=== PATIENT | female | born 1960 | race Caucasian/White ===

== ENCOUNTER 2016-08-30 12:40 | Inpatient (IN) | payer OTHER ==
[~2016-08-30] VITALS: Ht 157.5 cm; Wt 70.0 kg
[~2016-08-30 12:40] MED LIST: CLON0.2T5 PO; COLC0.6T6 PO; ETOMIDATE 20 MG INJ ONE; LABE200T25 PO; LEVO500T10 PO; NIFE60TA11 PO; ROCURONIUM 50 MG INJ ONE; SEVE800T7 PO; VALS160T20 PO
[2016-08-30] MEDS ORDERED: PROPOFOL 100 ML IV STA (12:52)
[2016-08-30] MEDS ORDERED: SODIUM CHLORIDE 0.9% 500 ML BAG IV* STA (12:52)
[2016-08-30] MEDS ORDERED: CEFEPIME 2GM/50 ML (PMX) 50 ML IVPB STA (12:52)
[2016-08-30] MEDS ORDERED: VECURONIUM 100 MG in DEXTROSE 5% 100 ML IV ONE (12:52)
[2016-08-30] MEDS ORDERED: SOD CHLORIDE 0.9% 1,000 ML IV STA ×2 (12:52)
[2016-08-30] MEDS ORDERED: VECURONIUM 10 MG VIAL IV ONE (13:00)
[2016-08-30] MEDS ORDERED: VANCOMYCIN 1 GM (PMX) 250 ML IVPB ONE (13:00)
[2016-08-30] MEDS ORDERED: HYDROmorphONE 1 MG/ML SYG IV STA (13:03)
[2016-08-30 13:23] LABS: ALBUMIN 3.5 g/dl (3.3-4.9); INR 1.08; PT RATIO 1.1
[2016-08-30 13:24] LABS: PARTIAL THROMBOPLASTIN TIME 38.2 Sec (25.0-35.0); POTASSIUM 5.8 mmol/L (3.5-5.1)
[2016-08-30 13:25] LABS: BASOPHILS % 0.3 % (0.0-2.0); EOSINOPHILS # 0.1 10^3/ul (0.0-0.5); EOSINOPHILS % 0.4 % (0.0-7.0); HEMATOCRIT 39.2 % (37.0-47.0); HEMOGLOBIN 12.4 g/dl (12.0-16.0); LYMPHOCYTES # 3.9 10^3/ul (0.8-2.9); LYMPHOCYTES % 26.3 % (15.0-51.0); MEAN CORPUSCULAR HEMOGLOBIN 29.6 pg (29.0-33.0); MEAN CORPUSCULAR HGB CONC 31.7 g/dl (32.0-37.0); MEAN CORPUSCULAR VOLUME 93.6 fl (82.0-101.0); MEAN PLATELET VOLUME 7.8 fl (7.4-10.4); MONOCYTE # 0.7 10^3/ul (0.3-0.9); MONOCYTES % 4.5 % (0.0-11.0); NEUTROPHIL # 10.2 10^3/ul (1.6-7.5); NEUTROPHILS % 68.5 % (39.0-77.0); PLATELET COUNT 280 10^3/UL (140-440); RED BLOOD COUNT 4.19 10^6/ul (4.20-5.40); RED CELL DISTRIBUTION WIDTH 17.2 % (11.5-14.5); UNCORRECTED WBC 14.9 10^3/ul (4.8-10.8); WHITE BLOOD COUNT 14.9 10^3/ul (4.8-10.8)
[2016-08-30 13:26] LABS: ALBUMIN/GLOBULIN RATIO 1.02; CREATININE 7.97 mg/dl (0.44-1.00); TOTAL PROTEIN 6.9 g/dl (6.1-8.1)
[2016-08-30 13:27] LABS: CALCIUM 10.9 mg/dl (8.4-10.2); PHOSPHORUS 9.8 mg/dl (2.5-4.9)
[2016-08-30 13:28] LABS: CONDITION 1; LH ANALYZER COMMENTS 1
[2016-08-30] MEDS ORDERED: LABETALOL HCL 20MG INJ IV ONE (13:30)
[2016-08-30 13:38] LABS: TROPONIN-I 0.095 ng/ml (0.00-0.12)
--- NOTE | 2016-08-30 13:52 | RADRPT ---
PROCEDURE: Chest x-ray CLINICAL INDICATION: Shortness of breath TECHNIQUE: Chest single view COMPARISON: 07/30/2016 FINDINGS: There is interval placement of endotracheal tube which terminates 3 cm above the kassi. Nasogastri c tube extends in the stomach. There is right IJ dialysis catheter with tip at the right atrial SVC junction. Stable mild cardiomegaly is identified. There is ongoing moderate to severe CHF. Small bilateral pleural effusions are seen. IMPRESSION: 1. Interval placement of endotracheal tube which terminates 3 cm above the kassi. 2. Nasogastric tube extends in the stomach. 3. Right IJ dialysis catheter remains in place. 4. Cardiomegaly with ongoing moderate to severe CHF and small bilateral pleural effusion RPTAT: HH .Kev Yoo MD, Date Time Electronically viewed and signed by .Kev Yoo MD, on 08/30/2016 13:51 .W/
[2016-08-30] MEDS ORDERED: NIFE90TA11 PO (14:16)
[2016-08-30 14:17] LABS: AADO2 Arterial 513.8 mmHg (7.0-24.0); Arterial Base Excess -2.3 mmol/L (-3.0-3); Arterial COHb 0.5 % (0.0-3.0); Arterial Fraction of Oxyhgb 98.1 % (93.0-99.0); Arterial HCO3 24.1 mmol/L (22.0-26.0); Arterial MetHb 0.1 % (0.0-1.5); Arterial Total Hemglobin 12.7 g/dl (12.0-18.0); MODE VENT - AC
[2016-08-30] MEDS ORDERED: SEVE0.8P PO (14:17)
[2016-08-30] MEDS ORDERED: SPIR50TA PO (14:18)
[2016-08-30] MEDS ORDERED: ALBU18HF INHALATION (14:18)
[2016-08-30] MEDS ORDERED: SODI650T PO (14:18)
[2016-08-30] MEDS ORDERED: NEPH PO (14:19)
[2016-08-30] MEDS ORDERED: FOLI-49 PO (14:19)
[2016-08-30] MEDS ORDERED: niCARdipine-D5W 0.1MG/ML DRIP 200 ML IV STA (15:26)
--- NOTE | 2016-08-30 15:31 | RADRPT ---
PROCEDURE: CT brain without contrast CLINICAL INDICATION: Altered mental status, TECHNIQUE: CT of the brain without contrast performed on a multidetector CT scanner, with multiplan ar reformats. One or more of the following dose reduction techniques were used: Automated exposure control, adjustment in mA and / or kV according to patient size, use of iterative reconstructive luis hnique. CTDIvol = 44 mGy; DLP = 630 mGy-cm. COMPARISON: None available FINDINGS: No acute intracranial hemorrhage is identified. No extra-axial fluid collection is seen. There is no mass effect. No midline shift is identified. Ventricles and sulci are mildly enlarged compatible with generalized volume loss. The density of the brain is unremarkable. Barragan-white differentiation is preserved. Atherosclerotic calcifications of the intracranial internal carotid arteries are noted. Osseous structures are unremarkable. There is partial bilateral ethmoid air cell opacification, and partial bilateral sphenoid sinus opacification with fluid levels. IMPRESSION: 1. No evidence of acute intracranial pathology. 2. Mild generalized volume loss. RPTAT: VV .Carlos Brewer MD, Date Time Electronically viewed and signed by .Carlos Brewer MD, on 08/30/2016 15:31 .O/
[2016-08-30] MEDS ORDERED: LORAZEPAM 2 MG INJ IV PRN (17:30)
[2016-08-30] MEDS: PROPOFOL 100 ML IV SCH (17:30)
[2016-08-30] MEDS ORDERED: VECURONIUM 100 MG in DEXTROSE 5% 100 ML IV SCH (17:30)
[2016-08-30] MEDS ORDERED: VANCOMYCIN IV PER PHARMACY XX SCH (17:30)
[2016-08-30 17:41] LABS: ADD UMIC YES; URINE BILIRUBIN (Dip) NEGATIVE (NEGATIVE); URINE BLOOD (Dip) 2+ (NEGATIVE); URINE COLOR LT. YELLOW (YELLOW); URINE KETONES (Dip) NEGATIVE (NEGATIVE); URINE LEUKOCYTE ESTERASE (Dip) TRACE (NEGATIVE); URINE NITRITE (Dip) NEGATIVE (NEGATIVE); URINE TOTAL PROTEIN (Dip) 4+ (NEGATIVE); URINE UROBILINOGEN (Dip) 0.2 E.U./dL (0.1-1.0)
[2016-08-30] MEDS ORDERED: INSULIN ASPART [NOVOLOG] 3 ML PEN SC SCH (18:00)
[2016-08-30] MEDS: Insulin NOVOLOG SS MILD Algorithm (NPO/TPN/ENTERAL FEEDS) SC SCH (18:00)
--- NOTE | 2016-08-30 18:07 | ERA ---
ER Documentation Chief Complaint Date/Time DATE: 08/30/16 TIME: 17:58 Chief Complaint Cardiac arrest HPI Patient is a 56-year-old female with dialysis who presents in cardiac arrest. Please note the history and physical exam is limited given the patient mental status at this time. The patient was brought in by ambulance. She was a PEA cardiac arrest at her house. She had shortness of breath prior. She was given 3 epinephrine and 1 bicarb and 1 D50 by paramedics. A Ariel tube was placed in the field. I cannot obtain history otherwise. ROS All systems reviewed and are negative except as per history of present illness. Medications Home Meds Reported Medications Folic Acid* (Folic Acid*) 1 Mg Tablet, 1 MG PO DAILY, TAB 08/30/16 Multivit/Ca Carb/B Cmplx/Fa* (Shana-Negar*) 1 Tab Tab, 1 TAB PO DAILY, TAB 08/30/16 Sodium Bicarbonate* (Sodium Bicarbonate*) 650 Mg Tablet, 650 MG PO BID, TAB 08/30/16 Spironolactone* (Aldactone*) 50 Mg Tablet, 50 MG PO DAILY, #30 TAB 08/30/16 Albuterol Sulfate* (Ventolin HFA*) 18 Gm Hfa.aer.ad, 2 PUFF INHALATION Q4H Y for WHEEZING AND SOB, #1 INHALER 08/30/16 Sevelamer Carbonate* (Renvela*) 0.8 Gm Powd.pack, 1.6 GM PO WITH MEALS, PACKET 08/30/16 Nifedipine* (Nifedipine ER*) 90 Mg Tablet.er, 90 MG PO DAILY, TAB 08/30/16 Labetalol Hcl* (Labetalol Hcl*) 200 Mg Tablet, 200 MG PO TID, TAB 07/31/16 Clonidine Hcl* (Clonidine Hcl*) 0.2 Mg Tablet, 0.2 MG PO DAILY for ELEVATED BLOOD PRESSURE, TAB FOR BLOOD PRESSURE >170/90 07/31/16 Discontinued Reported Medications Nifedipine (Nifedical Xl) 60 Mg Tab.er.24, 60 MG PO QHS, TAB 07/31/16 Valsartan* (Diovan*) 160 Mg Tablet, 160 MG PO BID, TAB 07/31/16 Colchicine* (Colcrys*) 0.6 Mg Tablet, 0.6 MG PO BID, TAB 07/31/16 Sevelamer Carbonate* (Renvela*) 800 Mg Tablet, 0.8 GM PO WITH MEALS, TAB 07/31/16 Discontinued Scripts Levofloxacin* (Levofloxacin*) 500 Mg Tablet, 500 MG PO Q48H for 10 Days, TAB Prov:TANIA FLOYD MD 08/01/16 Allergies Allergies: Coded Allergies: No Known Drug Allergies (Verified Allergy, Unknown, 08/30/16) PMhx/Soc Positive for dialysis Medical and Surgical Hx: Unable to obtain Hx Psychiatric Problems: No Hx Miscellaneous Medical Probl: No Hx Alcohol Use: No Hx Substance Use: No Hx Tobacco Use: No Smoking Status: Never smoker FmHx Unable to obtain Physical Exam Vitals Vital Signs Date Time Temp Pulse Resp B/P Pulse Ox O2 Delivery O2 Flow Rate FiO2 08/30/16 17:18 96.0 97 18 217/140 100 Mechanical Ventilator 08/30/16 15:37 113 18 168/155 100 08/30/16 15:10 96.1 76 20 204/130 100 Mechanical Ventilator 08/30/16 14:00 96.1 80 20 191/124 100 Mechanical Ventilator 08/30/16 13:44 84 18 195/119 100 Mechanical Ventilator 08/30/16 13:16 103 20 227/148 100 Mechanical Ventilator 08/30/16 13:00 78 20 100 100 08/30/16 13:00 96.0 115 17 228/158 100 Mechanical Ventilator 08/30/16 12:45 90 20 168/155 100 Mechanical Ventilator Physical Exam Const: Critically ill Head: Atraumatic Eyes: Normal Conjunctiva ENT: Ariel tube in place Neck: Full range of motion..~ No meningismus. Resp: Clear to auscultation bilaterally Cardio: Regular rate and rhythm, no murmurs Abd: Soft, non tender, non distended. Normal bowel sounds Skin: Pale Back: No midline or flank tenderness Ext: No cyanosis, or edema Neur: GCS 1, 1, 1 Result Diagram: 08/30/16 1245 08/30/16 1245 Results 24 hrs Laboratory Tests Test 08/30/16 12:45 08/30/16 12:52 Activated Partial Thromboplast Time 38.2Sec Alanine Aminotransferase (ALT/SGPT) 59IU/L Albumin 3.5g/dl Albumin/Globulin Ratio 1.02 Alkaline Phosphatase 127IU/L Anion Gap 30 Aspartate Amino Transf (AST/SGOT) 72IU/L Basophils # 0.010^3/ul Basophils % 0.3% Blood Morphology Comment Blood Urea Nitrogen 38mg/dl Calcium Level 10.9mg/dl Carbon Dioxide Level 21mmol/L Chloride Level 94mmol/L Creatinine 7.97mg/dl Direct Bilirubin 0.00mg/dl Eosinophils # 0.110^3/ul Eosinophils % 0.4% Globulin 3.40g/dl Glucose Level 269mg/dl Hematocrit 39.2% Hemoglobin 12.4g/dl INR International Normalized Ratio 1.08 Indirect Bilirubin 0.0mg/dl Lactic Acid Level 7.9mmol/L Lymphocytes # 3.910^3/ul Lymphocytes % 26.3% Magnesium Level 2.0mg/dl Mean Corpuscular Hemoglobin 29.6pg Mean Corpuscular Hemoglobin Concent 31.7g/dl Mean Corpuscular Volume 93.6fl Mean Platelet Volume 7.8fl Monocytes # 0.710^3/ul Monocytes % 4.5% Neutrophils # 10.210^3/ul Neutrophils % 68.5% Nucleated Red Blood Cells # 0.010^3/ul Nucleated Red Blood Cells % 0.0/100WBC Phosphorus Level 9.8mg/dl Platelet Count 15920^3/UL Potassium Level 5.8mmol/L Prothrombin Time 14.0Sec Prothrombin Time Ratio 1.1 Red Blood Count 4.1910^6/ul Red Cell Distribution Width 17.2% Sodium Level 139mmol/L Total Bilirubin 0.0mg/dl Total Protein 6.9g/dl Troponin I 0.095ng/ml White Blood Count 14.910^3/ul Arterial Blood HCO3 24.1mmol/L Arterial Blood Base Excess -2.3mmol/L Arterial Blood Oxygen Saturation 98.7mmHG Cristian Test N/A Arterial Blood Gas Puncture Site Right Brachial Arterial Blood Carboxyhemoglobin 0.5% Arterial Blood Date Drawn 08/30/2016 2:05:44 PM Arterial Blood Methemoglobin 0.1% Arterial Blood pCO2 (Temp correct) 48.2mmhg Arterial Blood pH (Temp corrected) 7.317 Arterial Blood pO2 (Temp corrected) 151.0mmHG Blood Gas A-a O2 Differential 513.8mmHg Blood Gas Actual Respiration Rate 20 Blood Gas Low PEEP Setting 5.0cmH2O Blood Gas Modality VENT - AC Blood Gas Notified Time 08/30/2016 2:17:23 PM Blood Gas Notified Whom AT Blood Gas Respiration Rate 20.0 Blood Gas Specimen Source Blood arterial Blood Gas Temperature 37.0C Blood Gas Tidal Volume 450.0mL FiO2 100.0% Oxyhemoglobin Percent 98.1% Total Hemoglobin 12.7g/dl Current Medications Medications (Trade) Dose Ordered Sig/Vanessa Route PRN Reason Start Time Stop Time Status Last Admin Dose Admin Sodium Chloride 500 ml 500 ml ONCE STAT IV* 08/30/16 12:52 08/30/16 12:54 DC Propofol (Diprivan) 100 ml @ 0 mls/hr ONCE STAT IV 08/30/16 12:52 08/30/16 12:54 DC 08/30/16 13:15 Vecuronium [place] 10 mg 10 mg ONCE ONCE IV 08/30/16 13:00 08/30/16 13:01 DC Vecuronium [place] 100 mg/ Dextrose 100 ml @ 0 mls/hr Q0M ONCE IV 08/30/16 12:52 08/30/16 12:54 DC 08/30/16 14:34 Cefepime HCl 50 ml @ 100 mls/hr ONCE STAT IVPB 08/30/16 12:52 08/30/16 13:21 DC 08/30/16 15:07 Vancomycin HCl 250 ml @ 125 mls/hr ONCE ONCE IVPB 08/30/16 13:00 08/30/16 14:59 DC Sodium Chloride 1,000 ml @ 1,000 mls/hr Q1H STAT IV 08/30/16 12:52 08/30/16 13:51 DC 08/30/16 14:25 Sodium Chloride (NS) 1,000 ml @ 1,000 mls/hr Q1H STAT IV 08/30/16 12:52 08/30/16 13:51 DC Hydromorphone HCl (Dilaudid) 1 mg ONCE STAT IV 08/30/16 13:03 08/30/16 13:04 DC 08/30/16 14:00 Labetalol HCl 20 mg 20 mg ONCE ONCE IV 08/30/16 13:30 08/30/16 13:31 DC 08/30/16 13:34 Nicardipine HCl (Cardene Iv) 200 ml @ 50 mls/hr ONCE STAT IV 08/30/16 15:26 1/25/17 19:25 08/30/16 15:32 Albuterol (Proventil 0.5% (Neb)) 2.5 mg Q4H RESP THERAPY NEB 08/30/16 21:00 Ipratropium [place] (Atrovent 0.02% (Neb)) 0.5 mg Q4H RESP THERAPY NEB 08/30/16 21:00 Pantoprazole (Protonix Iv) 40 mg DAILY@06 IV 08/31/16 06:00 Eye Lubricant 1 drop 1 drop TID BOTH EYES 08/30/16 21:00 Nicardipine HCl 200 ml @ 50 mls/hr TITRATE IV 08/30/16 17:30 Propofol (Diprivan) 100 ml @ 2.1 mls/hr Q12H IV 08/30/16 17:30 Lorazepam 1 mg 1 mg Q2H PRN IV SEIZURES 08/30/16 17:30 UNV Vecuronium [place] 100 mg/ Dextrose 100 ml @ 0 mls/hr TITRATE IV 08/30/16 17:30 UNV Cefepime HCl (Maxipime 1gm/50 ml (Pmx)) 50 ml @ 100 mls/hr Q12 IVPB 08/30/16 21:00 UNV Vancomycin HCl (Vanco Iv Per Pharmacy) VANCOMYCIN PER PHARMACY PER PROTOCOL XX 08/30/16 17:30 UNV Insulin Aspart (Novolog Insulin Pen) NOVOLOG *MILD* ALGORITHM Q6H SC 08/30/16 18:00 UNV Miscellaneous Information (* Miscellaneous Pharmacy Order) HYPOGLYCEMIA PROTOCOL w... ONCE ONCE XX 08/30/16 18:00 08/30/16 18:01 UNV Miscellaneous Information (* Miscellaneous Pharmacy Order) Discontinue Glyburide, Glipizide,... ONCE ONCE XX 08/30/16 18:00 08/30/16 18:01 UNV Miscellaneous Information (* Miscellaneous Pharmacy Order) Discontinue all previ... ONCE ONCE XX 08/30/16 18:00 08/30/16 18:01 UNV Procedures/MDM CT head shows no intracranial hemorrhage per radiology. Chest x-ray shows successful intubation per radiology. Endotracheal Intubation by me: Pre assessment performed. Pre-oxygenation performed with 100% oxygen RSI: Performed w/o complication or hypoxic events. Medications as ordered. Blade: MAC 4 Glidescope ET Tube: 7.5 cm Depth: 21 cm at the lip Intubation confirmed by colorimetric CO2, equal breath sounds, quiet over the stomach. Central Line Placement by me: Patient consented, sterilely draped, full prep, gown, glove, mask, time out performed. Anesthesia: 1% lidocaine locally Location: Right femoral Device: Multiple lumen Technique: Seldinger technique. Secured with suture. Results: Venous return from all ports with easy saline flush. No complications. Guide wire retrieved and disposed of. ED Ultrasound: Central line placed by me using concurrent ultrasound guidance. Real-time images unable to be printed as our ultrasound is being fixed and we borrowed the ICU ultrasound. EKG read by me: Rate/Rhythm: Sinus tachycardia rate of 163 Intervals: Normal Impression: Tachycardia without evidence of ischemia Patient is a 56-year-old female who presents in full cardiac arrest. She had a PEA arrest and was short of breath prior. Review of old medical records shows recent admission for pneumonia and sepsis. I spoke with Dr. Acuña who did not feel the patient requires emergent cardiac catheterization at this time and I agree. Therefore the patient was placed on hypothermia protocol to provide protect her brain. The patient was initially given labetalol for hypertension but her blood pressure was persistently over 200 systolic to nicardipine drip was started. Central line was placed for access. I believe the patient has septic shock as well. Admit MDM: Patient's infectious symptoms have not stabilized and the patient is at risk of rapid decompensation. The patient will be admitted for careful hydration, antibiotic therapy, and infectious source control. Severe Sepsis criteria: Infectious source: Pneumonia End organ damage indicated by: Lactate greater than 2 Sepsis Management: Time of recognition of sepsis: 12:45 Within 3 hours of recognition: Blood cultures x 2 before broad-spectrum antibiotics: Yes 30 ml/kg NS bolus Completed Initial lactate 7.9 Repeat lactate pending Time of recognition of septic shock: 12:45 Septic Shock Assessment: Any lactic acid > 4.0 yes Persistent hypotension (SBP < 90 or 40 mmHg drop, MAP < 65) despite 30 mL/kg IV fluid bolus No Volume Re-assessment for Septic Shock (post 30 ml/kg bolus): Temp 96.1, BP 191/124, HR 80, RR 20, Pox 100% on vent Heart Regular rate & rhythm Lungs decreased breath sounds bilaterally Skin Warm & dry Cap Refill Less than 2 seconds Peripheral pulses Radially present Persistent Hypotension Treatment: Comfort care No Central line Not Required Vasopressor started Not required I considered further perfusion assessment with CVP measurement, SCVO2, bedside ultrasound volume assessment, passive leg raise, trial of further fluid bolus. And proceeded with 30 ml/kg fluid bolus of NSS, broad spectrum antibiotics, and admission. Accepting Care Team Current data and ongoing care discussed. Admitting Physician: Dr. Atkins [employer] Consultant(s): None Outstanding Data: Culture results and repeat lactic acid Critical Care: Critical care time 55 minutes excluding all billable procedures Emergent fluid management while maintaining close respiratory support. Provision of immediate and broad-spectrum antibiotic therapy. Simultaneous assessment for possible sources in order to direct targeted therapy. Consideration for invasive and chemical support to prevent cardiopulmonary collapse. Departure Diagnosis: Primary Impression: Hypertensive emergency Additional Impressions: Cardiac arrest Septic shock Condition: Critical SHANNON ALDRIDGE MD Aug 30, 2016 18:06
[2016-08-30 18:10] LABS: POTASSIUM 5.9 mmol/L (3.5-5.1)
[2016-08-30 18:12] LABS: CREATININE 7.78 mg/dl (0.44-1.00)
[2016-08-30 18:13] LABS: CALCIUM 8.6 mg/dl (8.4-10.2); MAGNESIUM 1.8 mg/dl (1.7-2.5); PHOSPHORUS 6.8 mg/dl (2.5-4.9)
[2016-08-30] MEDS ORDERED: GLUCOSE GEL 15 GRAM TUBE PO PRN ×2 (19:00)
[2016-08-30] MEDS ORDERED: GLUCOSE GEL 15 GRAM TUBE BUCCAL PRN (19:00)
[2016-08-30] MEDS ORDERED: DEXTROSE 50% 50 ML SYRINGE IV PRN (19:00)
[2016-08-30] MEDS ORDERED: GLUCAGON 1 MG INJ IM PRN (19:00)
--- NOTE | 2016-08-30 19:26 | HP ---
DATE OF ADMISSION: 08/30/2016 TIME OF EVALUATION: 1700 REASON FOR ADMISSION: Brought in by paramedics secondary to cardiac arrest. CONSULTANTS: 1. Dr. Haroon Cook, Cardiology 2. Dr. Joseluis Oliver, Pulmonary 3. Dr. Dm Foote, Nephrology HISTORY OF PRESENT ILLNESS: This is a 56-year-old female with past medical history of end-stage renal disease on hemodialysis and essential hypertension who was brought to the emergency room by paramedics after she was found to be unresponsive at home. As per the patient's family, the patient was by herself at home. The patient managed to call paramedics before she became unconscious. As per report, the patient was in PEA. With resuscitation, ROSC was achieved , and the patient was intubated in the field and was brought to the emergency room. In the emergency room at [facility], the patient had her endotracheal tube exchanged by the ER physician. The patient was noticed to have uncontrolled blood pressures in the emergency room. She was also noticed to have lactic acidosis with leukocytosis. The patient underwent a brain CT scan that was negative for any acute intracranial pathology. The patient was started on an IV nicardipine drip for blood pressure control. The patient was also started on propofol and vecuronium. The patient was started on hypothermia protocol. A right femoral central line was inserted by the ER physician. As per the ER physician, he spoke to the on-call concession supervisor regarding possibility of taking the patient to lab tester. However, after discussion with the on-call concession supervisor, it was deemed that the patient doesn' t need to be taken to the lab tester based on the patient's presentation. PAST MEDICAL HISTORY: Essential hypertension, end-stage renal disease on hemodialysis. PAST SURGICAL HISTORY: Hysterectomy, Perm-A-Cath placement, . HOME MEDICATIONS: 1. Clonidine 0.2 mg p.o. daily. 2. Labetalol 200 mg p.o. t.i.d. 3. Nifedipine 90 mg p.o. daily. 4. Aldactone 50 mg p.o. daily. 5. Renvela 1.6 grams p.o. with meals. 6. Sodium bicarbonate 650 mg p.o. b.i.d. 7. Folic acid 1 mg p.o. daily. 8. Shana-Negar 1 tablet p.o. daily. ALLERGIES: NO KNOWN DRUG ALLERGIES. SOCIAL HISTORY: The patient lives at home with her . The patient has 1 grown-up daughter. No history of tobacco, alcohol or illicit drug use. REVIEW OF SYSTEMS: Unable to obtain review of systems because of the patient's clinical condition. OBJECTIVE DATA: VITAL SIGNS: Temperature 96.0, pulse rate 97, respiratory rate 18, blood pressure 217/140, oxygen saturation 100% on 100% FIO2 via mechanical ventilator. GENERAL: This is a 56-year-old female patient lying in bed, orally intubated. HEENT: Head normocephalic and atraumatic. Eyes: Anicteric sclerae. Conjunctivae clear. Pupils are pinpoint and nonreactive. ENT: Nasal septum is midline. Oral mucosa dry. The patient has orogastric tube and ET tube in place. NECK: Supple. No JVD noticed. RESPIRATORY: Bilaterally diminished breath sounds. Bilateral coarse rales heard. ET tube to mechanical ventilation. CARDIAC: Regular rate and rhythm. Sinus tachycardia on the monitor. ABDOMEN: Soft, nontender and nondistended. Bowel sounds positive in all 4 quadrants. GENITOURINARY: The patient has a Patel catheter in place. Right groin triple- lumen catheter. EXTREMITIES: No cyanosis, no clubbing. Bilateral lower extremity 1+ pitting edema. Peripheral pulses palpable. NEUROLOGIC: The patient is unresponsive. Pupils are pinpoint and nonreactive. LABORATORY AND DIAGNOSTIC DATA: WBC 14.9, hemoglobin 12.4, hematocrit 39.2, platelet count 280. Sodium 139, potassium 5.8, chloride 94, carbon dioxide 29, anion gap 30, BUN 30, creatinine 7.97, glucose 269, lactic acid 7.9, calcium 10.9, phosphorus 9.8, magnesium 2.0, AST 72, ALT 15, alkaline phosphatase 127. PT 14.0, INR 1.08, PTT 38.2. Blood gas that was done on 100% FIO2 via mechanical ventilator: pH 7.317, pCO2 40.2, pO2 151, bicarbonate 24.1, oxygen saturation 98.7, base excess -2.3. Chest x-ray: Cardiomegaly with ongoing moderate to severe CHF and small bilateral pleural effusions. Brain CT scan: No evidence of acute intracranial pathology. Mild generalized volume loss. IMPRESSION: This is a 56-year-old female patient who was brought into the emergency room status post unwitnessed cardiac arrest at home who will be admitted here for further treatment and evaluation. ASSESSMENT AND PLAN: 1. Status post cardiac arrest. As per report, the patient had pulseless electrical activity on the field. The patient currently has return of spontaneous circulation. The patient will be maintained on hypothermia protocol. Mechanical ventilation will be managed by Pulmonary. Research Analyst will be consulted. A 2D echocardiogram will be obtained. Serial troponins will be obtained. The patient has no evidence of any underlying intracranial bleeding. 2. Hypertensive urgency. The patient was started on nicardipine drip. This will be titrated to keep systolic blood pressure less than 180. Rapid lowering of blood pressure will be avoided. 3. Systemic inflammatory response syndrome with leukocytosis, lactic acidosis and sinus tachycardia. Most probably noninfectious in origin. Nevertheless, the patient was started on empiric antibiotics in the emergency room. This will be continued. Pancultures will be obtained. 4. End-stage renal disease on hemodialysis. The patient has been compliant with her hemodialysis. Her last hemodialysis was on 08/29/2016. Nephrology consult will be obtained. 5. Hyperglycemia. The patient has no known history of diabetes. The patient' s hyperglycemia could be most probably from underlying cardiac arrest and the resultant stress. If the patient's random blood glucose continues to be running high, she will be started on sliding scale insulin. 6. Hyperkalemia. It is unclear whether the patient's hyperkalemia resulted in cardiac arrest. However, the hyperkalemia is not significantly bad enough. Will repeat the potassium levels. If the repeat potassium level stays high, this will be treated. Nephrology will be involved in the patient's case. Plan. The patient will be admitted to inpatient intensive care unit. The patient will remain a FULL CODE as per the family's wishes. The patient will remain n.p.o. She will be started on DVT prophylaxis and gastrointestinal prophylaxis. The rest of the patient's management will be based on the patient's clinical course, the results of diagnostic studies, and inputs from consultants. Based on the patient's clinical presentation, she most probably requires more than 2 midnights' stay for further management and evaluation of her clinical presentation. The patient's prognosis is poor. This was explained to the patient's family who was at bedside. However, the patient's daughter is out of town, and she will be arriving later tonight to see the patient. A addiction social worker consult will be obtained. The case was discussed with Dr. Guzman. Approximately 60 minutes was spent on the history and physical of this patient. CLEM GUZMAN MD, AM/EMMA Conf#: [id number] DID#: [id number]
[2016-08-30] MEDS ORDERED: ASPIRIN 325 MG TAB PO ONE (19:30)
[2016-08-30] MEDS ORDERED: ASPIRIN 300 MG SUPP PR ONE (19:30)
[2016-08-30 19:44] LABS: AADO2 Arterial 577.3 mmHg (7.0-24.0); Allen Test ACCEPTAB; Arterial Base Excess -3.5 mmol/L (-3.0-3); Arterial COHb 0.2 % (0.0-3.0); Arterial Fraction of Oxyhgb 98.3 % (93.0-99.0); Arterial HCO3 21.5 mmol/L (22.0-26.0); Arterial MetHb 0.1 % (0.0-1.5); Arterial Total Hemglobin 12.9 g/dl (12.0-18.0); MODE VENT - AC
[2016-08-30] MEDS: IPRATROPIUM (NEB) 0.5 MG/2.5 ML AMP NEB SCH (21:00)
[2016-08-30] MEDS: ALBUTEROL 0.5% (NEB) 2.5 MG/0.5 ML AMP NEB SCH (21:00)
[2016-08-30] MEDS: ARTIFICIAL TEARS 15 ML OPH BOTH EYES SCH (21:15)
[2016-08-30] MEDS: CEFEPIME 1GM/50 ML (PMX) 50 ML IVPB SCH (21:17)
[2016-08-31] VITALS (54 sets, daily range): BP systolic 114–161; BP diastolic 62–90; PULSE 67–99; RESP 16–22; TEMP 91.4; Ht 157.5 cm; Wt 70.0 kg
[2016-08-31 01:16] LABS: AADO2 Arterial 404.1 mmHg (7.0-24.0); Allen Test ACCEPTAB; Arterial Base Excess -2.7 mmol/L (-3.0-3); Arterial COHb 0.1 % (0.0-3.0); Arterial Fraction of Oxyhgb 99.3 % (93.0-99.0); Arterial HCO3 21.7 mmol/L (22.0-26.0); Arterial MetHb 0.2 % (0.0-1.5); Arterial Total Hemglobin 13.1 g/dl (12.0-18.0); MODE VENT - AC
[2016-08-31] MEDS: IPRATROPIUM (NEB) 0.5 MG/2.5 ML AMP NEB SCH (01:49)
[2016-08-31] MEDS: ALBUTEROL 0.5% (NEB) 2.5 MG/0.5 ML AMP NEB SCH (01:49)
[2016-08-31] MEDS: IPRATROPIUM (HFA) 12.9 GM INHALER INH SCH ×5 (04:53→21:31)
[2016-08-31] MEDS: ALBUTEROL HFA 8 GM INHALER INH SCH ×5 (04:54→21:31)
[2016-08-31] MEDS: PROPOFOL 100 ML IV SCH ×2 (05:30→08:25)
[2016-08-31] MEDS: PANTOPRAZOLE 40 MG INJ IV SCH (05:37)
[2016-08-31] MEDS: Insulin NOVOLOG SS MILD Algorithm (NPO/TPN/ENTERAL FEEDS) SC SCH ×4 (05:44→18:00)
[2016-08-31 06:01] LABS: HEMATOCRIT 39.1 % (37.0-47.0); HEMOGLOBIN 12.7 g/dl (12.0-16.0); LYMPHOCYTES # 0.5 10^3/ul (0.8-2.9); MEAN CORPUSCULAR HEMOGLOBIN 30.2 pg (29.0-33.0); MEAN CORPUSCULAR HGB CONC 32.4 g/dl (32.0-37.0); MEAN CORPUSCULAR VOLUME 93.1 fl (82.0-101.0); MONOCYTE # 0.4 10^3/ul (0.3-0.9); MONOCYTES % 2.1 % (0.0-11.0); NEUTROPHIL # 17.5 10^3/ul (1.6-7.5); NEUTROPHILS % 94.9 % (39.0-77.0); PLATELET COUNT 152 10^3/UL (140-440); UNCORRECTED WBC 18.5 10^3/ul (4.8-10.8); WHITE BLOOD COUNT 18.5 10^3/ul (4.8-10.8)
[2016-08-31 06:09] LABS: CONDITION 1; LH ANALYZER COMMENTS 1
[2016-08-31 06:11] LABS: ALBUMIN 3.4 g/dl (3.3-4.9); POTASSIUM 4.2 mmol/L (3.5-5.1)
[2016-08-31 06:14] LABS: CALCIUM 8.7 mg/dl (8.4-10.2); CREATININE 8.12 mg/dl (0.44-1.00); TOTAL PROTEIN 6.8 g/dl (6.1-8.1)
[2016-08-31 06:41] LABS: MAGNESIUM 1.9 mg/dl (1.7-2.5)
[2016-08-31 06:43] LABS: PHOSPHORUS 3.9 mg/dl (2.5-4.9)
[2016-08-31] MEDS: niCARdipine-D5W 0.1MG/ML DRIP 200 ML IV SCH ×4 (09:07→22:58)
--- NOTE | 2016-08-31 09:39 | CONS ---
Date/Time of Note Date/Time of Note DATE: 08/31/16 TIME: 09:29 Assessment/Plan Assessment/Plan Additional Assessment/Plan Assessment and recommendation NV: Next 1. Patient admitted with cardiac arrest with prolonged CPR lasting 20 minutes likely resulting in some element of anoxic encephalopathy. 2. Chest x-ray revealing reviewed from yesterday showing significant pulmonary edema cardiomegaly endotracheal tube is at an adequate level there is a hemodialysis catheter in the right subclavian vein. Next 3. Hypertension patient was significantly hypertensive on admission however CT imaging of the brain has been unremarkable. Currently on nicardipine drip and on hypothermic protocol patient being paralyzed with vecuronium drip. Next 4. And currently mildly alkalotic ventilator settings will be adjusted. Next 5. Underlying sepsis patient currently on appropriate antibiotic regimen. Next 6. Etiology of cardiac arrest is unclear no evidence of any cardiac arrhythmia or electrolyte abnormalities. Continue current supportive care. She will be taken off paralysis around 5 PM today and will be given a sedation vacation tomorrow morning to assess mental status. For the recovery will entirely depend upon adequate mental status recovery. Patient likely would need to be dialyzed again today. I did have a very detailed discussion the patient's daughter at bedside and answered all her questions. Prognosis very guarded. Consultation Date/Type/Reason Admit Date/Time Aug 30, 2016 at 15:45 Date of Consultation: Aug 31, 2016 Type of Consultation: pulmonary/ critical care. Reason for Consultation Patient admitted with a cardiac arrest with respiratory failure. Hx of Present Illness Patient is a 60-year-old Syriac lady who was brought into the emergency room after the patient called 911 with complaints of shortness of breath by the time the EMS arrived the patient was found unresponsive had pulseless electrical activity along CPR was done lasting approximately 20 minutes with revival of vital signs. She currently is on hypothermic protocol and is sedated paralyzed on mechanical ventilation or intubated. She also was obtained from medical records as well as patient's daughter who is currently present in the room. The patient's daughter the patient was admitted last month with pneumonia and were discharged home however the patient was complaining of mild shortness of breath for the last couple of days prior to the event which occurred yesterday afternoon. Past Medical History Past medical history; 1. History of end-stage renal disease for the last 1 year patient very compliant with hemodialysis on outpatient basis. 2. Remote history of hysterectomy. 3. History of hypertension. 4. History of pneumonia about a month ago. 5. No history of any respiratory failure or cardiac arrest in the past. 6. No history of any seizure disorder. Medications; were reviewed. Next Allergies are none. Social history: no history of any smoking alcohol or drug abuse. Family history; patient with a history of renal disorder in the family. She is she has 1 daughter patient is with her . Occupational history; patient has been a housewife. Next Review of review of systems; currently unable to be obtained. Patient is sedated paralyzed on mechanical ventilation or intubated. Social History Smoking Status: Never smoker Exam/Review of Systems Vital Signs Vitals Vital Signs Date Time Temp Pulse Resp B/P Pulse Ox O2 Delivery O2 Flow Rate FiO2 08/31/16 08:00 88 08/31/16 07:50 20 100 100 08/31/16 07:28 91.4 140/81 Mechanical Ventilator Exam H EENT examination; supple neck, no JVD, or intubated. No neck masses no thyromegaly no lymphadenopathy. Pupils are midsize nonreactive to light. Next Chest examination; diminished but clear breath sounds bilaterally S1-S2 audible no murmurs regular rhythm. Next Abdomen examination; soft, nondistended, no organomegaly. Bowel sounds are very sluggish to absent. Extremity examination; no peripheral edema, pulses 1+ bilaterally. No clubbing. [employer] examination; she currently is sedated and paralyzed. Results Result Diagram: 08/31/16 0530 08/31/16 0532 Results 24 hrs Laboratory Tests Test 08/30/16 12:45 08/30/16 12:52 08/30/16 17:00 08/30/16 17:30 Activated Partial Thromboplast Time 38.2 H Alanine Aminotransferase (ALT/SGPT) 59 Albumin 3.5 Albumin/Globulin Ratio 1.02 Alkaline Phosphatase 127 H Anion Gap 30 H 23 #H Aspartate Amino Transf (AST/SGOT) 72 H Basophils # 0.0 Basophils % 0.3 Blood Morphology Comment Blood Urea Nitrogen 38 H 44 H Calcium Level 10.9 H 8.6 Carbon Dioxide Level 21 23 Chloride Level 94 L 99 Creatinine 7.97 H 7.78 H Direct Bilirubin 0.00 Eosinophils # 0.1 Eosinophils % 0.4 Free Thyroxine 1.01 Globulin 3.40 H Glucose Level 269 H 136 # Hematocrit 39.2 # Hemoglobin 12.4 # Hemoglobin A1c 4.1 INR International Normalized Ratio 1.08 Indirect Bilirubin 0.0 Lactic Acid Level 7.9 *H 2.4 H Lymphocytes # 3.9 H Lymphocytes % 26.3 Magnesium Level 2.0 1.8 Mean Corpuscular Hemoglobin 29.6 Mean Corpuscular Hemoglobin Concent 31.7 L Mean Corpuscular Volume 93.6 Mean Platelet Volume 7.8 Monocytes # 0.7 Monocytes % 4.5 Neutrophils # 10.2 H Neutrophils % 68.5 Nucleated Red Blood Cells # 0.0 Nucleated Red Blood Cells % 0.0 Phosphorus Level 9.8 H 6.8 #H Platelet Count 280 # Potassium Level 5.8 H 5.9 H Prothrombin Time 14.0 Prothrombin Time Ratio 1.1 Red Blood Count 4.19 #L Red Cell Distribution Width 17.2 H Sodium Level 139 139 Thyroid Stimulating Hormone (TSH) 5.150 H Total Bilirubin 0.0 L Total Protein 6.9 Troponin I 0.095 0.642 *H White Blood Count 14.9 #H Arterial Blood HCO3 24.1 Arterial Blood Base Excess -2.3 Arterial Blood Oxygen Saturation 98.7 H Cristian Test N/A Arterial Blood Gas Puncture Site Right Brachial Arterial Blood Carboxyhemoglobin 0.5 Arterial Blood Date Drawn 08/30/2016 2:05:44 PM Arterial Blood Methemoglobin 0.1 Arterial Blood pCO2 (Temp correct) 48.2 H Arterial Blood pH (Temp corrected) 7.317 L Arterial Blood pO2 (Temp corrected) 151.0 H Blood Gas A-a O2 Differential 513.8 H Blood Gas Actual Respiration Rate 20 Blood Gas Low PEEP Setting 5.0 Blood Gas Modality VENT - AC Blood Gas Notified Time 08/30/2016 2:17:23 PM Blood Gas Notified Whom AT Blood Gas Respiration Rate 20.0 Blood Gas Specimen Source Blood arterial Blood Gas Temperature 37.0 Blood Gas Tidal Volume 450.0 FiO2 100.0 Oxyhemoglobin Percent 98.1 Total Hemoglobin 12.7 Urine Bilirubin NEGATIVE Urine Clarity CLEAR Urine Color LT. YELLOW Urine Glucose 0.25% H Urine Hemoglobin 2+ H Urine Ketones NEGATIVE Urine Leukocyte Esterase TRACE H Urine Microscopic RBC 2-5 Urine Microscopic WBC 2-5 Urine Nitrite NEGATIVE Urine Specific [place] 1.010 Urine Total Protein 4+ H Urine Urobilinogen 0.2 E.U./dL Urine pH 8.0 Test 08/30/16 19:19 08/30/16 20:27 08/30/16 23:45 08/31/16 01:06 Arterial Blood HCO3 21.5 L 21.7 L Arterial Blood Base Excess -3.5 L -2.7 Arterial Blood Oxygen Saturation 98.6 H 99.6 H Cristian Test ACCEPTAB ACCEPTAB Arterial Blood Gas Puncture Site Right Radial Right Radial Arterial Blood Carboxyhemoglobin 0.2 0.1 Arterial Blood Date Drawn 08/30/2016 7:38:17 PM 08/31/2016 1:10:34 AM Arterial Blood Methemoglobin 0.1 0.2 Arterial Blood pCO2 (Temp correct) 31.1 L 30.6 L Arterial Blood pH (Temp corrected) 7.435 7.452 H Arterial Blood pO2 (Temp corrected) 115.8 H 287.8 H Blood Gas A-a O2 Differential 577.3 H 404.1 H Blood Gas Actual Respiration Rate 20 20 Blood Gas Inspiratory Pressure 31.0 Blood Gas Low PEEP Setting 5.0 5.0 Blood Gas Modality VENT - AC VENT - AC Blood Gas Notified Time 08/30/2016 7:43:55 PM 08/31/2016 1:16:24 AM Blood Gas Notified Whom BR BR Blood Gas Respiration Rate 20.0 20.0 Blood Gas Specimen Source Blood arterial Blood arterial Blood Gas Temperature 32.1 33.0 Blood Gas Tidal Volume 450.0 450.0 FiO2 100.0 100.0 Oxyhemoglobin Percent 98.3 99.3 H Total Hemoglobin 12.9 13.1 Bedside Glucose 234 H Lactic Acid Level 1.7 Troponin I 0.953 *H Test 08/31/16 05:30 08/31/16 05:32 08/31/16 07:00 Basophils # 0.0 Basophils % 0.0 Blood Morphology Comment Cholesterol Level 141 Cholesterol/HDL Ratio 3.0 Eosinophils # 0.0 Eosinophils % 0.0 HDL Cholesterol 47 Hematocrit 39.1 Hemoglobin 12.7 LDL Cholesterol, Calculated 75 Lactic Acid Level 1.9 Lymphocytes # 0.5 L Lymphocytes % 3.0 L Magnesium Level 1.9 Mean Corpuscular Hemoglobin 30.2 Mean Corpuscular Hemoglobin Concent 32.4 Mean Corpuscular Volume 93.1 Mean Platelet Volume 8.0 Monocytes # 0.4 Monocytes % 2.1 Neutrophils # 17.5 H Neutrophils % 94.9 H Nucleated Red Blood Cells # 0.0 Nucleated Red Blood Cells % 0.0 Phosphorus Level 3.9 # Platelet Count 152 # Red Blood Count 4.20 Red Cell Distribution Width 18.0 H Triglycerides Level 94 Troponin I 0.995 *H White Blood Count 18.5 #H Alanine Aminotransferase (ALT/SGPT) 55 Albumin 3.4 Albumin/Globulin Ratio 1.00 Alkaline Phosphatase 102 Anion Gap 20 H Aspartate Amino Transf (AST/SGOT) 38 Blood Urea Nitrogen 49 H Calcium Level 8.7 Carbon Dioxide Level 21 Chloride Level 103 Creatinine 8.12 H Direct Bilirubin 0.00 Globulin 3.40 H Glucose Level 118 Indirect Bilirubin 0.0 Potassium Level 4.2 Sodium Level 140 Total Bilirubin 0.0 L Total Protein 6.8 Arterial Blood HCO3 23.5 Arterial Blood Base Excess -0.4 Arterial Blood Oxygen Saturation 97.6 Cristian Test ACCEPTAB Arterial Blood Gas Puncture Site Right Radial Arterial Blood Carboxyhemoglobin 0.3 Arterial Blood Date Drawn 08/31/2016 7:22:26 AM Arterial Blood Methemoglobin 0.2 Arterial Blood pCO2 (Temp correct) 34.2 L Arterial Blood pH (Temp corrected) 7.454 H Arterial Blood pO2 (Temp corrected) 100.6 H Blood Gas A-a O2 Differential 145.3 H Blood Gas Modality TRACH COLLAR Blood Gas Notified Time 08/31/2016 7:46:15 AM Blood Gas Notified Whom TM Blood Gas Specimen Source Blood arterial Blood Gas Temperature 37.0 FiO2 40.0 Oxyhemoglobin Percent 97.1 Total Hemoglobin 6.8 L Medications Medications Current Medications Pantoprazole (Protonix Iv) 40 mg DAILY@06 IV Last administered on 08/31/16 05: 37; Admin Dose 40 MG; Start 08/31/16 at 06:00 Eye Lubricant 1 drop 1 drop TID BOTH EYES Last administered on 08/30/16 21:15 ; Admin Dose 1 DROP; Start 08/30/16 at 21:00 Nicardipine HCl 200 ml @ 50 mls/hr TITRATE IV Last administered on 08/31/16 09:07; Admin Dose 50 MLS/HR; Start 08/30/16 at 17:30 Propofol (Diprivan) 100 ml @ 2.1 mls/hr Q12H IV Last administered on 08:25; Admin Dose 1.68 MLS/HR; Start 08/30/16 at 17:30 Lorazepam 1 mg 1 mg Q2H PRN IV SEIZURES; Start 08/30/16 at 17:30 Vecuronium [place] 100 mg/ Dextrose 100 ml @ 0 mls/hr TITRATE IV Last administered on 08/31/16 08:25; Admin Dose 2.1 MLS/HR; Start 08/30/16 at 17:30 Cefepime HCl (Maxipime 1gm/50 ml (Pmx)) 50 ml @ 100 mls/hr Q24H IVPB Last administered on 08/30/16 21:17; Admin Dose 100 MLS/HR; Start 08/30/16 at 21:00 Miscellaneous Information 1 ea NOTE XX ; Start 08/30/16 at 19:00 Glucose (Glutose) 15 gm Q15M PRN PO DECREASED GLUCOSE; Start 08/30/16 at 19:00 Glucose (Glutose) 22.5 gm Q15M PRN PO DECREASED GLUCOSE; Start 08/30/16 at 19: 00 Dextrose (D50w Syringe) 25 ml Q15M PRN IV DECREASED GLUCOSE; Start 08/30/16 at 19:00 Dextrose (D50w Syringe) 50 ml Q15M PRN IV DECREASED GLUCOSE; Start 08/30/16 at 19:00 Glucagon (Glucagen) 1 mg Q15M PRN IM DECREASED GLUCOSE; Start 08/30/16 at 19:00 Glucose (Glutose) 15 gm Q15M PRN BUCCAL DECREASED GLUCOSE; Start 08/30/16 at 19 :00 Insulin Aspart (Novolog Insulin Pen) (Adult SC Insulin - Mild Algorithm)... Q6 SC ; Start 08/30/16 at 18:00 YELENA KEMP Aug 31, 2016 09:39
--- NOTE | 2016-08-31 10:42 | PN ---
DATE: 08/31/2016 SUBJECTIVE DATA: The patient remains on hypothermia protocol. INFUSIONS: 1. Propofol. 2 . Vecuronium. 3. Cardene. OBJECTIVE DATA: VITAL SIGNS: Temperature 91.4, pulse rate 88, respiratory rate 20, blood pressure 140/81, oxygen saturation 100% on 100% FIO2 via mechanical ventilator. GENERAL: This is a 56-year-old female patient lying in bed, orally intubated. HEENT: Head normocephalic and atraumatic. Eyes: Anicteric sclerae. Conjunctivae clear. ENT: Nasal septum is midline. Oral mucosa is dry. The patient has an orogastric tube and ET tube in place. NECK: Supple. No JVD noticed. RESPIRATORY: Bilaterally diminished breath sounds. Bilateral coarse rales heard. ET tube to mechanical ventilator. On AC mode ventilation. CARDIAC: Regular rate and rhythm. Sinus tachycardia on the monitor. ABDOMEN: Soft, nontender and nondistended. Bowel sounds hypoactive. GENITOURINARY: The patient has a Patel catheter in place. Right groin triple lumen catheter. EXTREMITIES: No cyanosis, no clubbing. Bilateral lower extremity 1+ pitting edema. Peripheral pulses are palpable. NEUROLOGIC: The patient is unresponsive. Pupils are pinpoint and nonreactive. LABORATORY AND DIAGNOSTIC DATA: WBC 18.5, hemoglobin 12.7, hematocrit 39.1, platelet count 152. Sodium 140, potassium 4.2, chloride 103, carbon dioxide 21 , anion gap 20, BUN 49, creatinine 8.12, glucose 118, calcium 8.7. Troponin I 0.995. Latest blood gas: pH 7.454, pCO2 34.2, pO2 100.6, bicarbonate 23.5 oxygen saturation 97.6, base excess -0.4. ASSESSMENT AND PLAN: 1. Status post cardiac arrest. The patient currently on hypothermia protocol. Pending 2D echocardiogram. Pending cardiology evaluation. 2. Elevated troponins, most probably secondary to the cardiac arrest. Pending cardiology evaluation. 3. Acute respiratory failure. Hypoxic. Secondary to cardiac arrest. Ventilator management as per pulmonary. Continue inhaled bronchodilators. 4. Hypertensive urgency. The patient on a Cardene drip. Blood pressure well controlled. 5. Systemic inflammatory response syndrome with leukocytosis, lactic acidosis and tachycardia. Lactic acidosis has resolved. The patient on empiric antibiotics for any underlying infectious etiology. Pancultures pending. 6. End-stage renal disease on hemodialysis. Nephrology has been consulted. The patient's electrolyte levels are stable. 7. Hyperkalemia, resolved. 8. Fluid, electrolytes and nutrition. Continue n.p.o. 9. Deep venous thrombosis prophylaxis with bilateral sequential compression devices. 10. Gastrointestinal prophylaxis. Proton pump inhibitors. PLAN: Continue hypothermia protocol. Await cardiology evaluation. Awaiting input from other consultants. Palliative Care has also been consulted because of the patient's poor prognosis. Case discussed with Dr. Holloway. Critical care time: 35 minutes. CLEM HOLLOWAY MD, AM/EMMA Conf#: [id number] DID#: [id number] MTDD
[2016-08-31 11:51] LABS: HEMATOCRIT 38.3 % (37.0-47.0); HEMOGLOBIN 12.4 g/dl (12.0-16.0); MEAN CORPUSCULAR HGB CONC 32.4 g/dl (32.0-37.0); MEAN CORPUSCULAR VOLUME 92.6 fl (82.0-101.0); MEAN PLATELET VOLUME 8.5 fl (7.4-10.4); PLATELET COUNT 162 10^3/UL (140-440); RED BLOOD COUNT 4.13 10^6/ul (4.20-5.40); RED CELL DISTRIBUTION WIDTH 17.7 % (11.5-14.5); UNCORRECTED WBC 16.5 10^3/ul (4.8-10.8); WHITE BLOOD COUNT 16.5 10^3/ul (4.8-10.8)
--- NOTE | 2016-08-31 12:00 | PN ---
DATE: 08/31/2016 NEPHROLOGY FOLLOWUP SUBJECTIVE: The patient remains critically ill, currently on hypothermic protocol in the intensive care unit. The patient remains on nicardipine drip due to hypertensive urgency. There has been no reports of hemoptysis, hematemesis or hematochezia. OBJECTIVE: VITAL SIGNS: Blood pressure 140/81, respirations 20, pulse 92, temperature 91.4. HEENT: Head is normocephalic. Pupils are pinpoint but reactive. NECK: Supple. HEART: Regular rate. LUNGS: Show diminished breath sounds at base. Positive rhonchi and crackles. ABDOMEN: Soft, nontender to palpation. CHEST: Positive Perm-A-Cath. EXTREMITIES: Negative for clubbing, cyanosis. Positive edema. DERMATOLOGIC: No rashes. MUSCULOSKELETAL: No joint effusions. NEUROLOGIC: No change in exam. MEDICATIONS: Reviewed. LABORATORY DATA: Showed sodium 140, potassium 4.2, chloride 103, BUN 49, creatinine 8.12. White co unt 18.5, hemoglobin 12.7, hematocrit 39.1, platelet count 152. ASSESSMENT AND PLAN: 1. End-stage renal disease. The patient is on dialysis Sunday, , Sunday. Access is Per m-A-Cath. Plan for hemodialysis today for 3 hours on a 3 K bath, calcium 2.5. Will ultrafiltrate as tolerated. Anticipate daily dialysis until the patient is euvolemic. 2. Volume overload. The patient has noted pulmonary congestion, lower extremity edema. Plan is fo r dialysis today, ultrafiltration goal 2 to 3 liters. Will continue daily dialysis until euvolemic. 3. Hypertensive urgency in part due to increased intravascular volume. We will continue dialysis a lyle. Continue nicardipine drip. 4. Mineral bone disorder. Monitor calcium and phosphorus levels. No need for phosphate binders. 5. Hyperkalemia, resolved. 6. Cardiac arrest. The patient is currently on hypothermic protocol. Will continue. Follow up wit h cardiology. 7. Elevated troponin, non-ST elevation myocardial infarction, type 1 versus type 2. Will continue to monitor serial troponins. Follow up 2D echo. The patient is currently on hypothermic protocol. Continue current medical management. 8. Ventilatory-dependent respiratory failure. Vent settings have been reviewed. ABG has been revie wed. Continue to monitor. 9. Acute encephalopathy, etiology secondary to cardiac arrest. Will monitor the patient closely on ce the patient initiates rewarming phase of hypothermic protocol. 10. Leukocytosis, sepsis inflammatory response syndrome. The patient is currently on empiric antib iotics, follow up cultures. We will monitor closely. Please note, I spent over 40 minutes of critical care time with this patient, discussed the case wit h hospital staff and the patient's family at bedside. Dictated By: TIP SOLORIO/EMMA Conf#: [id number] DID#: [id number]
[2016-08-31] MEDS: ARTIFICIAL TEARS 15 ML OPH BOTH EYES SCH ×3 (12:03→20:32)
[2016-08-31 12:04] LABS: CONDITION 1; LH ANALYZER COMMENTS 1
--- NOTE | 2016-08-31 12:10 | CONS ---
DATE OF ADMISSION: 08/30/2016 DATE OF CONSULTATION: 08/30/2016 TYPE OF CONSULTATION: Nephrology. REASON FOR CONSULTATION: End-stage renal disease. PHYSICIAN REQUESTING CONSULT: Masoud Madden MD HISTORY OF PRESENT ILLNESS: This is a 56-year-old female with a past medical history of end-stage r enal disease, on dialysis since October of 2015. The patient has dialysis Sunday, , Sunday with an access Perm-A-Cath. Her doctor of audiology is Dr. Brown, at [facility]. The patient was brought to the [facility] on 08/30/2016 after having a cardiac arrest. Histo ry was obtained by speaking to the patient's daughter, who states that the patient had her normal di alysis session on Sunday and Sunday; however, she was complaining of shortness of breath and the patient then subsequently collapsed. The patient's daughter believes that her mother was down for approximately 20 minutes. EMS services were called. EMS services started the patient on CPR. She w as subsequently brought over to [facility]. The patient was given 3 doses of epin ephrine and 1 of bicarb by paramedics. In the emergency room the patient had laboratory data drawn, which showed a white count of 14.9, sodium 139, potassium 5.9, BUN 44, creatinine 7.78. The patien t had a chest x-ray which showed evidence of pulmonary congestion. The patient in the emergency padmini m was placed on hyperthermic protocol, was given aspirin, was given IV labetalol and Dilaudid for hy pertensive urgency and placed on a nicardipine drip. PAST MEDICAL HISTORY: History of end-stage renal disease, anemia, hypertension. PAST SURGICAL HISTORY: Status post Perm-A-Cath placement. ALLERGIES: NO KNOWN DRUG ALLERGIES. FAMILY HISTORY: No family history of kidney disease or heart disease. SOCIAL HISTORY: She does not drink, smoke or do drugs. MEDICATION: The patient's medications have been reviewed. REVIEW OF SYSTEMS: Unable to do adequate review of systems as the patient is obtunded. Pertinent p ositives were obtained by reviewing medical records, speaking to hospital staff, as stated in the HP I. Otherwise negative. PHYSICAL EXAMINATION: VITAL SIGNS: Blood pressure is 170/85, respirations 20, pulse is 82, temperature 98.2. HEENT: Head is normocephalic. NECK: Supple. HEART: Regular rate. CHEST EXAM: Shows a Perm-A-Cath. LUNGS: Showed diminished breath sounds at the base. Positive rhonchi, crackles. ABDOMEN: Soft, nontender to palpation. No rebound or guarding. EXTREMITIES: Negative for clubbing or cyanosis. Positive edema. DERMATOLOGIC: No rashes. MUSCULOSKELETAL: Have no joint effusion. NEUROLOGIC: Limited exam, as the patient is obtunded. LABORATORY DATA: Shows a white count of 14.9, hemoglobin 12.4, hematocrit 39.2, platelet count 280. Sodium 139, potassium 5.9, chloride 99, BUN 44, creatinine 7.78, phosphorus 6.8, troponin 0.62. L actic acid 2.4. IMAGING STUDIES: As stated in the HPI. CT scan of the brain shows no evidence of acute pathology. ASSESSMENT AND PLAN: This is a 56-year-old female who presents with: 1. End-stage renal disease. The patient is on dialysis Sunday, and Sunday. Last hemod ialysis was Sunday. Access is with Perm-A-Cath. Plan is for the patient to be initiated on hemodi alysis once transferred from the to the ICU. The patient is currently hyperkalemic with a po tassium of 5.9. Will anticipate dialysis for 3 hours on a 2K bath, calcium 2.5, will ultrafiltrate as tolerated. 2. Hyperkalemia. Etiology is secondary to end-stage renal disease. Plan for hemodialysis for 2 ho urs on a 2K bath. Agree with giving the patient bicarbonate therapy. Will follow up and repeat a p otassium level and monitor closely. 3. Mixed acid base disorder. The patient has respiratory metabolic acidosis. The patient's ABG sh ows a pH of 7.317, with pCO2 of 48. The patient is status post bicarbonate. Will plan for hemodial ysis on a 30 bicarbonate bath and monitor closely. 4. Hypertensive emergency. Etiology is secondary, in part, due to increased intravascular volume. Plan is for ultrafiltration with dialysis, with a goal 2 to 3 liters of fluid removal. Would other horton continue medical management, continue labetalol, continue nicardipine drip. 5. Status post cardiac arrest. Underlying etiology is unclear, may be secondary to electrolytes an d hyperkalemia, resulting in PEA. Other possibilities include hypoxemia from respiratory failure. The patient is currently on hypothermic protocol. Will continue. 6. Ventilator-dependent respiratory failure. Vent settings have been reviewed. ABG has been revie wed. Continue the current vent settings. 7. Acute encephalopathy. Etiology is secondary to cardiac arrest. The patient is currently on hyp othermic protocol. Continue to monitor. 8. Leukocytosis, systemic inflammatory response syndrome. The patient may have underlying infectio n after cardiac arrest. Currently on empiric antibiotics. Will continue. Follow up cultures. 9. Mineral bone disorder. Will monitor calcium and phosphorus levels. 10. Volume overload. Etiology is secondary to end-stage renal disease. As stated above, the patie nt will receive dialysis daily, with ultrafiltration until the patient is near euvolemic status. Thank you, Dr. Madden, for this interesting consultation. It will be a pleasure to follow the patie nt with you throughout the hospital course. Dictated By: TIP LIZARRAGA DO NR/EMMA Conf#: [id number] DID#: [id number]
[2016-08-31 12:11] LABS: CREATININE 7.92 mg/dl (0.44-1.00)
[2016-08-31 12:11] LABS: Allen Test ACCEPTAB; Arterial Base Excess -3.5 mmol/L (-3.0-3); Arterial COHb 0.3 % (0.0-3.0); Arterial Fraction of Oxyhgb 98.9 % (93.0-99.0); Arterial HCO3 21.6 mmol/L (22.0-26.0); Arterial MetHb 0.1 % (0.0-1.5); Arterial Total Hemglobin 13.5 g/dl (12.0-18.0); MODE VENT - AC
[2016-08-31 12:12] LABS: CALCIUM 8.9 mg/dl (8.4-10.2); MAGNESIUM 1.7 mg/dl (1.7-2.5); PHOSPHORUS 5.4 mg/dl (2.5-4.9)
[2016-08-31 12:22] LABS: CK-MB 4.23 ng/ml (0.0-2.4)
[2016-08-31 12:26] LABS: TROPONIN-I 0.781 ng/ml (0.00-0.12)
[2016-08-31 12:55] LABS: LYMPHOCYTES # 0.5 10^3/ul (0.8-2.9); MONOCYTE # 0.5 10^3/ul (0.3-0.9); NEUTROPHIL # 14.7 10^3/ul (1.6-7.5)
[2016-08-31 13:08] LABS: TROPONIN-I 0.827 ng/ml (0.00-0.12)
--- NOTE | 2016-08-31 13:18 | RADRPT ---
Echocardiogram Report Patient Name: XI FUENTES Gender: Female Date: 1960 Study Date: 31-Aug-2016 Manager Nc: [place] [facility] Location: 104 Ref. Physician: CLEM HUNG Quality: Technically Difficult Study Procedures: Transthoracic echocardiogram with complete 2D, M-Mode, and doppler examination. Indications: Cardiology Evaluation. 2D/M Mode Doppler Measurement Value Normal Ranges Measurement Value Normal Ranges LVIDd 2D 3.4 3.5 - 5.6 cm AV Peak Sal 1.8 m/sec LVIDs 2D 2.3 2.1 - 4.1 cm AV Peak PG 13.0 mmHg FS 2D 31.8 % LVOT Peak Sal 1.0 m/sec LVPWd 2D 1.5 0.6 - 1.1 cm LVOT Peak PG 4.0 mmHg IVSd 2D 1.5 0.6 - 1.1 cm MV E Peak Sal 1.1 m/sec IVS/LVPW 2D 1.0 TR Peak Sal 3.1 m/sec AoR Diam 2D 2.6 2.0 - 3.7 cm TR Peak PG 39.0 mmHg LA/Ao 2D 1 0 - 1 EDV 2D 39.3 cm3 ESV 2D 12.5 cm3 LA Dimen 2D 3.1 2.3 - 4.0 cm Findings Left Ventricle: Normal left ventricular systolic function. Normal left ventricular cavity size. Moderate concentric left ventricular hypertrophy. Ejection fraction is visually estimated at 6065 %. Abnormal Diastolic Function. Right Ventricle: Normal right ventricular size. Normal right ventricular systolic function. Left Atrium: The left atrium is normal in size. Right Atrium: The right atrium is normal in size. Prominent Eustachian valve (normal variant). Mitral Valve: Mild mitral leaflet calcification. Mild mitral annular calcification. Trace mitral regurgitation. Aortic Valve: Aortic cusps appear mildly calcified. Tricuspid Valve: Tricuspid valve not well visualized. Estimated peak PA systolic pressure 42 mmHg. There is mild tricuspid regurgitation. Pericardium: Trivial pericardial effusion. Left pleural effusion seen. Aorta: Normal aortic root. IVC: Inferior vena cava without respiratory collapse, however, patient on ventilator. Conclusions 1.The left ventricle is normal in size and systolic function. 2.Estimated left ventricular ejection fraction of 60-65%. 3.Moderate concentric left ventricular hypertrophy. Electronically Signed By: Haroon Cook 31-Aug-2016 13:18:13 -0800 Patient Name: XI FUENTES Study Date: 31-Aug-[id number]
--- NOTE | 2016-08-31 14:08 | CONS ---
Date/Time of Note Date/Time of Note DATE: 08/31/16 TIME: 13:58 Assessment/Plan Assessment/Plan Chief Complaint/Hosp Course Assessment: Status post cardiac arrest - unclear etiology, initial rhythm reported to be PEA Accelerated hypertension - blood pressures improved Acute on chronic diastolic heart failure NSTEMI - likely type 2 Systemic inflammatory response syndrome Acute respiratory failure - intubated, on mechanical ventilation End-stage renal disease - on hemodialysis Possible anoxic brain injury Recommendations: -echocardiogram showed LVEF 60-65%, moderate LVH -continue nicardipine drip -continue hypothermia protocol -volume management via hemodialysis per nephrology Critical care time: >35 minutes at bedside Problems: Consultation Date/Type/Reason Admit Date/Time Aug 30, 2016 at 15:45 Type of Consultation: Cardiology Reason for Consultation cardiac arrest Referring Provider: CLEM HUNG NP Hx of Present Illness The patient is a 56 year-old female with end-stage renal disease on hemodialysis who presented status post cardiac arrest. The patient was found unresponsive at home. The initial rhythm was reported by paramedics was PEA. The patient was successfully resuscitated and has been admitted to the ICU on mechanical ventilation and on hypothermia protocol. Her blood pressures was up to 228/158, and she has been placed on a nicardipine drip. Unable to obtain, patient intubated and sedated. Past Medical History End-stage renal disease - on hemodialysis Hypertension Past Surgical History Unable to obtain. Per medical records, patient has had and hysterectomy. Family History Significant Family History: other (unable to obtain) Social History Unable to obtain Exam/Review of Systems Vital Signs Vitals Vital Signs Date Time Temp Pulse Resp B/P Pulse Ox O2 Delivery O2 Flow Rate FiO2 08/31/16 12:00 91 08/31/16 11:19 16 100 80 08/31/16 11:00 91.3 130/80 Mechanical Ventilator Exam Constitutional: other (intubated, sedated), No alert, No oriented Psych: other (intubated, sedated), No nl mood/affect Head: atraumatic, normocephalic Eyes: nl conjunctiva, nl lids ENMT: intubated Neck: supple Respiratory: crackles/rales, diminished breath sounds Cardiovascular: regular rate and rhythm Gastrointestinal: non-tender, soft Musculoskeletal: nl extremities to inspection Extremities: No clubbing, No cyanosis, No edema Neurological: No nl mental status, No nl speech Results Result Diagram: 08/31/16 1120 08/31/16 1120 Results 24 hrs Laboratory Tests Test 08/30/16 17:00 08/30/16 17:30 08/30/16 19:19 08/30/16 20:27 Urine Bilirubin NEGATIVE Urine Clarity CLEAR Urine Color LT. YELLOW Urine Glucose 0.25% H Urine Hemoglobin 2+ H Urine Ketones NEGATIVE Urine Leukocyte Esterase TRACE H Urine Microscopic RBC 2-5 Urine Microscopic WBC 2-5 Urine Nitrite NEGATIVE Urine Specific [place] 1.010 Urine Total Protein 4+ H Urine Urobilinogen 0.2 E.U./dL Urine pH 8.0 Anion Gap 23 #H Blood Urea Nitrogen 44 H Calcium Level 8.6 Carbon Dioxide Level 23 Chloride Level 99 Creatinine 7.78 H Glucose Level 136 # Lactic Acid Level 2.4 H Magnesium Level 1.8 Phosphorus Level 6.8 #H Potassium Level 5.9 H Sodium Level 139 Troponin I 0.642 *H Arterial Blood HCO3 21.5 L Arterial Blood Base Excess -3.5 L Arterial Blood Oxygen Saturation 98.6 H Cristian Test ACCEPTAB Arterial Blood Gas Puncture Site Right Radial Arterial Blood Carboxyhemoglobin 0.2 Arterial Blood Date Drawn 08/30/2016 7:38:17 PM Arterial Blood Methemoglobin 0.1 Arterial Blood pCO2 (Temp correct) 31.1 L Arterial Blood pH (Temp corrected) 7.435 Arterial Blood pO2 (Temp corrected) 115.8 H Blood Gas A-a O2 Differential 577.3 H Blood Gas Actual Respiration Rate 20 Blood Gas Inspiratory Pressure 31.0 Blood Gas Low PEEP Setting 5.0 Blood Gas Modality VENT - AC Blood Gas Notified Time 08/30/2016 7:43:55 PM Blood Gas Notified Whom BR Blood Gas Respiration Rate 20.0 Blood Gas Specimen Source Blood arterial Blood Gas Temperature 32.1 Blood Gas Tidal Volume 450.0 FiO2 100.0 Oxyhemoglobin Percent 98.3 Total Hemoglobin 12.9 Bedside Glucose 234 H Test 08/30/16 23:45 08/31/16 01:06 08/31/16 05:30 08/31/16 05:32 Lactic Acid Level 1.7 1.9 Troponin I 0.953 *H 0.995 *H Arterial Blood HCO3 21.7 L Arterial Blood Base Excess -2.7 Arterial Blood Oxygen Saturation 99.6 H Cristian Test ACCEPTAB Arterial Blood Gas Puncture Site Right Radial Arterial Blood Carboxyhemoglobin 0.1 Arterial Blood Date Drawn 08/31/2016 1:10:34 AM Arterial Blood Methemoglobin 0.2 Arterial Blood pCO2 (Temp correct) 30.6 L Arterial Blood pH (Temp corrected) 7.452 H Arterial Blood pO2 (Temp corrected) 287.8 H Blood Gas A-a O2 Differential 404.1 H Blood Gas Actual Respiration Rate 20 Blood Gas Low PEEP Setting 5.0 Blood Gas Modality VENT - AC Blood Gas Notified Time 08/31/2016 1:16:24 AM Blood Gas Notified Whom BR Blood Gas Respiration Rate 20.0 Blood Gas Specimen Source Blood arterial Blood Gas Temperature 33.0 Blood Gas Tidal Volume 450.0 FiO2 100.0 Oxyhemoglobin Percent 99.3 H Total Hemoglobin 13.1 Basophils # 0.0 Basophils % 0.0 Blood Morphology Comment Cholesterol Level 141 Cholesterol/HDL Ratio 3.0 Eosinophils # 0.0 Eosinophils % 0.0 HDL Cholesterol 47 Hematocrit 39.1 Hemoglobin 12.7 LDL Cholesterol, Calculated 75 Lymphocytes # 0.5 L Lymphocytes % 3.0 L Magnesium Level 1.9 Mean Corpuscular Hemoglobin 30.2 Mean Corpuscular Hemoglobin Concent 32.4 Mean Corpuscular Volume 93.1 Mean Platelet Volume 8.0 Monocytes # 0.4 Monocytes % 2.1 Neutrophils # 17.5 H Neutrophils % 94.9 H Nucleated Red Blood Cells # 0.0 Nucleated Red Blood Cells % 0.0 Phosphorus Level 3.9 # Platelet Count 152 # Red Blood Count 4.20 Red Cell Distribution Width 18.0 H Triglycerides Level 94 White Blood Count 18.5 #H Alanine Aminotransferase (ALT/SGPT) 55 Albumin 3.4 Albumin/Globulin Ratio 1.00 Alkaline Phosphatase 102 Anion Gap 20 H Aspartate Amino Transf (AST/SGOT) 38 Blood Urea Nitrogen 49 H Calcium Level 8.7 Carbon Dioxide Level 21 Chloride Level 103 Creatinine 8.12 H Direct Bilirubin 0.00 Globulin 3.40 H Glucose Level 118 Indirect Bilirubin 0.0 Potassium Level 4.2 Sodium Level 140 Total Bilirubin 0.0 L Total Protein 6.8 Test 08/31/16 07:00 08/31/16 11:20 08/31/16 12:00 08/31/16 12:22 Arterial Blood HCO3 Pending 21.6 L Arterial Blood Base Excess Pending -3.5 L Arterial Blood Oxygen Saturation Pending 99.3 H Cristian Test Pending ACCEPTAB Arterial Blood Gas Puncture Site Pending Right Radial Arterial Blood Carboxyhemoglobin Pending 0.3 Arterial Blood Date Drawn Pending 08/31/2016 12:00:04 PM Arterial Blood Methemoglobin Pending 0.1 Arterial Blood pCO2 (Temp correct) Pending 32.6 L Arterial Blood pH (Temp corrected) Pending 7.420 Arterial Blood pO2 (Temp corrected) Pending 187.0 H Blood Gas A-a O2 Differential Pending 357.0 H Blood Gas Modality Pending VENT - AC Blood Gas Notified Time Pending 08/31/2016 12:11:39 PM Blood Gas Notified Whom Pending TM Blood Gas Specimen Source Blood arterial Blood arterial Blood Gas Temperature Pending 32.8 FiO2 Pending 80.0 Oxyhemoglobin Percent Pending 98.9 Total Hemoglobin Pending 13.5 Amylase Level 166 H Anion Gap 21 H Band Neutrophils % 5.0 Basophils # Basophils % Blood Morphology Comment Blood Urea Nitrogen 51 H Calcium Level 8.9 Carbon Dioxide Level 19 L Chloride Level 103 Creatine Kinase 48 Creatine Kinase Index 8.8 Creatinine 7.92 H Creatinine Kinase MB (Mass) 4.23 H Differential Comment MANUAL DIFF Eosinophils # Eosinophils % Glucose Level 106 Hematocrit 38.3 Hemoglobin 12.4 Lipase 160 Lymphocytes # 0.5 L Lymphocytes % 3.0 L Magnesium Level 1.7 Mean Corpuscular Hemoglobin 30.0 Mean Corpuscular Hemoglobin Concent 32.4 Mean Corpuscular Volume 92.6 Mean Platelet Volume 8.5 Monocytes # 0.5 Monocytes % 3.0 Neutrophils # 14.7 H Neutrophils % 89.0 H Nucleated Red Blood Cells # Nucleated Red Blood Cells % Phosphorus Level 5.4 H Platelet Count 162 Potassium Level 5.0 Red Blood Count 4.13 L Red Cell Distribution Width 17.7 H Sodium Level 138 Troponin I 0.827 *H White Blood Count 16.5 H Blood Gas Actual Respiration Rate 16 Blood Gas Low PEEP Setting 5.0 Blood Gas Respiration Rate 16.0 Blood Gas Tidal Volume 450.0 Bedside Glucose 112 Medications Medications Current Medications Pantoprazole (Protonix Iv) 40 mg DAILY@06 IV Last administered on 08/31/16 05: 37; Admin Dose 40 MG; Start 08/31/16 at 06:00 Eye Lubricant 1 drop 1 drop TID BOTH EYES Last administered on 08/31/16 12:03 ; Admin Dose 1 DROP; Start 08/30/16 at 21:00 Nicardipine HCl 200 ml @ 50 mls/hr TITRATE IV Last administered on 08/31/16 13:19; Admin Dose 50 MLS/HR; Start 08/30/16 at 17:30 Propofol (Diprivan) 100 ml @ 2.1 mls/hr Q12H IV Last administered on 08:25; Admin Dose 1.68 MLS/HR; Start 08/30/16 at 17:30 Lorazepam 1 mg 1 mg Q2H PRN IV SEIZURES; Start 08/30/16 at 17:30 Vecuronium [place] 100 mg/ Dextrose 100 ml @ 0 mls/hr TITRATE IV Last administered on 08/31/16 08:25; Admin Dose 2.1 MLS/HR; Start 08/30/16 at 17:30 Cefepime HCl (Maxipime 1gm/50 ml (Pmx)) 50 ml @ 100 mls/hr Q24H IVPB Last administered on 08/30/16 21:17; Admin Dose 100 MLS/HR; Start 08/30/16 at 21:00 Miscellaneous Information 1 ea NOTE XX ; Start 08/30/16 at 19:00 Glucose (Glutose) 15 gm Q15M PRN PO DECREASED GLUCOSE; Start 08/30/16 at 19:00 Glucose (Glutose) 22.5 gm Q15M PRN PO DECREASED GLUCOSE; Start 08/30/16 at 19: 00 Dextrose (D50w Syringe) 25 ml Q15M PRN IV DECREASED GLUCOSE; Start 08/30/16 at 19:00 Dextrose (D50w Syringe) 50 ml Q15M PRN IV DECREASED GLUCOSE; Start 08/30/16 at 19:00 Glucagon (Glucagen) 1 mg Q15M PRN IM DECREASED GLUCOSE; Start 08/30/16 at 19:00 Glucose (Glutose) 15 gm Q15M PRN BUCCAL DECREASED GLUCOSE; Start 08/30/16 at 19 :00 Insulin Aspart (Novolog Insulin Pen) (Adult SC Insulin - Mild Algorithm)... Q6 SC ; Start 08/30/16 at 18:00 Miscellaneous Information (*Rx Drug Level Order Reminder*) 1 ONCE ONCE XX ; Start 09/01/16 at 05:00; Stop 09/01/16 at 05:01 IFEOMA NARVAEZ MD 26, 2017 14:08
[2016-08-31 17:54] LABS: AADO2 Arterial 226.8 mmHg (7.0-24.0); Allen Test ACCEPTAB; Arterial Base Excess -8.8 mmol/L (-3.0-3); Arterial COHb 0.3 % (0.0-3.0); Arterial HCO3 15.4 mmol/L (22.0-26.0); Arterial MetHb 0 % (0.0-1.5); Arterial Total Hemglobin 13.1 g/dl (12.0-18.0); MODE VENT - AC
[2016-08-31 19:10] LABS: HEMATOCRIT 37.7 % (37.0-47.0); HEMOGLOBIN 12.3 g/dl (12.0-16.0); MEAN CORPUSCULAR HEMOGLOBIN 30.2 pg (29.0-33.0); MEAN CORPUSCULAR HGB CONC 32.5 g/dl (32.0-37.0); MEAN PLATELET VOLUME 8.4 fl (7.4-10.4); PLATELET COUNT 173 10^3/UL (140-440); RED BLOOD COUNT 4.05 10^6/ul (4.20-5.40); RED CELL DISTRIBUTION WIDTH 17.7 % (11.5-14.5); UNCORRECTED WBC 17.3 10^3/ul (4.8-10.8); WHITE BLOOD COUNT 17.3 10^3/ul (4.8-10.8)
[2016-08-31 19:13] LABS: CONDITION 1; LH ANALYZER COMMENTS 1
[2016-08-31 19:21] LABS: POTASSIUM 5.3 mmol/L (3.5-5.1)
[2016-08-31 19:23] LABS: CREATININE 8.82 mg/dl (0.44-1.00); PARTIAL THROMBOPLASTIN TIME 35.2 Sec (25.0-35.0)
[2016-08-31 19:24] LABS: MAGNESIUM 1.9 mg/dl (1.7-2.5); PHOSPHORUS 7.3 mg/dl (2.5-4.9)
[2016-08-31 19:41] LABS: TROPONIN-I 0.59 ng/ml (0.00-0.12)
[2016-08-31 19:45] LABS: LYMPHOCYTES # 0.5 10^3/ul (0.8-2.9); NEUTROPHIL # 15.9 10^3/ul (1.6-7.5)
[2016-08-31] MEDS: CEFEPIME 1GM/50 ML (PMX) 50 ML IVPB SCH (20:50)
[2016-08-31] MEDS ORDERED: METOCLOPRAMIDE 10 MG INJ IV ONE (22:30)
[2016-08-31] MEDS ORDERED: LORAZEPAM 2 MG INJ IV ONE (22:30)
[2016-09-01] VITALS (111 sets, daily range): BP systolic 98–194; BP diastolic 63–120; PULSE 76–118; RESP 15–26
[2016-09-01] MEDS: LEVETIRACETAM IV 1,000 MG in DEXTROSE 5% 100 ML IVPB SCH ×2 (00:17→08:47)
[2016-09-01] MEDS: DEXTROSE 50% 50 ML SYRINGE IV PRN ×2 (00:18→05:19)
[2016-09-01 00:23] LABS: AADO2 Arterial 265.9 mmHg (7.0-24.0); Allen Test ACCEPTAB; Arterial Base Excess -4.5 mmol/L (-3.0-3); Arterial COHb 0.4 % (0.0-3.0); Arterial Fraction of Oxyhgb 92.4 % (93.0-99.0); Arterial HCO3 19.6 mmol/L (22.0-26.0); Arterial MetHb 0.1 % (0.0-1.5); Arterial Total Hemglobin 12.9 g/dl (12.0-18.0); MODE VENT - AC
[2016-09-01] MEDS: PROPOFOL 100 ML IV SCH ×5 (00:26→22:34)
[2016-09-01 01:09] LABS: POTASSIUM 4.9 mmol/L (3.5-5.1)
[2016-09-01 01:11] LABS: CREATININE 8.59 mg/dl (0.44-1.00)
[2016-09-01 01:12] LABS: CALCIUM 8.3 mg/dl (8.4-10.2); MAGNESIUM 1.7 mg/dl (1.7-2.5); PARTIAL THROMBOPLASTIN TIME 34.3 Sec (25.0-35.0); PHOSPHORUS 8.1 mg/dl (2.5-4.9)
[2016-09-01 01:14] LABS: HEMATOCRIT 32.1 % (37.0-47.0); HEMOGLOBIN 10.5 g/dl (12.0-16.0); LYMPHOCYTES # 0.6 10^3/ul (0.8-2.9); LYMPHOCYTES % 4.4 % (15.0-51.0); MEAN CORPUSCULAR HEMOGLOBIN 30.1 pg (29.0-33.0); MEAN CORPUSCULAR HGB CONC 32.7 g/dl (32.0-37.0); MEAN CORPUSCULAR VOLUME 92.2 fl (82.0-101.0); MEAN PLATELET VOLUME 8.3 fl (7.4-10.4); MONOCYTE # 0.2 10^3/ul (0.3-0.9); MONOCYTES % 1.4 % (0.0-11.0); NEUTROPHIL # 12.8 10^3/ul (1.6-7.5); NEUTROPHILS % 94.2 % (39.0-77.0); PLATELET COUNT 167 10^3/UL (140-440); RED BLOOD COUNT 3.48 10^6/ul (4.20-5.40); RED CELL DISTRIBUTION WIDTH 17.9 % (11.5-14.5); UNCORRECTED WBC 13.6 10^3/ul (4.8-10.8); WHITE BLOOD COUNT 13.6 10^3/ul (4.8-10.8)
[2016-09-01 01:18] LABS: CONDITION 1; LH ANALYZER COMMENTS 1
[2016-09-01 01:30] LABS: TROPONIN-I 0.457 ng/ml (0.00-0.12)
[2016-09-01] MEDS: IPRATROPIUM (HFA) 12.9 GM INHALER INH SCH ×5 (01:37→21:21)
[2016-09-01] MEDS: ALBUTEROL HFA 8 GM INHALER INH SCH ×5 (01:37→21:21)
[2016-09-01] MEDS: LORAZEPAM 2 MG INJ IV PRN ×4 (04:08→17:58)
[2016-09-01] MEDS: PANTOPRAZOLE 40 MG INJ IV SCH (05:19)
[2016-09-01] MEDS: Insulin NOVOLOG SS MILD Algorithm (NPO/TPN/ENTERAL FEEDS) SC SCH ×4 (05:19→18:00)
[2016-09-01 05:58] LABS: ALBUMIN 2.5 g/dl (3.3-4.9)
[2016-09-01 06:01] LABS: ALBUMIN/GLOBULIN RATIO 0.86; CREATININE 9.16 mg/dl (0.44-1.00); TOTAL PROTEIN 5.4 g/dl (6.1-8.1)
[2016-09-01 06:02] LABS: CALCIUM 8.2 mg/dl (8.4-10.2)
[2016-09-01 07:17] LABS: MAGNESIUM 1.8 mg/dl (1.7-2.5); PHOSPHORUS 8.6 mg/dl (2.5-4.9)
--- NOTE | 2016-09-01 07:43 | CONS ---
Date/Time of Note Date/Time of Note DATE: 09/01/16 TIME: 07:38 Assessment/Plan Assessment/Plan Chief Complaint/Hosp Course Patient is a 60-year-old [place] lady who was brought into the emergency room after the patient called 911 with complaints of shortness of breath by the time the EMS arrived the patient was found unresponsive had pulseless electrical activity along CPR was done lasting approximately 20 minutes with revival of vital signs. She currently is on hypothermic protocol and is sedated paralyzed on mechanical ventilation or intubated. She also was obtained from medical records as well as patient's daughter who is currently present in the room. The patient's daughter the patient was admitted last month with pneumonia and were discharged home however the patient was complaining of mild shortness of breath for the last couple of days prior to the event which occurred yesterday afternoon. Problems: Additional Assessment/Plan Assessment and recommendations; 1. Patient admitted with cardiac arrest with prolonged CPR lasting aggregate of more than 20 minutes. 2. Likely underlying severe anoxic encephalopathy. Patient now exhibiting myoclonic jerking. 3. Hypoxemia. Possibly aspiration pneumonia. 4. History of chronic renal failure on hemodialysis with fluid overload. 5. History of severe hypertension. Continue current ventilator settings and ABG will be drawn shortly once that is done I will reviewed and make further recommendations. While adding Depakote 500 mg every 8 hours for control of myoclonic jerking and continue Keppra at current dosing 1 g every 12 hours. Continue current antibiotics. Because of significant myoclonic jerking patient at this point does not warrant a sedation vacation. Condition is critical .about 35 minutes of critical care time spent evaluated in the patient. Consultation Date/Type/Reason Admit Date/Time Aug 30, 2016 at 15:45 Initial Consult Date 08/31/16 Type of Consultation: Cardiology Referring Provider: CLEM HUNG NP 24 HR Interval Summary Free Text/Dictation Patient condition remains critical. Still requiring full ventilator support as well as continue sedation and not exhibiting myoclonic jerking indicative of underlying severe anoxic encephalopathy. He has been weaned off continuous paralysis with vecuronium drip. Requiring any pressor support. General examination middle aged woman, or intubated, exhibiting myoclonic jerking off and on. Exam/Review of Systems Vital Signs Vitals Vital Signs Date Time Temp Pulse Resp B/P Pulse Ox O2 Delivery O2 Flow Rate FiO2 09/01/16 06:45 97.7 98 24 133/100 100 Mechanical Ventilator 09/01/16 06:20 50 Intake and Output 08/31/16 08/31/16 09/01/16 15:00 23:00 07:00 Intake Total 478.14 ml 421.02 ml 398.0 ml Output Total 8 ml 100 ml 20 ml Balance 470.14 ml 321.02 ml 378.0 ml Exam HEENT examination; supple neck, no JVD, no lymphadenopathy. Or intubated. Pupils are small bilaterally. No thyromegaly. Next Chest examination; diminished but clear breath sounds bilaterally. S1-S2 audible. No murmurs. Regular rate and rhythm. Abdomen examination; soft, nondistended, bowel sounds are sluggish. No organomegaly felt. Extremity examination; no peripheral edema. Pulses 1+ bilaterally. COLL[employer] CREASER examination; patient sedated with occasional myoclonic jerking observed. Results Result Diagram: 09/01/16 0047 09/01/16 0510 Results 24 hrs Laboratory Tests Test 08/31/16 11:20 08/31/16 12:00 08/31/16 12:22 08/31/16 18:00 Amylase Level 166 H Anion Gap 21 H Band Neutrophils % 5.0 Basophils # Basophils % Blood Morphology Comment Blood Urea Nitrogen 51 H Calcium Level 8.9 Carbon Dioxide Level 19 L Chloride Level 103 Creatine Kinase 48 Creatine Kinase Index 8.8 Creatinine 7.92 H Creatinine Kinase MB (Mass) 4.23 H Differential Comment MANUAL DIFF Eosinophils # Eosinophils % Glucose Level 106 Hematocrit 38.3 Hemoglobin 12.4 Lipase 160 Lymphocytes # 0.5 L Lymphocytes % 3.0 L Magnesium Level 1.7 Mean Corpuscular Hemoglobin 30.0 Mean Corpuscular Hemoglobin Concent 32.4 Mean Corpuscular Volume 92.6 Mean Platelet Volume 8.5 Monocytes # 0.5 Monocytes % 3.0 Neutrophils # 14.7 H Neutrophils % 89.0 H Nucleated Red Blood Cells # Nucleated Red Blood Cells % Phosphorus Level 5.4 H Platelet Count 162 Potassium Level 5.0 Red Blood Count 4.13 L Red Cell Distribution Width 17.7 H Sodium Level 138 Troponin I 0.827 *H White Blood Count 16.5 H Arterial Blood HCO3 21.6 L 15.4 L Arterial Blood Base Excess -3.5 L -8.8 L Arterial Blood Oxygen Saturation 99.3 H 98.3 H Cristian Test ACCEPTAB ACCEPTAB Arterial Blood Gas Puncture Site Right Radial Right Radial Arterial Blood Carboxyhemoglobin 0.3 0.3 Arterial Blood Date Drawn 08/31/2016 12:00:04 PM 08/31/2016 5:45:46 PM Arterial Blood Methemoglobin 0.1 0 Arterial Blood pCO2 (Temp correct) 32.6 L 24.0 L Arterial Blood pH (Temp corrected) 7.420 7.406 Arterial Blood pO2 (Temp corrected) 187.0 H 107.4 H Blood Gas A-a O2 Differential 357.0 H 226.8 H Blood Gas Actual Respiration Rate 16 18 Blood Gas Low PEEP Setting 5.0 5.0 Blood Gas Modality VENT - AC VENT - AC Blood Gas Notified Time 08/31/2016 12:11:39 PM 08/31/2016 5:54:44 PM Blood Gas Notified Whom TM UP Blood Gas Respiration Rate 16.0 16.0 Blood Gas Specimen Source Blood arterial Blood arterial Blood Gas Temperature 32.8 33.0 Blood Gas Tidal Volume 450.0 450.0 FiO2 80.0 50.0 Oxyhemoglobin Percent 98.9 98.0 Total Hemoglobin 13.5 13.1 Bedside Glucose 112 Test 08/31/16 18:18 08/31/16 18:25 08/31/16 20:30 09/01/16 00:00 Bedside Glucose 92 107 Activated Partial Thromboplast Time 35.2 H Amylase Level 169 H Anion Gap 22 H Band Neutrophils % 5.0 Basophils # Basophils % Blood Morphology Comment Blood Urea Nitrogen 55 H Calcium Level 9.0 Carbon Dioxide Level 20 L Chloride Level 103 Creatinine 8.82 H Eosinophils # Eosinophils % Fibrinogen 609.0 H Glucose Level 98 Hematocrit 37.7 Hemoglobin 12.3 Lipase 84 Lymphocytes # 0.5 L Lymphocytes % 3.0 L Magnesium Level 1.9 Mean Corpuscular Hemoglobin 30.2 Mean Corpuscular Hemoglobin Concent 32.5 Mean Corpuscular Volume 93.0 Mean Platelet Volume 8.4 Mix PTT Normal Plasma Immediate Monocytes # Monocytes % Neutrophils # 15.9 H Neutrophils % 92.0 H Nucleated Red Blood Cells # Nucleated Red Blood Cells % 0.0 Phosphorus Level 7.3 H Platelet Count 173 Potassium Level 5.3 H Red Blood Count 4.05 L Red Cell Distribution Width 17.7 H Sodium Level 140 Troponin I 0.590 *H White Blood Count 17.3 H Arterial Blood HCO3 19.6 L Arterial Blood Base Excess -4.5 L Arterial Blood Oxygen Saturation 92.9 L Cristian Test ACCEPTAB Arterial Blood Gas Puncture Site Right Radial Arterial Blood Carboxyhemoglobin 0.4 Arterial Blood Date Drawn 09/01/2016 12:15:32 AM Arterial Blood Methemoglobin 0.1 Arterial Blood pCO2 (Temp correct) 30.1 L Arterial Blood pH (Temp corrected) 7.422 Arterial Blood pO2 (Temp corrected) 59.5 L Blood Gas A-a O2 Differential 265.9 H Blood Gas Actual Respiration Rate 21 Blood Gas Low PEEP Setting 5.0 Blood Gas Modality VENT - AC Blood Gas Notified Time 09/01/2016 12:23:32 AM Blood Gas Notified Whom MA Blood Gas Respiration Rate 16.0 Blood Gas Specimen Source Blood arterial Blood Gas Temperature 34.8 Blood Gas Tidal Volume 450.0 FiO2 50.0 Oxyhemoglobin Percent 92.4 L Total Hemoglobin 12.9 Test 09/01/16 00:15 09/01/16 00:38 09/01/16 00:47 09/01/16 01:30 Bedside Glucose 66 L 132 133 Activated Partial Thromboplast Time 34.3 Amylase Level 141 H Anion Gap 20 H Basophils # 0.0 Basophils % 0.0 Blood Morphology Comment Blood Urea Nitrogen 55 H Calcium Level 8.3 L Carbon Dioxide Level 20 L Chloride Level 103 Creatinine 8.59 H Eosinophils # 0.0 Eosinophils % 0.0 Fibrinogen 512.0 #H Glucose Level 162 Hematocrit 32.1 L Hemoglobin 10.5 L Lipase 79 Lymphocytes # 0.6 L Lymphocytes % 4.4 L Magnesium Level 1.7 Mean Corpuscular Hemoglobin 30.1 Mean Corpuscular Hemoglobin Concent 32.7 Mean Corpuscular Volume 92.2 Mean Platelet Volume 8.3 Mix PTT Normal Plasma Immediate Monocytes # 0.2 L Monocytes % 1.4 Neutrophils # 12.8 H Neutrophils % 94.2 H Nucleated Red Blood Cells # 0.0 Nucleated Red Blood Cells % 0.0 Phosphorus Level 8.1 H Platelet Count 167 Potassium Level 4.9 Red Blood Count 3.48 L Red Cell Distribution Width 17.9 H Sodium Level 138 Troponin I 0.457 *H White Blood Count 13.6 #H Test 09/01/16 05:10 09/01/16 05:36 09/01/16 06:04 Activated Partial Thromboplast Time 36.6 H Alanine Aminotransferase (ALT/SGPT) 38 Albumin 2.5 L Albumin/Globulin Ratio 0.86 Alkaline Phosphatase 63 Anion Gap 20 H Aspartate Amino Transf (AST/SGOT) 17 Bedside Glucose 68 L 112 96 Blood Urea Nitrogen 58 H Calcium Level 8.2 L Carbon Dioxide Level 21 Chloride Level 106 Creatinine 9.16 H Direct Bilirubin 0.00 Fibrinogen 478.0 #H Globulin 2.90 Glucose Level 69 #L Indirect Bilirubin 0.0 Lactic Acid Level 1.1 Magnesium Level 1.8 Mix PTT Normal Plasma Immediate Pending Phosphorus Level 8.6 H Potassium Level 5.0 Random Vancomycin Level 15.2 Sodium Level 142 Total Bilirubin 0.0 L Total Protein 5.4 #L Medications Medications Current Medications Pantoprazole (Protonix Iv) 40 mg DAILY@06 IV Last administered on 09/01/16 05: 19; Admin Dose 40 MG; Start 08/31/16 at 06:00 Eye Lubricant 1 drop 1 drop TID BOTH EYES Last administered on 08/31/16 20:32 ; Admin Dose 1 DROP; Start 08/30/16 at 21:00 Nicardipine HCl 200 ml @ 50 mls/hr TITRATE IV Last administered on 08/31/16 22:58; Admin Dose 50 MLS/HR; Start 08/30/16 at 17:30 Propofol 100 ml @ 2.1 mls/hr Q12H IV Last administered on 09/01/16 06:15; Admin Dose 12.6 MLS/HR; Start 08/30/16 at 17:30 Vecuronium [place] 100 mg/ Dextrose 100 ml @ 0 mls/hr TITRATE IV Last administered on 08/31/16 08:25; Admin Dose 2.1 MLS/HR; Start 08/30/16 at 17:30 Cefepime HCl (Maxipime 1gm/50 ml (Pmx)) 50 ml @ 100 mls/hr Q24H IVPB Last administered on 08/31/16 20:50; Admin Dose 100 MLS/HR; Start 08/30/16 at 21:00 Miscellaneous Information 1 ea NOTE XX ; Start 08/30/16 at 19:00 Glucose (Glutose) 15 gm Q15M PRN PO DECREASED GLUCOSE; Start 08/30/16 at 19:00 Glucose (Glutose) 22.5 gm Q15M PRN PO DECREASED GLUCOSE; Start 08/30/16 at 19: 00 Dextrose (D50w Syringe) 25 ml Q15M PRN IV DECREASED GLUCOSE Last administered on 09/01/16 05:19; Admin Dose 25 ML; Start 08/30/16 at 19:00 Dextrose (D50w Syringe) 50 ml Q15M PRN IV DECREASED GLUCOSE; Start 08/30/16 at 19:00 Glucagon (Glucagen) 1 mg Q15M PRN IM DECREASED GLUCOSE; Start 08/30/16 at 19:00 Glucose (Glutose) 15 gm Q15M PRN BUCCAL DECREASED GLUCOSE; Start 08/30/16 at 19 :00 Insulin Aspart (Adult SC Insulin - Mild Algorithm)... Q6 SC ; Start 08/30/16 at 18:00 Levetiracetam/ Dextrose (Keppra Iv/D5W) 110 ml @ 440 mls/hr Q12 IVPB Last administered on 09/01/16 00:17; Admin Dose 440 MLS/HR; Start 08/31/16 at 23:30 Lorazepam (Ativan) 2 mg Q2H PRN IV SEIZURES Last administered on 09/01/16 04: 08; Admin Dose 2 MG; Start 09/01/16 at 02:00 YELENA KEMP Sep 01, 2016 07:43
--- NOTE | 2016-09-01 08:28 | PN ---
DATE: 09/01/2016 SUBJECTIVE: The patient currently is on the rewarming phase of hypothermic protocol. The patient i s showing mild tonic jerks. No overt tonic-clonic seizures. The patient still remains on a nicardi pine drip, on full ventilatory support. No other acute events noted. No hemoptysis, hematemesis or hematochezia. OBJECTIVE: VITAL SIGNS: Blood pressure is 133/100, respirations 24, pulse 98, temperature 97.7. HEENT: Head is normocephalic. NECK: Supple. HEART: Regular rate. LUNGS: Showed diminished breath sounds at the base. ABDOMEN: Soft, nontender to palpation. No rebound or guarding. EXTREMITIES: Negative for clubbing or cyanosis. Positive edema. DERMATOLOGIC: No rashes. MUSCULOSKELETAL: Have no joint effusion. NEUROLOGIC: Neurologically limited exam, as the patient is sedated. Noted myoclonic jerks. MEDICATIONS: Medications have been reviewed. LABORATORY DATA: Shows white count 13.6, hemoglobin 10.5, hematocrit 32.1, platelet count is 167. Sodium 142, potassium 5.0, chloride 106, BUN 58, creatinine 9.16, glucose 69, phosphorus 8.1. ABG s hows a pH of 7.42, a pCO2 of 30. ASSESSMENT AND PLAN: 1. End-stage renal disease. The patient is on dialysis Sunday, and Sunday. Last hemod ialysis was Sunday. Anticipate hemodialysis today after hypothermic protocol. Will dialyze for 3 hours on a 2K bath, calcium 2.5. Will ultrafiltrate as tolerated. Also anticipate daily dialysis fo r solute clearance and volume removal. 2. Hyperkalemia secondary to end-stage renal disease. The patient is currently normokalemic. Will continue dialysis on a low potassium bath. 3. Mixed acid base disorder. The patient has a respiratory acidosis and metabolic acidosis. The [facility] was reviewed. Will continue to monitor. 4. Hypertensive emergency. Etiology is in part due to increased intravascular volume. Anticipate hemodialysis today and will ultrafiltrate 2 to 3 liters. Continue nicardipine drip. 5. Ventilator-dependent respiratory failure. Vent settings have been reviewed. ABG has been revie sun. 6. Volume overload. The patient has noted lower extremity edema and pulmonary edema. Will ultrafi ltrate with hemodialysis, as stated above. 7. Status post cardiac arrest. The patient is currently on the hypothermic protocol. Will monitor. 8. Acute encephalopathy with likely anoxic brain injury secondary to cardiac arrest. Will continue to monitor. 9. Leukocytosis and systemic inflammatory response syndrome. The patient is currently on empiric a ntibiotics. Will follow up blood cultures. 10. Mineral bone disorder. The patient is hypophosphatemic. Plan is for hemodialysis for solute c learance. Will continue to monitor. 11. Non-ST elevation myocardial infarction type 2. Continue medical management. Follow up with ca rdiology. Please note, I spent over 40 minutes of critical care time with this patient, discussed the case wit h the hospital staff and supervisory lifeguard. Dictated By: TIP SOLORIO/EMMA Conf#: [id number] DID#: [id number]
[2016-09-01] MEDS: niCARdipine-D5W 0.1MG/ML DRIP 200 ML IV SCH (08:35)
--- NOTE | 2016-09-01 08:40 | RADRPT ---
PROCEDURE: XR Chest. CLINICAL INDICATION: Respiratory failure TECHNIQUE: Chest AP portable COMPARISON: 08/30/2016 FINDINGS: Right internal jugular tunnel dialysis catheter. Endotracheal tube 4-5 cm above the kassi. Nasoga stric tube in the stomach. The mediastinal structures are unremarkable. There is calcification of the thoracic aorta (consiste nt with atherosclerosis). There is mild cardiomegaly. There is a decrease in the congestive heart failure. There are decreased lung volumes. There is mild bibasilar subsegmental atelectasis. The pleural spaces are unremarkable. The osseous structures are unremarkable. IMPRESSION: Calcification of the thoracic aorta (consistent with atherosclerosis). Mild cardiomegaly Decrease in congestive heart failure (mild pulmonary venous hypertension present) Low lung volumes. Mild bibasilar subsegmental atelectasis RPTAT: HGDB .Aroldo Melara MD, Date Time Electronically viewed and signed by .Aroldo Melara MD, on 09/01/2016 08:40 .B/
--- NOTE | 2016-09-01 08:45 | PN ---
Date/Time of Note Date/Time of Note DATE: 09/01/16 TIME: 08:43 Assessment/Plan VTE Prophylaxis VTE Prophylaxis Intervention: SCD's Lines/Catheters IV C[facility]ter Type [facility] Central Line Central line still needed: Yes Urinary Cath still in place: Yes Reason Cath still needed: terminal illness/intractable pain Assessment/Plan Chief Complaint/Hosp Course 1. Status post cardiac arrest. S/P hypothermia protocol. Will call neurology consult for neurology evaluation. Pending EEG. 2. Seizures. Most probably secondary to anoxic brain injury. The patient was started on anticonvulsants. Will call neurology for evaluation. 3. Elevated troponins, most probably secondary to the cardiac arrest. 2D echo showing preserved LVEF. 4. Acute respiratory failure. Hypoxic. Secondary to cardiac arrest. Ventilator management as per pulmonary. Continue inhaled bronchodilators. 5. Hypertensive urgency. The patient on a Cardene drip. Blood pressure well controlled. 6. Systemic inflammatory response syndrome with leukocytosis, lactic acidosis and tachycardia. Lactic acidosis has resolved. The patient on empiric antibiotics for any underlying infectious etiology. Pancultures negative so far. 7. Mild pulmonary hypertension. 8. End-stage renal disease on hemodialysis. HD as per Nephrology. The patient' s electrolyte levels are stable. 9. Fluid, electrolytes and nutrition. Continue n.p.o. 10. Deep venous thrombosis prophylaxis with bilateral sequential compression devices. 11. Gastrointestinal prophylaxis. Proton pump inhibitors. PLAN: Continue ICU care. Obtain neurology evaluation. Case discussed with Dr. Holloway. Plan of care was explained to the patient's daughter and spouse, who were at the bedside. Critical care time: 35 minutes. Problems: Subjective 24 Hr Interval Summary Free Text/Dictation Patient having seizures. Exam/Review of Systems Vital Signs Vitals Vital Signs Date Time Temp Pulse Resp B/P Pulse Ox O2 Delivery O2 Flow Rate FiO2 09/01/16 06:45 97.7 98 24 133/100 100 Mechanical Ventilator 09/01/16 06:20 50 Intake and Output 08/31/16 08/31/16 09/01/16 15:00 23:00 07:00 Intake Total 478.14 ml 421.02 ml 398.0 ml Output Total 8 ml 100 ml 20 ml Balance 470.14 ml 321.02 ml 378.0 ml Exam GENERAL: This is a 56-year-old female patient lying in bed, orally intubated. HEENT: Head normocephalic and atraumatic. Eyes: Anicteric sclerae. Conjunctivae clear. ENT: Nasal septum is midline. Oral mucosa is dry. The patient has an orogastric tube and ET tube in place. NECK: Supple. No JVD noticed. RESPIRATORY: Bilaterally diminished breath sounds. Bilateral coarse rales heard. ET tube to mechanical ventilator. On AC mode ventilation. CARDIAC: Regular rate and rhythm. Sinus tachycardia on the monitor. ABDOMEN: Soft, nontender and nondistended. Bowel sounds hypoactive. GENITOURINARY: The patient has a Patel catheter in place. Right groin triple lumen catheter. EXTREMITIES: No cyanosis, no clubbing. Bilateral lower extremity 1+ pitting edema. Peripheral pulses are palpable. NEUROLOGIC: The patient is unresponsive. Pupils are pinpoint and nonreactive. Results Result Diagram: 09/01/16 0047 09/01/16 0510 Results 24 hrs Laboratory Tests Test 08/31/16 11:20 08/31/16 12:00 08/31/16 12:22 08/31/16 18:00 Amylase Level 166 H Anion Gap 21 H Band Neutrophils % 5.0 Basophils # Basophils % Blood Morphology Comment Blood Urea Nitrogen 51 H Calcium Level 8.9 Carbon Dioxide Level 19 L Chloride Level 103 Creatine Kinase 48 Creatine Kinase Index 8.8 Creatinine 7.92 H Creatinine Kinase MB (Mass) 4.23 H Differential Comment MANUAL DIFF Eosinophils # Eosinophils % Glucose Level 106 Hematocrit 38.3 Hemoglobin 12.4 Lipase 160 Lymphocytes # 0.5 L Lymphocytes % 3.0 L Magnesium Level 1.7 Mean Corpuscular Hemoglobin 30.0 Mean Corpuscular Hemoglobin Concent 32.4 Mean Corpuscular Volume 92.6 Mean Platelet Volume 8.5 Monocytes # 0.5 Monocytes % 3.0 Neutrophils # 14.7 H Neutrophils % 89.0 H Nucleated Red Blood Cells # Nucleated Red Blood Cells % Phosphorus Level 5.4 H Platelet Count 162 Potassium Level 5.0 Red Blood Count 4.13 L Red Cell Distribution Width 17.7 H Sodium Level 138 Troponin I 0.827 *H White Blood Count 16.5 H Arterial Blood HCO3 21.6 L 15.4 L Arterial Blood Base Excess -3.5 L -8.8 L Arterial Blood Oxygen Saturation 99.3 H 98.3 H Cristian Test ACCEPTAB ACCEPTAB Arterial Blood Gas Puncture Site Right Radial Right Radial Arterial Blood Carboxyhemoglobin 0.3 0.3 Arterial Blood Date Drawn 08/31/2016 12:00:04 PM 08/31/2016 5:45:46 PM Arterial Blood Methemoglobin 0.1 0 Arterial Blood pCO2 (Temp correct) 32.6 L 24.0 L Arterial Blood pH (Temp corrected) 7.420 7.406 Arterial Blood pO2 (Temp corrected) 187.0 H 107.4 H Blood Gas A-a O2 Differential 357.0 H 226.8 H Blood Gas Actual Respiration Rate 16 18 Blood Gas Low PEEP Setting 5.0 5.0 Blood Gas Modality VENT - AC VENT - AC Blood Gas Notified Time 08/31/2016 12:11:39 PM 08/31/2016 5:54:44 PM Blood Gas Notified Whom TM UP Blood Gas Respiration Rate 16.0 16.0 Blood Gas Specimen Source Blood arterial Blood arterial Blood Gas Temperature 32.8 33.0 Blood Gas Tidal Volume 450.0 450.0 FiO2 80.0 50.0 Oxyhemoglobin Percent 98.9 98.0 Total Hemoglobin 13.5 13.1 Bedside Glucose 112 Test 08/31/16 18:18 08/31/16 18:25 08/31/16 20:30 09/01/16 00:00 Bedside Glucose 92 107 Activated Partial Thromboplast Time 35.2 H Amylase Level 169 H Anion Gap 22 H Band Neutrophils % 5.0 Basophils # Basophils % Blood Morphology Comment Blood Urea Nitrogen 55 H Calcium Level 9.0 Carbon Dioxide Level 20 L Chloride Level 103 Creatinine 8.82 H Eosinophils # Eosinophils % Fibrinogen 609.0 H Glucose Level 98 Hematocrit 37.7 Hemoglobin 12.3 Lipase 84 Lymphocytes # 0.5 L Lymphocytes % 3.0 L Magnesium Level 1.9 Mean Corpuscular Hemoglobin 30.2 Mean Corpuscular Hemoglobin Concent 32.5 Mean Corpuscular Volume 93.0 Mean Platelet Volume 8.4 Mix PTT Normal Plasma Immediate Monocytes # Monocytes % Neutrophils # 15.9 H Neutrophils % 92.0 H Nucleated Red Blood Cells # Nucleated Red Blood Cells % 0.0 Phosphorus Level 7.3 H Platelet Count 173 Potassium Level 5.3 H Red Blood Count 4.05 L Red Cell Distribution Width 17.7 H Sodium Level 140 Troponin I 0.590 *H White Blood Count 17.3 H Arterial Blood HCO3 19.6 L Arterial Blood Base Excess -4.5 L Arterial Blood Oxygen Saturation 92.9 L Cristian Test ACCEPTAB Arterial Blood Gas Puncture Site Right Radial Arterial Blood Carboxyhemoglobin 0.4 Arterial Blood Date Drawn 09/01/2016 12:15:32 AM Arterial Blood Methemoglobin 0.1 Arterial Blood pCO2 (Temp correct) 30.1 L Arterial Blood pH (Temp corrected) 7.422 Arterial Blood pO2 (Temp corrected) 59.5 L Blood Gas A-a O2 Differential 265.9 H Blood Gas Actual Respiration Rate 21 Blood Gas Low PEEP Setting 5.0 Blood Gas Modality VENT - AC Blood Gas Notified Time 09/01/2016 12:23:32 AM Blood Gas Notified Whom MA Blood Gas Respiration Rate 16.0 Blood Gas Specimen Source Blood arterial Blood Gas Temperature 34.8 Blood Gas Tidal Volume 450.0 FiO2 50.0 Oxyhemoglobin Percent 92.4 L Total Hemoglobin 12.9 Test 09/01/16 00:15 09/01/16 00:38 09/01/16 00:47 09/01/16 01:30 Bedside Glucose 66 L 132 133 Activated Partial Thromboplast Time 34.3 Amylase Level 141 H Anion Gap 20 H Basophils # 0.0 Basophils % 0.0 Blood Morphology Comment Blood Urea Nitrogen 55 H Calcium Level 8.3 L Carbon Dioxide Level 20 L Chloride Level 103 Creatinine 8.59 H Eosinophils # 0.0 Eosinophils % 0.0 Fibrinogen 512.0 #H Glucose Level 162 Hematocrit 32.1 L Hemoglobin 10.5 L Lipase 79 Lymphocytes # 0.6 L Lymphocytes % 4.4 L Magnesium Level 1.7 Mean Corpuscular Hemoglobin 30.1 Mean Corpuscular Hemoglobin Concent 32.7 Mean Corpuscular Volume 92.2 Mean Platelet Volume 8.3 Mix PTT Normal Plasma Immediate Monocytes # 0.2 L Monocytes % 1.4 Neutrophils # 12.8 H Neutrophils % 94.2 H Nucleated Red Blood Cells # 0.0 Nucleated Red Blood Cells % 0.0 Phosphorus Level 8.1 H Platelet Count 167 Potassium Level 4.9 Red Blood Count 3.48 L Red Cell Distribution Width 17.9 H Sodium Level 138 Troponin I 0.457 *H White Blood Count 13.6 #H Test 09/01/16 05:10 09/01/16 05:36 09/01/16 06:04 Activated Partial Thromboplast Time 36.6 H Alanine Aminotransferase (ALT/SGPT) 38 Albumin 2.5 L Albumin/Globulin Ratio 0.86 Alkaline Phosphatase 63 Anion Gap 20 H Aspartate Amino Transf (AST/SGOT) 17 Bedside Glucose 68 L 112 96 Blood Urea Nitrogen 58 H Calcium Level 8.2 L Carbon Dioxide Level 21 Chloride Level 106 Creatinine 9.16 H Direct Bilirubin 0.00 Fibrinogen 478.0 #H Globulin 2.90 Glucose Level 69 #L Indirect Bilirubin 0.0 Lactic Acid Level 1.1 Magnesium Level 1.8 Mix PTT Normal Plasma Immediate Pending Phosphorus Level 8.6 H Potassium Level 5.0 Random Vancomycin Level 15.2 Sodium Level 142 Total Bilirubin 0.0 L Total Protein 5.4 #L Medications Medications Current Medications Pantoprazole (Protonix Iv) 40 mg DAILY@06 IV Last administered on 09/01/16 05: 19; Admin Dose 40 MG; Start 08/31/16 at 06:00 Eye Lubricant 1 drop 1 drop TID BOTH EYES Last administered on 08/31/16 20:32 ; Admin Dose 1 DROP; Start 08/30/16 at 21:00 Nicardipine HCl 200 ml @ 50 mls/hr TITRATE IV Last administered on 08/31/16 22:58; Admin Dose 50 MLS/HR; Start 08/30/16 at 17:30 Propofol 100 ml @ 2.1 mls/hr Q12H IV Last administered on 09/01/16 06:15; Admin Dose 12.6 MLS/HR; Start 08/30/16 at 17:30 Vecuronium Boykin 100 mg/ Dextrose 100 ml @ 0 mls/hr TITRATE IV Last administered on 08/31/16 08:25; Admin Dose 2.1 MLS/HR; Start 08/30/16 at 17:30 Cefepime HCl (Maxipime 1gm/50 ml (Pmx)) 50 ml @ 100 mls/hr Q24H IVPB Last administered on 08/31/16 20:50; Admin Dose 100 MLS/HR; Start 08/30/16 at 21:00 Miscellaneous Information 1 ea NOTE XX ; Start 08/30/16 at 19:00 Glucose (Glutose) 15 gm Q15M PRN PO DECREASED GLUCOSE; Start 08/30/16 at 19:00 Glucose (Glutose) 22.5 gm Q15M PRN PO DECREASED GLUCOSE; Start 08/30/16 at 19: 00 Dextrose (D50w Syringe) 25 ml Q15M PRN IV DECREASED GLUCOSE Last administered on 09/01/16 05:19; Admin Dose 25 ML; Start 08/30/16 at 19:00 Dextrose (D50w Syringe) 50 ml Q15M PRN IV DECREASED GLUCOSE; Start 08/30/16 at 19:00 Glucagon (Glucagen) 1 mg Q15M PRN IM DECREASED GLUCOSE; Start 08/30/16 at 19:00 Glucose (Glutose) 15 gm Q15M PRN BUCCAL DECREASED GLUCOSE; Start 08/30/16 at 19 :00 Insulin Aspart (Adult SC Insulin - Mild Algorithm)... Q6 SC ; Start 08/30/16 at 18:00 Levetiracetam/ Dextrose (Keppra Iv/D5W) 110 ml @ 440 mls/hr Q12 IVPB Last administered on 09/01/16 00:17; Admin Dose 440 MLS/HR; Start 08/31/16 at 23:30 Lorazepam (Ativan) 2 mg Q2H PRN IV SEIZURES Last administered on 09/01/16 07: 57; Admin Dose 2 MG; Start 09/01/16 at 02:00 Divalproex Sodium (Depakote) 500 mg TID PO ; Start 09/01/16 at 09:00 CLEM HUNG NP Sep 01, 2016 08:45
[2016-09-01] MEDS: DIVALPROEX (EC) 500 MG TAB PO SCH ×3 (08:47→21:27)
[2016-09-01] MEDS: ARTIFICIAL TEARS 15 ML OPH BOTH EYES SCH ×3 (08:47→21:27)
[2016-09-01 08:53] LABS: TROPONIN-I 0.451 ng/ml (0.00-0.12)
[2016-09-01 09:15] LABS: BASOPHILS % 0.1 % (0.0-2.0); HEMATOCRIT 30.5 % (37.0-47.0); HEMOGLOBIN 9.9 g/dl (12.0-16.0); LYMPHOCYTES # 0.8 10^3/ul (0.8-2.9); LYMPHOCYTES % 6.1 % (15.0-51.0); MEAN CORPUSCULAR HEMOGLOBIN 30.2 pg (29.0-33.0); MEAN CORPUSCULAR HGB CONC 32.5 g/dl (32.0-37.0); MEAN CORPUSCULAR VOLUME 93.2 fl (82.0-101.0); MEAN PLATELET VOLUME 8.2 fl (7.4-10.4); MONOCYTE # 0.4 10^3/ul (0.3-0.9); MONOCYTES % 3.2 % (0.0-11.0); NEUTROPHIL # 11.9 10^3/ul (1.6-7.5); NEUTROPHILS % 90.6 % (39.0-77.0); PLATELET COUNT 173 10^3/UL (140-440); RED BLOOD COUNT 3.28 10^6/ul (4.20-5.40); RED CELL DISTRIBUTION WIDTH 18.2 % (11.5-14.5); UNCORRECTED WBC 13.1 10^3/ul (4.8-10.8); WHITE BLOOD COUNT 13.1 10^3/ul (4.8-10.8)
[2016-09-01 09:22] LABS: CONDITION 1; LH ANALYZER COMMENTS 1
[2016-09-01 10:41] LABS: AADO2 Arterial 203.4 mmHg (7.0-24.0); Allen Test ACCEPTAB; Arterial Base Excess -5.4 mmol/L (-3.0-3); Arterial COHb 0.2 % (0.0-3.0); Arterial Fraction of Oxyhgb 97.4 % (93.0-99.0); Arterial HCO3 19.5 mmol/L (22.0-26.0); Arterial MetHb 0.3 % (0.0-1.5); Arterial Total Hemglobin 11.5 g/dl (12.0-18.0); MODE VENT - AC
[2016-09-01] MEDS ORDERED: VANCOMYCIN 750 MG in SOD CHLORIDE 0.9% 150 ML IVPB SCH (13:30)
--- NOTE | 2016-09-01 13:42 | CONS ---
DATE OF ADMISSION: 08/30/2016 DATE OF CONSULTATION: 09/01/2016 PALLIATIVE CARE CONSULTATION HISTORY OF PRESENT ILLNESS: This is a 56-year-old female who was admitted to [facility] post witnessed PEA, brought to the emergency room, spontaneous recirculation was accomplished . The patient was intubated, seen by pulmonary, cardiology, and was put on hypothermia protocol. A t this time of evaluation, the patient was admitted August 30 at 1700, today's date is September 01, 1123 hours. The patient required nicardipine drip, initially admitted, seen by infectious disejaymie mariano. Antibiotics were begun for suspected inflammatory response syndrome. Comorbid problems include d end-stage renal disease on dialysis, fluid, and electrolyte abnormalities. She has been on hypoth ermia protocol and at this time has been discontinued. She has had witnessed seizures, elevated tro ponin levels, remains intubated, with even aggressive intervention. I only met her daughter daughter is at patient's bedside. Apparently there are extended family members, but only a brother and father who are the decision makers. MEDICATIONS: Please refer to reconciliation sheet. ALLERGIES: NO KNOWN DRUG ALLERGIES. MAJOR MEDICAL PROBLEMS IN THE PAST: Extensive. Include a history of end-stage renal disease, on di alysis, hypertension, recent history of admission for pneumonia and congestive heart failure, anemia of chronic disease. SOCIAL HISTORY: The patient lives at home with family. FAMILY HISTORY: Unknown. REVIEW OF SYSTEMS: Cannot be obtained. PHYSICAL EXAMINATION: GENERAL: Shows a well-nourished, well-developed female, intubated, nonresponsive to any verbal or t actile stimulation. VITAL SIGNS: Blood pressure 146/89, pulse of 106, respirations of 25 assisted, pulse oximetry 100% on 40% FIO2 and 5 of PEEP. CHEST: Shows bilateral inspiratory rhonchi on examination. CORONARY: S1, S2, without S3, S4, murmur, gallop, rub. Normal rate, normal rhythm. ABDOMEN: Grossly benign. LABORATORY TESTS: White blood cell count of 13.1, hemoglobin 9.9, hematocrit 30.5, MCV of 173,000. Chemistries: Serum sodium 142, potassium 5.0, chloride 106, bicarbonate 21, BUN of 58, creatinine 9.15. ASSESSMENT AND PLAN: This is a 56-year-old female who sustained a cardiac arrest status post PEA, s tatus post hypothermia protocol, in the intensive care unit at [facility], ranjith crowder. I have spoken to her daughter at the bedside and reenforced the fact that we will be follo wing her neurological condition very closely. The daughter states she has done much research and un derstands the severity of potential anoxic brain injury. I have asked her to set up an appointment with her family, she prefers to wait for another 2 days prior to that. Therefore, family conference of is preliminarily scheduled for 09/04/2016. Dictated By: ORVILLE SEAY MD LP/NTS Conf#: [id number] DID#: [id number]
[2016-09-01 13:43] LABS: PARTIAL THROMBOPLASTIN TIME 36.6 Sec (25.0-35.0)
--- NOTE | 2016-09-01 17:02 | CONS ---
Date/Time of Note Date/Time of Note DATE: 09/01/16 TIME: 16:45 Assessment/Plan Assessment/Plan Chief Complaint/Hosp Course Cardiorespiratory arrest Problems: Additional Assessment/Plan Patient is a 56-year-old female with history of end-stage renal disease on hemodialysis and essential hypertension was found to be unresponsive at home. Paramedics found the patient in PEA and was resuscitated. She was also seen to have uncontrolled blood pressures, lactic acidosis with leukocytosis. CT scan brain was negative for any acute intracranial pathology. She was also treated with hypothermia protocol. EEG showed generalized background slowing with intermittent epileptiform activity. She is quite encephalopathic due to anoxic event. PLAN: 1 Taper away sedation 2 Continue Keppra and increase the dose to 1500 mg IV bid 3 Seizure precaution 4 Discussed with patient's family who are present in the room 5 Prognosis guarded Consultation Date/Type/Reason Admit Date/Time Aug 30, 2016 at 15:45 Date of Consultation: Sep 01, 2016 Reason for Consultation Cardiorespiratory arrest Patient is a 56-year-old female with past medical history of end-stage renal disease on hemodialysis and essential hypertension was found to be unresponsive at home. The patient managed to call paramedics before she became unconscious. As per report, the patient was in PEA. With resuscitation, ROSC was achieved , and the patient was intubated in the field and was brought to the emergency room and was intubated. Her evaluation in ER showed uncontrolled blood pressures , lactic acidosis with leukocytosis. CT scan brain was negative for any acute intracranial pathology. The patient was started on an IV nicardipine drip, propofol and vecuronium. She was also treated with hypothermia protocol. EEG showed generalized background slowing with intermittent epileptiform activity. Respiratory: other (Intubated, ventilated and sedated) Cardiovascular: no complaints Neurologic: seizure Psychological: other (intubated, sedated), No nl mood/affect Past Medical History Medical History: hypertension (Renal failure on HD) Past Surgical History Past Surgical Hx: no surgical history Family History Significant Family History: no pertinent family hx Social History Alcohol Use: none Smoking Status: Unknown if ever smoked Exam/Review of Systems Vital Signs Vitals Vital Signs Date Time Temp Pulse Resp B/P Pulse Ox O2 Delivery O2 Flow Rate FiO2 09/01/16 16:30 101 16 98/71 100 09/01/16 16:15 Mechanical Ventilator 09/01/16 16:00 98.6 09/01/16 08:00 50 Intake and Output 08/31/16 08/31/16 09/01/16 15:00 23:00 07:00 Intake Total 478.14 ml 421.02 ml 398.0 ml Output Total 8 ml 100 ml 20 ml Balance 470.14 ml 321.02 ml 378.0 ml Exam Constitutional: other (Intubated, sedated, ventilated, positive corneal and gag reflexes, limited exam) Gastrointestinal: soft Neurological: other (sedated, intubated, ventilated, positive corneal and gag reflexes, no withdrawl to noxious stimuli) Results Result Diagram: 09/01/16 0510 09/01/16 0510 Results 24 hrs Laboratory Tests Test 08/31/16 18:00 08/31/16 18:18 08/31/16 18:25 08/31/16 20:30 Arterial Blood HCO3 15.4 L Arterial Blood Base Excess -8.8 L Arterial Blood Oxygen Saturation 98.3 H Cristian Test ACCEPTAB Arterial Blood Gas Puncture Site Right Radial Arterial Blood Carboxyhemoglobin 0.3 Arterial Blood Date Drawn 08/31/2016 5:45:46 PM Arterial Blood Methemoglobin 0 Arterial Blood pCO2 (Temp correct) 24.0 L Arterial Blood pH (Temp corrected) 7.406 Arterial Blood pO2 (Temp corrected) 107.4 H Blood Gas A-a O2 Differential 226.8 H Blood Gas Actual Respiration Rate 18 Blood Gas Low PEEP Setting 5.0 Blood Gas Modality VENT - AC Blood Gas Notified Time 08/31/2016 5:54:44 PM Blood Gas Notified Whom UP Blood Gas Respiration Rate 16.0 Blood Gas Specimen Source Blood arterial Blood Gas Temperature 33.0 Blood Gas Tidal Volume 450.0 FiO2 50.0 Oxyhemoglobin Percent 98.0 Total Hemoglobin 13.1 Bedside Glucose 92 107 Activated Partial Thromboplast Time 35.2 H Amylase Level 169 H Anion Gap 22 H Band Neutrophils % 5.0 Basophils # Basophils % Blood Morphology Comment Blood Urea Nitrogen 55 H Calcium Level 9.0 Carbon Dioxide Level 20 L Chloride Level 103 Creatinine 8.82 H Eosinophils # Eosinophils % Fibrinogen 609.0 H Glucose Level 98 Hematocrit 37.7 Hemoglobin 12.3 Lipase 84 Lymphocytes # 0.5 L Lymphocytes % 3.0 L Magnesium Level 1.9 Mean Corpuscular Hemoglobin 30.2 Mean Corpuscular Hemoglobin Concent 32.5 Mean Corpuscular Volume 93.0 Mean Platelet Volume 8.4 Mix PTT Normal Plasma Immediate Monocytes # Monocytes % Neutrophils # 15.9 H Neutrophils % 92.0 H Nucleated Red Blood Cells # Nucleated Red Blood Cells % 0.0 Phosphorus Level 7.3 H Platelet Count 173 Potassium Level 5.3 H Red Blood Count 4.05 L Red Cell Distribution Width 17.7 H Sodium Level 140 Troponin I 0.590 *H White Blood Count 17.3 H Test 09/01/16 00:00 09/01/16 00:15 09/01/16 00:38 09/01/16 00:47 Arterial Blood HCO3 19.6 L Arterial Blood Base Excess -4.5 L Arterial Blood Oxygen Saturation 92.9 L Cristian Test ACCEPTAB Arterial Blood Gas Puncture Site Right Radial Arterial Blood Carboxyhemoglobin 0.4 Arterial Blood Date Drawn 09/01/2016 12:15:32 AM Arterial Blood Methemoglobin 0.1 Arterial Blood pCO2 (Temp correct) 30.1 L Arterial Blood pH (Temp corrected) 7.422 Arterial Blood pO2 (Temp corrected) 59.5 L Blood Gas A-a O2 Differential 265.9 H Blood Gas Actual Respiration Rate 21 Blood Gas Low PEEP Setting 5.0 Blood Gas Modality VENT - AC Blood Gas Notified Time 09/01/2016 12:23:32 AM Blood Gas Notified Whom MA Blood Gas Respiration Rate 16.0 Blood Gas Specimen Source Blood arterial Blood Gas Temperature 34.8 Blood Gas Tidal Volume 450.0 FiO2 50.0 Oxyhemoglobin Percent 92.4 L Total Hemoglobin 12.9 Bedside Glucose 66 L 132 Activated Partial Thromboplast Time 34.3 Amylase Level 141 H Anion Gap 20 H Basophils # 0.0 Basophils % 0.0 Blood Morphology Comment Blood Urea Nitrogen 55 H Calcium Level 8.3 L Carbon Dioxide Level 20 L Chloride Level 103 Creatinine 8.59 H Eosinophils # 0.0 Eosinophils % 0.0 Fibrinogen 512.0 #H Glucose Level 162 Hematocrit 32.1 L Hemoglobin 10.5 L Lipase 79 Lymphocytes # 0.6 L Lymphocytes % 4.4 L Magnesium Level 1.7 Mean Corpuscular Hemoglobin 30.1 Mean Corpuscular Hemoglobin Concent 32.7 Mean Corpuscular Volume 92.2 Mean Platelet Volume 8.3 Mix PTT Normal Plasma Immediate Monocytes # 0.2 L Monocytes % 1.4 Neutrophils # 12.8 H Neutrophils % 94.2 H Nucleated Red Blood Cells # 0.0 Nucleated Red Blood Cells % 0.0 Phosphorus Level 8.1 H Platelet Count 167 Potassium Level 4.9 Red Blood Count 3.48 L Red Cell Distribution Width 17.9 H Sodium Level 138 Troponin I 0.457 *H White Blood Count 13.6 #H Test 09/01/16 01:30 09/01/16 05:10 09/01/16 05:36 09/01/16 06:04 Bedside Glucose 133 68 L 112 96 Activated Partial Thromboplast Time 36.6 H Alanine Aminotransferase (ALT/SGPT) 38 Albumin 2.5 L Albumin/Globulin Ratio 0.86 Alkaline Phosphatase 63 Amylase Level 121 Anion Gap 20 H Aspartate Amino Transf (AST/SGOT) 17 Basophils # 0.0 Basophils % 0.1 Blood Morphology Comment Blood Urea Nitrogen 58 H Calcium Level 8.2 L Carbon Dioxide Level 21 Chloride Level 106 Creatinine 9.16 H Direct Bilirubin 0.00 Eosinophils # 0.0 Eosinophils % 0.0 Fibrinogen 478.0 #H Globulin 2.90 Glucose Level 69 #L Hematocrit 30.5 L Hemoglobin 9.9 L Indirect Bilirubin 0.0 Lactic Acid Level 1.1 Lipase 53 Lymphocytes # 0.8 Lymphocytes % 6.1 L Magnesium Level 1.8 Mean Corpuscular Hemoglobin 30.2 Mean Corpuscular Hemoglobin Concent 32.5 Mean Corpuscular Volume 93.2 Mean Platelet Volume 8.2 Mix PTT Normal Plasma Immediate Monocytes # 0.4 Monocytes % 3.2 Neutrophils # 11.9 H Neutrophils % 90.6 H Nucleated Red Blood Cells # 0.0 Nucleated Red Blood Cells % 0.0 Phosphorus Level 8.6 H Platelet Count 173 Potassium Level 5.0 Random Vancomycin Level 15.2 Red Blood Count 3.28 L Red Cell Distribution Width 18.2 H Sodium Level 142 Total Bilirubin 0.0 L Total Protein 5.4 #L Troponin I 0.451 *H White Blood Count 13.1 H Test 09/01/16 08:00 09/01/16 12:51 Arterial Blood HCO3 19.5 L Arterial Blood Base Excess -5.4 L Arterial Blood Oxygen Saturation 97.9 Cristian Test ACCEPTAB Arterial Blood Gas Puncture Site Right Radial Arterial Blood Carboxyhemoglobin 0.2 Arterial Blood Date Drawn 09/01/2016 8:13:45 AM Arterial Blood Methemoglobin 0.3 Arterial Blood pCO2 (Temp correct) 35.1 Arterial Blood pH (Temp corrected) 7.361 Arterial Blood pO2 (Temp corrected) 114.1 H Blood Gas A-a O2 Differential 203.4 H Blood Gas Actual Respiration Rate 18 Blood Gas Low PEEP Setting 5.0 Blood Gas Modality VENT - AC Blood Gas Notified Time 09/01/2016 8:27:43 AM Blood Gas Notified Whom TM Blood Gas Respiration Rate 16.0 Blood Gas Specimen Source Blood arterial Blood Gas Temperature 36.6 Blood Gas Tidal Volume 450.0 FiO2 50.0 Oxyhemoglobin Percent 97.4 Total Hemoglobin 11.5 L Bedside Glucose 90 Medications Medications Current Medications Pantoprazole (Protonix Iv) 40 mg DAILY@06 IV Last administered on 09/01/16 05: 19; Admin Dose 40 MG; Start 08/31/16 at 06:00 Eye Lubricant 1 drop 1 drop TID BOTH EYES Last administered on 09/01/16 13:44 ; Admin Dose 1 DROP; Start 08/30/16 at 21:00 Nicardipine HCl 200 ml @ 50 mls/hr TITRATE IV Last administered on 09/01/16 08:35; Admin Dose 10 MLS/HR; Start 08/30/16 at 17:30 Propofol 100 ml @ 2.1 mls/hr Q12H IV Last administered on 09/01/16 11:51; Admin Dose 12.6 MLS/HR; Start 08/30/16 at 17:30 Vecuronium [place] 100 mg/ Dextrose 100 ml @ 0 mls/hr TITRATE IV Last administered on 08/31/16 08:25; Admin Dose 2.1 MLS/HR; Start 08/30/16 at 17:30 Cefepime HCl (Maxipime 1gm/50 ml (Pmx)) 50 ml @ 100 mls/hr Q24H IVPB Last administered on 08/31/16 20:50; Admin Dose 100 MLS/HR; Start 08/30/16 at 21:00 Miscellaneous Information 1 ea NOTE XX ; Start 08/30/16 at 19:00 Glucose (Glutose) 15 gm Q15M PRN PO DECREASED GLUCOSE; Start 08/30/16 at 19:00 Glucose (Glutose) 22.5 gm Q15M PRN PO DECREASED GLUCOSE; Start 08/30/16 at 19: 00 Dextrose (D50w Syringe) 25 ml Q15M PRN IV DECREASED GLUCOSE Last administered on 09/01/16 05:19; Admin Dose 25 ML; Start 08/30/16 at 19:00 Dextrose (D50w Syringe) 50 ml Q15M PRN IV DECREASED GLUCOSE; Start 08/30/16 at 19:00 Glucagon (Glucagen) 1 mg Q15M PRN IM DECREASED GLUCOSE; Start 08/30/16 at 19:00 Glucose (Glutose) 15 gm Q15M PRN BUCCAL DECREASED GLUCOSE; Start 08/30/16 at 19 :00 Insulin Aspart (Adult SC Insulin - Mild Algorithm)... Q6 SC ; Start 08/30/16 at 18:00 Levetiracetam/ Dextrose (Keppra Iv/D5W) 110 ml @ 440 mls/hr Q12 IVPB Last administered on 09/01/16 08:47; Admin Dose 440 MLS/HR; Start 08/31/16 at 23:30 Lorazepam (Ativan) 2 mg Q2H PRN IV SEIZURES Last administered on 09/01/16 12: 40; Admin Dose 2 MG; Start 09/01/16 at 02:00 Divalproex Sodium 500 mg 500 mg TID PO Last administered on 09/01/16 13:44; Admin Dose 500 MG; Start 09/01/16 at 09:00 Vancomycin HCl/ Sodium Chloride (Vancocin/NS) 150 ml @ 75 mls/hr ONCE IVPB Last administered on 09/01/16 14:38; Admin Dose 75 MLS/HR; Start 09/01/16 at 13 :30; Stop 09/01/16 at 18:00 ASAF STEPHENS MD Sep 01, 2016 16:55
--- NOTE | 2016-09-01 18:38 | SP ---
DATE OF PROCEDURE: 09/01/2016 TYPE OF REPORT: EEG. HISTORY: This is a 56-year-old woman with history of end-stage renal disease on hemodialysis and hy pertension who was admitted following found down and was noted to have pulseless electrical activity by paramedics. A CT scan of the brain was unremarkable. CURRENT MEDICATIONS: 1. Keppra. 2. Depakote. PROCEDURE: Utilizing a 16-channel EEG machine, cap scalp electrodes were applied in accordance with International 10-20 system. [id number] and [id number] montages were displayed. Electrical i mpedances were measured and reported. DESCRIPTION: During the resting state, posterior dominant rhythm was about 5 to 6 hours were seen b ihemispherically. Intermittent epileptiform activity was noted in bihemispheric distribution. Phot ic stimulation had no response. Hyperventilation was not performed. INTERPRETATION: This is an abnormal EEG because of presence of generalized bihemispheric background slowing with periodic epileptiform activity consistent with severe encephalopathy with seizure acti vity. Please correlate these findings with the patient's clinical picture. Dictated By: ASAF MATUTE/EMMA Conf#: [id number] DID#: [id number]
[2016-09-01] MEDS: CEFEPIME 1GM/50 ML (PMX) 50 ML IVPB SCH (21:26)
[2016-09-01] MEDS: LEVETIRACETAM IV 1,500 MG in DEXTROSE 5% 100 ML IVPB SCH (21:27)
--- NOTE | 2016-09-01 21:29 | CONS ---
Date/Time of Note Date/Time of Note DATE: 09/01/16 TIME: 21:27 Assessment/Plan Assessment/Plan Chief Complaint/Hosp Course Assessment: Status post cardiac arrest - unclear etiology, initial rhythm reported to be PEA , status post hypothermia protocol Accelerated hypertension - on nicardipine drip Acute on chronic diastolic heart failure NSTEMI - likely type 2 Systemic inflammatory response syndrome Acute respiratory failure - intubated, on mechanical ventilation End-stage renal disease - on hemodialysis Possible anoxic brain injury Recommendations: -echocardiogram showed LVEF 60-65%, moderate LVH -continue nicardipine drip -volume management via hemodialysis per nephrology -follow up neurology recommendations Problems: Consultation Date/Type/Reason Admit Date/Time Aug 30, 2016 at 15:45 Initial Consult Date 09/01/16 Type of Consultation: Cardiology 24 HR Interval Summary Free Text/Dictation Remains hypertensive requiring nicardipine drip. Remains intubated on mechanical ventilation. Rewarmed from hypothermia protocol. Detailed Summary Additional Comments Unable to obtain, patient intubated. Exam/Review of Systems Vital Signs Vitals Vital Signs Date Time Temp Pulse Resp B/P Pulse Ox O2 Delivery O2 Flow Rate FiO2 09/01/16 20:00 104 09/01/16 19:32 19 100 40 09/01/16 19:00 173/98 Mechanical Ventilator 09/01/16 16:00 98.6 Intake and Output 08/31/16 08/31/16 09/01/16 15:00 23:00 07:00 Intake Total 478.14 ml 421.02 ml 398.0 ml Output Total 8 ml 100 ml 20 ml Balance 470.14 ml 321.02 ml 378.0 ml Exam Constitutional: other (intubated, sedated), No alert, No oriented Psych: other (intubated, sedated), No nl mood/affect Head: atraumatic, normocephalic Eyes: nl conjunctiva, nl lids ENMT: intubated Neck: supple Respiratory: crackles/rales, diminished breath sounds Cardiovascular: regular rate and rhythm Gastrointestinal: non-tender, soft Musculoskeletal: nl extremities to inspection Extremities: No clubbing, No cyanosis, No edema Neurological: No nl mental status, No nl speech Results Result Diagram: 09/01/16 0510 09/01/16 0510 Results 24 hrs Laboratory Tests Test 09/01/16 00:00 09/01/16 00:15 09/01/16 00:38 09/01/16 00:47 Arterial Blood HCO3 19.6 L Arterial Blood Base Excess -4.5 L Arterial Blood Oxygen Saturation 92.9 L Cristian Test ACCEPTAB Arterial Blood Gas Puncture Site Right Radial Arterial Blood Carboxyhemoglobin 0.4 Arterial Blood Date Drawn 09/01/2016 12:15:32 AM Arterial Blood Methemoglobin 0.1 Arterial Blood pCO2 (Temp correct) 30.1 L Arterial Blood pH (Temp corrected) 7.422 Arterial Blood pO2 (Temp corrected) 59.5 L Blood Gas A-a O2 Differential 265.9 H Blood Gas Actual Respiration Rate 21 Blood Gas Low PEEP Setting 5.0 Blood Gas Modality VENT - AC Blood Gas Notified Time 09/01/2016 12:23:32 AM Blood Gas Notified Whom MA Blood Gas Respiration Rate 16.0 Blood Gas Specimen Source Blood arterial Blood Gas Temperature 34.8 Blood Gas Tidal Volume 450.0 FiO2 50.0 Oxyhemoglobin Percent 92.4 L Total Hemoglobin 12.9 Bedside Glucose 66 L 132 Activated Partial Thromboplast Time 34.3 Amylase Level 141 H Anion Gap 20 H Basophils # 0.0 Basophils % 0.0 Blood Morphology Comment Blood Urea Nitrogen 55 H Calcium Level 8.3 L Carbon Dioxide Level 20 L Chloride Level 103 Creatinine 8.59 H Eosinophils # 0.0 Eosinophils % 0.0 Fibrinogen 512.0 #H Glucose Level 162 Hematocrit 32.1 L Hemoglobin 10.5 L Lipase 79 Lymphocytes # 0.6 L Lymphocytes % 4.4 L Magnesium Level 1.7 Mean Corpuscular Hemoglobin 30.1 Mean Corpuscular Hemoglobin Concent 32.7 Mean Corpuscular Volume 92.2 Mean Platelet Volume 8.3 Mix PTT Normal Plasma Immediate Monocytes # 0.2 L Monocytes % 1.4 Neutrophils # 12.8 H Neutrophils % 94.2 H Nucleated Red Blood Cells # 0.0 Nucleated Red Blood Cells % 0.0 Phosphorus Level 8.1 H Platelet Count 167 Potassium Level 4.9 Red Blood Count 3.48 L Red Cell Distribution Width 17.9 H Sodium Level 138 Troponin I 0.457 *H White Blood Count 13.6 #H Test 09/01/16 01:30 09/01/16 05:10 09/01/16 05:36 09/01/16 06:04 Bedside Glucose 133 68 L 112 96 Activated Partial Thromboplast Time 36.6 H Alanine Aminotransferase (ALT/SGPT) 38 Albumin 2.5 L Albumin/Globulin Ratio 0.86 Alkaline Phosphatase 63 Amylase Level 121 Anion Gap 20 H Aspartate Amino Transf (AST/SGOT) 17 Basophils # 0.0 Basophils % 0.1 Blood Morphology Comment Blood Urea Nitrogen 58 H Calcium Level 8.2 L Carbon Dioxide Level 21 Chloride Level 106 Creatinine 9.16 H Direct Bilirubin 0.00 Eosinophils # 0.0 Eosinophils % 0.0 Fibrinogen 478.0 #H Globulin 2.90 Glucose Level 69 #L Hematocrit 30.5 L Hemoglobin 9.9 L Indirect Bilirubin 0.0 Lactic Acid Level 1.1 Lipase 53 Lymphocytes # 0.8 Lymphocytes % 6.1 L Magnesium Level 1.8 Mean Corpuscular Hemoglobin 30.2 Mean Corpuscular Hemoglobin Concent 32.5 Mean Corpuscular Volume 93.2 Mean Platelet Volume 8.2 Mix PTT Normal Plasma Immediate Monocytes # 0.4 Monocytes % 3.2 Neutrophils # 11.9 H Neutrophils % 90.6 H Nucleated Red Blood Cells # 0.0 Nucleated Red Blood Cells % 0.0 Phosphorus Level 8.6 H Platelet Count 173 Potassium Level 5.0 Random Vancomycin Level 15.2 Red Blood Count 3.28 L Red Cell Distribution Width 18.2 H Sodium Level 142 Total Bilirubin 0.0 L Total Protein 5.4 #L Troponin I 0.451 *H White Blood Count 13.1 H Test 09/01/16 08:00 09/01/16 12:51 09/01/16 18:03 Arterial Blood HCO3 19.5 L Arterial Blood Base Excess -5.4 L Arterial Blood Oxygen Saturation 97.9 Cristian Test ACCEPTAB Arterial Blood Gas Puncture Site Right Radial Arterial Blood Carboxyhemoglobin 0.2 Arterial Blood Date Drawn 09/01/2016 8:13:45 AM Arterial Blood Methemoglobin 0.3 Arterial Blood pCO2 (Temp correct) 35.1 Arterial Blood pH (Temp corrected) 7.361 Arterial Blood pO2 (Temp corrected) 114.1 H Blood Gas A-a O2 Differential 203.4 H Blood Gas Actual Respiration Rate 18 Blood Gas Low PEEP Setting 5.0 Blood Gas Modality VENT - AC Blood Gas Notified Time 09/01/2016 8:27:43 AM Blood Gas Notified Whom TM Blood Gas Respiration Rate 16.0 Blood Gas Specimen Source Blood arterial Blood Gas Temperature 36.6 Blood Gas Tidal Volume 450.0 FiO2 50.0 Oxyhemoglobin Percent 97.4 Total Hemoglobin 11.5 L Bedside Glucose 90 78 Medications Medications Current Medications Pantoprazole (Protonix Iv) 40 mg DAILY@06 IV Last administered on 09/01/16 05: 19; Admin Dose 40 MG; Start 08/31/16 at 06:00 Eye Lubricant 1 drop 1 drop TID BOTH EYES Last administered on 09/01/16 13:44 ; Admin Dose 1 DROP; Start 08/30/16 at 21:00 Propofol 100 ml @ 2.1 mls/hr Q12H IV Last administered on 09/01/16 17:33; Admin Dose 12.6 MLS/HR; Start 08/30/16 at 17:30 Vecuronium [place] 100 mg/ Dextrose 100 ml @ 0 mls/hr TITRATE IV Last administered on 08/31/16 08:25; Admin Dose 2.1 MLS/HR; Start 08/30/16 at 17:30 Cefepime HCl (Maxipime 1gm/50 ml (Pmx)) 50 ml @ 100 mls/hr Q24H IVPB Last administered on 08/31/16 20:50; Admin Dose 100 MLS/HR; Start 08/30/16 at 21:00 Miscellaneous Information 1 ea NOTE XX ; Start 08/30/16 at 19:00 Glucose (Glutose) 15 gm Q15M PRN PO DECREASED GLUCOSE; Start 08/30/16 at 19:00 Glucose (Glutose) 22.5 gm Q15M PRN PO DECREASED GLUCOSE; Start 08/30/16 at 19: 00 Dextrose (D50w Syringe) 25 ml Q15M PRN IV DECREASED GLUCOSE Last administered on 09/01/16 05:19; Admin Dose 25 ML; Start 08/30/16 at 19:00 Dextrose (D50w Syringe) 50 ml Q15M PRN IV DECREASED GLUCOSE; Start 08/30/16 at 19:00 Glucagon (Glucagen) 1 mg Q15M PRN IM DECREASED GLUCOSE; Start 08/30/16 at 19:00 Glucose (Glutose) 15 gm Q15M PRN BUCCAL DECREASED GLUCOSE; Start 08/30/16 at 19 :00 Insulin Aspart (Novolog Insulin Pen) (Adult SC Insulin - Mild Algorithm)... Q6 SC ; Start 08/30/16 at 18:00 Lorazepam (Ativan) 2 mg Q2H PRN IV SEIZURES Last administered on 09/01/16 17: 58; Admin Dose 2 MG; Start 09/01/16 at 02:00 Divalproex Sodium 500 mg 500 mg TID PO Last administered on 09/01/16 13:44; Admin Dose 500 MG; Start 09/01/16 at 09:00 Levetiracetam 1500 mg/Dextrose 115 ml @ 440 mls/hr Q12 IVPB ; Start 09/01/16 at 21:00 Nicardipine HCl/ Dextrose (Cardene Iv/D5W) 250 ml @ 5 mls/hr TITRATE IV Last administered on 09/01/16 19:05; Admin Dose 50 MLS/HR; Start 09/01/16 at 18:00 IFEOMA NARVAEZ MD Sep 01, 2016 21:29
[2016-09-02] VITALS (94 sets, daily range): BP systolic 123–187; BP diastolic 60–102; PULSE 95–115; RESP 15–22
[2016-09-02] MEDS: ALBUTEROL HFA 8 GM INHALER INH SCH ×6 (01:19→21:47)
[2016-09-02] MEDS: IPRATROPIUM (HFA) 12.9 GM INHALER INH SCH ×6 (01:19→21:47)
[2016-09-02] MEDS: PROPOFOL 100 ML IV SCH ×2 (04:10→13:04)
[2016-09-02] MEDS: LORAZEPAM 2 MG INJ IV PRN ×2 (04:20→18:25)
[2016-09-02 05:54] LABS: POTASSIUM 4.3 mmol/L (3.5-5.1)
[2016-09-02 05:56] LABS: BASOPHILS % 0.2 % (0.0-2.0); EOSINOPHILS # 0.1 10^3/ul (0.0-0.5); EOSINOPHILS % 0.6 % (0.0-7.0); HEMATOCRIT 29.5 % (37.0-47.0); HEMOGLOBIN 10.1 g/dl (12.0-16.0); LYMPHOCYTES # 1.7 10^3/ul (0.8-2.9); LYMPHOCYTES % 16.2 % (15.0-51.0); MEAN CORPUSCULAR HEMOGLOBIN 31.3 pg (29.0-33.0); MEAN CORPUSCULAR HGB CONC 34.1 g/dl (32.0-37.0); MEAN CORPUSCULAR VOLUME 91.7 fl (82.0-101.0); MEAN PLATELET VOLUME 8.3 fl (7.4-10.4); MONOCYTE # 0.6 10^3/ul (0.3-0.9); MONOCYTES % 5.6 % (0.0-11.0); NEUTROPHILS % 77.4 % (39.0-77.0); PLATELET COUNT 202 10^3/UL (140-440); RED BLOOD COUNT 3.22 10^6/ul (4.20-5.40); UNCORRECTED WBC 10.3 10^3/ul (4.8-10.8); WHITE BLOOD COUNT 10.3 10^3/ul (4.8-10.8)
[2016-09-02 05:57] LABS: CONDITION 1; CREATININE 6.68 mg/dl (0.44-1.00); LH ANALYZER COMMENTS 1
[2016-09-02 05:58] LABS: CALCIUM 7.5 mg/dl (8.4-10.2); MAGNESIUM 1.7 mg/dl (1.7-2.5)
[2016-09-02] MEDS: Insulin NOVOLOG SS MILD Algorithm (NPO/TPN/ENTERAL FEEDS) SC SCH ×4 (06:00→18:00)
[2016-09-02] MEDS: PANTOPRAZOLE 40 MG INJ IV SCH (06:03)
--- NOTE | 2016-09-02 08:34 | PN ---
Date/Time of Note Date/Time of Note DATE: 09/02/16 TIME: 08:32 Assessment/Plan VTE Prophylaxis VTE Prophylaxis Intervention: SCD's Lines/Catheters IV [facility]atheter Type (from [facility]): Permacath Central line still needed: Yes Urinary Cath still in place: Yes Reason Cath still needed: terminal illness/intractable pain Assessment/Plan Chief Complaint/Hosp Course 1. Status post cardiac arrest. S/P hypothermia protocol. Neurology following. The patient has evidence of anoxic brain injury. 2. Seizures. Most probably secondary to anoxic brain injury. The patient was started on anticonvulsants. Neurology following. 3. Elevated troponins, most probably secondary to the cardiac arrest. 2D echo showing preserved LVEF. 4. Acute respiratory failure. Hypoxic. Secondary to cardiac arrest. Ventilator management as per pulmonary. Continue inhaled bronchodilators. 5. Hypertensive urgency. The patient on a Cardene drip. Blood pressure well controlled. 6. Systemic inflammatory response syndrome with leukocytosis, lactic acidosis and tachycardia. Lactic acidosis has resolved. The patient on empiric antibiotics for any underlying infectious etiology. Pancultures negative so far. 7. Mild pulmonary hypertension. 8. End-stage renal disease on hemodialysis. HD as per Nephrology. The patient' s electrolyte levels are stable. 9. Fluid, electrolytes and nutrition. Continue n.p.o. Will start the patient on tube feedings. 10. Deep venous thrombosis prophylaxis with bilateral sequential compression devices. 11. Gastrointestinal prophylaxis. Proton pump inhibitors. PLAN: Continue ICU care. Await neurologic recovery. Case discussed with Dr. Holloway. Critical care time: 35 minutes. Problems: Subjective 24 Hr Interval Summary Free Text/Dictation Patient remains intubated. Has episodes of seizure activity. Exam/Review of Systems Vital Signs Vitals Vital Signs Date Time Temp Pulse Resp B/P Pulse Ox O2 Delivery O2 Flow Rate FiO2 09/02/16 08:15 97 09/02/16 07:30 16 09/02/16 06:00 161/79 100 Mechanical Ventilator 09/02/16 05:38 40 09/02/16 04:00 98.4 Intake and Output 09/01/16 09/01/16 09/02/16 15:00 23:00 07:00 Intake Total 630 ml 890.8 ml 717.6 ml Output Total 2500 ml 0 ml 0 ml Balance -1870 ml 890.8 ml 717.6 ml Exam GENERAL: This is a 56-year-old female patient lying in bed, orally intubated. HEENT: Head normocephalic and atraumatic. Eyes: Anicteric sclerae. Conjunctivae clear. ENT: Nasal septum is midline. Oral mucosa is dry. The patient has an orogastric tube and ET tube in place. NECK: Supple. No JVD noticed. RESPIRATORY: Bilaterally diminished breath sounds. Bilateral coarse rales heard. ET tube to mechanical ventilator. On AC mode ventilation. CARDIAC: Regular rate and rhythm. Sinus tachycardia on the monitor. ABDOMEN: Soft, nontender and nondistended. Bowel sounds hypoactive. GENITOURINARY: The patient has a Patel catheter in place. Right groin triple lumen catheter. EXTREMITIES: No cyanosis, no clubbing. Bilateral lower extremity 1+ pitting edema. Peripheral pulses are palpable. NEUROLOGIC: The patient is unresponsive. Pupils are equal and reactive. Results Result Diagram: 09/02/16 0400 09/02/16 0400 Results 24 hrs Laboratory Tests Test 09/01/16 12:51 09/01/16 18:03 09/02/16 00:33 09/02/16 04:00 Bedside Glucose 90 78 78 Anion Gap 20 H Basophils # 0.0 Basophils % 0.2 Blood Morphology Comment Blood Urea Nitrogen 34 #H Calcium Level 7.5 L Carbon Dioxide Level 23 Chloride Level 97 Creatinine 6.68 #H Eosinophils # 0.1 Eosinophils % 0.6 Glucose Level 77 Hematocrit 29.5 L Hemoglobin 10.1 L Lymphocytes # 1.7 Lymphocytes % 16.2 Magnesium Level 1.7 Mean Corpuscular Hemoglobin 31.3 Mean Corpuscular Hemoglobin Concent 34.1 Mean Corpuscular Volume 91.7 Mean Platelet Volume 8.3 Monocytes # 0.6 Monocytes % 5.6 Neutrophils # 8.0 H Neutrophils % 77.4 H Nucleated Red Blood Cells # 0.0 Nucleated Red Blood Cells % 0.0 Phosphorus Level 7.0 H Platelet Count 202 Potassium Level 4.3 Red Blood Count 3.22 L Red Cell Distribution Width 18.0 H Sodium Level 136 White Blood Count 10.3 # Test 09/02/16 06:07 Bedside Glucose 93 Medications Medications Current Medications Pantoprazole (Protonix Iv) 40 mg DAILY@06 IV Last administered on 09/02/16t 06: 03; Admin Dose 40 MG; Start 08/31/16 at 06:00 Eye Lubricant 1 drop 1 drop TID BOTH EYES Last administered on 09/01/16 21:27 ; Admin Dose 1 DROP; Start 08/30/16 at 21:00 Propofol 100 ml @ 2.1 mls/hr Q12H IV Last administered on 09/02/16 04:10; Admin Dose 16.8 MLS/HR; Start 08/30/16 at 17:30 Vecuronium [place] 100 mg/ Dextrose 100 ml @ 0 mls/hr TITRATE IV Last administered on 08/31/16 08:25; Admin Dose 2.1 MLS/HR; Start 08/30/16 at 17:30 Cefepime HCl (Maxipime 1gm/50 ml (Pmx)) 50 ml @ 100 mls/hr Q24H IVPB Last administered on 09/01/16 21:26; Admin Dose 100 MLS/HR; Start 08/30/16 at 21:00 Miscellaneous Information 1 ea NOTE XX ; Start 08/30/16 at 19:00 Glucose (Glutose) 15 gm Q15M PRN PO DECREASED GLUCOSE; Start 08/30/16 at 19:00 Glucose (Glutose) 22.5 gm Q15M PRN PO DECREASED GLUCOSE; Start 08/30/16 at 19: 00 Dextrose (D50w Syringe) 25 ml Q15M PRN IV DECREASED GLUCOSE Last administered on 09/01/16 05:19; Admin Dose 25 ML; Start 08/30/16 at 19:00 Dextrose (D50w Syringe) 50 ml Q15M PRN IV DECREASED GLUCOSE; Start 08/30/16 at 19:00 Glucagon (Glucagen) 1 mg Q15M PRN IM DECREASED GLUCOSE; Start 08/30/16 at 19:00 Glucose (Glutose) 15 gm Q15M PRN BUCCAL DECREASED GLUCOSE; Start 08/30/16 at 19 :00 Insulin Aspart (Novolog Insulin Pen) (Adult SC Insulin - Mild Algorithm)... Q6 SC ; Start 08/30/16 at 18:00 Lorazepam (Ativan) 2 mg Q2H PRN IV SEIZURES Last administered on 09/02/16 04: 20; Admin Dose 2 MG; Start 09/01/16 at 02:00 Divalproex Sodium 500 mg 500 mg TID PO Last administered on 1/27/17at 21:27; Admin Dose 500 MG; Start 09/01/16 at 09:00 Levetiracetam 1500 mg/Dextrose 115 ml @ 440 mls/hr Q12 IVPB Last administered on 09/01/16 21:27; Admin Dose 440 MLS/HR; Start 09/01/16 at 21:00 Nicardipine HCl/ Dextrose (Cardene Iv/D5W) 250 ml @ 5 mls/hr TITRATE IV Last administered on 09/02/16 05:38; Admin Dose 75 MLS/HR; Start 09/01/16 at 18:00 CLEM HUNG NP Sep 02, 2016 08:34
[2016-09-02] MEDS: LEVETIRACETAM IV 1,500 MG in DEXTROSE 5% 100 ML IVPB SCH ×2 (08:59→21:38)
[2016-09-02] MEDS: DIVALPROEX (EC) 500 MG TAB PO SCH ×3 (08:59→21:38)
[2016-09-02] MEDS: ARTIFICIAL TEARS 15 ML OPH BOTH EYES SCH ×3 (08:59→21:37)
--- NOTE | 2016-09-02 10:43 | PN ---
DATE: 09/02/2016 SUBJECTIVE: The patient is status post hypothermic protocol yesterday. The patient remains on prop ofol drip. Continues to have episodes of myotonic jerks when coming off propofol. The patient has minimal response. No other acute events noted. No hemoptysis, hematemesis or hematochezia. OBJECTIVE: VITAL SIGNS: Blood pressure is 161/71, respirations 18, pulse 107, temperature 98.4. HEENT: Head is normocephalic. NECK: Supple. HEART: Regular rate. LUNGS: Show diminished breath sounds at bases. ABDOMEN: Soft, nontender to palpation. No rebound or guarding. EXTREMITIES: Negative for clubbing, cyanosis. No edema. DERMATOLOGIC: No rashes. MUSCULOSKELETAL: No joint effusions. NEUROLOGIC: No change in exam. MEDICATIONS: The patient's medications are reviewed. LABORATORY DATA: Shows a sodium 136, potassium 4.3, chloride 97, BUN 34, creatinine 6.68, phosphoru s 7.0, calcium 7.5. White count 10.3, hemoglobin 10.4, hematocrit 29.5, platelet count is 202. IMAGING: Chest x-ray shows decreased congestion. ASSESSMENT AND PLAN: 1. End-stage renal disease. The patient is on dialysis Sunday, and Sunday. Last hemod ialysis was yesterday. Plan again dialysis today for 3 hours, 3 K bath, calcium 2.5. We will ultra filtrate as tolerated. 2. Hyperkalemia secondary to end-stage renal disease, improved. Continue dialysis on a low potassi um bath. 3. Hypertensive urgency. Improving. Patient is currently off nicardipine drip. Continue dialysis with ultrafiltration. 4. Ventilator-dependent respiratory failure. Vent settings were reviewed. ABG is reviewed. Brian nue current settings. 5. Volume overload. We will continue ultrafiltration with dialysis. 6. Status post cardiac arrest. The patient is status post hypothermic protocol. Continue to monit or. 7. Acute encephalopathy with likely anoxic brain injury. The patient has been followed by neurolog y. EEG was performed. We will continue to monitor. 8. Leukocytosis, systemic inflammatory response syndrome. The patient is on empiric antibiotics, c ontinue. Cultures have been reviewed. 9. Mineral bone disorder. The patient is hyperphosphatemic. Continue hemodialysis. We will give phosphate binders if patient starts tube feeding. 10. Non-ST elevation myocardial infarction type 2. Continue current medical management. 11. Anemia of end-stage renal disease. We will continue to monitor hemoglobin and hematocrit level s. We will give Epogen with hemodialysis. Please note I spent over 40 minutes of critical care time with this patient, discussed the case with the hospital staff. Dictated By: TIP SOLORIO/EMMA Conf#: [id number] DID#: [id number]
--- NOTE | 2016-09-02 13:47 | CONS ---
Date/Time of Note Date/Time of Note DATE: 09/02/16 TIME: 13:43 Assessment/Plan Assessment/Plan Chief Complaint/Hosp Course Cardiorespiratory arrest Problems: Additional Assessment/Plan Patient is a 56-year-old female with history of end-stage renal disease on hemodialysis and essential hypertension was found to be unresponsive at home. Paramedics found the patient in PEA and was resuscitated. She was also seen to have uncontrolled blood pressures, lactic acidosis with leukocytosis. CT scan brain was negative for any acute intracranial pathology. She was also treated with hypothermia protocol. EEG showed generalized background slowing with intermittent epileptiform activity. She is quite encephalopathic due to anoxic event. PLAN: 1 Taper away sedation 2 Continue Keppra 1500 mg IV bid 3 Seizure precaution 4 Discussed with patient's daughter who is present in the room 5 Prognosis guarded Consultation Date/Type/Reason Admit Date/Time Aug 30, 2016 at 15:45 Initial Consult Date 09/01/16 Type of Consultation: Cardiology 24 HR Interval Summary Free Text/Dictation Clinically unchanged, still on IV Diprivan drip. Constitutional: other (unchanged) Exam/Review of Systems Vital Signs Vitals Vital Signs Date Time Temp Pulse Resp B/P Pulse Ox O2 Delivery O2 Flow Rate FiO2 09/02/16 12:00 106 09/02/16 10:31 16 09/02/16 06:00 161/79 100 Mechanical Ventilator 09/02/16 05:38 40 09/02/16 04:00 98.4 Intake and Output 09/01/16 09/01/16 09/02/16 15:00 23:00 07:00 Intake Total 630 ml 890.8 ml 717.6 ml Output Total 2500 ml 0 ml 0 ml Balance -1870 ml 890.8 ml 717.6 ml Exam Constitutional: other (intubated, ventilated, sedated) Head: atraumatic, normocephalic Eyes: EOMI, nl conjunctiva, nl lids, nl sclera ENMT: mucosa pink and moist, nl external ears & nose, nl lips & teeth, nl nasal mucosa & septum Neck: non-tender, supple Respiratory: normal air movement Cardiovascular: nl pulses, regular rate and rhythm Gastrointestinal: soft Extremities: normal pulses Neurological: other (intubated, sedated, ventilated, unresponsive, corneals are sluggishly present, gag reflex is present, limited exam) Results Result Diagram: 09/02/16 0400 09/02/16 0400 Results 24 hrs Laboratory Tests Test 09/01/16 18:03 09/02/16 00:33 09/02/16 04:00 09/02/16 06:07 Bedside Glucose 78 78 93 Anion Gap 20 H Basophils # 0.0 Basophils % 0.2 Blood Morphology Comment Blood Urea Nitrogen 34 #H Calcium Level 7.5 L Carbon Dioxide Level 23 Chloride Level 97 Creatinine 6.68 #H Eosinophils # 0.1 Eosinophils % 0.6 Glucose Level 77 Hematocrit 29.5 L Hemoglobin 10.1 L Lymphocytes # 1.7 Lymphocytes % 16.2 Magnesium Level 1.7 Mean Corpuscular Hemoglobin 31.3 Mean Corpuscular Hemoglobin Concent 34.1 Mean Corpuscular Volume 91.7 Mean Platelet Volume 8.3 Monocytes # 0.6 Monocytes % 5.6 Neutrophils # 8.0 H Neutrophils % 77.4 H Nucleated Red Blood Cells # 0.0 Nucleated Red Blood Cells % 0.0 Phosphorus Level 7.0 H Platelet Count 202 Potassium Level 4.3 Red Blood Count 3.22 L Red Cell Distribution Width 18.0 H Sodium Level 136 White Blood Count 10.3 # Test 09/02/16 12:11 Bedside Glucose 95 Medications Medications Current Medications Pantoprazole (Protonix Iv) 40 mg DAILY@06 IV Last administered on 09/02/16 06: 03; Admin Dose 40 MG; Start 08/31/16 at 06:00 Eye Lubricant 1 drop 1 drop TID BOTH EYES Last administered on 09/02/16 12:14 ; Admin Dose 1 DROP; Start 08/30/16 at 21:00 Propofol 100 ml @ 2.1 mls/hr Q12H IV Last administered on 09/02/16 13:04; Admin Dose 16.8 MLS/HR; Start 08/30/16 at 17:30 Vecuronium [place] 100 mg/ Dextrose 100 ml @ 0 mls/hr TITRATE IV Last administered on 08/31/16 08:25; Admin Dose 2.1 MLS/HR; Start 08/30/16 at 17:30 Cefepime HCl (Maxipime 1gm/50 ml (Pmx)) 50 ml @ 100 mls/hr Q24H IVPB Last administered on 09/01/16 21:26; Admin Dose 100 MLS/HR; Start 08/30/16 at 21:00 Miscellaneous Information 1 ea NOTE XX ; Start 08/30/16 at 19:00 Glucose (Glutose) 15 gm Q15M PRN PO DECREASED GLUCOSE; Start 08/30/16 at 19:00 Glucose (Glutose) 22.5 gm Q15M PRN PO DECREASED GLUCOSE; Start 08/30/16 at 19: 00 Dextrose (D50w Syringe) 25 ml Q15M PRN IV DECREASED GLUCOSE Last administered on 09/01/16 05:19; Admin Dose 25 ML; Start 08/30/16 at 19:00 Dextrose (D50w Syringe) 50 ml Q15M PRN IV DECREASED GLUCOSE; Start 08/30/16 at 19:00 Glucagon (Glucagen) 1 mg Q15M PRN IM DECREASED GLUCOSE; Start 08/30/16 at 19:00 Glucose (Glutose) 15 gm Q15M PRN BUCCAL DECREASED GLUCOSE; Start 08/30/16 at 19 :00 Insulin Aspart (Novolog Insulin Pen) (Adult SC Insulin - Mild Algorithm)... Q6 SC ; Start 08/30/16 at 18:00 Lorazepam (Ativan) 2 mg Q2H PRN IV SEIZURES Last administered on 09/02/16 04: 20; Admin Dose 2 MG; Start 09/01/16 at 02:00 Divalproex Sodium 500 mg 500 mg TID PO Last administered on 09/02/16 13:06; Admin Dose 500 MG; Start 09/01/16 at 09:00 Levetiracetam 1500 mg/Dextrose 115 ml @ 440 mls/hr Q12 IVPB Last administered on 09/02/16 08:59; Admin Dose 440 MLS/HR; Start 09/01/16 at 21:00 Nicardipine HCl/ Dextrose (Cardene Iv/D5W) 250 ml @ 5 mls/hr TITRATE IV Last administered on 09/02/16 13:05; Admin Dose 100 MLS/HR; Start 09/01/16 at 18:00 ASAF STEPHENS MD Sep 02, 2016 13:47
--- NOTE | 2016-09-02 15:19 | CONS ---
Date/Time of Note Date/Time of Note DATE: 09/02/16 TIME: 15:14 Consult Date/Type/Reason Admit Date/Time Aug 30, 2016 at 15:45 Initial Consult Date 09/01/16 Type of Consultation: pulm Subjective Remains on propofol. Some seizure activity noted once on sedation vacation. Objective Vital Signs Date Time Temp Pulse Resp B/P Pulse Ox O2 Delivery O2 Flow Rate FiO2 09/02/16 13:10 103 20 100 40 09/02/16 06:00 161/79 Mechanical Ventilator 09/02/16 04:00 98.4 Intake and Output 09/01/16 09/01/16 09/02/16 15:00 23:00 07:00 Intake Total 630 ml 890.8 ml 717.6 ml Output Total 2500 ml 0 ml 0 ml Balance -1870 ml 890.8 ml 717.6 ml HEENT: Neck supple; no JVD; no LAD CVS: RRR, S1 and S2 CHEST: Clear ABD: Soft, NT, + BS EXT: No c/c/e Results/Medications Result Diagram: 09/02/16 0400 09/02/16 0400 Results 24 hrs Laboratory Tests Test 09/01/16 18:03 09/02/16 00:33 09/02/16 04:00 09/02/16 06:07 Bedside Glucose 78 78 93 Anion Gap 20 H Basophils # 0.0 Basophils % 0.2 Blood Morphology Comment Blood Urea Nitrogen 34 #H Calcium Level 7.5 L Carbon Dioxide Level 23 Chloride Level 97 Creatinine 6.68 #H Eosinophils # 0.1 Eosinophils % 0.6 Glucose Level 77 Hematocrit 29.5 L Hemoglobin 10.1 L Lymphocytes # 1.7 Lymphocytes % 16.2 Magnesium Level 1.7 Mean Corpuscular Hemoglobin 31.3 Mean Corpuscular Hemoglobin Concent 34.1 Mean Corpuscular Volume 91.7 Mean Platelet Volume 8.3 Monocytes # 0.6 Monocytes % 5.6 Neutrophils # 8.0 H Neutrophils % 77.4 H Nucleated Red Blood Cells # 0.0 Nucleated Red Blood Cells % 0.0 Phosphorus Level 7.0 H Platelet Count 202 Potassium Level 4.3 Red Blood Count 3.22 L Red Cell Distribution Width 18.0 H Sodium Level 136 White Blood Count 10.3 # Test 09/02/16 12:11 Bedside Glucose 95 Medications Current Medications Pantoprazole (Protonix Iv) 40 mg DAILY@06 IV Last administered on 09/02/16 06: 03; Admin Dose 40 MG; Start 08/31/16 at 06:00 Eye Lubricant 1 drop 1 drop TID BOTH EYES Last administered on 09/02/16 12:14 ; Admin Dose 1 DROP; Start 08/30/16 at 21:00 Propofol 100 ml @ 2.1 mls/hr Q12H IV Last administered on 09/02/16 13:04; Admin Dose 8.4 MLS/HR; Start 08/30/16 at 17:30 Vecuronium [place] 100 mg/ Dextrose 100 ml @ 0 mls/hr TITRATE IV Last administered on 08/31/16 08:25; Admin Dose 2.1 MLS/HR; Start 08/30/16 at 17:30 Cefepime HCl (Maxipime 1gm/50 ml (Pmx)) 50 ml @ 100 mls/hr Q24H IVPB Last administered on 09/01/16 21:26; Admin Dose 100 MLS/HR; Start 08/30/16 at 21:00 Miscellaneous Information 1 ea NOTE XX ; Start 08/30/16 at 19:00 Glucose (Glutose) 15 gm Q15M PRN PO DECREASED GLUCOSE; Start 08/30/16 at 19:00 Glucose (Glutose) 22.5 gm Q15M PRN PO DECREASED GLUCOSE; Start 08/30/16 at 19: 00 Dextrose (D50w Syringe) 25 ml Q15M PRN IV DECREASED GLUCOSE Last administered on 09/01/16 05:19; Admin Dose 25 ML; Start 08/30/16 at 19:00 Dextrose (D50w Syringe) 50 ml Q15M PRN IV DECREASED GLUCOSE; Start 08/30/16 at 19:00 Glucagon (Glucagen) 1 mg Q15M PRN IM DECREASED GLUCOSE; Start 08/30/16 at 19:00 Glucose (Glutose) 15 gm Q15M PRN BUCCAL DECREASED GLUCOSE; Start 08/30/16 at 19 :00 Insulin Aspart (Novolog Insulin Pen) (Adult SC Insulin - Mild Algorithm)... Q6 SC ; Start 08/30/16 at 18:00 Lorazepam (Ativan) 2 mg Q2H PRN IV SEIZURES Last administered on 09/02/16 04: 20; Admin Dose 2 MG; Start 09/01/16 at 02:00 Divalproex Sodium 500 mg 500 mg TID PO Last administered on 09/02/16 13:06; Admin Dose 500 MG; Start 09/01/16 at 09:00 Levetiracetam 1500 mg/Dextrose 115 ml @ 440 mls/hr Q12 IVPB Last administered on 09/02/16 08:59; Admin Dose 440 MLS/HR; Start 09/01/16 at 21:00 Nicardipine HCl/ Dextrose (Cardene Iv/D5W) 250 ml @ 5 mls/hr TITRATE IV Last administered on 09/02/16 13:05; Admin Dose 100 MLS/HR; Start 09/01/16 at 18:00 Assessment/Plan Additional Assessment/Plan IMP: 1. s/p CPA 2. Possible Anoxic Encephalopathy/Seizures ? myoclonic jerks due to anoxia 3. VDRF 4. CKD 5. Lactic Acidosis 6. Anemia 7. HTN RECS: 1. Daily sedation holiday 2. Continue to assess Neuro status 3. Consider increase keppra 2 gm BID 4. HD 5. Am labs 6. Advance ET tube 1 cm 40 min cc time case d/w family ELADIA MATOS MD Sep 02, 2016 15:19
--- NOTE | 2016-09-02 16:05 | CONS ---
Date/Time of Note Date/Time of Note DATE: 09/02/16 TIME: 16:04 Assessment/Plan Assessment/Plan Chief Complaint/Hosp Course Assessment: Status post cardiac arrest - unclear etiology, initial rhythm reported to be PEA , status post hypothermia protocol Accelerated hypertension - on nicardipine drip Acute on chronic diastolic heart failure NSTEMI - likely type 2 Systemic inflammatory response syndrome Acute respiratory failure - intubated, on mechanical ventilation End-stage renal disease - on hemodialysis Possible anoxic brain injury Recommendations: -echocardiogram showed LVEF 60-65%, moderate LVH -continue nicardipine drip -volume management via hemodialysis per nephrology -follow up neurology recommendations Problems: Consultation Date/Type/Reason Admit Date/Time Aug 30, 2016 at 15:45 Initial Consult Date 09/01/16 Type of Consultation: Cardiology 24 HR Interval Summary Free Text/Dictation No significant clinical changes. Detailed Summary Additional Comments Unable to obtain review of systems. Exam/Review of Systems Vital Signs Vitals Vital Signs Date Time Temp Pulse Resp B/P Pulse Ox O2 Delivery O2 Flow Rate FiO2 09/02/16 13:10 103 20 100 40 09/02/16 06:00 161/79 Mechanical Ventilator 09/02/16 04:00 98.4 Intake and Output 09/01/16 09/01/16 09/02/16 15:00 23:00 07:00 Intake Total 630 ml 890.8 ml 717.6 ml Output Total 2500 ml 0 ml 0 ml Balance -1870 ml 890.8 ml 717.6 ml Exam Constitutional: other (intubated, sedated), No alert, No oriented Psych: other (intubated, sedated), No nl mood/affect Head: atraumatic, normocephalic Eyes: nl conjunctiva, nl lids ENMT: intubated Neck: supple Respiratory: crackles/rales, diminished breath sounds Cardiovascular: regular rate and rhythm Gastrointestinal: non-tender, soft Musculoskeletal: nl extremities to inspection Extremities: No clubbing, No cyanosis, No edema Neurological: No nl mental status, No nl speech Results Result Diagram: 09/02/16 0400 09/02/16 0400 Results 24 hrs Laboratory Tests Test 09/01/16 18:03 09/02/16 00:33 09/02/16 04:00 09/02/16 06:07 Bedside Glucose 78 78 93 Anion Gap 20 H Basophils # 0.0 Basophils % 0.2 Blood Morphology Comment Blood Urea Nitrogen 34 #H Calcium Level 7.5 L Carbon Dioxide Level 23 Chloride Level 97 Creatinine 6.68 #H Eosinophils # 0.1 Eosinophils % 0.6 Glucose Level 77 Hematocrit 29.5 L Hemoglobin 10.1 L Lymphocytes # 1.7 Lymphocytes % 16.2 Magnesium Level 1.7 Mean Corpuscular Hemoglobin 31.3 Mean Corpuscular Hemoglobin Concent 34.1 Mean Corpuscular Volume 91.7 Mean Platelet Volume 8.3 Monocytes # 0.6 Monocytes % 5.6 Neutrophils # 8.0 H Neutrophils % 77.4 H Nucleated Red Blood Cells # 0.0 Nucleated Red Blood Cells % 0.0 Phosphorus Level 7.0 H Platelet Count 202 Potassium Level 4.3 Red Blood Count 3.22 L Red Cell Distribution Width 18.0 H Sodium Level 136 White Blood Count 10.3 # Test 09/02/16 12:11 Bedside Glucose 95 Medications Medications Current Medications Pantoprazole (Protonix Iv) 40 mg DAILY@06 IV Last administered on 09/02/16 06: 03; Admin Dose 40 MG; Start 08/31/16 at 06:00 Eye Lubricant 1 drop 1 drop TID BOTH EYES Last administered on 09/02/16 12:14 ; Admin Dose 1 DROP; Start 08/30/16 at 21:00 Propofol 100 ml @ 2.1 mls/hr Q12H IV Last administered on 09/02/16 13:04; Admin Dose 8.4 MLS/HR; Start 08/30/16 at 17:30 Vecuronium [place] 100 mg/ Dextrose 100 ml @ 0 mls/hr TITRATE IV Last administered on 08/31/16 08:25; Admin Dose 2.1 MLS/HR; Start 08/30/16 at 17:30 Cefepime HCl (Maxipime 1gm/50 ml (Pmx)) 50 ml @ 100 mls/hr Q24H IVPB Last administered on 09/01/16 21:26; Admin Dose 100 MLS/HR; Start 08/30/16 at 21:00 Miscellaneous Information 1 ea NOTE XX ; Start 08/30/16 at 19:00 Glucose (Glutose) 15 gm Q15M PRN PO DECREASED GLUCOSE; Start 08/30/16 at 19:00 Glucose (Glutose) 22.5 gm Q15M PRN PO DECREASED GLUCOSE; Start 08/30/16 at 19: 00 Dextrose (D50w Syringe) 25 ml Q15M PRN IV DECREASED GLUCOSE Last administered on 09/01/16 05:19; Admin Dose 25 ML; Start 08/30/16 at 19:00 Dextrose (D50w Syringe) 50 ml Q15M PRN IV DECREASED GLUCOSE; Start 08/30/16 at 19:00 Glucagon (Glucagen) 1 mg Q15M PRN IM DECREASED GLUCOSE; Start 08/30/16 at 19:00 Glucose (Glutose) 15 gm Q15M PRN BUCCAL DECREASED GLUCOSE; Start 08/30/16 at 19 :00 Insulin Aspart (Novolog Insulin Pen) (Adult SC Insulin - Mild Algorithm)... Q6 SC ; Start 08/30/16 at 18:00 Lorazepam (Ativan) 2 mg Q2H PRN IV SEIZURES Last administered on 09/02/16 04: 20; Admin Dose 2 MG; Start 09/01/16 at 02:00 Divalproex Sodium 500 mg 500 mg TID PO Last administered on 09/02/16 13:06; Admin Dose 500 MG; Start 09/01/16 at 09:00 Levetiracetam 1500 mg/Dextrose 115 ml @ 440 mls/hr Q12 IVPB Last administered on 09/02/16 08:59; Admin Dose 440 MLS/HR; Start 09/01/16 at 21:00 Nicardipine HCl/ Dextrose (Cardene Iv/D5W) 250 ml @ 5 mls/hr TITRATE IV Last administered on 09/02/16 15:21; Admin Dose 100 MLS/HR; Start 09/01/16 at 18:00 IFEOMA NARVAEZ MD Sep 02, 2016 16:04
[2016-09-02] MEDS: CEFEPIME 1GM/50 ML (PMX) 50 ML IVPB SCH (21:39)
[2016-09-03] VITALS (106 sets, daily range): BP systolic 125–196; BP diastolic 59–122; PULSE 100–120; RESP 13–28
[2016-09-03] MEDS: IPRATROPIUM (HFA) 12.9 GM INHALER INH SCH ×6 (01:17→21:15)
[2016-09-03] MEDS: ALBUTEROL HFA 8 GM INHALER INH SCH ×6 (01:17→21:15)
[2016-09-03] MEDS: PROPOFOL 100 ML IV SCH ×2 (01:34→10:10)
[2016-09-03 04:42] LABS: ALBUMIN 2.5 g/dl (3.3-4.9); POTASSIUM 4.2 mmol/L (3.5-5.1)
[2016-09-03 04:44] LABS: CREATININE 5.51 mg/dl (0.44-1.00)
[2016-09-03 04:45] LABS: ALBUMIN/GLOBULIN RATIO 0.89; CALCIUM 8.1 mg/dl (8.4-10.2); TOTAL PROTEIN 5.3 g/dl (6.1-8.1)
[2016-09-03 04:46] LABS: BASOPHILS % 0.4 % (0.0-2.0); EOSINOPHILS # 0.1 10^3/ul (0.0-0.5); EOSINOPHILS % 0.5 % (0.0-7.0); HEMATOCRIT 31.3 % (37.0-47.0); HEMOGLOBIN 10.5 g/dl (12.0-16.0); LYMPHOCYTES # 1.3 10^3/ul (0.8-2.9); LYMPHOCYTES % 10.5 % (15.0-51.0); MEAN CORPUSCULAR HEMOGLOBIN 30.7 pg (29.0-33.0); MEAN CORPUSCULAR HGB CONC 33.7 g/dl (32.0-37.0); MEAN PLATELET VOLUME 8.2 fl (7.4-10.4); MONOCYTE # 0.7 10^3/ul (0.3-0.9); MONOCYTES % 5.3 % (0.0-11.0); NEUTROPHIL # 10.2 10^3/ul (1.6-7.5); NEUTROPHILS % 83.3 % (39.0-77.0); PLATELET COUNT 201 10^3/UL (140-440); RED BLOOD COUNT 3.43 10^6/ul (4.20-5.40); RED CELL DISTRIBUTION WIDTH 17.5 % (11.5-14.5); UNCORRECTED WBC 12.2 10^3/ul (4.8-10.8); WHITE BLOOD COUNT 12.2 10^3/ul (4.8-10.8)
[2016-09-03 04:50] LABS: CONDITION 1; LH ANALYZER COMMENTS 1
[2016-09-03] MEDS: PANTOPRAZOLE 40 MG INJ IV SCH (05:06)
[2016-09-03] MEDS: Insulin NOVOLOG SS MILD Algorithm (NPO/TPN/ENTERAL FEEDS) SC SCH ×4 (05:06→18:00)
[2016-09-03 05:18] LABS: AADO2 Arterial 70.6 mmHg (7.0-24.0); Allen Test ACCEPTAB; Arterial Base Excess 0.3 mmol/L (-3.0-3); Arterial COHb 0.3 % (0.0-3.0); Arterial Fraction of Oxyhgb 96.9 % (93.0-99.0); Arterial HCO3 24.6 mmol/L (22.0-26.0); Arterial MetHb 0.1 % (0.0-1.5); MODE VENT - AC
[2016-09-03 05:20] LABS: CREATININE 5.53 mg/dl (0.44-1.00); PHOSPHORUS 7.3 mg/dl (2.5-4.9)
[2016-09-03 05:21] LABS: CALCIUM 8.2 mg/dl (8.4-10.2); MAGNESIUM 1.8 mg/dl (1.7-2.5)
[2016-09-03] MEDS ORDERED: niCARdipine 25 MG in SOD CHLORIDE 0.9% 240 ML IV SCH (08:30)
[2016-09-03] MEDS ORDERED: niCARdipine 25 MG in SOD CHLORIDE 0.9% 250 ML IV SCH (08:30)
[2016-09-03] MEDS: ARTIFICIAL TEARS 15 ML OPH BOTH EYES SCH ×3 (08:38→21:17)
[2016-09-03] MEDS: DIVALPROEX (EC) 500 MG TAB PO SCH ×2 (08:39→12:35)
--- NOTE | 2016-09-03 08:46 | PN ---
Date/Time of Note Date/Time of Note DATE: 09/03/16 TIME: 08:45 Assessment/Plan VTE Prophylaxis VTE Prophylaxis Intervention: SCD's Lines/Catheters IV Catheter Type (from Nrs): [place] Central line still needed: Yes Urinary Cath still in place: Yes (miguel in place, draining clear minimal clear yellow) Reason Cath still needed: terminal illness/intractable pain Assessment/Plan Chief Complaint/Hosp Course 1. Status post cardiac arrest. S/P hypothermia protocol. Neurology following. The patient has evidence of anoxic brain injury. 2. Seizures. Most probably secondary to anoxic brain injury. The patient was started on anticonvulsants. Neurology following. 3. Elevated troponins, most probably secondary to the cardiac arrest. 2D echo showing preserved LVEF. 4. Acute respiratory failure. Hypoxic. Secondary to cardiac arrest. Ventilator management as per pulmonary. Continue inhaled bronchodilators. 5. Hypertensive urgency. The patient on a Cardene drip. Blood pressure well controlled. 6. Systemic inflammatory response syndrome with leukocytosis, lactic acidosis and tachycardia. Lactic acidosis has resolved. The patient on empiric antibiotics for any underlying infectious etiology. Pancultures negative so far. 7. Mild pulmonary hypertension. 8. End-stage renal disease on hemodialysis. HD as per Nephrology. The patient' s electrolyte levels are stable. 9. Fluid, electrolytes and nutrition. Continue n.p.o. Will start the patient on tube feedings. 10. Deep venous thrombosis prophylaxis with bilateral sequential compression devices. 11. Gastrointestinal prophylaxis. Proton pump inhibitors. PLAN: Continue ICU care. Await neurologic recovery. Start prokinetics because of episodes of vomiting. Switch antihypertensives to oral/NG tube if the patient is able to tolerate tube feedings. Discontinue right femoral triple- lumen catheter after obtaining sufficient peripheral IVs. Case discussed with Dr. Holloway. Critical care time: 35 minutes. Problems: Subjective 24 Hr Interval Summary Free Text/Dictation Remains intubated. On propofol gtt. High tube feeding residuals. The patient had vomited yesterday. Exam/Review of Systems Vital Signs Vitals Vital Signs Date Time Temp Pulse Resp B/P Pulse Ox O2 Delivery O2 Flow Rate FiO2 09/03/16 08:00 105 09/03/16 07:15 24 170/74 100 09/03/16 07:00 Mechanical Ventilator 09/03/16 05:33 30 09/03/16 04:00 98.8 Intake and Output 09/02/16 09/02/16 09/03/16 15:00 23:00 07:00 Intake Total 1115 ml 1211.20 ml 873.92 ml Output Total 2500 ml 0 ml 0 ml Balance -1385 ml 1211.20 ml 873.92 ml Exam GENERAL: This is a 56-year-old female patient lying in bed, orally intubated. HEENT: Head normocephalic and atraumatic. Eyes: Anicteric sclerae. Conjunctivae clear. ENT: Nasal septum is midline. Oral mucosa is dry. The patient has an orogastric tube and ET tube in place. NECK: Supple. No JVD noticed. RESPIRATORY: Bilaterally diminished breath sounds. Bilateral coarse rales heard. ET tube to mechanical ventilator. On AC mode ventilation. CARDIAC: Regular rate and rhythm. Sinus tachycardia on the monitor. ABDOMEN: Soft, nontender and nondistended. Bowel sounds hypoactive. GENITOURINARY: The patient has a Miguel catheter in place. Right groin triple lumen catheter. EXTREMITIES: No cyanosis, no clubbing. Bilateral lower extremity 1+ pitting edema. Peripheral pulses are palpable. NEUROLOGIC: The patient is unresponsive. Pupils are equal and reactive. Results Result Diagram: 09/03/16 0400 09/03/16 0400 Results 24 hrs Laboratory Tests Test 09/02/16 12:11 09/02/16 18:04 09/03/16 01:22 09/03/16 04:00 Bedside Glucose 95 96 99 Alanine Aminotransferase (ALT/SGPT) 42 Albumin 2.5 L Albumin/Globulin Ratio 0.89 Alkaline Phosphatase 80 Anion Gap 16 Aspartate Amino Transf (AST/SGOT) 21 Basophils # 0.0 Basophils % 0.4 Blood Morphology Comment Blood Urea Nitrogen 28 H Calcium Level 8.1 L Carbon Dioxide Level 25 Chloride Level 91 L Creatinine 5.51 H Direct Bilirubin 0.00 Eosinophils # 0.1 Eosinophils % 0.5 Globulin 2.80 Glucose Level 81 Hematocrit 31.3 L Hemoglobin 10.5 L Indirect Bilirubin 0.0 Lactic Acid Level 1.1 Lymphocytes # 1.3 Lymphocytes % 10.5 L Magnesium Level 1.8 Mean Corpuscular Hemoglobin 30.7 Mean Corpuscular Hemoglobin Concent 33.7 Mean Corpuscular Volume 91.0 Mean Platelet Volume 8.2 Monocytes # 0.7 Monocytes % 5.3 Neutrophils # 10.2 H Neutrophils % 83.3 H Nucleated Red Blood Cells # 0.0 Nucleated Red Blood Cells % 0.0 Phosphorus Level 7.3 H Platelet Count 201 Potassium Level 4.2 Red Blood Count 3.43 L Red Cell Distribution Width 17.5 H Sodium Level 128 L Total Bilirubin 0.0 L Total Protein 5.3 L White Blood Count 12.2 H Test 09/03/16 04:23 09/03/16 05:00 Bedside Glucose 90 Arterial Blood HCO3 24.6 Arterial Blood Base Excess 0.3 Arterial Blood Oxygen Saturation 97.3 Cristian Test ACCEPTAB Arterial Blood Gas Puncture Site Right Radial Arterial Blood Carboxyhemoglobin 0.3 Arterial Blood Date Drawn 09/03/2016 5:00:23 AM Arterial Blood Methemoglobin 0.1 Arterial Blood pCO2 (Temp correct) 38.3 Arterial Blood pH (Temp corrected) 7.425 Arterial Blood pO2 (Temp corrected) 98.3 Blood Gas A-a O2 Differential 70.6 H Blood Gas Actual Respiration Rate 17 Blood Gas Low PEEP Setting 5.0 Blood Gas Modality VENT - AC Blood Gas Notified Time 09/03/2016 5:18:03 AM Blood Gas Notified Whom UP Blood Gas Respiration Rate 16.0 Blood Gas Specimen Source Blood arterial Blood Gas Temperature 37.0 Blood Gas Tidal Volume 450.0 FiO2 30.0 Oxyhemoglobin Percent 96.9 Total Hemoglobin 11.0 L Medications Medications Current Medications Pantoprazole (Protonix Iv) 40 mg DAILY@06 IV Last administered on 09/03/16 05: 06; Admin Dose 40 MG; Start 08/31/16 at 06:00 Eye Lubricant 1 drop 1 drop TID BOTH EYES Last administered on 09/03/16 08:38 ; Admin Dose 1 DROP; Start 08/30/16 at 21:00 Propofol 100 ml @ 2.1 mls/hr Q12H IV Last administered on 09/03/16 01:34; Admin Dose 9.24 MLS/HR; Start 08/30/16 at 17:30 Vecuronium [place] 100 mg/ Dextrose 100 ml @ 0 mls/hr TITRATE IV Last administered on 08/31/16 08:25; Admin Dose 2.1 MLS/HR; Start 08/30/16 at 17:30 Cefepime HCl (Maxipime 1gm/50 ml (Pmx)) 50 ml @ 100 mls/hr Q24H IVPB Last administered on 09/02/16 21:39; Admin Dose 100 MLS/HR; Start 08/30/16 at 21:00 Miscellaneous Information 1 ea NOTE XX ; Start 08/30/16 at 19:00 Glucose (Glutose) 15 gm Q15M PRN PO DECREASED GLUCOSE; Start 08/30/16 at 19:00 Glucose (Glutose) 22.5 gm Q15M PRN PO DECREASED GLUCOSE; Start 08/30/16 at 19: 00 Dextrose (D50w Syringe) 25 ml Q15M PRN IV DECREASED GLUCOSE Last administered on 09/01/16 05:19; Admin Dose 25 ML; Start 08/30/16 at 19:00 Dextrose (D50w Syringe) 50 ml Q15M PRN IV DECREASED GLUCOSE; Start 08/30/16 at 19:00 Glucagon (Glucagen) 1 mg Q15M PRN IM DECREASED GLUCOSE; Start 08/30/16 at 19:00 Glucose (Glutose) 15 gm Q15M PRN BUCCAL DECREASED GLUCOSE; Start 08/30/16 at 19 :00 Insulin Aspart (Novolog Insulin Pen) (Adult SC Insulin - Mild Algorithm)... Q6 SC ; Start 08/30/16 at 18:00 Lorazepam (Ativan) 2 mg Q2H PRN IV SEIZURES Last administered on 09/02/16 18: 25; Admin Dose 2 MG; Start 09/01/16 at 02:00 Divalproex Sodium 500 mg 500 mg TID PO Last administered on 09/03/16 08:39; Admin Dose 500 MG; Start 09/01/16 at 09:00 Levetiracetam 1500 mg/Sodium Chloride 115 ml @ 440 mls/hr Q12 IVPB ; Start at 09:00 Nicardipine HCl/ Sodium Chloride (Cardene Iv/NS) 250 ml @ 5 mls/hr TITRATE IV ; Start 09/03/16 at 08:30 CLEM HUNG NP Sep 03, 2016 08:46
[2016-09-03] MEDS: LEVETIRACETAM IV 1,500 MG in SOD CHLORIDE 0.9% 100 ML IVPB SCH ×2 (09:42→21:18)
--- NOTE | 2016-09-03 10:24 | RADRPT ---
PROCEDURE: XR Chest. CLINICAL INDICATION: Chest pain TECHNIQUE: AP view of the chest was performed. COMPARISON: 09/01/2016, 08/30/2016, 07/30/16 FINDINGS: Endotracheal tube tip is above the kassi, and nasogastric tube tip is coiled in the stomach. Right central line with the tip in the proximal right atrium. Bibasilar atelectasis, otherwise the lung wen are clear. No pleural effusion or pneumothorax. IMPRESSION: Support tubes and lines remain unchanged. No radiographic evidence for acute cardiopulmonary diseas e. RPTAT: QQ .Arabella Christopher MD, Date Time Electronically viewed and signed by .Arabella Christopher MD, MD on 09/03/2016 10:24 .M/
[2016-09-03] MEDS: METOCLOPRAMIDE 10 MG INJ IV SCH ×2 (11:19→18:22)
--- NOTE | 2016-09-03 11:31 | PN ---
DATE: 09/03/2016 SUBJECTIVE: The patient remains critically ill, currently on nicardipine drip for hypertensive urge ncy. The patient had hemodialysis yesterday with 2 liters removed. The patient is still nonrespons mikael, continues to have myoclonic jerks. No other events noted. OBJECTIVE: VITAL SIGNS: Blood pressure is 170/74, respirations 24, pulse 101, temperature 98.7. HEENT: Head is normocephalic. NECK: Supple. HEART: Regular rate. LUNGS: Show diminished breath sounds at base. ABDOMEN: Soft, nontender to palpation without rebound or guarding. EXTREMITIES: Negative for clubbing, cyanosis. Positive edema. DERMATOLOGIC: No rashes. MUSCULOSKELETAL: No joint effusions. NEUROLOGIC: No change in exam. MEDICATIONS: The patient's medications have been reviewed. LABORATORY DATA: Shows sodium 128, potassium 4.2, chloride 91, BUN 28, creatinine 5.51. White coun t 10.2, hemoglobin 10.5, hematocrit 31.3, platelet count is 201. IMAGING: Chest x-ray was reviewed. ASSESSMENT AND PLAN: 1. End-stage renal disease. The patient's normal schedule is Sunday, , and Sunday. The patient has been receiving daily dialysis for solute clearance and volume removal. She will have d ialysis again today for 3 hours on 3 K bath, calcium 2.5, ultrafiltrate as tolerated. 2. Hyponatremia. Etiology secondary to end-stage renal disease in conjunction with hypotonic fluid s. The patient will be dialyzed on a 140 sodium bath. I would ask pharmacy to convert all piggybac ks to normal saline from D5W. We will continue to monitor. 3. Hypertensive urgency. Etiology in part due to increased intravascular volume. The patient is c urrently on nicardipine drip. We will continue to wean off as possible. Also anticipate dialysis t casimiro for ultrafiltration approximately 2 to 3 liters. 4. Ventilator dependent respiratory failure. Vent settings have been reviewed. ABG has been revie wed. Continue to monitor. 5. Volume overload as stated above. We will ultrafiltrate with dialysis. 6. Status post cardiac arrest. The patient is status post hypothermic protocol. Continue to monit or. 7. Acute encephalopathy with likely anoxic brain injury. The patient is seen by neurology. Follow up recommendations. 8. Leukocytosis. The patient is on empiric antibiotics. We will continue. 9. Mineral bone disorder. The patient is hypophosphatemic. We will continue hemodialysis. 10. Diabetes mellitus type 2. Continue medical management. 11. Anemia of end-stage renal disease. Continue to monitor H and H levels. We will give Epogen as needed. 12. Myoclonic jerks, possible seizures. The patient is on Keppra. We will continue. Please note I spent over 40 minutes of critical care time with this patient. Dictated By: TIP SOLORIO/NTS Conf#: [id number] DID#: [id number]
--- NOTE | 2016-09-03 12:29 | CONS ---
Date/Time of Note Date/Time of Note DATE: 09/03/16 TIME: 12:26 Assessment/Plan Assessment/Plan Chief Complaint/Hosp Course Cardiorespiratory arrest Problems: Additional Assessment/Plan Patient is a 56-year-old female with history of end-stage renal disease on hemodialysis and essential hypertension was found to be unresponsive at home. Paramedics found the patient in PEA and was resuscitated. She was also seen to have uncontrolled blood pressures, lactic acidosis with leukocytosis. CT scan brain was negative for any acute intracranial pathology. She was also treated with hypothermia protocol. EEG showed generalized background slowing with intermittent epileptiform activity. She is quite encephalopathic due to anoxic event. PLAN: 1 Taper away sedation 2 Continue Keppra 1500 mg IV bid 3 Load with 1000 mg Fosphenytoin and continue 100 mg IV q 8 hrs 4 Phenytoin level in AM 5 Seizure precaution 6 Discussed with patient's daughter who is present in the room 7 Prognosis guarded Consultation Date/Type/Reason Admit Date/Time Aug 30, 2016 at 15:45 Initial Consult Date 09/01/16 Type of Consultation: Cardiology Reason for Consultation Cardiorespiratory arrest 24 HR Interval Summary Free Text/Dictation Clinically unchanged. Still having intermittent seizure activity. Exam/Review of Systems Vital Signs Vitals Vital Signs Date Time Temp Pulse Resp B/P Pulse Ox O2 Delivery O2 Flow Rate FiO2 09/03/16 11:10 103 17 100 30 09/03/16 09:45 179/73 Mechanical Ventilator 09/03/16 08:00 98.6 Intake and Output 09/02/16 09/02/16 09/03/16 15:00 23:00 07:00 Intake Total 1115 ml 1211.20 ml 873.92 ml Output Total 2500 ml 0 ml 0 ml Balance -1385 ml 1211.20 ml 873.92 ml Exam Head: normocephalic Neck: supple Respiratory: normal air movement Cardiovascular: nl pulses, regular rate and rhythm Gastrointestinal: soft Neurological: other (Sedaterd on Diprivan, intubated, ventilated, corneal and gag reflexes are present, limited exam) Results Result Diagram: 09/03/16 0400 09/03/16 0400 Results 24 hrs Laboratory Tests Test 09/02/16 18:04 09/03/16 01:22 09/03/16 04:00 09/03/16 04:23 Bedside Glucose 96 99 90 Alanine Aminotransferase (ALT/SGPT) 42 Albumin 2.5 L Albumin/Globulin Ratio 0.89 Alkaline Phosphatase 80 Anion Gap 16 Aspartate Amino Transf (AST/SGOT) 21 Basophils # 0.0 Basophils % 0.4 Blood Morphology Comment Blood Urea Nitrogen 28 H Calcium Level 8.1 L Carbon Dioxide Level 25 Chloride Level 91 L Creatinine 5.51 H Direct Bilirubin 0.00 Eosinophils # 0.1 Eosinophils % 0.5 Globulin 2.80 Glucose Level 81 Hematocrit 31.3 L Hemoglobin 10.5 L Indirect Bilirubin 0.0 Lactic Acid Level 1.1 Lymphocytes # 1.3 Lymphocytes % 10.5 L Magnesium Level 1.8 Mean Corpuscular Hemoglobin 30.7 Mean Corpuscular Hemoglobin Concent 33.7 Mean Corpuscular Volume 91.0 Mean Platelet Volume 8.2 Monocytes # 0.7 Monocytes % 5.3 Neutrophils # 10.2 H Neutrophils % 83.3 H Nucleated Red Blood Cells # 0.0 Nucleated Red Blood Cells % 0.0 Phosphorus Level 7.3 H Platelet Count 201 Potassium Level 4.2 Red Blood Count 3.43 L Red Cell Distribution Width 17.5 H Sodium Level 128 L Total Bilirubin 0.0 L Total Protein 5.3 L White Blood Count 12.2 H Test 09/03/16 05:00 09/03/16 12:06 Arterial Blood HCO3 24.6 Arterial Blood Base Excess 0.3 Arterial Blood Oxygen Saturation 97.3 Cristian Test ACCEPTAB Arterial Blood Gas Puncture Site Right Radial Arterial Blood Carboxyhemoglobin 0.3 Arterial Blood Date Drawn 09/03/2016 5:00:23 AM Arterial Blood Methemoglobin 0.1 Arterial Blood pCO2 (Temp correct) 38.3 Arterial Blood pH (Temp corrected) 7.425 Arterial Blood pO2 (Temp corrected) 98.3 Blood Gas A-a O2 Differential 70.6 H Blood Gas Actual Respiration Rate 17 Blood Gas Low PEEP Setting 5.0 Blood Gas Modality VENT - AC Blood Gas Notified Time 09/03/2016 5:18:03 AM Blood Gas Notified Whom UP Blood Gas Respiration Rate 16.0 Blood Gas Specimen Source Blood arterial Blood Gas Temperature 37.0 Blood Gas Tidal Volume 450.0 FiO2 30.0 Oxyhemoglobin Percent 96.9 Total Hemoglobin 11.0 L Bedside Glucose 92 Medications Medications Current Medications Pantoprazole (Protonix Iv) 40 mg DAILY@06 IV Last administered on 09/03/16t 05: 06; Admin Dose 40 MG; Start 08/31/16 at 06:00 Eye Lubricant 1 drop 1 drop TID BOTH EYES Last administered on 09/03/16 08:38 ; Admin Dose 1 DROP; Start 08/30/16 at 21:00 Propofol 100 ml @ 2.1 mls/hr Q12H IV Last administered on 09/03/16 10:10; Admin Dose 9.24 MLS/HR; Start 08/30/16 at 17:30 Vecuronium [place] 100 mg/ Dextrose 100 ml @ 0 mls/hr TITRATE IV Last administered on 08/31/16 08:25; Admin Dose 2.1 MLS/HR; Start 08/30/16 at 17:30 Cefepime HCl (Maxipime 1gm/50 ml (Pmx)) 50 ml @ 100 mls/hr Q24H IVPB Last administered on 09/02/16 21:39; Admin Dose 100 MLS/HR; Start 08/30/16 at 21:00 Miscellaneous Information 1 ea NOTE XX ; Start 08/30/16 at 19:00 Glucose (Glutose) 15 gm Q15M PRN PO DECREASED GLUCOSE; Start 08/30/16 at 19:00 Glucose (Glutose) 22.5 gm Q15M PRN PO DECREASED GLUCOSE; Start 08/30/16 at 19: 00 Dextrose (D50w Syringe) 25 ml Q15M PRN IV DECREASED GLUCOSE Last administered on 09/01/16 05:19; Admin Dose 25 ML; Start 08/30/16 at 19:00 Dextrose (D50w Syringe) 50 ml Q15M PRN IV DECREASED GLUCOSE; Start 08/30/16 at 19:00 Glucagon (Glucagen) 1 mg Q15M PRN IM DECREASED GLUCOSE; Start 08/30/16 at 19:00 Glucose (Glutose) 15 gm Q15M PRN BUCCAL DECREASED GLUCOSE; Start 08/30/16 at 19 :00 Insulin Aspart (Novolog Insulin Pen) (Adult SC Insulin - Mild Algorithm)... Q6 SC ; Start 08/30/16 at 18:00 Lorazepam (Ativan) 2 mg Q2H PRN IV SEIZURES Last administered on 09/02/16 18: 25; Admin Dose 2 MG; Start 09/01/16 at 02:00 Divalproex Sodium 500 mg 500 mg TID PO Last administered on 09/03/16 08:39; Admin Dose 500 MG; Start 09/01/16 at 09:00 Levetiracetam/ Sodium Chloride (Keppra Iv/NS) 115 ml @ 440 mls/hr Q12 IVPB Last administered on 09/03/16 09:42; Admin Dose 440 MLS/HR; Start 09/03/16 at 09:00 Metoclopramide HCl 5 mg 5 mg Q6 IV Last administered on 09/03/16 11:19; Admin Dose 5 MG; Start 09/03/16 at 12:00 Nicardipine HCl/ Sodium Chloride (Cardene Iv/NS) 500 ml @ 5 mls/hr TITRATE IV ; Start 09/03/16 at 11:30 ASAF STEPHENS MD Sep 03, 2016 12:29
[2016-09-03] MEDS ORDERED: FOSPHENYTOIN (PE) 1,000 MG in SOD CHLORIDE 0.9% 80 ML IVPB ONE (12:30)
--- NOTE | 2016-09-03 15:03 | CONS ---
Date/Time of Note Date/Time of Note DATE: 09/03/16 TIME: 15:00 Consult Date/Type/Reason Admit Date/Time Aug 30, 2016 at 15:45 Initial Consult Date 09/01/16 Type of Consultation: pulm Subjective Undergoing HD. Sedated on propofol gtt. Objective Vital Signs Date Time Temp Pulse Resp B/P Pulse Ox O2 Delivery O2 Flow Rate FiO2 09/03/16 14:55 109 09/03/16 14:00 23 139/63 100 Mechanical Ventilator 09/03/16 12:00 98.8 09/03/16 11:10 30 Intake and Output 09/02/16 09/02/16 09/03/16 15:00 23:00 07:00 Intake Total 1115 ml 1211.20 ml 873.92 ml Output Total 2500 ml 0 ml 0 ml Balance -1385 ml 1211.20 ml 873.92 ml HEENT: Neck supple; no JVD; no LAD CVS: RRR, S1 and S2 CHEST: Clear ABD: Soft, NT, + BS EXT: No c/c/e Results/Medications Result Diagram: 09/03/16 0400 09/03/16 0400 Results 24 hrs Laboratory Tests Test 09/02/16 18:04 09/03/16 01:22 09/03/16 04:00 09/03/16 04:23 Bedside Glucose 96 99 90 Alanine Aminotransferase (ALT/SGPT) 42 Albumin 2.5 L Albumin/Globulin Ratio 0.89 Alkaline Phosphatase 80 Anion Gap 16 Aspartate Amino Transf (AST/SGOT) 21 Basophils # 0.0 Basophils % 0.4 Blood Morphology Comment Blood Urea Nitrogen 28 H Calcium Level 8.1 L Carbon Dioxide Level 25 Chloride Level 91 L Creatinine 5.51 H Direct Bilirubin 0.00 Eosinophils # 0.1 Eosinophils % 0.5 Globulin 2.80 Glucose Level 81 Hematocrit 31.3 L Hemoglobin 10.5 L Indirect Bilirubin 0.0 Lactic Acid Level 1.1 Lymphocytes # 1.3 Lymphocytes % 10.5 L Magnesium Level 1.8 Mean Corpuscular Hemoglobin 30.7 Mean Corpuscular Hemoglobin Concent 33.7 Mean Corpuscular Volume 91.0 Mean Platelet Volume 8.2 Monocytes # 0.7 Monocytes % 5.3 Neutrophils # 10.2 H Neutrophils % 83.3 H Nucleated Red Blood Cells # 0.0 Nucleated Red Blood Cells % 0.0 Phosphorus Level 7.3 H Platelet Count 201 Potassium Level 4.2 Red Blood Count 3.43 L Red Cell Distribution Width 17.5 H Sodium Level 128 L Total Bilirubin 0.0 L Total Protein 5.3 L White Blood Count 12.2 H Test 09/03/16 05:00 09/03/16 12:06 Arterial Blood HCO3 24.6 Arterial Blood Base Excess 0.3 Arterial Blood Oxygen Saturation 97.3 Cristian Test ACCEPTAB Arterial Blood Gas Puncture Site Right Radial Arterial Blood Carboxyhemoglobin 0.3 Arterial Blood Date Drawn 09/03/2016 5:00:23 AM Arterial Blood Methemoglobin 0.1 Arterial Blood pCO2 (Temp correct) 38.3 Arterial Blood pH (Temp corrected) 7.425 Arterial Blood pO2 (Temp corrected) 98.3 Blood Gas A-a O2 Differential 70.6 H Blood Gas Actual Respiration Rate 17 Blood Gas Low PEEP Setting 5.0 Blood Gas Modality VENT - AC Blood Gas Notified Time 09/03/2016 5:18:03 AM Blood Gas Notified Whom UP Blood Gas Respiration Rate 16.0 Blood Gas Specimen Source Blood arterial Blood Gas Temperature 37.0 Blood Gas Tidal Volume 450.0 FiO2 30.0 Oxyhemoglobin Percent 96.9 Total Hemoglobin 11.0 L Bedside Glucose 92 Medications Current Medications Pantoprazole (Protonix Iv) 40 mg DAILY@06 IV Last administered on 09/03/16 05: 06; Admin Dose 40 MG; Start 08/31/16 at 06:00 Eye Lubricant 1 drop 1 drop TID BOTH EYES Last administered on 09/03/16 12:35 ; Admin Dose 1 DROP; Start 08/30/16 at 21:00 Propofol 100 ml @ 2.1 mls/hr Q12H IV Last administered on 09/03/16 10:10; Admin Dose 9.24 MLS/HR; Start 08/30/16 at 17:30 Vecuronium [place] 100 mg/ Dextrose 100 ml @ 0 mls/hr TITRATE IV Last administered on 08/31/16 08:25; Admin Dose 2.1 MLS/HR; Start 08/30/16 at 17:30 Cefepime HCl (Maxipime 1gm/50 ml (Pmx)) 50 ml @ 100 mls/hr Q24H IVPB Last administered on 09/02/16 21:39; Admin Dose 100 MLS/HR; Start 08/30/16 at 21:00 Miscellaneous Information 1 ea NOTE XX ; Start 08/30/16 at 19:00 Glucose (Glutose) 15 gm Q15M PRN PO DECREASED GLUCOSE; Start 08/30/16 at 19:00 Glucose (Glutose) 22.5 gm Q15M PRN PO DECREASED GLUCOSE; Start 08/30/16 at 19: 00 Dextrose (D50w Syringe) 25 ml Q15M PRN IV DECREASED GLUCOSE Last administered on 09/01/16 05:19; Admin Dose 25 ML; Start 08/30/16 at 19:00 Dextrose (D50w Syringe) 50 ml Q15M PRN IV DECREASED GLUCOSE; Start 08/30/16 at 19:00 Glucagon (Glucagen) 1 mg Q15M PRN IM DECREASED GLUCOSE; Start 08/30/16 at 19:00 Glucose (Glutose) 15 gm Q15M PRN BUCCAL DECREASED GLUCOSE; Start 08/30/16 at 19 :00 Insulin Aspart (Novolog Insulin Pen) (Adult SC Insulin - Mild Algorithm)... Q6 SC ; Start 08/30/16 at 18:00 Lorazepam (Ativan) 2 mg Q2H PRN IV SEIZURES Last administered on 09/02/16 18: 25; Admin Dose 2 MG; Start 09/01/16 at 02:00 Divalproex Sodium 500 mg 500 mg TID PO Last administered on 09/03/16 12:35; Admin Dose 500 MG; Start 09/01/16 at 09:00 Levetiracetam/ Sodium Chloride (Keppra Iv/NS) 115 ml @ 440 mls/hr Q12 IVPB Last administered on 09/03/16 09:42; Admin Dose 440 MLS/HR; Start 09/03/16 at 09:00 Metoclopramide HCl 5 mg 5 mg Q6 IV Last administered on 09/03/16 11:19; Admin Dose 5 MG; Start 09/03/16 at 12:00 Nicardipine HCl 50 mg/Sodium Chloride 500 ml @ 5 mls/hr TITRATE IV ; Start 09/03 at 11:30 Fosphenytoin Sodium/Sodium Chloride (Cerebyx/NS) 48 ml @ 100 mls/hr Q8 IVPB ; Start 09/03/16 at 22:00 Assessment/Plan Additional Assessment/Plan IMP: 1. s/p CPA 2. Possible Anoxic Encephalopathy/Seizures ? myoclonic jerks due to anoxia 3. VDRF 4. CKD 5. Lactic Acidosis 6. Anemia 7. HTN RECS: 1. Daily sedation holiday 2. Continue to assess Neuro status 3. Agree with addition of dilantin 4. HD 5. Am labs 6. Advance ET tube 2 cm as it is ~ 6 cm above kassi on CXR today 40 min cc time case d/w family ELADIA MATOS MD Sep 03, 2016 15:02
[2016-09-03] MEDS: niCARdipine 50 MG in SOD CHLORIDE 0.9% 480 ML IV SCH ×2 (17:00→20:33)
--- NOTE | 2016-09-03 17:28 | CONS ---
Date/Time of Note Date/Time of Note DATE: 09/03/16 TIME: 17:27 Assessment/Plan Assessment/Plan Chief Complaint/Hosp Course Assessment: Status post cardiac arrest - unclear etiology, initial rhythm reported to be PEA , status post hypothermia protocol Accelerated hypertension - on nicardipine drip Acute on chronic diastolic heart failure NSTEMI - likely type 2 Systemic inflammatory response syndrome Acute respiratory failure - intubated, on mechanical ventilation End-stage renal disease - on hemodialysis Probable anoxic brain injury Recommendations: -echocardiogram showed LVEF 60-65%, moderate LVH -continue nicardipine drip -volume management via hemodialysis per nephrology -follow up neurology recommendations Problems: Consultation Date/Type/Reason Admit Date/Time Aug 30, 2016 at 15:45 Initial Consult Date 09/01/16 Type of Consultation: Cardiology 24 HR Interval Summary Free Text/Dictation No significant clinical changes. Detailed Summary Additional Comments Unable to obtain review of systems due to patient's mental status. Exam/Review of Systems Vital Signs Vitals Vital Signs Date Time Temp Pulse Resp B/P Pulse Ox O2 Delivery O2 Flow Rate FiO2 09/03/16 16:18 111 23 09/03/16 15:45 154/104 100 09/03/16 15:00 Mechanical Ventilator 09/03/16 12:00 98.8 09/03/16 11:10 30 Intake and Output 09/02/16 09/02/16 09/03/16 15:00 23:00 07:00 Intake Total 1115 ml 1211.20 ml 873.92 ml Output Total 2500 ml 0 ml 0 ml Balance -1385 ml 1211.20 ml 873.92 ml Exam Constitutional: other (intubated, sedated), No alert, No oriented Psych: other (intubated, sedated), No nl mood/affect Head: atraumatic, normocephalic Eyes: nl conjunctiva, nl lids ENMT: intubated Neck: supple Respiratory: crackles/rales, diminished breath sounds Cardiovascular: regular rate and rhythm Gastrointestinal: non-tender, soft Musculoskeletal: nl extremities to inspection Extremities: No clubbing, No cyanosis, No edema Neurological: No nl mental status, No nl speech Results Result Diagram: 09/03/16 0400 09/03/16 0400 Results 24 hrs Laboratory Tests Test 09/02/16 18:04 1/29/17 01:22 09/03/16 04:00 09/03/16 04:23 Bedside Glucose 96 99 90 Alanine Aminotransferase (ALT/SGPT) 42 Albumin 2.5 L Albumin/Globulin Ratio 0.89 Alkaline Phosphatase 80 Anion Gap 16 Aspartate Amino Transf (AST/SGOT) 21 Basophils # 0.0 Basophils % 0.4 Blood Morphology Comment Blood Urea Nitrogen 28 H Calcium Level 8.1 L Carbon Dioxide Level 25 Chloride Level 91 L Creatinine 5.51 H Direct Bilirubin 0.00 Eosinophils # 0.1 Eosinophils % 0.5 Globulin 2.80 Glucose Level 81 Hematocrit 31.3 L Hemoglobin 10.5 L Indirect Bilirubin 0.0 Lactic Acid Level 1.1 Lymphocytes # 1.3 Lymphocytes % 10.5 L Magnesium Level 1.8 Mean Corpuscular Hemoglobin 30.7 Mean Corpuscular Hemoglobin Concent 33.7 Mean Corpuscular Volume 91.0 Mean Platelet Volume 8.2 Monocytes # 0.7 Monocytes % 5.3 Neutrophils # 10.2 H Neutrophils % 83.3 H Nucleated Red Blood Cells # 0.0 Nucleated Red Blood Cells % 0.0 Phosphorus Level 7.3 H Platelet Count 201 Potassium Level 4.2 Red Blood Count 3.43 L Red Cell Distribution Width 17.5 H Sodium Level 128 L Total Bilirubin 0.0 L Total Protein 5.3 L White Blood Count 12.2 H Test 09/03/16 05:00 09/03/16 12:06 Arterial Blood HCO3 24.6 Arterial Blood Base Excess 0.3 Arterial Blood Oxygen Saturation 97.3 Cristian Test ACCEPTAB Arterial Blood Gas Puncture Site Right Radial Arterial Blood Carboxyhemoglobin 0.3 Arterial Blood Date Drawn 09/03/2016 5:00:23 AM Arterial Blood Methemoglobin 0.1 Arterial Blood pCO2 (Temp correct) 38.3 Arterial Blood pH (Temp corrected) 7.425 Arterial Blood pO2 (Temp corrected) 98.3 Blood Gas A-a O2 Differential 70.6 H Blood Gas Actual Respiration Rate 17 Blood Gas Low PEEP Setting 5.0 Blood Gas Modality VENT - AC Blood Gas Notified Time 09/03/2016 5:18:03 AM Blood Gas Notified Whom UP Blood Gas Respiration Rate 16.0 Blood Gas Specimen Source Blood arterial Blood Gas Temperature 37.0 Blood Gas Tidal Volume 450.0 FiO2 30.0 Oxyhemoglobin Percent 96.9 Total Hemoglobin 11.0 L Bedside Glucose 92 Medications Medications Current Medications Pantoprazole (Protonix Iv) 40 mg DAILY@06 IV Last administered on 09/03/16 05: 06; Admin Dose 40 MG; Start 08/31/16 at 06:00 Eye Lubricant 1 drop 1 drop TID BOTH EYES Last administered on 09/03/16 12:35 ; Admin Dose 1 DROP; Start 08/30/16 at 21:00 Propofol 100 ml @ 2.1 mls/hr Q12H IV Last administered on 09/03/16 10:10; Admin Dose 9.24 MLS/HR; Start 08/30/16 at 17:30 Vecuronium [place] 100 mg/ Dextrose 100 ml @ 0 mls/hr TITRATE IV Last administered on 08/31/16 08:25; Admin Dose 2.1 MLS/HR; Start 08/30/16 at 17:30 Cefepime HCl (Maxipime 1gm/50 ml (Pmx)) 50 ml @ 100 mls/hr Q24H IVPB Last administered on 09/02/16 21:39; Admin Dose 100 MLS/HR; Start 08/30/16 at 21:00 Miscellaneous Information 1 ea NOTE XX ; Start 08/30/16 at 19:00 Glucose (Glutose) 15 gm Q15M PRN PO DECREASED GLUCOSE; Start 08/30/16 at 19:00 Glucose (Glutose) 22.5 gm Q15M PRN PO DECREASED GLUCOSE; Start 08/30/16 at 19: 00 Dextrose (D50w Syringe) 25 ml Q15M PRN IV DECREASED GLUCOSE Last administered on 09/01/16 05:19; Admin Dose 25 ML; Start 08/30/16 at 19:00 Dextrose (D50w Syringe) 50 ml Q15M PRN IV DECREASED GLUCOSE; Start 08/30/16 at 19:00 Glucagon (Glucagen) 1 mg Q15M PRN IM DECREASED GLUCOSE; Start 08/30/16 at 19:00 Glucose (Glutose) 15 gm Q15M PRN BUCCAL DECREASED GLUCOSE; Start 08/30/16 at 19 :00 Insulin Aspart (Novolog Insulin Pen) (Adult SC Insulin - Mild Algorithm)... Q6 SC ; Start 08/30/16 at 18:00 Lorazepam (Ativan) 2 mg Q2H PRN IV SEIZURES Last administered on 09/02/16 18: 25; Admin Dose 2 MG; Start 09/01/16 at 02:00 Divalproex Sodium 500 mg 500 mg TID PO Last administered on 09/03/16 12:35; Admin Dose 500 MG; Start 09/01/16 at 09:00 Levetiracetam/ Sodium Chloride (Keppra Iv/NS) 115 ml @ 440 mls/hr Q12 IVPB Last administered on 09/03/16 09:42; Admin Dose 440 MLS/HR; Start 09/03/16 at 09:00 Metoclopramide HCl 5 mg 5 mg Q6 IV Last administered on 09/03/16 11:19; Admin Dose 5 MG; Start 09/03/16 at 12:00 Nicardipine HCl 50 mg/Sodium Chloride 500 ml @ 5 mls/hr TITRATE IV Last administered on 09/03/16 17:00; Admin Dose 150 MLS/HR; Start 09/03/16 at 11:30 Fosphenytoin Sodium/Sodium Chloride (Cerebyx/NS) 48 ml @ 100 mls/hr Q8 IVPB ; Start 09/03/16 at 22:00 Miscellaneous Information (*Rx Drug Level Order Reminder*) RANDOM VANCOMYCIN LEVEL 1... ONCE ONCE XX ; Start 09/04/16 at 05:00; Stop 09/04/16 at 05:01 IFEOMA NARVAEZ MD Sep 03, 2016 17:28
[2016-09-03] MEDS: VALPROIC ACID LIQUID CUP 250 MG/5 ML CUP NGT SCH (21:17)
[2016-09-03] MEDS: CEFEPIME 1GM/50 ML (PMX) 50 ML IVPB SCH (21:18)
[2016-09-03] MEDS: FOSPHENYTOIN IVPB SCH (21:44)
[2016-09-03] MEDS: SOD CHLORIDE 0.9% IVPB SCH (21:44)
[2016-09-04] VITALS (58 sets, daily range): BP systolic 132–170; BP diastolic 65–81; PULSE 99–113; RESP 0–23
[2016-09-04] MEDS: niCARdipine 50 MG in SOD CHLORIDE 0.9% 480 ML IV SCH ×3 (00:05→22:14)
[2016-09-04] MEDS: METOCLOPRAMIDE 10 MG INJ IV SCH ×5 (00:10→23:23)
[2016-09-04] MEDS: ALBUTEROL HFA 8 GM INHALER INH SCH ×6 (01:30→21:25)
[2016-09-04] MEDS: IPRATROPIUM (HFA) 12.9 GM INHALER INH SCH ×6 (01:30→21:25)
[2016-09-04 05:03] LABS: CREATININE 4.97 mg/dl (0.44-1.00)
[2016-09-04 05:04] LABS: CALCIUM 8.3 mg/dl (8.4-10.2); MAGNESIUM 1.9 mg/dl (1.7-2.5); PHOSPHORUS 8.2 mg/dl (2.5-4.9)
[2016-09-04 05:06] LABS: BASOPHILS % 0.3 % (0.0-2.0); EOSINOPHILS % 0.4 % (0.0-7.0); HEMATOCRIT 31.1 % (37.0-47.0); HEMOGLOBIN 10.4 g/dl (12.0-16.0); LYMPHOCYTES # 0.9 10^3/ul (0.8-2.9); LYMPHOCYTES % 7.3 % (15.0-51.0); MEAN CORPUSCULAR HEMOGLOBIN 30.5 pg (29.0-33.0); MEAN CORPUSCULAR HGB CONC 33.5 g/dl (32.0-37.0); MEAN CORPUSCULAR VOLUME 91.1 fl (82.0-101.0); MEAN PLATELET VOLUME 7.6 fl (7.4-10.4); MONOCYTE # 0.9 10^3/ul (0.3-0.9); MONOCYTES % 6.8 % (0.0-11.0); NEUTROPHIL # 10.7 10^3/ul (1.6-7.5); NEUTROPHILS % 85.2 % (39.0-77.0); PLATELET COUNT 231 10^3/UL (140-440); RED BLOOD COUNT 3.42 10^6/ul (4.20-5.40); RED CELL DISTRIBUTION WIDTH 16.9 % (11.5-14.5); UNCORRECTED WBC 12.5 10^3/ul (4.8-10.8); WHITE BLOOD COUNT 12.5 10^3/ul (4.8-10.8)
[2016-09-04] MEDS: PANTOPRAZOLE 40 MG INJ IV SCH (05:31)
[2016-09-04] MEDS: FOSPHENYTOIN IVPB SCH ×3 (05:33→21:52)
[2016-09-04] MEDS: SOD CHLORIDE 0.9% IVPB SCH ×3 (05:33→21:52)
[2016-09-04 05:40] LABS: CONDITION 1; LH ANALYZER COMMENTS 1
[2016-09-04] MEDS: Insulin NOVOLOG SS MILD Algorithm (NPO/TPN/ENTERAL FEEDS) SC SCH ×5 (06:00→23:32)
[2016-09-04 07:27] LABS: AADO2 Arterial 295.7 mmHg (7.0-24.0); Allen Test ACCEPTAB; Arterial COHb 0.3 % (0.0-3.0); Arterial Fraction of Oxyhgb 98.5 % (93.0-99.0); Arterial HCO3 17.6 mmol/L (22.0-26.0); Arterial MetHb 0.4 % (0.0-1.5); MODE VENT-AC
--- NOTE | 2016-09-04 07:34 | CONS ---
Date/Time of Note Date/Time of Note DATE: 09/04/16 TIME: 07:29 Assessment/Plan Assessment/Plan Chief Complaint/Hosp Course Patient is a 60-year-old Telugu lady who was brought into the emergency room after the patient called 911 with complaints of shortness of breath by the time the EMS arrived the patient was found unresponsive had pulseless electrical activity along CPR was done lasting approximately 20 minutes with revival of vital signs. She currently is on hypothermic protocol and is sedated paralyzed on mechanical ventilation or intubated. She also was obtained from medical records as well as patient's daughter who is currently present in the room. The patient's daughter the patient was admitted last month with pneumonia and were discharged home however the patient was complaining of mild shortness of breath for the last couple of days prior to the event which occurred yesterday afternoon. Problems: Additional Assessment/Plan Assessment and recommendation; next 1. Patient admitted with cardiac arrest underwent prolonged CPR resulting in severe anoxic encephalopathy as evidenced by myoclonic jerking patient on high- dose anticonvulsant medications a combination high-dose Keppra, Dilantin and Depakote. 2. End-stage renal disease on hemodialysis. Patient was dialyzed yesterday. Next 3. High diabetes currently well controlled. 4. Hypertension currently on nicardipine drip. 5. Possibly element of aspiration pneumonia as well. Continue current treatment. Continue current ventilator settings. Anticonvulsant treatment. Patient could not handle tube feeding because of high residuals currently on hold. Gnosis remains extremely poor. The patient's daughter will be here shortly I will have a discussion with her regarding regarding further plan of care. Consultation Date/Type/Reason Admit Date/Time Aug 30, 2016 at 15:45 Initial Consult Date 08/31/16 Type of Consultation: Cardiology 24 HR Interval Summary Free Text/Dictation Patient condition still remains very critical. Still requiring full ventilator support. The patient is awake but does not follow any commands exhibiting myoclonic jerking on minimal stimulation. He does have a startle response. Does not follow any commands. She is still remains hemodynamically unstable in terms of severe hypertension requiring nicardipine drip. General examination; middle aged woman, orally intubated awake exhibiting occasional myoclonic jerking. Remains unresponsive. Exam/Review of Systems Vital Signs Vitals Vital Signs Date Time Temp Pulse Resp B/P Pulse Ox O2 Delivery O2 Flow Rate FiO2 09/04/16 06:00 110 17 169/67 100 Mechanical Ventilator 09/04/16 05:10 30 09/04/16 04:00 99.6 Intake and Output 09/03/16 09/03/16 09/04/16 15:00 23:00 07:00 Intake Total 300 ml 1363 ml 1098 ml Output Total 2400 ml Balance 300 ml -1037 ml 1098 ml Exam HEENT examination; supple neck. No JVD. No lymphadenopathy. No thyromegaly, no neck bruits. Pupils are midsize sluggishly reactive to light. Orally intubated. Chest examination; diminished but clear breath sounds bilaterally. S1-S2 audible no murmurs regular rhythm. Abdomen; soft, nondistended. No organomegaly. Bowel sounds audible. Extremity examination; trace edema involving upper extremities. Pulses 1+ bilaterally. Next TEAM ASSEMBLER examination; patient remains unresponsive does have a startle response does not follow any commands. Myoclonic jerking observed on minimal stimulation. Results Result Diagram: 09/04/16 0440 09/04/16 0440 Results 24 hrs Laboratory Tests Test 09/03/16 12:06 09/03/16 18:07 09/04/16 00:20 09/04/16 04:40 Bedside Glucose 92 79 74 Anion Gap 17 H Basophils # 0.0 Basophils % 0.3 Blood Morphology Comment Blood Urea Nitrogen 25 H Calcium Level 8.3 L Carbon Dioxide Level 24 Chloride Level 97 Creatinine 4.97 H Eosinophils # 0.0 Eosinophils % 0.4 Glucose Level 81 Hematocrit 31.1 L Hemoglobin 10.4 L Lymphocytes # 0.9 Lymphocytes % 7.3 L Magnesium Level 1.9 Mean Corpuscular Hemoglobin 30.5 Mean Corpuscular Hemoglobin Concent 33.5 Mean Corpuscular Volume 91.1 Mean Platelet Volume 7.6 Monocytes # 0.9 Monocytes % 6.8 Neutrophils # 10.7 H Neutrophils % 85.2 H Nucleated Red Blood Cells # 0.0 Nucleated Red Blood Cells % 0.0 Phenytoin (Dilantin) Level 13.4 Phosphorus Level 8.2 H Platelet Count 231 Potassium Level 4.0 Random Vancomycin Level 13.1 Red Blood Count 3.42 L Red Cell Distribution Width 16.9 H Sodium Level 134 L White Blood Count 12.5 H Test 09/04/16 06:10 Bedside Glucose 79 Medications Medications Current Medications Pantoprazole (Protonix Iv) 40 mg DAILY@06 IV Last administered on 09/04/16 05: 31; Admin Dose 40 MG; Start 08/31/16 at 06:00 Eye Lubricant 1 drop 1 drop TID BOTH EYES Last administered on 09/03/16 21:17 ; Admin Dose 1 DROP; Start 08/30/16 at 21:00 Propofol 100 ml @ 2.1 mls/hr Q12H IV Last administered on 09/03/16 10:10; Admin Dose 9.24 MLS/HR; Start 08/30/16 at 17:30 Vecuronium [place] 100 mg/ Dextrose 100 ml @ 0 mls/hr TITRATE IV Last administered on 08/31/16 08:25; Admin Dose 2.1 MLS/HR; Start 08/30/16 at 17:30 Cefepime HCl (Maxipime 1gm/50 ml (Pmx)) 50 ml @ 100 mls/hr Q24H IVPB Last administered on 09/03/16 21:18; Admin Dose 100 MLS/HR; Start 08/30/16 at 21:00 Miscellaneous Information 1 ea NOTE XX ; Start 08/30/16 at 19:00 Glucose (Glutose) 15 gm Q15M PRN PO DECREASED GLUCOSE; Start 08/30/16 at 19:00 Glucose (Glutose) 22.5 gm Q15M PRN PO DECREASED GLUCOSE; Start 08/30/16 at 19: 00 Dextrose (D50w Syringe) 25 ml Q15M PRN IV DECREASED GLUCOSE Last administered on 09/01/16 05:19; Admin Dose 25 ML; Start 08/30/16 at 19:00 Dextrose (D50w Syringe) 50 ml Q15M PRN IV DECREASED GLUCOSE; Start 08/30/16 at 19:00 Glucagon (Glucagen) 1 mg Q15M PRN IM DECREASED GLUCOSE; Start 08/30/16 at 19:00 Glucose (Glutose) 15 gm Q15M PRN BUCCAL DECREASED GLUCOSE; Start 08/30/16 at 19 :00 Insulin Aspart (Novolog Insulin Pen) (Adult SC Insulin - Mild Algorithm)... Q6 SC ; Start 08/30/16 at 18:00 Lorazepam 2 mg 2 mg Q2H PRN IV SEIZURES Last administered on 09/02/16 18:25; Admin Dose 2 MG; Start 09/01/16 at 02:00 Levetiracetam/ Sodium Chloride (Keppra Iv/NS) 115 ml @ 440 mls/hr Q12 IVPB Last administered on 09/03/16 21:18; Admin Dose 440 MLS/HR; Start 09/03/16 at 09:00 Metoclopramide HCl 5 mg 5 mg Q6 IV Last administered on 09/04/16 05:31; Admin Dose 5 MG; Start 09/03/16 at 12:00 Nicardipine HCl 50 mg/Sodium Chloride 500 ml @ 5 mls/hr TITRATE IV Last administered on 09/04/16 03:17; Admin Dose 150 MLS/HR; Start 09/03/16 at 11:30 Fosphenytoin Sodium/Sodium Chloride (Cerebyx/NS) 48 ml @ 100 mls/hr Q8 IVPB Last administered on 09/04/16 05:33; Admin Dose 100 MLS/HR; Start 09/03/16 at 22:00 Valproate Sodium (Depakene Liquid Cup) 500 mg TID NGT Last administered on 09/03 21:17; Admin Dose 500 MG; Start 09/03/16 at 21:00 YELENA KEMP Sep 04, 2016 07:33
--- NOTE | 2016-09-04 08:30 | PN ---
DATE: 09/04/2016 SUBJECTIVE: The patient remains critically ill on nicardipine drip. The patient continues to have episodes of myotonic fasciculation and jerks. Patient is still minimally responsive, is not able to follow any commands. Retracts only to painful stimuli. No other events noted. OBJECTIVE: VITAL SIGNS: Blood pressure is 169/67, respirations 16, pulse 110, temperature is 98.6. I's AND O'S: The patient had 2 liters in with 2 liters out. HEENT: Head is normocephalic. NECK: Supple. HEART: Regular rate. LUNGS: Show diminished breath sounds at the base. ABDOMEN: Soft, nontender to palpation without rebound or guarding. EXTREMITIES: Negative for clubbing, cyanosis. Positive edema. DERMATOLOGIC: No rashes. MUSCULOSKELETAL: No joint effusions. NEUROLOGIC: No change in exam. MEDICATIONS: The patient's medications have been reviewed. LABORATORY DATA: Shows sodium 134, potassium 4.0, chloride 97, BUN 25, creatinine 4.97, magnesium 1 .9, phosphorus 8.2, calcium 8.3. IMAGING STUDIES: Chest x-ray shows no acute cardiopulmonary disease. ASSESSMENT AND PLAN: 1. End-stage renal disease. The patient has been receiving daily dialysis for solute clearance and volume removal. We will have dialysis again today for 3 hours, 3 K bath, calcium 2.5 with goal to filtration 2 to 3 liters. 2. Hyponatremia. Etiology secondary to end-stage renal disease in conjunction with hypertonic flui ds. Sodium levels have been improving. The patient will be dialyzed today on a 140 sodium bath. Al l fluids have been changed from D5W to normal saline. 3. Hypertensive urgency. Etiology is due to increased intravascular volume. We will continue ultr afiltration dialysis. Continue nicardipine drip and titrate off as tolerated. 4. Ventilator dependent respiratory failure. Vent settings have been reviewed. ABG has been revie wed. Continue to monitor. 5. Volume overload as stated above. Continue ultrafiltration dialysis. 6. Status post cardiac arrest. The patient is status post hypothermic protocol. 7. Mineral bone disorder. The patient remains markedly hypophosphatemic. Continue hemodialysis fo r solute clearance. 8. Acute encephalopathy with likely anoxic brain injury. The patient has been followed by neurolog y. Continue to monitor. 9. Leukocytosis, likely systemic inflammatory response syndrome. No obvious evidence of infection. Continue empiric antibiotics. 10. Diabetes type 2, continue medical management. 11. Anemia of end-stage renal disease. Continue to monitor H and H levels. Continue Epogen. 12. Myoclonic jerks, possible seizures. The patient is on Keppra. We will continue. Please note, I spent over 40 minutes of critical care time with this patient. Dictated By: TIP LIZARRAGA DO NR/NTS Conf#: [id number] DID#: [id number]
[2016-09-04] MEDS: LEVETIRACETAM IV 1,500 MG in SOD CHLORIDE 0.9% 100 ML IVPB SCH ×2 (08:55→20:21)
[2016-09-04] MEDS: VALPROIC ACID LIQUID CUP 250 MG/5 ML CUP NGT SCH ×3 (08:56→20:20)
[2016-09-04] MEDS: HEPARIN 5,000 UNIT/0.5 ML SYG SC SCH ×2 (08:57→20:28)
[2016-09-04] MEDS: ARTIFICIAL TEARS 15 ML OPH BOTH EYES SCH ×3 (09:00→20:21)
[2016-09-04] MEDS ORDERED: ENOXAPARIN 30 MG/0.3 ML SYG SC SCH (09:00)
--- NOTE | 2016-09-04 09:12 | RADRPT ---
PROCEDURE: XR Chest. CLINICAL INDICATION: Chest pain TECHNIQUE: Single AP portable chest COMPARISON: 09/03/2016 FINDINGS: The cardiomediastinal silhouette is within normal limits. Stable position of the endotracheal tube, the tube, dialysis catheter. .The lungs are clear though pleural effusion or focal consolidation. N o pneumothorax. The osseous structures and soft tissues are unremarkable. IMPRESSION: 1. No evidence for active cardiopulmonary disease. 2. Stable position of support devices. RPTAT:AAJJ Physician Merlyn Date Time Electronically viewed and signed by Physician Merlyn on 09/04/2016 09:11 ALOK/
[2016-09-04] MEDS ORDERED: VANCOMYCIN 750 MG in SOD CHLORIDE 0.9% 150 ML IVPB SCH (11:00)
--- NOTE | 2016-09-04 11:49 | PN ---
Date/Time of Note Date/Time of Note DATE: 09/04/16 TIME: 11:44 Assessment/Plan VTE Prophylaxis VTE Prophylaxis Intervention: SCD's Lines/Catheters IV C[facility]ter Type (from [facility]): Peripheral IV Urinary Cath still in place: No Assessment/Plan Chief Complaint/Hosp Course Assessment and plan 1. Status post cardiac arrest. Patient is status post hypothermia protocol. Neurology following. Of note patient did have abnormal EEG with noted seizure activity and encephalopathy. Likely secondary to anoxic brain injury. Continue to monitor neuro status 2. Seizures lightly secondary to anoxic brain injury. Continue anticonvulsants. Continue with can filling machine operator recommendations 3. Elevated troponin secondary to #1. Of note patient did have preserved LVEF. Continue optimization with cardio vascular medications 4. Respiratory failure. Secondary to #1. Continue with pulmonary hygiene. Assessed for ability for vent liberation. Continue with car rider recommendations 5. Hypertensive urgency. Remains on Cardene drip. Titrate down as tolerated 6. Mild pulmonary hypertension. Continue on O2 supplementation 7. End-stage renal disease. Monitor renal panel. Pneudraulic Systems Mechanic following. Continue on HD DVT prophylaxis: SCDs GERD prophylaxis: PPI Disposition and plan: Assessed for ability for vent liberation. Off sedation right now. We for hopeful improvement of neurologic status. Continue on vent for airway protection. Continue ICU monitoring Discussed plan of care with Dr. Wallace Problems: Subjective 24 Hr Interval Summary Free Text/Dictation Intubated off of sedation. No purposeful response. Does withdraw from noxious stimulus Exam/Review of Systems Vital Signs Vitals Vital Signs Date Time Temp Pulse Resp B/P Pulse Ox O2 Delivery O2 Flow Rate FiO2 09/04/16 09:38 108 18 100 30 09/04/16 09:00 151/74 09/04/16 08:00 99.4 Mechanical Ventilator Intake and Output 09/03/16 09/03/16 09/04/16 15:00 23:00 07:00 Intake Total 300 ml 1363 ml 1098 ml Output Total 2400 ml Balance 300 ml -1037 ml 1098 ml Exam General: Intubated no apparent distress Eyes: [pupils equal round, Anicteric sclera] Neck: Supple nontender, no JVD Cardiac: S1-S2 auscultated, slight murmur auscultated Pulmonary: Intubated. Minimally coarse bilaterally on lung wen GI: [Abdomen soft nontender nondistended, bowel sounds active] Extremities: Edema noted bilateral upper and lower extremities Skin: [Clean dry and intact] Neurologic: Intubated. Withdraws from noxious stimulus. No purposeful response Results Result Diagram: 09/04/16 0440 09/04/16 0440 Results 24 hrs Laboratory Tests Test 09/03/16 12:06 09/03/16 18:07 09/04/16 00:20 09/04/16 04:40 Bedside Glucose 92 79 74 Anion Gap 17 H Basophils # 0.0 Basophils % 0.3 Blood Morphology Comment Blood Urea Nitrogen 25 H Calcium Level 8.3 L Carbon Dioxide Level 24 Chloride Level 97 Creatinine 4.97 H Eosinophils # 0.0 Eosinophils % 0.4 Glucose Level 81 Hematocrit 31.1 L Hemoglobin 10.4 L Lymphocytes # 0.9 Lymphocytes % 7.3 L Magnesium Level 1.9 Mean Corpuscular Hemoglobin 30.5 Mean Corpuscular Hemoglobin Concent 33.5 Mean Corpuscular Volume 91.1 Mean Platelet Volume 7.6 Monocytes # 0.9 Monocytes % 6.8 Neutrophils # 10.7 H Neutrophils % 85.2 H Nucleated Red Blood Cells # 0.0 Nucleated Red Blood Cells % 0.0 Phenytoin (Dilantin) Level 13.4 Phosphorus Level 8.2 H Platelet Count 231 Potassium Level 4.0 Random Vancomycin Level 13.1 Red Blood Count 3.42 L Red Cell Distribution Width 16.9 H Sodium Level 134 L White Blood Count 12.5 H Test 09/04/16 06:10 Bedside Glucose 79 Medications Medications Current Medications Pantoprazole (Protonix Iv) 40 mg DAILY@06 IV Last administered on 09/04/16 05: 31; Admin Dose 40 MG; Start 08/31/16 at 06:00 Eye Lubricant 1 drop 1 drop TID BOTH EYES Last administered on 09/03/16 21:17 ; Admin Dose 1 DROP; Start 08/30/16 at 21:00 Propofol 100 ml @ 2.1 mls/hr Q12H IV Last administered on 09/03/16 10:10; Admin Dose 9.24 MLS/HR; Start 08/30/16 at 17:30 Vecuronium [place] 100 mg/ Dextrose 100 ml @ 0 mls/hr TITRATE IV Last administered on 08/31/16 08:25; Admin Dose 2.1 MLS/HR; Start 08/30/16 at 17:30 Cefepime HCl (Maxipime 1gm/50 ml (Pmx)) 50 ml @ 100 mls/hr Q24H IVPB Last administered on 09/03/16 21:18; Admin Dose 100 MLS/HR; Start 08/30/16 at 21:00 Miscellaneous Information 1 ea NOTE XX ; Start 08/30/16 at 19:00 Glucose (Glutose) 15 gm Q15M PRN PO DECREASED GLUCOSE; Start 08/30/16 at 19:00 Glucose (Glutose) 22.5 gm Q15M PRN PO DECREASED GLUCOSE; Start 08/30/16 at 19: 00 Dextrose (D50w Syringe) 25 ml Q15M PRN IV DECREASED GLUCOSE Last administered on 09/01/16 05:19; Admin Dose 25 ML; Start 08/30/16 at 19:00 Dextrose (D50w Syringe) 50 ml Q15M PRN IV DECREASED GLUCOSE; Start 08/30/16 at 19:00 Glucagon (Glucagen) 1 mg Q15M PRN IM DECREASED GLUCOSE; Start 08/30/16 at 19:00 Glucose (Glutose) 15 gm Q15M PRN BUCCAL DECREASED GLUCOSE; Start 08/30/16 at 19 :00 Insulin Aspart (Novolog Insulin Pen) (Adult SC Insulin - Mild Algorithm)... Q6 SC ; Start 08/30/16 at 18:00 Lorazepam 2 mg 2 mg Q2H PRN IV SEIZURES Last administered on 09/02/16 18:25; Admin Dose 2 MG; Start 09/01/16 at 02:00 Levetiracetam/ Sodium Chloride (Keppra Iv/NS) 115 ml @ 440 mls/hr Q12 IVPB Last administered on 09/04/16 08:55; Admin Dose 440 MLS/HR; Start 09/03/16 at 09:00 Metoclopramide HCl 5 mg 5 mg Q6 IV Last administered on 09/04/16 05:31; Admin Dose 5 MG; Start 09/03/16 at 12:00 Nicardipine HCl 50 mg/Sodium Chloride 500 ml @ 5 mls/hr TITRATE IV Last administered on 09/04/16 03:17; Admin Dose 150 MLS/HR; Start 09/03/16 at 11:30 Fosphenytoin Sodium/Sodium Chloride (Cerebyx/NS) 48 ml @ 100 mls/hr Q8 IVPB Last administered on 09/04/16 05:33; Admin Dose 100 MLS/HR; Start 09/03/16 at 22:00 Valproate Sodium (Depakene Liquid Cup) 500 mg TID NGT Last administered on 09/04 08:56; Admin Dose 500 MG; Start 09/03/16 at 21:00 Heparin Sodium (Porcine) 5000 unit 5,000 unit Q12 SC Last administered on 08:57; Admin Dose 5,000 UNIT; Start 09/04/16 at 09:00 Vancomycin HCl/ Sodium Chloride (Vancocin/NS) 150 ml @ 75 mls/hr Q72H IVPB ; Start 09/04/16 at 11:00 CORAL KAUR Sep 04, 2016 11:49
--- NOTE | 2016-09-04 12:21 | CONS ---
Date/Time of Note Date/Time of Note DATE: 09/04/16 TIME: 12:17 Consult Date/Type/Reason Admit Date/Time Aug 30, 2016 at 15:45 Initial Consult Date 09/01/16 Type of Consultation: Neurology Reason for Consultation anoxic injury cardiac arrest Subjective opens eyes intermittently off sedation no specific gaze preference intermittent LE jerking Objective Vital Signs Date Time Temp Pulse Resp B/P Pulse Ox O2 Delivery O2 Flow Rate FiO2 09/04/16 12:00 109 09/04/16 11:48 17 100 30 09/04/16 09:00 151/74 09/04/16 08:00 99.4 Mechanical Ventilator Intake and Output 09/03/16 09/03/16 09/04/16 15:00 23:00 07:00 Intake Total 300 ml 1363 ml 1098 ml Output Total 2400 ml Balance 300 ml -1037 ml 1098 ml Head: normocephalic Neck: supple Respiratory: normal air movement Cardiovascular: nl pulses, regular rate and rhythm Gastrointestinal: soft Neurological: opens eyes spontaneously no specific gaze preference, gag reflex present not following commands LE jerking Results/Medications Result Diagram: 09/04/16 0440 09/04/16 0440 Results 24 hrs Laboratory Tests Test 09/03/16 18:07 09/04/16 00:20 09/04/16 04:40 09/04/16 06:10 Bedside Glucose 79 74 79 Anion Gap 17 H Basophils # 0.0 Basophils % 0.3 Blood Morphology Comment Blood Urea Nitrogen 25 H Calcium Level 8.3 L Carbon Dioxide Level 24 Chloride Level 97 Creatinine 4.97 H Eosinophils # 0.0 Eosinophils % 0.4 Glucose Level 81 Hematocrit 31.1 L Hemoglobin 10.4 L Lymphocytes # 0.9 Lymphocytes % 7.3 L Magnesium Level 1.9 Mean Corpuscular Hemoglobin 30.5 Mean Corpuscular Hemoglobin Concent 33.5 Mean Corpuscular Volume 91.1 Mean Platelet Volume 7.6 Monocytes # 0.9 Monocytes % 6.8 Neutrophils # 10.7 H Neutrophils % 85.2 H Nucleated Red Blood Cells # 0.0 Nucleated Red Blood Cells % 0.0 Phenytoin (Dilantin) Level 13.4 Phosphorus Level 8.2 H Platelet Count 231 Potassium Level 4.0 Random Vancomycin Level 13.1 Red Blood Count 3.42 L Red Cell Distribution Width 16.9 H Sodium Level 134 L White Blood Count 12.5 H Medications Current Medications Pantoprazole (Protonix Iv) 40 mg DAILY@06 IV Last administered on 09/04/16 05: 31; Admin Dose 40 MG; Start 08/31/16 at 06:00 Eye Lubricant 1 drop 1 drop TID BOTH EYES Last administered on 09/03/16 21:17 ; Admin Dose 1 DROP; Start 08/30/16 at 21:00 Propofol 100 ml @ 2.1 mls/hr Q12H IV Last administered on 09/03/16 10:10; Admin Dose 9.24 MLS/HR; Start 08/30/16 at 17:30 Vecuronium [place] 100 mg/ Dextrose 100 ml @ 0 mls/hr TITRATE IV Last administered on 08/31/16 08:25; Admin Dose 2.1 MLS/HR; Start 08/30/16 at 17:30 Cefepime HCl (Maxipime 1gm/50 ml (Pmx)) 50 ml @ 100 mls/hr Q24H IVPB Last administered on 09/03/16 21:18; Admin Dose 100 MLS/HR; Start 08/30/16 at 21:00 Miscellaneous Information 1 ea NOTE XX ; Start 08/30/16 at 19:00 Glucose (Glutose) 15 gm Q15M PRN PO DECREASED GLUCOSE; Start 08/30/16 at 19:00 Glucose (Glutose) 22.5 gm Q15M PRN PO DECREASED GLUCOSE; Start 08/30/16 at 19: 00 Dextrose (D50w Syringe) 25 ml Q15M PRN IV DECREASED GLUCOSE Last administered on 09/01/16 05:19; Admin Dose 25 ML; Start 08/30/16 at 19:00 Dextrose (D50w Syringe) 50 ml Q15M PRN IV DECREASED GLUCOSE; Start 08/30/16 at 19:00 Glucagon (Glucagen) 1 mg Q15M PRN IM DECREASED GLUCOSE; Start 08/30/16 at 19:00 Glucose (Glutose) 15 gm Q15M PRN BUCCAL DECREASED GLUCOSE; Start 08/30/16 at 19 :00 Insulin Aspart (Novolog Insulin Pen) (Adult SC Insulin - Mild Algorithm)... Q6 SC ; Start 08/30/16 at 18:00 Lorazepam 2 mg 2 mg Q2H PRN IV SEIZURES Last administered on 09/02/16 18:25; Admin Dose 2 MG; Start 09/01/16 at 02:00 Levetiracetam/ Sodium Chloride (Keppra Iv/NS) 115 ml @ 440 mls/hr Q12 IVPB Last administered on 09/04/16 08:55; Admin Dose 440 MLS/HR; Start 09/03/16 at 09:00 Metoclopramide HCl 5 mg 5 mg Q6 IV Last administered on 09/04/16 05:31; Admin Dose 5 MG; Start 09/03/16 at 12:00 Nicardipine HCl/ Sodium Chloride (Cardene Iv/NS) 500 ml @ 5 mls/hr TITRATE IV Last administered on 09/04/16 03:17; Admin Dose 150 MLS/HR; Start 09/03/16 at 11:30 Valproate Sodium (Depakene Liquid Cup) 500 mg TID NGT Last administered on 09/04 08:56; Admin Dose 500 MG; Start 09/03/16 at 21:00 Heparin Sodium (Porcine) 5000 unit 5,000 unit Q12 SC Last administered on 08:57; Admin Dose 5,000 UNIT; Start 09/04/16 at 09:00 Vancomycin HCl/ Sodium Chloride (Vancocin/NS) 150 ml @ 75 mls/hr Q72H IVPB ; Start 09/04/16 at 11:00 Assessment/Plan Chief Complaint/Hosp Course Patient is a 56-year-old female with history of end-stage renal disease on hemodialysis and essential hypertension was found to be unresponsive at home. Paramedics found the patient in PEA and was resuscitated. She was also seen to have uncontrolled blood pressures, lactic acidosis with leukocytosis. CT scan brain was negative for any acute intracranial pathology. She was also treated with hypothermia protocol. EEG showed generalized background slowing with intermittent epileptiform activity. She is quite encephalopathic due to anoxic event. -taper sedation -continue Keppra 1500 mg IV bid, continue Fosphenytoin increase dose to 150 mg q8h recheck levels tomorrow am -seizure precautions -will follow Problems: Additional Assessment/Plan Phenytoin Level: 13.4 - JAZZMINE SUN MD Sep 04, 2016 12:21
[2016-09-04] MEDS: DEXTROSE 50% 50 ML SYRINGE IV PRN (14:38)
[2016-09-04] MEDS: PROPOFOL 100 ML IV SCH (17:30)
[2016-09-04] MEDS: CEFEPIME 1GM/50 ML (PMX) 50 ML IVPB SCH (20:35)
[2016-09-05] VITALS (72 sets, daily range): BP systolic 86–188; BP diastolic 54–95; PULSE 96–117; RESP 0–30
[2016-09-05] MEDS: IPRATROPIUM (HFA) 12.9 GM INHALER INH SCH ×5 (01:30→21:15)
[2016-09-05] MEDS: ALBUTEROL HFA 8 GM INHALER INH SCH ×5 (01:31→21:14)
[2016-09-05] MEDS: niCARdipine 50 MG in SOD CHLORIDE 0.9% 480 ML IV SCH ×4 (02:57→22:16)
[2016-09-05 05:22] LABS: BASOPHILS % 0.2 % (0.0-2.0); EOSINOPHILS # 0.1 10^3/ul (0.0-0.5); EOSINOPHILS % 0.4 % (0.0-7.0); HEMATOCRIT 32.5 % (37.0-47.0); HEMOGLOBIN 10.4 g/dl (12.0-16.0); LYMPHOCYTES # 0.9 10^3/ul (0.8-2.9); LYMPHOCYTES % 6.4 % (15.0-51.0); MEAN CORPUSCULAR HEMOGLOBIN 30.1 pg (29.0-33.0); MEAN CORPUSCULAR HGB CONC 32.1 g/dl (32.0-37.0); MEAN CORPUSCULAR VOLUME 93.8 fl (82.0-101.0); MEAN PLATELET VOLUME 8.2 fl (7.4-10.4); MONOCYTE # 1.1 10^3/ul (0.3-0.9); MONOCYTES % 8.2 % (0.0-11.0); NEUTROPHIL # 11.6 10^3/ul (1.6-7.5); NEUTROPHILS % 84.8 % (39.0-77.0); PLATELET COUNT 242 10^3/UL (140-440); RED BLOOD COUNT 3.46 10^6/ul (4.20-5.40); UNCORRECTED WBC 13.7 10^3/ul (4.8-10.8); WHITE BLOOD COUNT 13.7 10^3/ul (4.8-10.8)
[2016-09-05 05:28] LABS: POTASSIUM 4.2 mmol/L (3.5-5.1)
[2016-09-05] MEDS: PROPOFOL 100 ML IV SCH ×2 (05:30→17:30)
[2016-09-05 05:31] LABS: CALCIUM 8.6 mg/dl (8.4-10.2); CREATININE 6.66 mg/dl (0.44-1.00); PHOSPHORUS 9.5 mg/dl (2.5-4.9)
[2016-09-05 05:32] LABS: MAGNESIUM 2.2 mg/dl (1.7-2.5)
[2016-09-05 05:54] LABS: CONDITION 1; LH ANALYZER COMMENTS 1
[2016-09-05] MEDS: Insulin NOVOLOG SS MILD Algorithm (NPO/TPN/ENTERAL FEEDS) SC SCH ×3 (06:00→17:40)
[2016-09-05] MEDS: METOCLOPRAMIDE 10 MG INJ IV SCH ×3 (06:09→17:29)
[2016-09-05] MEDS: PANTOPRAZOLE 40 MG INJ IV SCH (06:09)
--- NOTE | 2016-09-05 07:55 | CONS ---
Date/Time of Note Date/Time of Note DATE: 09/05/16 TIME: 07:52 Assessment/Plan Assessment/Plan Chief Complaint/Hosp Course Patient is a 60-year-old [place] lady who was brought into the emergency room after the patient called 911 with complaints of shortness of breath by the time the EMS arrived the patient was found unresponsive had pulseless electrical activity along CPR was done lasting approximately 20 minutes with revival of vital signs. She currently is on hypothermic protocol and is sedated paralyzed on mechanical ventilation or intubated. She also was obtained from medical records as well as patient's daughter who is currently present in the room. The patient's daughter the patient was admitted last month with pneumonia and were discharged home however the patient was complaining of mild shortness of breath for the last couple of days prior to the event which occurred yesterday afternoon. Problems: Additional Assessment/Plan Assessment and recommendations; 1. Patient admitted with cardiac arrest underwent prolonged CPR resulting in severe anoxic brain injury. 2. History of renal failure on chronic hemodialysis. 3. History of hypertension. 4. History of diabetes next 5. Chest x-ray was reviewed from yesterday afternoon which is essentially clear. 6. She currently maintained on assist control of 16 tidal volume 450 PEEP of 530% FiO2 and has adequate O2 saturation. 7. Myoclonic jerking currently on combination Keppra Dilantin and Depakote. Continue current supportive care. Prognosis is extremely poor. I did have a detailed discussion the patient's daughter yesterday the family would not likely offer for tracheostomy but they do want to continue current aggressive medical care at least for the next few days. Consultation Date/Type/Reason Admit Date/Time Aug 30, 2016 at 15:45 Initial Consult Date 08/31/16 Type of Consultation: Neurology 24 HR Interval Summary Free Text/Dictation Patient condition remains critical. Still requiring full ventilator support. No gross myoclonic jerking observed. No gross seizure activity noted either. She remains completely unresponsive. General examination middle aged, or intubated, unresponsive. Exam/Review of Systems Vital Signs Vitals Vital Signs Date Time Temp Pulse Resp B/P Pulse Ox O2 Delivery O2 Flow Rate FiO2 09/05/16 06:00 106 18 146/66 100 Mechanical Ventilator 09/05/16 05:15 30 09/05/16 04:00 98.8 Intake and Output 09/04/16 09/04/16 09/05/16 15:00 23:00 07:00 Intake Total 715 ml 685 ml Output Total 75 ml 0 ml 0 ml Balance -75 ml 715 ml 685 ml Exam HEENT examination; supple neck, no JVD. Or intubated. Pupils are small bilaterally. No neck bruits. No thyromegaly. Chest examination; clear to auscultation. S1-S2 audible no murmurs. Abdomen; soft, nondistended, bowel sounds audible. No organomegaly felt. Extremity examination; no peripheral edema. +1+ bilaterally. HOME DEMONSTRATOR examination; patient remains unresponsive. Results Result Diagram: 09/05/16 0400 09/05/16 0400 Results 24 hrs Laboratory Tests Test 09/04/16 13:12 09/04/16 14:34 09/04/16 14:48 09/04/16 17:20 Phenytoin (Dilantin) Level 12.8 Bedside Glucose 65 L 134 87 Test 09/04/16 23:30 09/05/16 04:00 09/05/16 06:09 Bedside Glucose 77 91 Anion Gap 21 H Basophils # 0.0 Basophils % 0.2 Blood Morphology Comment Blood Urea Nitrogen 40 #H Calcium Level 8.6 Carbon Dioxide Level 19 L Chloride Level 103 Creatinine 6.66 H Eosinophils # 0.1 Eosinophils % 0.4 Glucose Level 72 Hematocrit 32.5 L Hemoglobin 10.4 L Lymphocytes # 0.9 Lymphocytes % 6.4 L Magnesium Level 2.2 Mean Corpuscular Hemoglobin 30.1 Mean Corpuscular Hemoglobin Concent 32.1 Mean Corpuscular Volume 93.8 Mean Platelet Volume 8.2 Monocytes # 1.1 H Monocytes % 8.2 Neutrophils # 11.6 H Neutrophils % 84.8 H Nucleated Red Blood Cells # 0.0 Nucleated Red Blood Cells % 0.0 Phenytoin (Dilantin) Level 13.9 Phosphorus Level 9.5 H Platelet Count 242 Potassium Level 4.2 Red Blood Count 3.46 L Red Cell Distribution Width 17.0 H Sodium Level 139 White Blood Count 13.7 H Medications Medications Current Medications Pantoprazole (Protonix Iv) 40 mg DAILY@06 IV Last administered on 09/05/16t 06: 09; Admin Dose 40 MG; Start 08/31/16 at 06:00 Eye Lubricant 1 drop 1 drop TID BOTH EYES Last administered on 09/04/16 20:21 ; Admin Dose 1 DROP; Start 08/30/16 at 21:00 Propofol 100 ml @ 2.1 mls/hr Q12H IV Last administered on 09/03/16 10:10; Admin Dose 9.24 MLS/HR; Start 08/30/16 at 17:30 Vecuronium [place] 100 mg/ Dextrose 100 ml @ 0 mls/hr TITRATE IV Last administered on 08/31/16 08:25; Admin Dose 2.1 MLS/HR; Start 08/30/16 at 17:30 Cefepime HCl (Maxipime 1gm/50 ml (Pmx)) 50 ml @ 100 mls/hr Q24H IVPB Last administered on 09/04/16 20:35; Admin Dose 100 MLS/HR; Start 08/30/16 at 21:00 Miscellaneous Information 1 ea NOTE XX ; Start 08/30/16 at 19:00 Glucose (Glutose) 15 gm Q15M PRN PO DECREASED GLUCOSE; Start 08/30/16 at 19:00 Glucose (Glutose) 22.5 gm Q15M PRN PO DECREASED GLUCOSE; Start 08/30/16 at 19: 00 Dextrose (D50w Syringe) 25 ml Q15M PRN IV DECREASED GLUCOSE Last administered on 09/04/16 14:38; Admin Dose 25 ML; Start 08/30/16 at 19:00 Dextrose (D50w Syringe) 50 ml Q15M PRN IV DECREASED GLUCOSE; Start 08/30/16 at 19:00 Glucagon (Glucagen) 1 mg Q15M PRN IM DECREASED GLUCOSE; Start 08/30/16 at 19:00 Glucose (Glutose) 15 gm Q15M PRN BUCCAL DECREASED GLUCOSE; Start 08/30/16 at 19 :00 Insulin Aspart (Novolog Insulin Pen) (Adult SC Insulin - Mild Algorithm)... Q6 SC ; Start 08/30/16 at 18:00 Lorazepam 2 mg 2 mg Q2H PRN IV SEIZURES Last administered on 09/02/16 18:25; Admin Dose 2 MG; Start 09/01/16 at 02:00 Levetiracetam/ Sodium Chloride (Keppra Iv/NS) 115 ml @ 440 mls/hr Q12 IVPB Last administered on 09/04/16 20:21; Admin Dose 440 MLS/HR; Start 09/03/16 at 09:00 Metoclopramide HCl 5 mg 5 mg Q6 IV Last administered on 09/05/16 06:09; Admin Dose 5 MG; Start 09/03/16 at 12:00 Nicardipine HCl/ Sodium Chloride (Cardene Iv/NS) 500 ml @ 5 mls/hr TITRATE IV Last administered on 09/05/16 02:57; Admin Dose 100 MLS/HR; Start 09/03/16 at 11:30 Valproate Sodium (Depakene Liquid Cup) 500 mg TID NGT Last administered on 09/04 20:20; Admin Dose 500 MG; Start 09/03/16 at 21:00 Heparin Sodium (Porcine) 5000 unit 5,000 unit Q12 SC Last administered on 20:28; Admin Dose 5,000 UNIT; Start 09/04/16 at 09:00 Vancomycin HCl 750 mg/Sodium Chloride 150 ml @ 75 mls/hr Q72H IVPB Last administered on 09/04/16 14:24; Admin Dose 75 MLS/HR; Start 09/04/16 at 11:00 Fosphenytoin Sodium/Sodium Chloride (Cerebyx/NS) 50 ml @ 150 mls/hr TID IVPB Last administered on 09/04/16 21:52; Admin Dose 150 MLS/HR; Start 09/04/16 at 13:00 YELENA KEMP Sep 05, 2016 07:55
[2016-09-05] MEDS: FOSPHENYTOIN IVPB SCH ×3 (08:19→13:00)
[2016-09-05] MEDS: SOD CHLORIDE 0.9% IVPB SCH ×3 (08:19→13:00)
[2016-09-05] MEDS: LEVETIRACETAM IV 1,500 MG in SOD CHLORIDE 0.9% 100 ML IVPB SCH ×2 (08:20→11:30)
[2016-09-05] MEDS: ARTIFICIAL TEARS 15 ML OPH BOTH EYES SCH ×3 (09:00→20:30)
--- NOTE | 2016-09-05 10:33 | PN ---
DATE: SUBJECTIVE: The patient remains critically ill on full ventilatory support. The patient has been r eceiving near daily dialysis for solute clearance. The patient continues to have myoclonic jerks wi thout any significant improvement. No other acute events noted. OBJECTIVE: VITAL SIGNS: Blood pressure 146/68, pulse 109, temperature 98.6, heart rate 72, respirations 18. HEENT: Head is normocephalic. NECK: Supple. HEART: Regular rate. LUNGS: Show diminished breath sounds at base. ABDOMEN: Soft, nontender to palpation. No rebound or guarding. EXTREMITIES: Negative for clubbing, cyanosis, no positive edema. DERMATOLOGIC: No rashes. MUSCULOSKELETAL: No joint effusions. NEUROLOGIC: No change in exam. MEDICATIONS: The patient's medications are reviewed. LABORATORY DATA: Shows sodium 139, potassium 4.2, chloride 103, bicarbonate 19, BUN 40, creatinine 6.6, calcium 9.5. White count 13.7, hemoglobin 10.4, hematocrit 32.5, platelet count is 242. ASSESSMENT AND PLAN: 1. End-stage renal disease. The patient has been receiving near daily dialysis for solute clearanc e and volume removal. The patient is on dialysis today for 3 hours, 3K bath, calcium 2.5. 2. Hyponatremia secondary to end-stage renal disease, improved. Continue to monitor. 3. Hypertensive urgency. The patient is clinically improving. Continue to wean off nicardipine dr ip and continue ultrafiltration with dialysis. 4. Ventilator dependent respiratory failure. Vent settings have been reviewed. ABG has been revie wed. Continue to monitor. 5. Volume overload, clinically improving. Continue ultrafiltration dialysis. 6. Mineral bone disorder. The patient is hyperphosphatemic. Continue hemodialysis clearance. [place] l start the patient on phos binders, Renagel 2.4 grams t.i.d. 7. Acute encephalopathy with anoxic brain injury. Continue to monitor. Follow up with neurology. 10. Leukocytosis, systemic inflammatory response syndrome., improving. 11. Diabetes. Continue Accu-Cheks and insulin sliding scale. 12. Anemia of end-stage renal disease. Monitor hemoglobin and hematocrit levels. Continue Epogen. 13. Status post cardiac arrest, status post hypothermia protocol. 14. Myoclonic jerks, possible seizures. Continue Keppra. Please note, I spent over 40 minutes of critical care time with this patient. Dictated By: TIP SOLORIO/EMMA Conf#: [id number] DID#: [id number]
[2016-09-05] MEDS: VALPROIC ACID LIQUID CUP 250 MG/5 ML CUP NGT SCH ×3 (11:23→20:31)
[2016-09-05] MEDS: HEPARIN 5,000 UNIT/0.5 ML SYG SC SCH ×2 (11:26→20:32)
[2016-09-05] MEDS: SEVELAMER CARBONATE 2.4 GM PKT PO SCH ×2 (12:13→17:29)
[2016-09-05] MEDS: EPOETIN 10000 UNITS/1 ML INJ (ESRD) SC SCH (12:25)
--- NOTE | 2016-09-05 13:02 | CONS ---
Date/Time of Note Date/Time of Note DATE: 09/05/16 TIME: 12:58 Consult Date/Type/Reason Admit Date/Time Aug 30, 2016 at 15:45 Initial Consult Date 09/01/16 Type of Consultation: Neurology Reason for Consultation anoxic injury, seizures Subjective opens her eyes spontaneously tracks occasionally to voice not following commands intermittent LE jerking observed off sedation Objective Vital Signs Date Time Temp Pulse Resp B/P Pulse Ox O2 Delivery O2 Flow Rate FiO2 09/05/16 12:00 110 09/05/16 11:00 20 09/05/16 09:00 162/78 100 09/05/16 08:00 99.2 Mechanical Ventilator 09/05/16 05:15 30 Intake and Output 09/04/16 09/04/16 09/05/16 15:00 23:00 07:00 Intake Total 715 ml 705 ml Output Total 75 ml 0 ml 0 ml Balance -75 ml 715 ml 705 ml opening eyes spontaneously tracks voice briefly left gaze with right corrective nystagmus noted on exam gag reflex present no withdrawal in extremities intermittent jerking of LE Results/Medications Result Diagram: 09/05/16 0400 09/05/16 0400 Results 24 hrs Laboratory Tests Test 09/04/16 13:12 09/04/16 14:34 09/04/16 14:48 09/04/16 17:20 Phenytoin (Dilantin) Level 12.8 Bedside Glucose 65 L 134 87 Test 09/04/16 23:30 09/05/16 04:00 09/05/16 06:09 09/05/16 11:31 Bedside Glucose 77 91 84 Anion Gap 21 H Basophils # 0.0 Basophils % 0.2 Blood Morphology Comment Blood Urea Nitrogen 40 #H Calcium Level 8.6 Carbon Dioxide Level 19 L Chloride Level 103 Creatinine 6.66 H Eosinophils # 0.1 Eosinophils % 0.4 Glucose Level 72 Hematocrit 32.5 L Hemoglobin 10.4 L Lymphocytes # 0.9 Lymphocytes % 6.4 L Magnesium Level 2.2 Mean Corpuscular Hemoglobin 30.1 Mean Corpuscular Hemoglobin Concent 32.1 Mean Corpuscular Volume 93.8 Mean Platelet Volume 8.2 Monocytes # 1.1 H Monocytes % 8.2 Neutrophils # 11.6 H Neutrophils % 84.8 H Nucleated Red Blood Cells # 0.0 Nucleated Red Blood Cells % 0.0 Phenytoin (Dilantin) Level 13.9 Phosphorus Level 9.5 H Platelet Count 242 Potassium Level 4.2 Red Blood Count 3.46 L Red Cell Distribution Width 17.0 H Sodium Level 139 White Blood Count 13.7 H Medications Current Medications Pantoprazole (Protonix Iv) 40 mg DAILY@06 IV Last administered on 09/05/16 06: 09; Admin Dose 40 MG; Start 08/31/16 at 06:00 Eye Lubricant 1 drop 1 drop TID BOTH EYES Last administered on 09/04/16 20:21 ; Admin Dose 1 DROP; Start 08/30/16 at 21:00 Propofol 100 ml @ 2.1 mls/hr Q12H IV Last administered on 09/03/16 10:10; Admin Dose 9.24 MLS/HR; Start 08/30/16 at 17:30 Vecuronium [place] 100 mg/ Dextrose 100 ml @ 0 mls/hr TITRATE IV Last administered on 08/31/16 08:25; Admin Dose 2.1 MLS/HR; Start 08/30/16 at 17:30 Cefepime HCl (Maxipime 1gm/50 ml (Pmx)) 50 ml @ 100 mls/hr Q24H IVPB Last administered on 09/04/16 20:35; Admin Dose 100 MLS/HR; Start 08/30/16 at 21:00 Miscellaneous Information 1 ea NOTE XX ; Start 08/30/16 at 19:00 Glucose (Glutose) 15 gm Q15M PRN PO DECREASED GLUCOSE; Start 08/30/16 at 19:00 Glucose (Glutose) 22.5 gm Q15M PRN PO DECREASED GLUCOSE; Start 08/30/16 at 19: 00 Dextrose (D50w Syringe) 25 ml Q15M PRN IV DECREASED GLUCOSE Last administered on 09/04/16 14:38; Admin Dose 25 ML; Start 08/30/16 at 19:00 Dextrose (D50w Syringe) 50 ml Q15M PRN IV DECREASED GLUCOSE; Start 08/30/16 at 19:00 Glucagon (Glucagen) 1 mg Q15M PRN IM DECREASED GLUCOSE; Start 08/30/16 at 19:00 Glucose (Glutose) 15 gm Q15M PRN BUCCAL DECREASED GLUCOSE; Start 08/30/16 at 19 :00 Insulin Aspart (Novolog Insulin Pen) (Adult SC Insulin - Mild Algorithm)... Q6 SC ; Start 08/30/16 at 18:00 Lorazepam 2 mg 2 mg Q2H PRN IV SEIZURES Last administered on 09/02/16 18:25; Admin Dose 2 MG; Start 09/01/16 at 02:00 Levetiracetam/ Sodium Chloride (Keppra Iv/NS) 115 ml @ 440 mls/hr Q12 IVPB Last administered on 09/04/16 20:21; Admin Dose 440 MLS/HR; Start 09/03/16 at 09:00 Metoclopramide HCl 5 mg 5 mg Q6 IV Last administered on 09/05/16 12:15; Admin Dose 5 MG; Start 09/03/16 at 12:00 Nicardipine HCl/ Sodium Chloride (Cardene Iv/NS) 500 ml @ 5 mls/hr TITRATE IV Last administered on 09/05/16 02:57; Admin Dose 100 MLS/HR; Start 09/03/16 at 11:30 Heparin Sodium (Porcine) 5000 unit 5,000 unit Q12 SC Last administered on 11:26; Admin Dose 5,000 UNIT; Start 09/04/16 at 09:00 Vancomycin HCl 750 mg/Sodium Chloride 150 ml @ 75 mls/hr Q72H IVPB Last administered on 09/04/16 14:24; Admin Dose 75 MLS/HR; Start 09/04/16 at 11:00 Fosphenytoin Sodium/Sodium Chloride (Cerebyx/NS) 50 ml @ 150 mls/hr TID IVPB Last administered on 09/04/16 21:52; Admin Dose 150 MLS/HR; Start 09/04/16 at 13:00 Valproate Sodium (Depakene Liquid Cup) 750 mg TID NGT ; Start 09/05/16 at 13:00 ; Status UNV Assessment/Plan Chief Complaint/Hosp Course Patient is a 56-year-old female with history of end-stage renal disease on hemodialysis and essential hypertension was found to be unresponsive at home. Paramedics found the patient in PEA and was resuscitated. She was also seen to have uncontrolled blood pressures, lactic acidosis with leukocytosis. CT scan brain was negative for any acute intracranial pathology. She was also treated with hypothermia protocol. EEG showed generalized background slowing with intermittent epileptiform activity. She is quite encephalopathic due to anoxic event. -taper sedation -continue Keppra 1500 mg IV bid, continue Fosphenytoin increased dose to 200 mg q8h with levels in 13 range increase Depakote to 750 mg q8h -discussed current examination findings with daughter at bedside today, she wishes to wait a few more days and continue to monitor her mother status she feels a significant emotional burden as she is the only family member making decision regarding her mothers care i discussed the option of pursuing an MRI Brain w/o contrast to further evaluate for anoxic injury and she wishes to pursue an MRI to gather more information to help make her decision -will continue to follow Problems: JAZZMINE SUN MD Sep 05, 2016 13:02
--- NOTE | 2016-09-05 13:33 | PN ---
Date/Time of Note Date/Time of Note DATE: 09/05/16 TIME: 13:30 Assessment/Plan VTE Prophylaxis VTE Prophylaxis Intervention: SCD's Lines/Catheters IV Catheter Type (from [facility]): Dialysis Catheter Urinary Cath still in place: No Assessment/Plan Chief Complaint/Hosp Course Assessment and plan 1. Status post cardiac arrest. Patient is status post hypothermia protocol. Neurology following. Of note patient did have abnormal EEG with noted seizure activity and encephalopathy. Likely secondary to anoxic brain injury. Continue to monitor neuro status. Follow-up MRI of the brain 2. Seizures lightly secondary to anoxic brain injury. Continue anticonvulsants. Continue with violin teacher recommendations 3. Elevated troponin secondary to #1. Of note patient did have preserved LVEF. Continue optimization with cardio vascular medications 4. Respiratory failure. Secondary to #1. Continue with pulmonary hygiene. Assessed for ability for vent liberation. Continue with industrial chemist recommendations 5. Hypertensive urgency. Remains on Cardene drip. Titrate down as tolerated 6. Mild pulmonary hypertension. Continue on O2 supplementation 7. End-stage renal disease. Monitor renal panel. Crane Crew Supervisor following. Continue on HD DVT prophylaxis: SCDs GERD prophylaxis: PPI Disposition and plan: Appears more awake at this time and does respond to verbal cues but no purposeful response. Assessed for ability for vent liberation. Follow-up MRI of the brain. Continue ICU monitoring. Palliative care physician to follow Discussed plan of care with Dr. Wallace Critical care time: 30 minutes Problems: Subjective 24 Hr Interval Summary Free Text/Dictation Remains intubated. Off sedation at this time. Family at bedside. Does acknowledge verbal cues Exam/Review of Systems Vital Signs Vitals Vital Signs Date Time Temp Pulse Resp B/P Pulse Ox O2 Delivery O2 Flow Rate FiO2 09/05/16 12:00 110 09/05/16 11:00 20 09/05/16 09:00 162/78 100 09/05/16 08:00 99.2 Mechanical Ventilator 09/05/16 05:15 30 Intake and Output 09/04/16 09/04/16 09/05/16 15:00 23:00 07:00 Intake Total 715 ml 705 ml Output Total 75 ml 0 ml 0 ml Balance -75 ml 715 ml 705 ml Exam General: Intubated no apparent distress Eyes: pupils equal round, Anicteric sclera Neck: Supple nontender, no JVD Cardiac: S1-S2 auscultated, slight murmur auscultated Pulmonary: Intubated. Minimally coarse bilaterally on lung wen GI: Abdomen soft nontender nondistended, bowel sounds active Extremities: Edema noted bilateral upper and lower extremities Skin: Clean dry and intact Neurologic: Intubated. Does respond to verbal cues. No purposeful response Results Result Diagram: 09/05/16 0400 09/05/16 0400 Results 24 hrs Laboratory Tests Test 09/04/16 14:34 09/04/16 14:48 09/04/16 17:20 09/04/16 23:30 Bedside Glucose 65 L 134 87 77 Test 09/05/16 04:00 09/05/16 06:09 09/05/16 11:31 Anion Gap 21 H Basophils # 0.0 Basophils % 0.2 Blood Morphology Comment Blood Urea Nitrogen 40 #H Calcium Level 8.6 Carbon Dioxide Level 19 L Chloride Level 103 Creatinine 6.66 H Eosinophils # 0.1 Eosinophils % 0.4 Glucose Level 72 Hematocrit 32.5 L Hemoglobin 10.4 L Lymphocytes # 0.9 Lymphocytes % 6.4 L Magnesium Level 2.2 Mean Corpuscular Hemoglobin 30.1 Mean Corpuscular Hemoglobin Concent 32.1 Mean Corpuscular Volume 93.8 Mean Platelet Volume 8.2 Monocytes # 1.1 H Monocytes % 8.2 Neutrophils # 11.6 H Neutrophils % 84.8 H Nucleated Red Blood Cells # 0.0 Nucleated Red Blood Cells % 0.0 Phenytoin (Dilantin) Level 13.9 Phosphorus Level 9.5 H Platelet Count 242 Potassium Level 4.2 Red Blood Count 3.46 L Red Cell Distribution Width 17.0 H Sodium Level 139 White Blood Count 13.7 H Bedside Glucose 91 84 Medications Medications Current Medications Pantoprazole (Protonix Iv) 40 mg DAILY@06 IV Last administered on 09/05/16 06: 09; Admin Dose 40 MG; Start 08/31/16 at 06:00 Eye Lubricant 1 drop 1 drop TID BOTH EYES Last administered on 09/04/16 20:21 ; Admin Dose 1 DROP; Start 08/30/16 at 21:00 Propofol 100 ml @ 2.1 mls/hr Q12H IV Last administered on 09/03/16 10:10; Admin Dose 9.24 MLS/HR; Start 08/30/16 at 17:30 Vecuronium [place] 100 mg/ Dextrose 100 ml @ 0 mls/hr TITRATE IV Last administered on 08/31/16 08:25; Admin Dose 2.1 MLS/HR; Start 08/30/16 at 17:30 Cefepime HCl (Maxipime 1gm/50 ml (Pmx)) 50 ml @ 100 mls/hr Q24H IVPB Last administered on 09/04/16 20:35; Admin Dose 100 MLS/HR; Start 08/30/16 at 21:00 Miscellaneous Information 1 ea NOTE XX ; Start 08/30/16 at 19:00 Glucose (Glutose) 15 gm Q15M PRN PO DECREASED GLUCOSE; Start 08/30/16 at 19:00 Glucose (Glutose) 22.5 gm Q15M PRN PO DECREASED GLUCOSE; Start 08/30/16 at 19: 00 Dextrose (D50w Syringe) 25 ml Q15M PRN IV DECREASED GLUCOSE Last administered on 09/04/16 14:38; Admin Dose 25 ML; Start 08/30/16 at 19:00 Dextrose (D50w Syringe) 50 ml Q15M PRN IV DECREASED GLUCOSE; Start 08/30/16 at 19:00 Glucagon (Glucagen) 1 mg Q15M PRN IM DECREASED GLUCOSE; Start 08/30/16 at 19:00 Glucose (Glutose) 15 gm Q15M PRN BUCCAL DECREASED GLUCOSE; Start 08/30/16 at 19 :00 Insulin Aspart (Novolog Insulin Pen) (Adult SC Insulin - Mild Algorithm)... Q6 SC ; Start 08/30/16 at 18:00 Lorazepam 2 mg 2 mg Q2H PRN IV SEIZURES Last administered on 09/02/16 18:25; Admin Dose 2 MG; Start 09/01/16 at 02:00 Levetiracetam/ Sodium Chloride (Keppra Iv/NS) 115 ml @ 440 mls/hr Q12 IVPB Last administered on 09/04/16 20:21; Admin Dose 440 MLS/HR; Start 09/03/16 at 09:00 Metoclopramide HCl 5 mg 5 mg Q6 IV Last administered on 09/05/16 12:15; Admin Dose 5 MG; Start 09/03/16 at 12:00 Nicardipine HCl/ Sodium Chloride (Cardene Iv/NS) 500 ml @ 5 mls/hr TITRATE IV Last administered on 09/05/16 02:57; Admin Dose 100 MLS/HR; Start 09/03/16 at 11:30 Heparin Sodium (Porcine) 5000 unit 5,000 unit Q12 SC Last administered on 11:26; Admin Dose 5,000 UNIT; Start 09/04/16 at 09:00 Vancomycin HCl 750 mg/Sodium Chloride 150 ml @ 75 mls/hr Q72H IVPB Last administered on 09/04/16 14:24; Admin Dose 75 MLS/HR; Start 09/04/16 at 11:00 Fosphenytoin Sodium/Sodium Chloride (Cerebyx/NS) 50 ml @ 150 mls/hr TID IVPB Last administered on 09/04/16 21:52; Admin Dose 150 MLS/HR; Start 09/04/16 at 13:00 Valproate Sodium (Depakene Liquid Cup) 750 mg TID NGT ; Start 09/05/16 at 13:00 CORAL KAUR Sep 05, 2016 13:33
[2016-09-05] MEDS: CEFEPIME 1GM/50 ML (PMX) 50 ML IVPB SCH (20:30)
[2016-09-06] VITALS (100 sets, daily range): BP systolic 127–210; BP diastolic 55–167; PULSE 95–116; RESP 2–30
[2016-09-06] MEDS: METOCLOPRAMIDE 10 MG INJ IV SCH ×5 (00:47→23:35)
[2016-09-06] MEDS: ALBUTEROL HFA 8 GM INHALER INH SCH ×6 (01:25→21:26)
[2016-09-06] MEDS: IPRATROPIUM (HFA) 12.9 GM INHALER INH SCH ×6 (01:25→21:27)
[2016-09-06] MEDS: niCARdipine 50 MG in SOD CHLORIDE 0.9% 480 ML IV SCH ×5 (01:58→22:48)
[2016-09-06] MEDS: PANTOPRAZOLE 40 MG INJ IV SCH (05:23)
[2016-09-06] MEDS: PROPOFOL 100 ML IV SCH ×2 (05:30→17:30)
[2016-09-06] MEDS: Insulin NOVOLOG SS MILD Algorithm (NPO/TPN/ENTERAL FEEDS) SC SCH ×4 (06:00→18:00)
[2016-09-06 06:07] LABS: BASOPHILS % 0.3 % (0.0-2.0); EOSINOPHILS # 0.1 10^3/ul (0.0-0.5); EOSINOPHILS % 0.7 % (0.0-7.0); HEMATOCRIT 30.6 % (37.0-47.0); HEMOGLOBIN 9.9 g/dl (12.0-16.0); LYMPHOCYTES # 0.7 10^3/ul (0.8-2.9); LYMPHOCYTES % 5.6 % (15.0-51.0); MEAN CORPUSCULAR HEMOGLOBIN 30.6 pg (29.0-33.0); MEAN CORPUSCULAR HGB CONC 32.5 g/dl (32.0-37.0); MONOCYTE # 1.2 10^3/ul (0.3-0.9); MONOCYTES % 9.6 % (0.0-11.0); NEUTROPHIL # 10.9 10^3/ul (1.6-7.5); NEUTROPHILS % 83.8 % (39.0-77.0); PLATELET COUNT 241 10^3/UL (140-440); RED BLOOD COUNT 3.25 10^6/ul (4.20-5.40); RED CELL DISTRIBUTION WIDTH 17.4 % (11.5-14.5)
[2016-09-06 06:12] LABS: POTASSIUM 3.4 mmol/L (3.5-5.1)
[2016-09-06 06:15] LABS: CREATININE 5.24 mg/dl (0.44-1.00)
[2016-09-06 06:16] LABS: CALCIUM 8.3 mg/dl (8.4-10.2); MAGNESIUM 2.1 mg/dl (1.7-2.5); PHOSPHORUS 5.7 mg/dl (2.5-4.9)
[2016-09-06 06:22] LABS: CONDITION 1; LH ANALYZER COMMENTS 1
[2016-09-06] MEDS ORDERED: POTASSIUM CHLORIDE 20 MEQ POWDER FOR ORAL SOLN PO ONE (07:30)
[2016-09-06] MEDS: SEVELAMER CARBONATE 2.4 GM PKT PO SCH ×3 (08:25→17:49)
[2016-09-06] MEDS: ARTIFICIAL TEARS 15 ML OPH BOTH EYES SCH ×3 (08:30→20:29)
[2016-09-06] MEDS: FOSPHENYTOIN IVPB SCH ×3 (08:31→21:06)
[2016-09-06] MEDS: SOD CHLORIDE 0.9% IVPB SCH ×3 (08:31→21:06)
[2016-09-06] MEDS: BENAZEPRIL 40 MG TAB GTB SCH (08:31)
[2016-09-06] MEDS: LEVETIRACETAM IV 1,500 MG in SOD CHLORIDE 0.9% 100 ML IVPB SCH ×2 (08:31→20:27)
[2016-09-06] MEDS: VALPROIC ACID LIQUID CUP 250 MG/5 ML CUP NGT SCH ×3 (08:31→20:27)
[2016-09-06] MEDS: HEPARIN 5,000 UNIT/0.5 ML SYG SC SCH ×2 (08:32→20:28)
[2016-09-06] MEDS: AMLODIPINE 10 MG TAB NGT SCH (08:32)
--- NOTE | 2016-09-06 09:33 | RADRPT ---
PROCEDURE: XR Chest. CLINICAL INDICATION: Shortness of breath. TECHNIQUE: Single frontal view. COMPARISON: 09/04/2016. FINDINGS: The endotracheal tube, nasogastric tube, and right internal jugular vein dialysis catheter remain in satisfactory position. There is mild right basilar atelectasis. The lungs are otherwise clear. The heart size is normal. There is no pleural effusion. There is no pneumothorax. IMPRESSION: 1. Mild right basilar atelectasis. 2. No other change from 09/04/2016. RPTAT: QQ .Vj Avelar MD, MD Date Time Electronically viewed and signed by .Vj Avelar MD, MD on 09/06/2016 09:32 .R/
--- NOTE | 2016-09-06 09:35 | CONS ---
Date/Time of Note Date/Time of Note DATE: 09/06/16 TIME: 09:27 Assessment/Plan Assessment/Plan Chief Complaint/Hosp Course Patient is a 60-year-old [place] lady who was brought into the emergency room after the patient called 911 with complaints of shortness of breath by the time the EMS arrived the patient was found unresponsive had pulseless electrical activity along CPR was done lasting approximately 20 minutes with revival of vital signs. She currently is on hypothermic protocol and is sedated paralyzed on mechanical ventilation or intubated. She also was obtained from medical records as well as patient's daughter who is currently present in the room. The patient's daughter the patient was admitted last month with pneumonia and were discharged home however the patient was complaining of mild shortness of breath for the last couple of days prior to the event which occurred yesterday afternoon. Problems: Additional Assessment/Plan Assessment and recommendation; next 1. Patient admitted with cardiac arrest underwent prolonged CPR resulting in severe anoxic encephalopathy. Currently maintained on high-dose Keppra, Dilantin, Depakote, with breakthrough myoclonic jerking. 2. History of diabetes, hypertension, currently stable. 3. History of end-stage renal disease currently on hemodialysis every other day. Next 4. There is some element of aspiration pneumonia. Next The current treatment. Patient is on assist control of 16, tidal volume 450, 30 % FiO2 and PEEP of 5. Maintain current ventilator settings. Patient's family wants to have a family meeting tomorrow around 10:30 AM regarding further plan of care. Patient does have extremely poor spontaneous minute ventilation likely not fair well if extubated. However the prognosis remains dismal. Consultation Date/Type/Reason Admit Date/Time Aug 30, 2016 at 15:45 Initial Consult Date 08/31/16 Type of Consultation: Neurology 24 HR Interval Summary Free Text/Dictation Patient condition remains critical. Still requiring full ventilator support. However is awake but does not follow any commands ,occasional myoclonic jerking is observed. General examination; middle aged woman or intubated awake. Exam/Review of Systems Vital Signs Vitals Vital Signs Date Time Temp Pulse Resp B/P Pulse Ox O2 Delivery O2 Flow Rate FiO2 09/06/16 06:00 100 16 140/67 100 Mechanical Ventilator 09/06/16 05:08 30 09/06/16 04:00 99.7 Intake and Output 09/05/16 09/05/16 09/06/16 15:00 23:00 07:00 Intake Total 1275 ml 1190 ml 1540 ml Output Total 2700 ml Balance -1425 ml 1190 ml 1540 ml Exam HEENT examination; supple neck, or intubated. Pupils are small bilaterally. No neck masses. No thyromegaly. Chest examination; clear to auscultation. S1-S2 audible, no murmurs, regular rate and rhythm. Abdomen examination; soft, nondistended. No organomegaly. Bowel sounds audible. Next Extremity examination; no peripheral edema. Pulses 1+ bilaterally. CUSTOMER SERVICE MANAGER examination; patient is awake, has a startle response. Does not follow any commands. Occasional myoclonic jerking observed. Results Result Diagram: 09/06/1642909/06/16 043 Results 24 hrs Laboratory Tests Test 09/05/16 11:31 09/06/16 00:23 09/06/16 04:30 09/06/16 06:00 Bedside Glucose 84 111 99 Anion Gap 17 H Basophils # 0.0 Basophils % 0.3 Blood Morphology Comment Blood Urea Nitrogen 32 H Calcium Level 8.3 L Carbon Dioxide Level 23 Chloride Level 103 Creatinine 5.24 H Eosinophils # 0.1 Eosinophils % 0.7 Glucose Level 102 Hematocrit 30.6 L Hemoglobin 9.9 L Lymphocytes # 0.7 L Lymphocytes % 5.6 L Magnesium Level 2.1 Mean Corpuscular Hemoglobin 30.6 Mean Corpuscular Hemoglobin Concent 32.5 Mean Corpuscular Volume 94.0 Mean Platelet Volume 8.0 Monocytes # 1.2 H Monocytes % 9.6 Neutrophils # 10.9 H Neutrophils % 83.8 H Nucleated Red Blood Cells # 0.0 Nucleated Red Blood Cells % 0.0 Phosphorus Level 5.7 #H Platelet Count 241 Potassium Level 3.4 L Red Blood Count 3.25 L Red Cell Distribution Width 17.4 H Sodium Level 140 White Blood Count 13.0 H Medications Medications Current Medications Pantoprazole (Protonix Iv) 40 mg DAILY@06 IV Last administered on 09/06/16 05: 23; Admin Dose 40 MG; Start 08/31/16 at 06:00 Eye Lubricant 1 drop 1 drop TID BOTH EYES Last administered on 09/06/16 08:30; Admin Dose 1 DROP; Start 08/30/16 at 21:00 Propofol 100 ml @ 2.1 mls/hr Q12H IV Last administered on 09/03/16 10:10; Admin Dose 9.24 MLS/HR; Start 08/30/16 at 17:30 Vecuronium [place] 100 mg/ Dextrose 100 ml @ 0 mls/hr TITRATE IV Last administered on 08/31/16 08:25; Admin Dose 2.1 MLS/HR; Start 08/30/16 at 17:30 Cefepime HCl (Maxipime 1gm/50 ml (Pmx)) 50 ml @ 100 mls/hr Q24H IVPB Last administered on 09/05/16 20:30; Admin Dose 100 MLS/HR; Start 08/30/16 at 21:00 Miscellaneous Information 1 ea NOTE XX ; Start 08/30/16 at 19:00 Glucose (Glutose) 15 gm Q15M PRN PO DECREASED GLUCOSE; Start 08/30/16 at 19:00 Glucose (Glutose) 22.5 gm Q15M PRN PO DECREASED GLUCOSE; Start 08/30/16 at 19: 00 Dextrose (D50w Syringe) 25 ml Q15M PRN IV DECREASED GLUCOSE Last administered on 09/04/16 14:38; Admin Dose 25 ML; Start 08/30/16 at 19:00 Dextrose (D50w Syringe) 50 ml Q15M PRN IV DECREASED GLUCOSE; Start 08/30/16 at 19:00 Glucagon (Glucagen) 1 mg Q15M PRN IM DECREASED GLUCOSE; Start 08/30/16 at 19:00 Glucose (Glutose) 15 gm Q15M PRN BUCCAL DECREASED GLUCOSE; Start 08/30/16 at 19 :00 Insulin Aspart (Novolog Insulin Pen) (Adult SC Insulin - Mild Algorithm)... Q6 SC ; Start 08/30/16 at 18:00 Lorazepam 2 mg 2 mg Q2H PRN IV SEIZURES Last administered on 09/02/16 18:25; Admin Dose 2 MG; Start 09/01/16 at 02:00 Levetiracetam/ Sodium Chloride (Keppra Iv/NS) 115 ml @ 440 mls/hr Q12 IVPB Last administered on 09/06/16 08:31; Admin Dose 440 MLS/HR; Start 09/03/16 at 09 :00 Metoclopramide HCl 5 mg 5 mg Q6 IV Last administered on 09/06/16 05:23; Admin Dose 5 MG; Start 09/03/16 at 12:00 Nicardipine HCl/ Sodium Chloride (Cardene Iv/NS) 500 ml @ 5 mls/hr TITRATE IV Last administered on 09/06/16 08:25; Admin Dose 150 MLS/HR; Start 09/03/16 at 11 :30 Heparin Sodium (Porcine) 5000 unit 5,000 unit Q12 SC Last administered on 08:32; Admin Dose 5,000 UNIT; Start 09/04/16 at 09:00 Vancomycin HCl 750 mg/Sodium Chloride 150 ml @ 75 mls/hr Q72H IVPB Last administered on 09/04/16 14:24; Admin Dose 75 MLS/HR; Start 09/04/16 at 11:00 Fosphenytoin Sodium/Sodium Chloride (Cerebyx/NS) 50 ml @ 150 mls/hr TID IVPB Last administered on 09/06/16 08:31; Admin Dose 150 MLS/HR; Start 09/04/16 at 13 :00 Valproate Sodium (Depakene Liquid Cup) 750 mg TID NGT Last administered on 08:31; Admin Dose 750 MG; Start 09/05/16 at 13:00 Amlodipine Besylate (Norvasc) 10 mg DAILY NGT Last administered on 09/06/16 08: 32; Admin Dose 10 MG; Start 09/06/16 at 09:00 Benazepril HCl (Lotensin) 40 mg DAILY GTB Last administered on 09/06/16 08:31; Admin Dose 40 MG; Start 09/06/16 at 09:00 YELENA KEMP Sep 06, 2016 09:34
--- NOTE | 2016-09-06 11:08 | RADRPT ---
PROCEDURE: XR Chest. CLINICAL INDICATION: Shortness of breath. TECHNIQUE: Single frontal view. COMPARISON: 09/06/2016. 0625 hours. FINDINGS: The endotracheal tube, nasogastric tube, and right internal jugular vein tunnel dialysis catheter re main in satisfactory position. There is mild right basilar atelectasis. The lungs are otherwise cl ear. The heart size is normal. There is no pleural effusion. There is no pneumothorax. IMPRESSION: 1. No change from the prior study done earlier the same day. RPTAT: QQ .Vj Avelar MD, MD Date Time Electronically viewed and signed by .Vj Avelar MD, MD on 09/06/2016 11:08 .R/
--- NOTE | 2016-09-06 11:18 | PN ---
DATE: 09/06/2016 SUBJECTIVE: The patient remains critical, but stable, no other acute events noted overnight, no hem optysis, hematemesis or hematochezia. The patient had hemodialysis yesterday, tolerated well. OBJECTIVE: VITAL SIGNS: Blood pressure is 146/ , respiration 16, pulse 100, temperature 98.7. HEENT: Head is normocephalic. NECK: Supple. HEART: Regular rate. LUNGS: Show diminished breath sounds at the base. ABDOMEN: Soft, nontender to palpation without rebound or guarding. EXTREMITIES: Negative for clubbing, cyanosis. No edema. DERMATOLOGIC: No rashes. MUSCULOSKELETAL: No joint effusions. NEUROLOGIC: No change in exam. MEDICATIONS: The patient's medications have been reviewed. LABORATORY DATA: Shows sodium 140, potassium 2.4, chloride 103, BUN 32, creatinine 9.24, calcium 8. 3, phosphorus 5.7. White count 13.9, hemoglobin 9.9, hematocrit 30.6, platelet count 241. ASSESSMENT AND PLAN: 1. End-stage renal disease. The patient had hemodialysis yesterday, tolerated well. Plan for dial ysis again tomorrow for 3 hours and 3 K bath, calcium 2.5. 2. Hypertension. The patient remains on nicardipine drip. We will start the patient on oral medic ations Norvasc 10 mg daily, benazepril p.o. 40 mg daily. Continue to wean off nicardipine drip. We will c ontinue ultrafiltration dialysis. 3. Hyponatremia secondary to end-stage renal disease, resolved. 4. Ventilator dependent respiratory failure. Vent settings have been reviewed. ABG has been revie sun. Continue to monitor. 5. Volume overload, clinically improving. Continue ultrafiltration with dialysis. 6. Mineral bone disorder. The patient's phosphorus levels are improving. Continue dialysis. Cont inue phosphate binders. 7. Acute encephalopathy secondary to anoxic brain injury. Continue to monitor. 8. Myoclonic jerks, anoxic seizures. Continue Keppra. 9. Diabetes, continue Accu-Cheks and sliding scale. 10. Anemia of end-stage renal disease. Continue to monitor H and H levels. Continue Epogen. 11. Status post cardiac arrest. 12. Leukocytosis, SIRS. Please note I spent over 40 minutes of critical care time with this patient. Dictated By: TIP LIZARRAGA DO NR/NTS Conf#: [id number] DID#: [id number]
[2016-09-06] MEDS ORDERED: LIDOCAINE 1% (MDV) 20 ML INJ SC ONE (11:30)
--- NOTE | 2016-09-06 12:43 | CONS ---
Date/Time of Note Date/Time of Note DATE: 09/06/16 TIME: 12:41 Consult Date/Type/Reason Admit Date/Time Aug 30, 2016 at 15:45 Initial Consult Date 09/01/16 Type of Consultation: Neurology Reason for Consultation anoxic injury, seizures Subjective opens eyes intermittently not following commands weak corneals and weak gag family requesting MRI to be done to obtain further info. regarding prognosis Objective Vital Signs Date Time Temp Pulse Resp B/P Pulse Ox O2 Delivery O2 Flow Rate FiO2 09/06/16 11:45 104 14 138/64 100 Mechanical Ventilator 09/06/16 08:15 30 09/06/16 04:00 99.7 Intake and Output 09/05/16 09/05/16 09/06/16 15:00 23:00 07:00 Intake Total 1275 ml 1190 ml 1560 ml Output Total 2700 ml 0 ml Balance -1425 ml 1190 ml 1560 ml unable to open her eyes today to voice orthophoric gaze unable to Doll's weak corneals and weak gag reflex present no withdrawal in extremities no LE jerking noted on examination today Results/Medications Result Diagram: 09/06/16 0430 09/06/16 0430 Results 24 hrs Laboratory Tests Test 09/06/16 00:23 09/06/16 04:30 09/06/16 06:00 09/06/16 12:08 Bedside Glucose 111 99 103 Anion Gap 17 H Basophils # 0.0 Basophils % 0.3 Blood Morphology Comment Blood Urea Nitrogen 32 H Calcium Level 8.3 L Carbon Dioxide Level 23 Chloride Level 103 Creatinine 5.24 H Eosinophils # 0.1 Eosinophils % 0.7 Glucose Level 102 Hematocrit 30.6 L Hemoglobin 9.9 L Lymphocytes # 0.7 L Lymphocytes % 5.6 L Magnesium Level 2.1 Mean Corpuscular Hemoglobin 30.6 Mean Corpuscular Hemoglobin Concent 32.5 Mean Corpuscular Volume 94.0 Mean Platelet Volume 8.0 Monocytes # 1.2 H Monocytes % 9.6 Neutrophils # 10.9 H Neutrophils % 83.8 H Nucleated Red Blood Cells # 0.0 Nucleated Red Blood Cells % 0.0 Phosphorus Level 5.7 #H Platelet Count 241 Potassium Level 3.4 L Red Blood Count 3.25 L Red Cell Distribution Width 17.4 H Sodium Level 140 White Blood Count 13.0 H Medications Current Medications Pantoprazole (Protonix Iv) 40 mg DAILY@06 IV Last administered on 09/06/16 05: 23; Admin Dose 40 MG; Start 08/31/16 at 06:00 Eye Lubricant 1 drop 1 drop TID BOTH EYES Last administered on 09/06/16 08:30; Admin Dose 1 DROP; Start 08/30/16 at 21:00 Propofol 100 ml @ 2.1 mls/hr Q12H IV Last administered on 09/03/16 10:10; Admin Dose 9.24 MLS/HR; Start 08/30/16 at 17:30 Vecuronium [place] 100 mg/ Dextrose 100 ml @ 0 mls/hr TITRATE IV Last administered on 08/31/16 08:25; Admin Dose 2.1 MLS/HR; Start 08/30/16 at 17:30 Cefepime HCl (Maxipime 1gm/50 ml (Pmx)) 50 ml @ 100 mls/hr Q24H IVPB Last administered on 09/05/16 20:30; Admin Dose 100 MLS/HR; Start 08/30/16 at 21:00 Miscellaneous Information 1 ea NOTE XX ; Start 08/30/16 at 19:00 Glucose (Glutose) 15 gm Q15M PRN PO DECREASED GLUCOSE; Start 08/30/16 at 19:00 Glucose (Glutose) 22.5 gm Q15M PRN PO DECREASED GLUCOSE; Start 08/30/16 at 19: 00 Dextrose (D50w Syringe) 25 ml Q15M PRN IV DECREASED GLUCOSE Last administered on 09/04/16 14:38; Admin Dose 25 ML; Start 08/30/16 at 19:00 Dextrose (D50w Syringe) 50 ml Q15M PRN IV DECREASED GLUCOSE; Start 08/30/16 at 19:00 Glucagon (Glucagen) 1 mg Q15M PRN IM DECREASED GLUCOSE; Start 08/30/16 at 19:00 Glucose (Glutose) 15 gm Q15M PRN BUCCAL DECREASED GLUCOSE; Start 08/30/16 at 19 :00 Insulin Aspart (Novolog Insulin Pen) (Adult SC Insulin - Mild Algorithm)... Q6 SC ; Start 08/30/16 at 18:00 Lorazepam 2 mg 2 mg Q2H PRN IV SEIZURES Last administered on 09/02/16 18:25; Admin Dose 2 MG; Start 09/01/16 at 02:00 Levetiracetam/ Sodium Chloride (Keppra Iv/NS) 115 ml @ 440 mls/hr Q12 IVPB Last administered on 09/06/16 08:31; Admin Dose 440 MLS/HR; Start 09/03/16 at 09 :00 Metoclopramide HCl 5 mg 5 mg Q6 IV Last administered on 09/06/16 11:28; Admin Dose 5 MG; Start 09/03/16 at 12:00 Nicardipine HCl/ Sodium Chloride (Cardene Iv/NS) 500 ml @ 5 mls/hr TITRATE IV Last administered on 09/06/16 08:25; Admin Dose 150 MLS/HR; Start 09/03/16 at 11 :30 Heparin Sodium (Porcine) 5000 unit 5,000 unit Q12 SC Last administered on 08:32; Admin Dose 5,000 UNIT; Start 09/04/16 at 09:00 Vancomycin HCl 750 mg/Sodium Chloride 150 ml @ 75 mls/hr Q72H IVPB Last administered on 09/04/16 14:24; Admin Dose 75 MLS/HR; Start 09/04/16 at 11:00 Fosphenytoin Sodium/Sodium Chloride (Cerebyx/NS) 50 ml @ 150 mls/hr TID IVPB Last administered on 09/06/16 08:31; Admin Dose 150 MLS/HR; Start 09/04/16 at 13 :00 Valproate Sodium (Depakene Liquid Cup) 750 mg TID NGT Last administered on 08:31; Admin Dose 750 MG; Start 09/05/16 at 13:00 Amlodipine Besylate (Norvasc) 10 mg DAILY NGT Last administered on 09/06/16 08: 32; Admin Dose 10 MG; Start 09/06/16 at 09:00 Benazepril HCl (Lotensin) 40 mg DAILY GTB Last administered on 09/06/16 08:31; Admin Dose 40 MG; Start 09/06/16 at 09:00 Nystatin (Nystatin Powder) 1 applic BID TOP ; Start 09/06/16 at 12:30 Assessment/Plan Chief Complaint/Hosp Course Patient is a 56-year-old female with history of end-stage renal disease on hemodialysis and essential hypertension was found to be unresponsive at home. Paramedics found the patient in PEA and was resuscitated. She was also seen to have uncontrolled blood pressures, lactic acidosis with leukocytosis. CT scan brain was negative for any acute intracranial pathology. She was also treated with hypothermia protocol. EEG showed generalized background slowing with intermittent epileptiform activity. She is quite encephalopathic due to anoxic event. -taper sedation -continue Keppra 1500 mg IV bid, continue Fosphenytoin increased dose to 200 mg q8h with levels in 13 range increased Depakote to 750 mg q8h on 09/05 -MRI Brain w/o contrast to be done today -family requesting meeting to discuss prognosis tomorrow at 10:30 am Problems: JAZZMINE SUN MD Sep 06, 2016 12:43
[2016-09-06] MEDS: NYSTATIN 30 GM POWDER BTL TOP SCH ×2 (12:53→20:29)
--- NOTE | 2016-09-06 14:03 | PN ---
Date/Time of Note Date/Time of Note DATE: 09/06/16 TIME: 14:00 Assessment/Plan VTE Prophylaxis VTE Prophylaxis Intervention: SCD's Lines/Catheters IV [facility]ter Type [facility]from [facility]): Dialysis Catheter Urinary Cath still in place: No Assessment/Plan Chief Complaint/Hosp Course Assessment and plan 1. Status post cardiac arrest. Patient is status post hypothermia protocol. Neurology following. Of note patient did have abnormal EEG with noted seizure activity and encephalopathy. Likely secondary to anoxic brain injury. Continue to monitor neuro status. Follow-up MRI of the brain 2. Seizures lightly secondary to anoxic brain injury. Continue anticonvulsants. Continue with classification clerk recommendations 3. Elevated troponin secondary to #1. Of note patient did have preserved LVEF. Continue optimization with cardio vascular medications 4. Respiratory failure. Secondary to #1. Continue with pulmonary hygiene. Assessed for ability for vent liberation. Continue with swatch checker recommendations 5. Hypertensive urgency. Remains on Cardene drip. Titrate down as tolerated 6. Mild pulmonary hypertension. Continue on O2 supplementation 7. End-stage renal disease. Monitor renal panel. [employer] Stock Clerk following. Continue on HD DVT prophylaxis: SCDs GERD prophylaxis: PPI Disposition and plan: plan for family meeting 09/07/16. Will follow up brain MRI. cont assess for ability for vent liberation Discussed plan of care with Dr. Wallace Critical care time: 30 minutes Problems: Subjective 24 Hr Interval Summary Free Text/Dictation tracks eyes to verbal stimulus. Still unable to follow commands Exam/Review of Systems Vital Signs Vitals Vital Signs Date Time Temp Pulse Resp B/P Pulse Ox O2 Delivery O2 Flow Rate FiO2 09/06/16 13:00 105 18 148/69 100 Mechanical Ventilator 09/06/16 12:00 99.3 09/06/16 08:15 30 Intake and Output 09/05/16 09/05/16 09/06/16 14:59 22:59 06:59 Intake Total 1275 ml 1140 ml 1710 ml Output Total 2700 ml Balance -1425 ml 1140 ml 1710 ml Exam General: Intubated no apparent distress Eyes: pupils equal round, Anicteric sclera Neck: Supple nontender, no JVD Cardiac: S1-S2 auscultated, slight murmur auscultated Pulmonary: Intubated. Minimally coarse bilaterally on lung wen GI: Abdomen soft nontender nondistended, bowel sounds active Extremities: Edema noted bilateral upper and lower extremities Skin: Clean dry and intact Neurologic: Intubated. Does respond to verbal cues. No purposeful response Results Result Diagram: 09/06/16 0430 09/06/16 0430 Results 24 hrs Laboratory Tests Test 09/06/16 00:23 09/06/16 04:30 09/06/16 06:00 09/06/16 12:08 Bedside Glucose 111 99 103 Anion Gap 17 H Basophils # 0.0 Basophils % 0.3 Blood Morphology Comment Blood Urea Nitrogen 32 H Calcium Level 8.3 L Carbon Dioxide Level 23 Chloride Level 103 Creatinine 5.24 H Eosinophils # 0.1 Eosinophils % 0.7 Glucose Level 102 Hematocrit 30.6 L Hemoglobin 9.9 L Lymphocytes # 0.7 L Lymphocytes % 5.6 L Magnesium Level 2.1 Mean Corpuscular Hemoglobin 30.6 Mean Corpuscular Hemoglobin Concent 32.5 Mean Corpuscular Volume 94.0 Mean Platelet Volume 8.0 Monocytes # 1.2 H Monocytes % 9.6 Neutrophils # 10.9 H Neutrophils % 83.8 H Nucleated Red Blood Cells # 0.0 Nucleated Red Blood Cells % 0.0 Phosphorus Level 5.7 #H Platelet Count 241 Potassium Level 3.4 L Red Blood Count 3.25 L Red Cell Distribution Width 17.4 H Sodium Level 140 White Blood Count 13.0 H Medications Medications Current Medications Pantoprazole (Protonix Iv) 40 mg DAILY@06 IV Last administered on 09/06/16 05: 23; Admin Dose 40 MG; Start 08/31/16 at 06:00 Eye Lubricant 1 drop 1 drop TID BOTH EYES Last administered on 09/06/16 12:41; Admin Dose 1 DROP; Start 08/30/16 at 21:00 Propofol 100 ml @ 2.1 mls/hr Q12H IV Last administered on 09/03/16 10:10; Admin Dose 9.24 MLS/HR; Start 08/30/16 at 17:30 Vecuronium [place] 100 mg/ Dextrose 100 ml @ 0 mls/hr TITRATE IV Last administered on 08/31/16 08:25; Admin Dose 2.1 MLS/HR; Start 08/30/16 at 17:30 Cefepime HCl (Maxipime 1gm/50 ml (Pmx)) 50 ml @ 100 mls/hr Q24H IVPB Last administered on 09/05/16 20:30; Admin Dose 100 MLS/HR; Start 08/30/16 at 21:00 Miscellaneous Information 1 ea NOTE XX ; Start 08/30/16 at 19:00 Glucose (Glutose) 15 gm Q15M PRN PO DECREASED GLUCOSE; Start 08/30/16 at 19:00 Glucose (Glutose) 22.5 gm Q15M PRN PO DECREASED GLUCOSE; Start 08/30/16 at 19: 00 Dextrose (D50w Syringe) 25 ml Q15M PRN IV DECREASED GLUCOSE Last administered on 09/04/16 14:38; Admin Dose 25 ML; Start 08/30/16 at 19:00 Dextrose (D50w Syringe) 50 ml Q15M PRN IV DECREASED GLUCOSE; Start 08/30/16 at 19:00 Glucagon (Glucagen) 1 mg Q15M PRN IM DECREASED GLUCOSE; Start 08/30/16 at 19:00 Glucose (Glutose) 15 gm Q15M PRN BUCCAL DECREASED GLUCOSE; Start 08/30/16 at 19 :00 Insulin Aspart (Novolog Insulin Pen) (Adult SC Insulin - Mild Algorithm)... Q6 SC ; Start 08/30/16 at 18:00 Lorazepam 2 mg 2 mg Q2H PRN IV SEIZURES Last administered on 09/02/16 18:25; Admin Dose 2 MG; Start 09/01/16 at 02:00 Levetiracetam/ Sodium Chloride (Keppra Iv/NS) 115 ml @ 440 mls/hr Q12 IVPB Last administered on 09/06/16 08:31; Admin Dose 440 MLS/HR; Start 09/03/16 at 09 :00 Metoclopramide HCl 5 mg 5 mg Q6 IV Last administered on 09/06/16 11:28; Admin Dose 5 MG; Start 09/03/16 at 12:00 Nicardipine HCl/ Sodium Chloride (Cardene Iv/NS) 500 ml @ 5 mls/hr TITRATE IV Last administered on 09/06/16 13:31; Admin Dose 75 MLS/HR; Start 09/03/16 at 11: 30 Heparin Sodium (Porcine) 5000 unit 5,000 unit Q12 SC Last administered on 08:32; Admin Dose 5,000 UNIT; Start 09/04/16 at 09:00 Vancomycin HCl 750 mg/Sodium Chloride 150 ml @ 75 mls/hr Q72H IVPB Last administered on 09/04/16 14:24; Admin Dose 75 MLS/HR; Start 09/04/16 at 11:00 Fosphenytoin Sodium/Sodium Chloride (Cerebyx/NS) 50 ml @ 150 mls/hr TID IVPB Last administered on 09/06/16 12:41; Admin Dose 150 MLS/HR; Start 09/04/16 at 13 :00 Valproate Sodium (Depakene Liquid Cup) 750 mg TID NGT Last administered on 12:41; Admin Dose 750 MG; Start 09/05/16 at 13:00 Amlodipine Besylate (Norvasc) 10 mg DAILY NGT Last administered on 09/06/16 08: 32; Admin Dose 10 MG; Start 09/06/16 at 09:00 Benazepril HCl (Lotensin) 40 mg DAILY GTB Last administered on 09/06/16 08:31; Admin Dose 40 MG; Start 09/06/16 at 09:00 Nystatin (Nystatin Powder) 1 applic BID TOP Last administered on 09/06/16 12:53 ; Admin Dose 1 APPLIC; Start 09/06/16 at 12:30 CORAL KAUR Sep 06, 2016 14:03
--- NOTE | 2016-09-06 14:39 | RADRPT ---
PROCEDURE: XR Chest. CLINICAL INDICATION: Check PICC line position. TECHNIQUE: Single frontal view. COMPARISON: 09/06/2016. 1016 hours. FINDINGS: There is a left arm PICC line with the tip in the mid superior vena cava. The endotracheal tube, na sogastric tube, and right internal jugular vein tunnel dialysis catheter remain in satisfactory posi tion. Mild right basilar atelectasis is unchanged. The lungs are otherwise clear. The heart size is normal. There is no pleural effusion. There is no pneumothorax. IMPRESSION: 1. Satisfactory position of left arm PICC line. 2. No other change from the prior study done earlier the same day. RPTAT: QQ .Vj Avelar MD, MD Date Time Electronically viewed and signed by .Vj Avelar MD, on 09/06/2016 14:38 .R/
--- NOTE | 2016-09-06 14:40 | RADRPT ---
PROCEDURE: Ultrasound guidance for placement of needle in left upper extremity vein. CLINICAL INDICATION: Venous access. TECHNIQUE: Limited sonography of the left upper extremity was performed. Ultrasound images were recorded and s tored in the patient's medical record. COMPARISON: None. FINDINGS: The ultrasound images demonstrate a patent left upper extremity vein. The PICC line was inserted by the PICC line nurse. IMPRESSION: 1. Ultrasound guidance for a needle placement in a left upper extremity vein. 2. The left upper extremity vein is patent. RPTAT: QQ .Vj Avelar MD, MD Date Time Electronically viewed and signed by .Vj Avelar MD, MD on 09/06/2016 14:39 .R/
[2016-09-06] MEDS ORDERED: SOD CHLORIDE 0.9% 100 ML ONE (14:42)
--- NOTE | 2016-09-06 16:01 | CONS ---
Date/Time of Note Date/Time of Note DATE: 09/06/16 TIME: 15:59 Assessment/Plan Assessment/Plan Chief Complaint/Hosp Course Assessment: Status post cardiac arrest - unclear etiology, initial rhythm reported to be PEA , status post hypothermia protocol Accelerated hypertension Acute on chronic diastolic heart failure NSTEMI - likely type 2 Systemic inflammatory response syndrome Acute respiratory failure - intubated, on mechanical ventilation End-stage renal disease - on hemodialysis Anoxic brain injury Recommendations: -echocardiogram showed LVEF 60-65%, moderate LVH -started on amlodipine and benazepril, wean off nicardipine drip -volume management via hemodialysis per nephrology -follow up neurology recommendations Problems: Consultation Date/Type/Reason Admit Date/Time Aug 30, 2016 at 15:45 Initial Consult Date 09/01/16 Type of Consultation: Cardiology 24 HR Interval Summary Free Text/Dictation No significant clinical changes. Detailed Summary Additional Comments Unable to obtain review of systems due to patient's mental status. Exam/Review of Systems Vital Signs Vitals Vital Signs Date Time Temp Pulse Resp B/P Pulse Ox O2 Delivery O2 Flow Rate FiO2 09/06/16 15:00 101 16 145/63 100 Mechanical Ventilator 09/06/16 12:00 99.3 09/06/16 08:15 30 Intake and Output 09/05/16 09/05/16 09/06/16 15:00 23:00 07:00 Intake Total 1275 ml 1190 ml 1570 ml Output Total 2700 ml 0 ml Balance -1425 ml 1190 ml 1570 ml Exam Constitutional: other (intubated, sedated), No alert, No oriented Psych: other (intubated, sedated), No nl mood/affect Head: atraumatic, normocephalic Eyes: nl conjunctiva, nl lids ENMT: intubated Neck: supple Respiratory: crackles/rales, diminished breath sounds Cardiovascular: regular rate and rhythm Gastrointestinal: non-tender, soft Musculoskeletal: nl extremities to inspection Extremities: No clubbing, No cyanosis, No edema Neurological: No nl mental status, No nl speech Results Result Diagram: 09/06/16 0430 09/06/16 0430 Results 24 hrs Laboratory Tests Test 09/06/16 00:23 09/06/16 04:30 09/06/16 06:00 09/06/16 12:08 Bedside Glucose 111 99 103 Anion Gap 17 H Basophils # 0.0 Basophils % 0.3 Blood Morphology Comment Blood Urea Nitrogen 32 H Calcium Level 8.3 L Carbon Dioxide Level 23 Chloride Level 103 Creatinine 5.24 H Eosinophils # 0.1 Eosinophils % 0.7 Glucose Level 102 Hematocrit 30.6 L Hemoglobin 9.9 L Lymphocytes # 0.7 L Lymphocytes % 5.6 L Magnesium Level 2.1 Mean Corpuscular Hemoglobin 30.6 Mean Corpuscular Hemoglobin Concent 32.5 Mean Corpuscular Volume 94.0 Mean Platelet Volume 8.0 Monocytes # 1.2 H Monocytes % 9.6 Neutrophils # 10.9 H Neutrophils % 83.8 H Nucleated Red Blood Cells # 0.0 Nucleated Red Blood Cells % 0.0 Phosphorus Level 5.7 #H Platelet Count 241 Potassium Level 3.4 L Red Blood Count 3.25 L Red Cell Distribution Width 17.4 H Sodium Level 140 White Blood Count 13.0 H Medications Medications Current Medications Pantoprazole (Protonix Iv) 40 mg DAILY@06 IV Last administered on 09/06/16 05: 23; Admin Dose 40 MG; Start 08/31/16 at 06:00 Eye Lubricant 1 drop 1 drop TID BOTH EYES Last administered on 09/06/16 12:41; Admin Dose 1 DROP; Start 08/30/16 at 21:00 Propofol 100 ml @ 2.1 mls/hr Q12H IV Last administered on 09/03/16 10:10; Admin Dose 9.24 MLS/HR; Start 08/30/16 at 17:30 Vecuronium [place] 100 mg/ Dextrose 100 ml @ 0 mls/hr TITRATE IV Last administered on 08/31/16 08:25; Admin Dose 2.1 MLS/HR; Start 08/30/16 at 17:30 Cefepime HCl (Maxipime 1gm/50 ml (Pmx)) 50 ml @ 100 mls/hr Q24H IVPB Last administered on 09/05/16 20:30; Admin Dose 100 MLS/HR; Start 08/30/16 at 21:00 Miscellaneous Information 1 ea NOTE XX ; Start 08/30/16 at 19:00 Glucose (Glutose) 15 gm Q15M PRN PO DECREASED GLUCOSE; Start 08/30/16 at 19:00 Glucose (Glutose) 22.5 gm Q15M PRN PO DECREASED GLUCOSE; Start 08/30/16 at 19: 00 Dextrose (D50w Syringe) 25 ml Q15M PRN IV DECREASED GLUCOSE Last administered on 09/04/16 14:38; Admin Dose 25 ML; Start 08/30/16 at 19:00 Dextrose (D50w Syringe) 50 ml Q15M PRN IV DECREASED GLUCOSE; Start 08/30/16 at 19:00 Glucagon (Glucagen) 1 mg Q15M PRN IM DECREASED GLUCOSE; Start 08/30/16 at 19:00 Glucose (Glutose) 15 gm Q15M PRN BUCCAL DECREASED GLUCOSE; Start 08/30/16 at 19 :00 Insulin Aspart (Novolog Insulin Pen) (Adult SC Insulin - Mild Algorithm)... Q6 SC ; Start 08/30/16 at 18:00 Lorazepam 2 mg 2 mg Q2H PRN IV SEIZURES Last administered on 09/02/16 18:25; Admin Dose 2 MG; Start 09/01/16 at 02:00 Levetiracetam/ Sodium Chloride (Keppra Iv/NS) 115 ml @ 440 mls/hr Q12 IVPB Last administered on 09/06/16 08:31; Admin Dose 440 MLS/HR; Start 09/03/16 at 09 :00 Metoclopramide HCl 5 mg 5 mg Q6 IV Last administered on 09/06/16 11:28; Admin Dose 5 MG; Start 09/03/16 at 12:00 Nicardipine HCl/ Sodium Chloride (Cardene Iv/NS) 500 ml @ 5 mls/hr TITRATE IV Last administered on 09/06/16 13:31; Admin Dose 75 MLS/HR; Start 09/03/16 at 11: 30 Heparin Sodium (Porcine) 5000 unit 5,000 unit Q12 SC Last administered on 08:32; Admin Dose 5,000 UNIT; Start 09/04/16 at 09:00 Vancomycin HCl 750 mg/Sodium Chloride 150 ml @ 75 mls/hr Q72H IVPB Last administered on 09/04/16 14:24; Admin Dose 75 MLS/HR; Start 09/04/16 at 11:00 Fosphenytoin Sodium/Sodium Chloride (Cerebyx/NS) 50 ml @ 150 mls/hr TID IVPB Last administered on 2/1/17at 12:41; Admin Dose 150 MLS/HR; Start 09/04/16 at 13 :00 Valproate Sodium (Depakene Liquid Cup) 750 mg TID NGT Last administered on 12:41; Admin Dose 750 MG; Start 09/05/16 at 13:00 Amlodipine Besylate (Norvasc) 10 mg DAILY NGT Last administered on 09/06/16 08: 32; Admin Dose 10 MG; Start 09/06/16 at 09:00 Benazepril HCl (Lotensin) 40 mg DAILY GTB Last administered on 09/06/16 08:31; Admin Dose 40 MG; Start 09/06/16 at 09:00 Nystatin (Nystatin Powder) 1 applic BID TOP Last administered on 09/06/16 12:53 ; Admin Dose 1 APPLIC; Start 09/06/16 at 12:30 IV Flush (NS 10 ml) 10 ml PRN PRN IV IV PROTOCOL; Start 09/06/16 at 14:30 IFEOMA NARVAEZ MD Sep 06, 2016 16:01
[2016-09-06] MEDS: CEFEPIME 1GM/50 ML (PMX) 50 ML IVPB SCH (20:27)
[2016-09-07] VITALS (93 sets, daily range): BP systolic 115–191; BP diastolic 62–116; PULSE 87–112; RESP 0–26
[2016-09-07] MEDS: IPRATROPIUM (HFA) 12.9 GM INHALER INH SCH ×6 (01:40→21:31)
[2016-09-07] MEDS: ALBUTEROL HFA 8 GM INHALER INH SCH ×6 (01:40→21:30)
[2016-09-07] MEDS: LORAZEPAM 2 MG INJ IV PRN ×2 (03:02→16:02)
[2016-09-07] MEDS: niCARdipine 50 MG in SOD CHLORIDE 0.9% 480 ML IV SCH ×3 (05:21→19:30)
[2016-09-07] MEDS: METOCLOPRAMIDE 10 MG INJ IV SCH ×4 (05:23→23:57)
[2016-09-07] MEDS: PANTOPRAZOLE 40 MG INJ IV SCH (05:24)
[2016-09-07] MEDS: PROPOFOL 100 ML IV SCH ×2 (05:30→17:30)
[2016-09-07] MEDS: Insulin NOVOLOG SS MILD Algorithm (NPO/TPN/ENTERAL FEEDS) SC SCH ×5 (06:00→23:51)
[2016-09-07 06:28] LABS: POTASSIUM 3.6 mmol/L (3.5-5.1)
[2016-09-07 06:30] LABS: CREATININE 6.42 mg/dl (0.44-1.00)
[2016-09-07 06:31] LABS: CALCIUM 8.2 mg/dl (8.4-10.2)
--- NOTE | 2016-09-07 08:10 | RADRPT ---
PROCEDURE: XR Chest. CLINICAL INDICATION: Pneumonia TECHNIQUE: A single AP view of the chest was obtained. COMPARISON: Chest x-ray dated 09/06/2016 FINDINGS: The endotracheal tube tip is approximately 3.2 cm above the kassi. The tip of the enteric tube ex tends below the left diaphragm. There is a left upper extremity PICC line with tip near the cavoatri al junction. There is a right chest Perma-Cath with tip in the upper right atrium. Lung volumes are low with compressive changes, vascular crowding and basilar atelectasis. No focal a irspace opacity, pleural effusion or pneumothorax is seen. The cardiomediastinal silhouette is with in normal limits for size. The osseous structures are unremarkable. IMPRESSION: 1. Low lung volumes with compressive changes. No significant interval change. 2. Tubes and lines, as described above. RPTAT: HH .Jeannie Jones MD, MD Date Time Electronically viewed and signed by .Jeannie Jones MD, on 09/07/2016 08:10 .G/
[2016-09-07] MEDS: NYSTATIN 30 GM POWDER BTL TOP SCH ×2 (08:17→21:11)
[2016-09-07] MEDS: SEVELAMER CARBONATE 2.4 GM PKT PO SCH ×3 (08:17→17:50)
[2016-09-07] MEDS: ARTIFICIAL TEARS 15 ML OPH BOTH EYES SCH ×3 (08:17→21:11)
[2016-09-07] MEDS: BENAZEPRIL 40 MG TAB GTB SCH (08:18)
[2016-09-07] MEDS: LEVETIRACETAM IV 1,500 MG in SOD CHLORIDE 0.9% 100 ML IVPB SCH (08:19)
[2016-09-07] MEDS: SOD CHLORIDE 0.9% IVPB SCH ×2 (08:19→12:02)
[2016-09-07] MEDS: FOSPHENYTOIN IVPB SCH ×2 (08:19→12:02)
[2016-09-07] MEDS: VALPROIC ACID LIQUID CUP 250 MG/5 ML CUP NGT SCH ×3 (08:20→21:07)
[2016-09-07] MEDS: AMLODIPINE 10 MG TAB NGT SCH (08:20)
[2016-09-07] MEDS: HEPARIN 5,000 UNIT/0.5 ML SYG SC SCH ×2 (08:23→21:08)
--- NOTE | 2016-09-07 08:28 | PN ---
DATE: 09/07/2016 SUBJECTIVE: The patient remains critically ill, on a nicardipine drip. The patient is noted to hav e less myotonic jerks. No other changes noted. The patient remains on full ventilatory support, re michael obtunded. OBJECTIVE: VITAL SIGNS: Blood pressure 157/71, respirations 16, pulse 101, temperature 98.6. I's AND O'S: The patient had 3 L in, zero output. HEENT: Head is normocephalic. NECK: Supple. HEART: Regular rate. LUNGS: Showed diminished breath sounds at the base. ABDOMEN: Soft, nontender to palpation. No rebound or guarding. EXTREMITIES: Negative for clubbing or cyanosis. Positive edema. DERMATOLOGIC: No rashes. MUSCULOSKELETAL: Have no joint effusion. NEUROLOGIC: No change in exam. MEDICATIONS: The patient's medications have been reviewed. LABORATORY DATA: Shows sodium 142, potassium 3.6, chloride 107, BUN 44, creatinine 6.42, calcium 8. 2. IMAGING: Chest x-ray shows right basilar atelectasis. No other change noted. ASSESSMENT AND PLAN: 1. End-stage renal disease. The patient will plan for dialysis today for 3 hours on a 3K bath. Wi ll ultrafiltrate approximately 2 to 3 liters. Anticipate dialysis tomorrow as well for volume remov al and solute clearance. 2. Hypertensive urgency. Etiology is multifactorial, in part due to increased intravascular volume . Will anticipate daily dialysis for ultrafiltration, which will help improve his blood pressure, e nabling to be weaned off nicardipine drip. Will continue medical management with Norvasc and benaze pril. Will add Coreg 12.5 mg b.i.d. and monitor closely. 3. Hyponatremia. Resolved. 4. Ventilatory-dependent respiratory failure. Vent settings have been reviewed. ABG has been revi ewed. Continue to monitor. 5. Volume overload secondary to end-stage renal disease. Continue ultrafiltration dialysis. 6. Mineral bone disorder. Continue to monitor calcium and phosphorus levels. Continue phosphate b inders. 7. Anoxic brain injury secondary to code arrest. Continue to monitor. Follow up with neurology. 8. Myoclonic jerks and seizures. Continue Keppra. 9. Diabetes. Continue Accu-Cheks and insulin sliding scale. 10. Anemia of end-stage renal disease. Continue to monitor H and H levels. Continue Epogen. 11. Status post cardiac arrest. 12. Leukocytosis, systemic inflammatory response syndrome. Dictated By: TIP SOLORIO/EMMA Conf#: [id number] DID#: [id number]
--- NOTE | 2016-09-07 08:58 | RADRPT ---
PROCEDURE: MR Brain without contrast. CLINICAL INDICATION: Altered mental status. Evaluate for ischemia. Status post cardiac arrest. TECHNIQUE: An MRI of the brain was performed on a high-resolution MR scanner utilizing the followi ng sequences: Sagittal and axial T1 weighted, axial T2 weighted, axial FLAIR, coronal GRE, and axial diffusion weighted with ADC mapping. Images were reviewed high-resolution PACS workstation. No con trast was administered. COMPARISON: CT head 08/30/2016 FINDINGS: There is significant motion artifacts on DWI images. There is symmetric abnormal T2 hyperintensity involving bilateral putamina and the caudate nuclei. There is no evidence of intracranial hemorrhage , mass effect, or midline shift. No extra-axial fluid collections are seen. The signal intensity is normal the brainstem and cerebellum. No hypointense signal abnormalities are seen on the GRE images to suggest the presence of blood degradation products. Normal flow voids are visible in the proxima l intracranial arteries and dural sinuses, indicating patency. Near complete opacification of the s phenoid sinuses with layering fluid is noted. IMPRESSION: The study is limited due to motion artifacts. 1. Symmetric abnormal signal involving bilateral putamina and caudate nuclei suggesting hypoxic isc hemic injury. The evaluation of the cerebral cortex is very limited due to motion artifacts. 2. No significant cerebral edema. 3. No intracranial hemorrhage, mass effect or midline shift. RPTAT: HHO .Arely Lara MD, Date Time Electronically viewed and signed by .Arely Lara MD, MD on 09/07/2016 08:57 .O/
--- NOTE | 2016-09-07 10:12 | CONS ---
Date/Time of Note Date/Time of Note DATE: 09/07/16 TIME: 10:07 Assessment/Plan Assessment/Plan Chief Complaint/Hosp Course Patient is a 60-year-old Ethiop[place] lady who was brought into the emergency room after the patient called 911 with complaints of shortness of breath by the time the EMS arrived the patient was found unresponsive had pulseless electrical activity along CPR was done lasting approximately 20 minutes with revival of vital signs. She currently is on hypothermic protocol and is sedated paralyzed on mechanical ventilation or intubated. She also was obtained from medical records as well as patient's daughter who is currently present in the room. The patient's daughter the patient was admitted last month with pneumonia and were discharged home however the patient was complaining of mild shortness of breath for the last couple of days prior to the event which occurred yesterday afternoon. Problems: Additional Assessment/Plan Assessment and recommendations; 1. Patient admitted with cardiac arrest after undergoing prolonged CPR resulting in severe anoxic enthesopathy. 2. Myoclonic jerking, currently well controlled on antiseizure medications. 3. End-stage renal disease on hemodialysis. 4. Mild generalized edema, patient to undergo hemodialysis again today. 5. Currently there is no evidence of any infective process. 6. History of hypertension. Patient's blood pressure currently well controlled. Next Continue current treatment. Patient is on AC of 16, tidal volume 450, PEEP of 5 , 30% FiO2. Patient was briefly assessed at bedside on CPAP mode currently has extremely poor minute ventilation. However on the assist-control mode the patient is triggering the ventilator. Next I did have very detailed discussion the patient's family at bedside and answered all their questions. Prognosis appears extremely poor, the family is going to have a family conference soon and will decide about further care. About 35 minutes of critical care time was spent evaluating the patient. Consultation Date/Type/Reason Admit Date/Time Aug 30, 2016 at 15:45 Initial Consult Date 08/31/16 Type of Consultation: Cardiology 24 HR Interval Summary Free Text/Dictation Patient condition remains critical. Still on mechanical ventilation or intubated. No gross myoclonic jerking observed nor any seizure activity. Patient has remained hemodynamically stable. General examination; middle aged woman, orally intubated, unresponsive. Currently in no distress. Exam/Review of Systems Vital Signs Vitals Vital Signs Date Time Temp Pulse Resp B/P Pulse Ox O2 Delivery O2 Flow Rate FiO2 09/07/16 09:45 93 17 131/74 100 Mechanical Ventilator 09/07/16 08:00 99.2 09/07/16 05:20 30 Intake and Output 09/06/16 09/06/16 09/07/16 15:00 23:00 07:00 Intake Total 1305 ml 1055 ml 800 ml Output Total 0 ml 0 ml 0 ml Balance 1305 ml 1055 ml 800 ml Exam HEENT examination; supple neck, no JVD. Pupils are midsize nonreactive to light. Orally intubated. No thyromegaly. No lymphadenopathy. Chest examination; diminished but clear breath sounds. S1-S2 audible no murmurs regular rhythm. Abdomen examination; soft, nondistended, no organomegaly, bowel sounds audible. Extremity examination; trace generalized anasarca. Pulses 1+ bilaterally. HTML DEVELOPER examination; patient remains completely unresponsive. Results Result Diagram: 09/06/16 0430 09/07/16 0440 Results 24 hrs Laboratory Tests Test 09/06/16 12:08 09/06/16 18:02 09/07/16 00:19 09/07/16 04:40 Bedside Glucose 103 93 105 Anion Gap 17 H Blood Urea Nitrogen 44 #H Calcium Level 8.2 L Carbon Dioxide Level 22 Chloride Level 107 Creatinine 6.42 H Glucose Level 91 Potassium Level 3.6 Sodium Level 142 Test 09/07/16 06:17 Bedside Glucose 73 Medications Medications Current Medications Pantoprazole (Protonix Iv) 40 mg DAILY@06 IV Last administered on 09/07/16 05: 24; Admin Dose 40 MG; Start 08/31/16 at 06:00 Eye Lubricant 1 drop 1 drop TID BOTH EYES Last administered on 09/07/16 08:17; Admin Dose 1 DROP; Start 08/30/16 at 21:00 Propofol 100 ml @ 2.1 mls/hr Q12H IV Last administered on 09/03/16 10:10; Admin Dose 9.24 MLS/HR; Start 08/30/16 at 17:30 Vecuronium [place] 100 mg/ Dextrose 100 ml @ 0 mls/hr TITRATE IV Last administered on 08/31/16 08:25; Admin Dose 2.1 MLS/HR; Start 08/30/16 at 17:30 Cefepime HCl (Maxipime 1gm/50 ml (Pmx)) 50 ml @ 100 mls/hr Q24H IVPB Last administered on 09/06/16 20:27; Admin Dose 100 MLS/HR; Start 08/30/16 at 21:00 Miscellaneous Information 1 ea NOTE XX ; Start 08/30/16 at 19:00 Glucose (Glutose) 15 gm Q15M PRN PO DECREASED GLUCOSE; Start 08/30/16 at 19:00 Glucose (Glutose) 22.5 gm Q15M PRN PO DECREASED GLUCOSE; Start 08/30/16 at 19: 00 Dextrose (D50w Syringe) 25 ml Q15M PRN IV DECREASED GLUCOSE Last administered on 09/04/16 14:38; Admin Dose 25 ML; Start 08/30/16 at 19:00 Dextrose (D50w Syringe) 50 ml Q15M PRN IV DECREASED GLUCOSE; Start 08/30/16 at 19:00 Glucagon (Glucagen) 1 mg Q15M PRN IM DECREASED GLUCOSE; Start 08/30/16 at 19:00 Glucose (Glutose) 15 gm Q15M PRN BUCCAL DECREASED GLUCOSE; Start 08/30/16 at 19 :00 Insulin Aspart (Novolog Insulin Pen) (Adult SC Insulin - Mild Algorithm)... Q6 SC ; Start 08/30/16 at 18:00 Lorazepam 2 mg 2 mg Q2H PRN IV SEIZURES Last administered on 09/07/16 03:02; Admin Dose 2 MG; Start 09/01/16 at 02:00 Levetiracetam/ Sodium Chloride (Keppra Iv/NS) 115 ml @ 440 mls/hr Q12 IVPB Last administered on 09/07/16 08:19; Admin Dose 440 MLS/HR; Start 09/03/16 at 09 :00 Metoclopramide HCl 5 mg 5 mg Q6 IV Last administered on 09/07/16 05:23; Admin Dose 5 MG; Start 09/03/16 at 12:00 Nicardipine HCl/ Sodium Chloride (Cardene Iv/NS) 500 ml @ 5 mls/hr TITRATE IV Last administered on 09/07/16 09:11; Admin Dose 75 MLS/HR; Start 09/03/16 at 11: 30 Heparin Sodium (Porcine) 5000 unit 5,000 unit Q12 SC Last administered on 08:23; Admin Dose 5,000 UNIT; Start 09/04/16 at 09:00 Vancomycin HCl 750 mg/Sodium Chloride 150 ml @ 75 mls/hr Q72H IVPB Last administered on 09/04/16 14:24; Admin Dose 75 MLS/HR; Start 09/04/16 at 11:00 Fosphenytoin Sodium/Sodium Chloride (Cerebyx/NS) 50 ml @ 150 mls/hr TID IVPB Last administered on 09/07/16 08:19; Admin Dose 150 MLS/HR; Start 09/04/16 at 13 :00 Valproate Sodium (Depakene Liquid Cup) 750 mg TID NGT Last administered on 08:20; Admin Dose 750 MG; Start 09/05/16 at 13:00 Amlodipine Besylate (Norvasc) 10 mg DAILY NGT Last administered on 09/07/16 08: 20; Admin Dose 10 MG; Start 09/06/16 at 09:00 Benazepril HCl (Lotensin) 40 mg DAILY GTB Last administered on 09/07/16 08:18; Admin Dose 40 MG; Start 09/06/16 at 09:00 Nystatin (Nystatin Powder) 1 applic BID TOP Last administered on 09/07/16 08:17 ; Admin Dose 1 APPLIC; Start 09/06/16 at 12:30 IV Flush (NS 10 ml) 10 ml PRN PRN IV IV PROTOCOL; Start 09/06/16 at 14:30 Carvedilol (Coreg) 12.5 mg BID NGT Last administered on 09/07/16 08:19; Admin Dose 12.5 MG; Start 09/07/16 at 09:00 YELENA KEMP Sep 07, 2016 10:12
[2016-09-07] MEDS: FOSPHENYTOIN (PE) 200 MG in SOD CHLORIDE 0.9% 50 ML IVPB SCH ×2 (13:51→21:07)
--- NOTE | 2016-09-07 15:12 | PN ---
Date/Time of Note Date/Time of Note DATE: 09/07/16 TIME: 15:08 Assessment/Plan VTE Prophylaxis VTE Prophylaxis Intervention: SCD's Lines/Catheters IV Catheter Type (from Nrs): PICC Line Central line still needed: Yes Urinary Cath still in place: No Assessment/Plan Chief Complaint/Hosp Course Assessment and plan 1. Status post cardiac arrest. Patient is status post hypothermia protocol. Neurology following. Of note patient did have abnormal EEG with noted seizure activity and encephalopathy. Likely secondary to anoxic brain injury. Continue to monitor neuro status. Brain MRI did have evidence suggesting hypoxic ischemic injury 2. Seizures lightly secondary to anoxic brain injury. Continue anticonvulsants. Continue with bill distributor recommendations 3. Elevated troponin secondary to #1. Of note patient did have preserved LVEF. Continue optimization with cardio vascular medications 4. Respiratory failure. Secondary to #1. Continue with pulmonary hygiene. Assessed for ability for vent liberation. Continue with shank faker recommendations 5. Hypertensive urgency. Remains on Cardene drip. Titrate down as tolerated 6. Mild pulmonary hypertension. Continue on O2 supplementation 7. End-stage renal disease. Monitor renal panel. Plant Operations Engineer following. Continue on HD DVT prophylaxis: SCDs GERD prophylaxis: PPI Disposition and plan: Family meeting conducted. Await family decision for possible peg/trach placement vs. comfort measures. Will follow up. Cont icu monitoring Discussed plan of care with Dr. Wallace Critical care time: 30 minutes Problems: Subjective 24 Hr Interval Summary Free Text/Dictation remains intubated . off sedation Exam/Review of Systems Vital Signs Vitals Vital Signs Date Time Temp Pulse Resp B/P Pulse Ox O2 Delivery O2 Flow Rate FiO2 09/07/16 12:00 88 09/07/16 11:15 16 133/74 100 Mechanical Ventilator 09/07/16 08:00 99.2 09/07/16 08:00 30 Intake and Output 09/06/16 09/06/16 09/07/16 14:59 22:59 06:59 Intake Total 1230 ml 1030 ml 900 ml Output Total 0 ml 0 ml 0 ml Balance 1230 ml 1030 ml 900 ml Exam General: Intubated no apparent distress Eyes: pupils equal round, Anicteric sclera Neck: Supple nontender, no JVD Cardiac: S1-S2 auscultated, slight murmur auscultated Pulmonary: Intubated. Minimally coarse bilaterally on lung wen GI: Abdomen soft nontender nondistended, bowel sounds active Extremities: Edema noted bilateral upper and lower extremities Skin: Clean dry and intact Neurologic: Intubated. Does respond to verbal cues. No purposeful response Results Result Diagram: 09/06/16 0430 09/07/16 0440 Results 24 hrs Laboratory Tests Test 09/06/16 18:02 09/07/16 00:19 09/07/16 04:40 09/07/16 06:17 Bedside Glucose 93 105 73 Anion Gap 17 H Blood Urea Nitrogen 44 #H Calcium Level 8.2 L Carbon Dioxide Level 22 Chloride Level 107 Creatinine 6.42 H Glucose Level 91 Potassium Level 3.6 Sodium Level 142 Test 09/07/16 12:10 Bedside Glucose 81 Medications Medications Current Medications Pantoprazole (Protonix Iv) 40 mg DAILY@06 IV Last administered on 09/07/16 05: 24; Admin Dose 40 MG; Start 08/31/16 at 06:00 Eye Lubricant 1 drop 1 drop TID BOTH EYES Last administered on 09/07/16 12:04; Admin Dose 1 DROP; Start 08/30/16 at 21:00 Propofol 100 ml @ 2.1 mls/hr Q12H IV Last administered on 09/03/16 10:10; Admin Dose 9.24 MLS/HR; Start 08/30/16 at 17:30 Vecuronium [place]/Dextrose (Norcuron/D5W) 100 ml @ 0 mls/hr TITRATE IV Last administered on 08/31/16 08:25; Admin Dose 2.1 MLS/HR; Start 08/30/16 at 17:30 Miscellaneous Information 1 ea NOTE XX ; Start 08/30/16 at 19:00 Glucose (Glutose) 15 gm Q15M PRN PO DECREASED GLUCOSE; Start 08/30/16 at 19:00 Glucose (Glutose) 22.5 gm Q15M PRN PO DECREASED GLUCOSE; Start 08/30/16 at 19: 00 Dextrose (D50w Syringe) 25 ml Q15M PRN IV DECREASED GLUCOSE Last administered on 09/04/16 14:38; Admin Dose 25 ML; Start 08/30/16 at 19:00 Dextrose (D50w Syringe) 50 ml Q15M PRN IV DECREASED GLUCOSE; Start 08/30/16 at 19:00 Glucagon (Glucagen) 1 mg Q15M PRN IM DECREASED GLUCOSE; Start 08/30/16 at 19:00 Glucose (Glutose) 15 gm Q15M PRN BUCCAL DECREASED GLUCOSE; Start 08/30/16 at 19 :00 Insulin Aspart (Novolog Insulin Pen) (Adult SC Insulin - Mild Algorithm)... Q6 SC ; Start 08/30/16 at 18:00 Lorazepam (Ativan) 2 mg Q2H PRN IV SEIZURES Last administered on 09/07/16 03:02 ; Admin Dose 2 MG; Start 09/01/16 at 02:00 Metoclopramide HCl 5 mg 5 mg Q6 IV Last administered on 09/07/16 12:02; Admin Dose 5 MG; Start 09/03/16 at 12:00 Nicardipine HCl/ Sodium Chloride (Cardene Iv/NS) 500 ml @ 5 mls/hr TITRATE IV Last administered on 09/07/16 09:11; Admin Dose 75 MLS/HR; Start 09/03/16 at 11: 30 Heparin Sodium (Porcine) (Heparin (5000 Units/0.5 ml)) 5,000 unit Q12 SC Last administered on 09/07/16 08:23; Admin Dose 5,000 UNIT; Start 09/04/16 at 09:00 Valproate Sodium (Depakene Liquid Cup) 750 mg TID NGT Last administered on 12:02; Admin Dose 750 MG; Start 09/05/16 at 13:00 Amlodipine Besylate (Norvasc) 10 mg DAILY NGT Last administered on 09/07/16 08: 20; Admin Dose 10 MG; Start 09/06/16 at 09:00 Benazepril HCl (Lotensin) 40 mg DAILY GTB Last administered on 09/07/16 08:18; Admin Dose 40 MG; Start 09/06/16 at 09:00 Nystatin (Nystatin Powder) 1 applic BID TOP Last administered on 09/07/16 08:17 ; Admin Dose 1 APPLIC; Start 09/06/16 at 12:30 IV Flush (NS 10 ml) 10 ml PRN PRN IV IV PROTOCOL; Start 09/06/16 at 14:30 Carvedilol (Coreg) 12.5 mg BID NGT Last administered on 09/07/16 08:19; Admin Dose 12.5 MG; Start 09/07/16 at 09:00 Levetiracetam 1500 mg 1,500 mg BID PO ; Start 09/07/16 at 21:00 Fosphenytoin Sodium/Sodium Chloride (Cerebyx/NS) 54 ml @ 210.667 mls/hr TID IVPB Last administered on 09/07/16t 13:51; Admin Dose 210.667 MLS/HR; Start 09/07 at 13:00 CORAL KAUR Sep 07, 2016 15:12
--- NOTE | 2016-09-07 16:43 | CONS ---
Date/Time of Note Date/Time of Note DATE: 09/07/16 TIME: 16:30 Consult Date/Type/Reason Admit Date/Time Aug 30, 2016 at 15:45 Initial Consult Date 09/01/16 Type of Consultation: Neurology Reason for Consultation anoxic injury Subjective no improvement in exam she spontaneously opens her eyes not following commands, no purposeful movement no seizures overnight Objective Vital Signs Date Time Temp Pulse Resp B/P Pulse Ox O2 Delivery O2 Flow Rate FiO2 09/07/16 16:15 93 09/07/16 15:15 18 09/07/16 15:00 138/67 100 Mechanical Ventilator 09/07/16 12:00 99.1 09/07/16 11:05 30 Intake and Output 09/06/16 09/06/16 09/07/16 15:00 23:00 07:00 Intake Total 1305 ml 1055 ml 800 ml Output Total 0 ml 0 ml 0 ml Balance 1305 ml 1055 ml 800 ml unable to open her eyes today to voice orthophoric gaze unable to Doll's weak corneals and weak gag reflex present no withdrawal in extremities no LE jerking noted on examination today Results/Medications Result Diagram: 09/06/16 0430 09/07/16 0440 Results 24 hrs Laboratory Tests Test 09/06/16 18:02 09/07/16 00:19 09/07/16 04:40 09/07/16 06:17 Bedside Glucose 93 105 73 Anion Gap 17 H Blood Urea Nitrogen 44 #H Calcium Level 8.2 L Carbon Dioxide Level 22 Chloride Level 107 Creatinine 6.42 H Glucose Level 91 Potassium Level 3.6 Sodium Level 142 Test 09/07/16 12:10 Bedside Glucose 81 Medications Current Medications Pantoprazole (Protonix Iv) 40 mg DAILY@06 IV Last administered on 09/07/16 05: 24; Admin Dose 40 MG; Start 08/31/16 at 06:00 Eye Lubricant 1 drop 1 drop TID BOTH EYES Last administered on 09/07/16 12:04; Admin Dose 1 DROP; Start 08/30/16 at 21:00 Propofol 100 ml @ 2.1 mls/hr Q12H IV Last administered on 09/03/16 10:10; Admin Dose 9.24 MLS/HR; Start 08/30/16 at 17:30 Vecuronium [place]/Dextrose (Norcuron/D5W) 100 ml @ 0 mls/hr TITRATE IV Last administered on 08/31/16 08:25; Admin Dose 2.1 MLS/HR; Start 08/30/16 at 17:30 Miscellaneous Information 1 ea NOTE XX ; Start 08/30/16 at 19:00 Glucose (Glutose) 15 gm Q15M PRN PO DECREASED GLUCOSE; Start 08/30/16 at 19:00 Glucose (Glutose) 22.5 gm Q15M PRN PO DECREASED GLUCOSE; Start 08/30/16 at 19: 00 Dextrose (D50w Syringe) 25 ml Q15M PRN IV DECREASED GLUCOSE Last administered on 09/04/16 14:38; Admin Dose 25 ML; Start 08/30/16 at 19:00 Dextrose (D50w Syringe) 50 ml Q15M PRN IV DECREASED GLUCOSE; Start 08/30/16 at 19:00 Glucagon (Glucagen) 1 mg Q15M PRN IM DECREASED GLUCOSE; Start 08/30/16 at 19:00 Glucose (Glutose) 15 gm Q15M PRN BUCCAL DECREASED GLUCOSE; Start 08/30/16 at 19 :00 Insulin Aspart (Novolog Insulin Pen) (Adult SC Insulin - Mild Algorithm)... Q6 SC ; Start 08/30/16 at 18:00 Lorazepam (Ativan) 2 mg Q2H PRN IV SEIZURES Last administered on 09/07/16 16:02 ; Admin Dose 2 MG; Start 09/01/16 at 02:00 Metoclopramide HCl 5 mg 5 mg Q6 IV Last administered on 09/07/16 12:02; Admin Dose 5 MG; Start 09/03/16 at 12:00 Nicardipine HCl/ Sodium Chloride (Cardene Iv/NS) 500 ml @ 5 mls/hr TITRATE IV Last administered on 09/07/16 09:11; Admin Dose 75 MLS/HR; Start 09/03/16 at 11: 30 Heparin Sodium (Porcine) (Heparin (5000 Units/0.5 ml)) 5,000 unit Q12 SC Last administered on 09/07/16 08:23; Admin Dose 5,000 UNIT; Start 09/04/16 at 09:00 Valproate Sodium (Depakene Liquid Cup) 750 mg TID NGT Last administered on 12:02; Admin Dose 750 MG; Start 09/05/16 at 13:00 Amlodipine Besylate (Norvasc) 10 mg DAILY NGT Last administered on 09/07/16 08: 20; Admin Dose 10 MG; Start 09/06/16 at 09:00 Benazepril HCl (Lotensin) 40 mg DAILY GTB Last administered on 09/07/16 08:18; Admin Dose 40 MG; Start 09/06/16 at 09:00 Nystatin (Nystatin Powder) 1 applic BID TOP Last administered on 09/07/16 08:17 ; Admin Dose 1 APPLIC; Start 09/06/16 at 12:30 IV Flush (NS 10 ml) 10 ml PRN PRN IV IV PROTOCOL; Start 09/06/16 at 14:30 Carvedilol (Coreg) 12.5 mg BID NGT Last administered on 09/07/16 08:19; Admin Dose 12.5 MG; Start 09/07/16 at 09:00 Levetiracetam 1500 mg 1,500 mg BID PO ; Start 09/07/16 at 21:00 Fosphenytoin Sodium/Sodium Chloride (Cerebyx/NS) 54 ml @ 210.667 mls/hr TID IVPB Last administered on 09/07/16 13:51; Admin Dose 210.667 MLS/HR; Start 09/07 at 13:00 Assessment/Plan Chief Complaint/Hosp Course Patient is a 56-year-old female with history of end-stage renal disease on hemodialysis and essential hypertension was found to be unresponsive at home on 08/31. Paramedics found the patient in PEA and was resuscitated. She was also seen to have uncontrolled blood pressures, lactic acidosis with leukocytosis. She was also treated with hypothermia protocol. EEG showed generalized background slowing with intermittent epileptiform activity. Keppra 1500 mg IV BID and Fosphenytoin 200 mg q8h as well as Depakote 750 mg q8h continued MRI Brain w/o contrast shows symmetric abnormal signal involving bilateral putamina and caudate nuclei suggesting hypoxic ischemic injury Met with family at bedside this morning with pulmonary doctor and primary team overall suggested a poor prognosis given her clinical exam and MRI findings- family is still deciding regarding further goals of care and are requesting a repeat EEG for comparison as well as another opinion from a neurologist regarding her prognosis. Repeat EEG has been ordered, will request Dr. Stanley to follow up on patient tomorrow Problems: JAZZMINE SUN MD Sep 07, 2016 16:41
[2016-09-07] MEDS ORDERED: ALTEPLASE (CATHFLO) 2 MG INJ CATHETER ONE (17:30)
[2016-09-07] MEDS: EPOETIN 10000 UNITS/1 ML INJ (ESRD) SC SCH (17:45)
--- NOTE | 2016-09-07 18:50 | SP ---
DATE OF PROCEDURE: HISTORY: This is a 56-year-old woman who was admitted after cardiorespiratory arrest. A previous E EG showed generalized background slowing with intermittent epileptiform activity. This is a repeat EEG. CURRENT MEDICATIONS: 1. Keppra. 2. Fosphenytoin. 3. Depakene. PROCEDURE: Utilizing a 16-channel EEG machine, cap scalp electrodes were applied in accordance with International 10/20 system. [id number] and [id number] montages were displayed. Electrical i mpedances were measured and reported. DESCRIPTION: During the resting state, posterior dominant rhythm of about 6 to 7 Hz were seen bihem ispherically. Photic stimulation had no response. Hyperventilation was not performed. Bilateral c entral temporal sharps were seen at times during the tracing. INTERPRETATION: This is an abnormal EEG because of presence of generalized bihemispheric background slowing with bilateral central temporal sharps which could be epileptogenic. Please correlate thes e findings with the patient's clinical picture. Dictated By: ASAF MATUTE/EMMA Conf#: [id number] DID#: [id number]
[2016-09-07] MEDS ORDERED: LEVETIRACETAM 750 MG TAB PO SCH (21:00)
[2016-09-07] MEDS: LEVETIRACETAM (100 MG/ML) 5ML CUP GTB SCH (21:07)
[2016-09-08] VITALS (95 sets, daily range): BP systolic 118–195; BP diastolic 62–94; PULSE 84–110; RESP 0–24
[2016-09-08] MEDS: niCARdipine 50 MG in SOD CHLORIDE 0.9% 480 ML IV SCH ×2 (00:39→07:31)
[2016-09-08] MEDS: ALBUTEROL HFA 8 GM INHALER INH SCH ×6 (01:55→21:12)
[2016-09-08] MEDS: IPRATROPIUM (HFA) 12.9 GM INHALER INH SCH ×6 (01:55→21:12)
[2016-09-08] MEDS: PROPOFOL 100 ML IV SCH ×2 (04:09→16:17)
[2016-09-08] MEDS: LORAZEPAM 2 MG INJ IV PRN (04:22)
[2016-09-08] MEDS ORDERED: HEPARIN (100 UNITS/ML) 5 ML SYG CATHETER ONE (04:30)
[2016-09-08 04:59] LABS: BASOPHILS % 0.5 % (0.0-2.0); EOSINOPHILS # 0.2 10^3/ul (0.0-0.5); EOSINOPHILS % 1.4 % (0.0-7.0); HEMATOCRIT 31.3 % (37.0-47.0); HEMOGLOBIN 10.1 g/dl (12.0-16.0); LYMPHOCYTES # 1.1 10^3/ul (0.8-2.9); LYMPHOCYTES % 10.8 % (15.0-51.0); MEAN CORPUSCULAR HEMOGLOBIN 30.6 pg (29.0-33.0); MEAN CORPUSCULAR HGB CONC 32.2 g/dl (32.0-37.0); MEAN CORPUSCULAR VOLUME 94.9 fl (82.0-101.0); MEAN PLATELET VOLUME 7.8 fl (7.4-10.4); MONOCYTE # 0.9 10^3/ul (0.3-0.9); MONOCYTES % 8.1 % (0.0-11.0); NEUTROPHIL # 8.4 10^3/ul (1.6-7.5); NEUTROPHILS % 79.2 % (39.0-77.0); PLATELET COUNT 255 10^3/UL (140-440); RED CELL DISTRIBUTION WIDTH 17.4 % (11.5-14.5); UNCORRECTED WBC 10.6 10^3/ul (4.8-10.8); WHITE BLOOD COUNT 10.6 10^3/ul (4.8-10.8)
[2016-09-08] MEDS ORDERED: HEPARIN 1000 UNITS/ML 10 ML INJ CATHETER ONE (05:00)
[2016-09-08 05:12] LABS: CONDITION 1; LH ANALYZER COMMENTS 1
[2016-09-08 05:16] LABS: CREATININE 3.91 mg/dl (0.44-1.00)
[2016-09-08] MEDS: Insulin NOVOLOG SS MILD Algorithm (NPO/TPN/ENTERAL FEEDS) SC SCH ×4 (05:20→23:55)
[2016-09-08 05:29] LABS: POTASSIUM 3.6 mmol/L (3.5-5.1)
[2016-09-08 05:32] LABS: MAGNESIUM 2.1 mg/dl (1.7-2.5); PHOSPHORUS 2.6 mg/dl (2.5-4.9)
[2016-09-08] MEDS: PANTOPRAZOLE 40 MG INJ IV SCH (06:32)
[2016-09-08] MEDS: METOCLOPRAMIDE 10 MG INJ IV SCH ×4 (06:33→23:55)
--- NOTE | 2016-09-08 07:29 | CONS ---
Date/Time of Note Date/Time of Note DATE: 09/08/16 TIME: 07:24 Assessment/Plan Assessment/Plan Chief Complaint/Hosp Course Patient is a 60-year-old [place] lady who was brought into the emergency room after the patient called 911 with complaints of shortness of breath by the time the EMS arrived the patient was found unresponsive had pulseless electrical activity along CPR was done lasting approximately 20 minutes with revival of vital signs. She currently is on hypothermic protocol and is sedated paralyzed on mechanical ventilation or intubated. She also was obtained from medical records as well as patient's daughter who is currently present in the room. The patient's daughter the patient was admitted last month with pneumonia and were discharged home however the patient was complaining of mild shortness of breath for the last couple of days prior to the event which occurred yesterday afternoon. Problems: Additional Assessment/Plan Assessment and recommendations; next 1. Patient admitted with cardiac arrest and underwent prolonged CPR lasting more than 20 minutes. Next 2. End-stage renal disease, on hemodialysis. 3. History of hypertension. 4. Seizures and myoclonic jerking currently well controlled on antiseizure medications. 5. Difficult to rule out some element of aspiration pneumonia. Radiologically resolved. Next Continue current treatment. We did have a very detailed discussion the patient' s family yesterday, it was decided to give patient at least another 72 hours to see if she would turn around. Prognosis remains extremely poor. Consultation Date/Type/Reason Admit Date/Time Aug 30, 2016 at 15:45 Initial Consult Date 08/31/16 Type of Consultation: pulmonary 24 HR Interval Summary Free Text/Dictation Patient's condition remains critical. No interval guide changer the last 24 hours. She is completely unresponsive. No myoclonic jerking or seizure activity noted. General examination; middle aged woman, or intubated, unresponsive. Currently in no distress. Exam/Review of Systems Vital Signs Vitals Vital Signs Date Time Temp Pulse Resp B/P Pulse Ox O2 Delivery O2 Flow Rate FiO2 09/08/16 07:00 97 21 162/78 100 Mechanical Ventilator 09/08/16 05:20 30 09/08/16 04:00 99.5 Intake and Output 09/07/16 09/07/16 09/08/16 15:00 23:00 07:00 Intake Total 999 ml 989 ml 1260 ml Output Total 0 ml 3000 ml 7500 ml Balance 999 ml -2011 ml -6240 ml Exam H EENT examination; supple neck, no JVD. No lymphadenopathy. Orally intubated. Pupils are small bilaterally and nonreactive to light. Chest examination; clear to auscultation. S1-S2 audible, no murmurs, regular rate and rhythm. Abdomen examination; soft, nondistended. No organomegaly. Bowel sounds audible. Next Extremity examination; trace anasarca. Pulses 1+ bilaterally. 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 Ventilator settings are: AC of 16, tidal volume 450, PEEP of 5, 30% FiO2. Results Result Diagram: 09/08/16 0330 09/08/16 0330 Results 24 hrs Laboratory Tests Test 09/07/16 12:10 09/07/16 18:52 09/07/16 23:40 09/08/16 03:30 Bedside Glucose 81 105 117 Anion Gap 14 Basophils # 0.0 Basophils % 0.5 Blood Morphology Comment Blood Urea Nitrogen 26 #H Calcium Level 9.0 Carbon Dioxide Level 27 Chloride Level 103 Creatinine 3.91 #H Eosinophils # 0.2 Eosinophils % 1.4 Glucose Level 127 Hematocrit 31.3 L Hemoglobin 10.1 L Lymphocytes # 1.1 Lymphocytes % 10.8 L Magnesium Level 2.1 Mean Corpuscular Hemoglobin 30.6 Mean Corpuscular Hemoglobin Concent 32.2 Mean Corpuscular Volume 94.9 Mean Platelet Volume 7.8 Monocytes # 0.9 Monocytes % 8.1 Neutrophils # 8.4 H Neutrophils % 79.2 H Nucleated Red Blood Cells # 0.0 Nucleated Red Blood Cells % 0.0 Phosphorus Level 2.6 # Platelet Count 255 Potassium Level 3.6 Red Blood Count 3.30 L Red Cell Distribution Width 17.4 H Sodium Level 140 Valproic Acid (Depakene) Level 45 L White Blood Count 10.6 Test 09/08/16 05:16 Bedside Glucose 122 Medications Medications Current Medications Pantoprazole (Protonix Iv) 40 mg DAILY@06 IV Last administered on 09/08/16 06: 32; Admin Dose 40 MG; Start 08/31/16 at 06:00 Eye Lubricant 1 drop 1 drop TID BOTH EYES Last administered on 09/07/16 21:11; Admin Dose 1 DROP; Start 08/30/16 at 21:00 Propofol 100 ml @ 2.1 mls/hr Q12H IV Last administered on 09/03/16 10:10; Admin Dose 9.24 MLS/HR; Start 08/30/16 at 17:30 Vecuronium [place]/Dextrose (Norcuron/D5W) 100 ml @ 0 mls/hr TITRATE IV Last administered on 08/31/16 08:25; Admin Dose 2.1 MLS/HR; Start 08/30/16 at 17:30 Miscellaneous Information 1 ea NOTE XX ; Start 08/30/16 at 19:00 Glucose (Glutose) 15 gm Q15M PRN PO DECREASED GLUCOSE; Start 08/30/16 at 19:00 Glucose (Glutose) 22.5 gm Q15M PRN PO DECREASED GLUCOSE; Start 08/30/16 at 19: 00 Dextrose (D50w Syringe) 25 ml Q15M PRN IV DECREASED GLUCOSE Last administered on 09/04/16 14:38; Admin Dose 25 ML; Start 08/30/16 at 19:00 Dextrose (D50w Syringe) 50 ml Q15M PRN IV DECREASED GLUCOSE; Start 08/30/16 at 19:00 Glucagon (Glucagen) 1 mg Q15M PRN IM DECREASED GLUCOSE; Start 08/30/16 at 19:00 Glucose (Glutose) 15 gm Q15M PRN BUCCAL DECREASED GLUCOSE; Start 08/30/16 at 19 :00 Insulin Aspart (Novolog Insulin Pen) (Adult SC Insulin - Mild Algorithm)... Q6 SC ; Start 08/30/16 at 18:00 Lorazepam (Ativan) 2 mg Q2H PRN IV SEIZURES Last administered on 09/08/16 04:22 ; Admin Dose 2 MG; Start 09/01/16 at 02:00 Metoclopramide HCl 5 mg 5 mg Q6 IV Last administered on 09/08/16 06:33; Admin Dose 5 MG; Start 09/03/16 at 12:00 Nicardipine HCl/ Sodium Chloride (Cardene Iv/NS) 500 ml @ 70 mls/hr TITRATE IV Last administered on 09/08/16 00:39; Admin Dose 80 MLS/HR; Start 09/03/16 at 11:30 Heparin Sodium (Porcine) (Heparin (5000 Units/0.5 ml)) 5,000 unit Q12 SC Last administered on 09/07/16 21:08; Admin Dose 5,000 UNIT; Start 09/04/16 at 09:00 Valproate Sodium (Depakene Liquid Cup) 750 mg TID NGT Last administered on 21:07; Admin Dose 750 MG; Start 09/05/16 at 13:00 Amlodipine Besylate (Norvasc) 10 mg DAILY NGT Last administered on 09/07/16 08: 20; Admin Dose 10 MG; Start 09/06/16 at 09:00 Benazepril HCl (Lotensin) 40 mg DAILY GTB Last administered on 09/07/16 08:18; Admin Dose 40 MG; Start 09/06/16 at 09:00 Nystatin (Nystatin Powder) 1 applic BID TOP Last administered on 09/07/16 21:11 ; Admin Dose 1 APPLIC; Start 09/06/16 at 12:30 IV Flush (NS 10 ml) 10 ml PRN PRN IV IV PROTOCOL; Start 09/06/16 at 14:30 Carvedilol 12.5 mg 12.5 mg BID NGT Last administered on 09/07/16 21:06; Admin Dose 12.5 MG; Start 09/07/16 at 09:00 Fosphenytoin Sodium/Sodium Chloride (Cerebyx/NS) 54 ml @ 210.667 mls/hr TID IVPB Last administered on 09/07/16 21:07; Admin Dose 210.667 MLS/HR; Start 09/07 at 13:00 Levetiracetam (Keppra Liquid) 1,500 mg BID GTB Last administered on 09/07/16 21 :07; Admin Dose 1,500 MG; Start 09/07/16 at 21:00 YELENA KEMP Sep 08, 2016 07:29
--- NOTE | 2016-09-08 08:28 | PN ---
DATE: 09/08/2016 SUBJECTIVE: The patient had hemodialysis yesterday and this morning, with 3 liters removed, respect ively. The patient remains on a nicardipine drip. No other acute events noted. No hemoptysis, hem atemesis or hematochezia. OBJECTIVE: VITAL SIGNS: Blood pressure is 160/78, respirations 21, pulse 77, temperature 98.6. HEENT: Head is normocephalic. NECK: Supple. HEART: Regular rate. LUNGS: Showed diminished breath sounds at the base. ABDOMEN: Soft, nontender to palpation. No rebound or guarding. EXTREMITIES: Negative for clubbing or cyanosis. Positive edema. DERMATOLOGIC: No rashes. MUSCULOSKELETAL: Have no joint effusion. NEUROLOGIC: No change in exam. MEDICATIONS: The patient's medications have been reviewed. LABORATORY DATA: Shows sodium 140, potassium 3.6, chloride 103, BUN 26, creatinine 3.91. White cou nt 10.6, hemoglobin 10.4, hematocrit 31.3, and platelet count 255. IMAGING: The patient's chest x-ray was reviewed. ASSESSMENT AND PLAN: 1. End-stage renal disease. The patient had hemodialysis yesterday and earlier this morning. Will anticipate dialysis again tomorrow for volume removal. Will continue to monitor. 2. Hypertensive urgency. Etiology is multifactorial, in part due to increased intravascular volume . Will continue dialysis if the patient is euvolemic. Anticipate dialysis tomorrow. Will up-titra te Coreg to 25 b.i.d. Continue Norvasc and Benazepril. Continue to wean off nicardipine drip. 3. Volume overload. Continue ultrafiltration with dialysis. 4. Anemia. Continue to monitor hemoglobin and hematocrit levels. Will continue Epogen. 5. Mineral bone disorder. Will monitor calcium and phosphorus levels. Continue phosphate binders. 6. Ventilatory-dependent respiratory failure. Vent settings have been reviewed. ABG has been revi ewed. Follow up with pulmonary. 7. Anoxic brain injury secondary code arrest. Continue to monitor. Follow up with neurology. 8. Myoclonic jerks/seizures. Continue Keppra. 9. Diabetes. Continue Accu-Cheks and insulin sliding scale. 10. Status post code arrest. 11. Leukocytosis/SIRS. Improving. The patient's antibiotics were discontinued. Dictated By: TIP SOLORIO/EMMA Conf#: [id number] [facility]#: [id number]
[2016-09-08] MEDS: SEVELAMER CARBONATE 2.4 GM PKT PO SCH ×3 (08:30→17:15)
[2016-09-08] MEDS: LEVETIRACETAM (100 MG/ML) 5ML CUP GTB SCH ×2 (08:31→20:38)
[2016-09-08] MEDS: VALPROIC ACID LIQUID CUP 250 MG/5 ML CUP NGT SCH ×3 (08:31→21:21)
[2016-09-08] MEDS: ARTIFICIAL TEARS 15 ML OPH BOTH EYES SCH ×3 (08:32→20:37)
[2016-09-08] MEDS: AMLODIPINE 10 MG TAB NGT SCH (08:34)
[2016-09-08] MEDS: BENAZEPRIL 40 MG TAB GTB SCH (08:35)
[2016-09-08] MEDS: FOSPHENYTOIN (PE) 200 MG in SOD CHLORIDE 0.9% 50 ML IVPB SCH ×3 (08:36→20:39)
[2016-09-08] MEDS: NYSTATIN 30 GM POWDER BTL TOP SCH ×2 (08:36→20:37)
[2016-09-08] MEDS: HEPARIN 5,000 UNIT/0.5 ML SYG SC SCH ×2 (08:41→20:40)
--- NOTE | 2016-09-08 09:27 | RADRPT ---
PROCEDURE: XR Chest. CLINICAL INDICATION: Shortness of breath. TECHNIQUE: Single frontal view. COMPARISON: None. FINDINGS: The endotracheal tube, nasogastric tube, left arm PICC line, and right internal jugular vein tunnel dialysis catheter remain in satisfactory position. There are low lung volumes and mild atelectasis at the lung bases. The lungs are otherwise clear. The heart size is normal. There is no pleural effusion. There is no pneumothorax. IMPRESSION: 1. No change from 09/07/2016. RPTAT: QQ .Vj Avelar MD, MD Date Time Electronically viewed and signed by .Vj Avelar MD, MD on 09/08/2016 09:26 .R/
--- NOTE | 2016-09-08 11:59 | PN ---
Date/Time of Note Date/Time of Note DATE: 09/08/16 TIME: 11:56 Assessment/Plan VTE Prophylaxis VTE Prophylaxis Intervention: SCD's Lines/Catheters IV [facility] Type [facility] PICC Line Central line still needed: Yes Urinary Cath still in place: No Assessment/Plan Chief Complaint/Hosp Course Assessment and plan 1. Status post cardiac arrest. Patient is status post hypothermia protocol. Neurology following. Of note patient did have abnormal EEG with noted seizure activity and encephalopathy. Likely secondary to anoxic brain injury. Continue to monitor neuro status. Brain MRI did have evidence suggesting hypoxic ischemic injury. Plan for follow up EEG 2. Seizures lightly secondary to anoxic brain injury. Continue anticonvulsants. Continue with research and development manager recommendations 3. Elevated troponin secondary to #1. Of note patient did have preserved LVEF. Continue optimization with cardiovascular medications 4. Respiratory failure. Secondary to #1. Continue with pulmonary hygiene. At this time unable to tolerate vent liberation . Continue with lay health advocate recommendations 5. Hypertensive urgency. Remains on Cardene drip. Titrate down as tolerated 6. Mild pulmonary hypertension. Continue on O2 supplementation 7. End-stage renal disease. Monitor renal panel. [place] following. Continue on HD DVT prophylaxis: SCDs GERD prophylaxis: PPI Disposition and plan: Family meeting conducted. Plan for repeat EEG. We'll follow-up with findings. Palliative care physician is following. We'll follow- up with family for goals of care. Possible Repeat family meeting on 09/11/2016 Discussed plan of care with Dr. Wallace Critical care time: 30 minutes Problems: Subjective 24 Hr Interval Summary Free Text/Dictation remains intubated. off sedation. Exam/Review of Systems Vital Signs Vitals Vital Signs Date Time Temp Pulse Resp B/P Pulse Ox O2 Delivery O2 Flow Rate FiO2 09/08/16 11:45 87 16 132/71 100 Mechanical Ventilator 09/08/16 09:20 30 09/08/16 08:00 99.1 Intake and Output 09/07/16 09/07/16 09/08/16 15:00 23:00 07:00 Intake Total 999 ml 989 ml 1260 ml Output Total 0 ml 3000 ml 7500 ml Balance 999 ml -2011 ml -6240 ml Exam General: Intubated no apparent distress Eyes: pupils equal round, Anicteric sclera Neck: Supple nontender, no JVD Cardiac: S1-S2 auscultated, slight murmur auscultated Pulmonary: Intubated. Minimally coarse bilaterally on lung wen GI: Abdomen soft nontender nondistended, bowel sounds active Extremities: Edema noted bilateral upper and lower extremities Skin: Clean dry and intact Neurologic: Intubated. Does respond to verbal cues. No purposeful response Results Result Diagram: 09/08/16 0330 09/08/16 0330 Results 24 hrs Laboratory Tests Test 09/07/16 12:10 09/07/16 18:52 09/07/16 23:40 09/08/16 03:30 Bedside Glucose 81 105 117 Anion Gap 14 Basophils # 0.0 Basophils % 0.5 Blood Morphology Comment Blood Urea Nitrogen 26 #H Calcium Level 9.0 Carbon Dioxide Level 27 Chloride Level 103 Creatinine 3.91 #H Eosinophils # 0.2 Eosinophils % 1.4 Glucose Level 127 Hematocrit 31.3 L Hemoglobin 10.1 L Lymphocytes # 1.1 Lymphocytes % 10.8 L Magnesium Level 2.1 Mean Corpuscular Hemoglobin 30.6 Mean Corpuscular Hemoglobin Concent 32.2 Mean Corpuscular Volume 94.9 Mean Platelet Volume 7.8 Monocytes # 0.9 Monocytes % 8.1 Neutrophils # 8.4 H Neutrophils % 79.2 H Nucleated Red Blood Cells # 0.0 Nucleated Red Blood Cells % 0.0 Phosphorus Level 2.6 # Platelet Count 255 Potassium Level 3.6 Red Blood Count 3.30 L Red Cell Distribution Width 17.4 H Sodium Level 140 Valproic Acid (Depakene) Level 45 L White Blood Count 10.6 Test 09/08/16 05:16 Bedside Glucose 122 Medications Medications Current Medications Pantoprazole (Protonix Iv) 40 mg DAILY@06 IV Last administered on 09/08/16 06: 32; Admin Dose 40 MG; Start 08/31/16 at 06:00 Eye Lubricant 1 drop 1 drop TID BOTH EYES Last administered on 09/08/16 08:32; Admin Dose 1 DROP; Start 08/30/16 at 21:00 Propofol 100 ml @ 2.1 mls/hr Q12H IV Last administered on 09/03/16 10:10; Admin Dose 9.24 MLS/HR; Start 08/30/16 at 17:30 Vecuronium [place]/Dextrose (Norcuron/D5W) 100 ml @ 0 mls/hr TITRATE IV Last administered on 08/31/16 08:25; Admin Dose 2.1 MLS/HR; Start 08/30/16 at 17:30 Miscellaneous Information 1 ea NOTE XX ; Start 08/30/16 at 19:00 Glucose (Glutose) 15 gm Q15M PRN PO DECREASED GLUCOSE; Start 08/30/16 at 19:00 Glucose (Glutose) 22.5 gm Q15M PRN PO DECREASED GLUCOSE; Start 08/30/16 at 19: 00 Dextrose (D50w Syringe) 25 ml Q15M PRN IV DECREASED GLUCOSE Last administered on 09/04/16 14:38; Admin Dose 25 ML; Start 08/30/16 at 19:00 Dextrose (D50w Syringe) 50 ml Q15M PRN IV DECREASED GLUCOSE; Start 08/30/16 at 19:00 Glucagon (Glucagen) 1 mg Q15M PRN IM DECREASED GLUCOSE; Start 08/30/16 at 19:00 Glucose (Glutose) 15 gm Q15M PRN BUCCAL DECREASED GLUCOSE; Start 08/30/16 at 19 :00 Insulin Aspart (Novolog Insulin Pen) (Adult SC Insulin - Mild Algorithm)... Q6 SC ; Start 08/30/16 at 18:00 Lorazepam (Ativan) 2 mg Q2H PRN IV SEIZURES Last administered on 09/08/16 04:22 ; Admin Dose 2 MG; Start 09/01/16 at 02:00 Metoclopramide HCl 5 mg 5 mg Q6 IV Last administered on 09/08/16 06:33; Admin Dose 5 MG; Start 09/03/16 at 12:00 Nicardipine HCl/ Sodium Chloride (Cardene Iv/NS) 500 ml @ 70 mls/hr TITRATE IV Last administered on 09/08/16 07:31; Admin Dose 80 MLS/HR; Start 09/03/16 at 11:30 Heparin Sodium (Porcine) (Heparin (5000 Units/0.5 ml)) 5,000 unit Q12 SC Last administered on 09/08/16 08:41; Admin Dose 5,000 UNIT; Start 09/04/16 at 09:00 Valproate Sodium (Depakene Liquid Cup) 750 mg TID NGT Last administered on 08:31; Admin Dose 750 MG; Start 09/05/16 at 13:00 Amlodipine Besylate (Norvasc) 10 mg DAILY NGT Last administered on 09/08/16 08: 34; Admin Dose 10 MG; Start 09/06/16 at 09:00 Benazepril HCl (Lotensin) 40 mg DAILY GTB Last administered on 09/08/16 08:35; Admin Dose 40 MG; Start 09/06/16 at 09:00 Nystatin (Nystatin Powder) 1 applic BID TOP Last administered on 09/08/16 08:36 ; Admin Dose 1 APPLIC; Start 09/06/16 at 12:30 IV Flush 10 ml 10 ml PRN PRN IV IV PROTOCOL; Start 09/06/16 at 14:30 Fosphenytoin Sodium/Sodium Chloride (Cerebyx/NS) 54 ml @ 210.667 mls/hr TID IVPB Last administered on 09/08/16 08:36; Admin Dose 210.667 MLS/HR; Start 09/07 at 13:00 Levetiracetam (Keppra Liquid) 1,500 mg BID GTB Last administered on 09/08/16 08 :31; Admin Dose 1,500 MG; Start 09/07/16 at 21:00 Carvedilol (Coreg) 25 mg BID NGT Last administered on 09/08/16 08:34; Admin Dose 25 MG; Start 09/08/16 at 09:00 CORAL KAUR Sep 08, 2016 11:59
--- NOTE | 2016-09-08 13:25 | CONS ---
Date/Time of Note Date/Time of Note DATE: 09/08/16 TIME: 13:18 Consult Date/Type/Reason Admit Date/Time Aug 30, 2016 at 15:45 Initial Consult Date 09/01/16 Type of Consultation: neurology Subjective no acute events, no seizures Objective Vital Signs Date Time Temp Pulse Resp B/P Pulse Ox O2 Delivery O2 Flow Rate FiO2 09/08/16 13:00 90 16 128/70 100 Mechanical Ventilator 09/08/16 12:00 99.3 09/08/16 09:20 30 Intake and Output 09/07/16 09/07/16 09/08/16 15:00 23:00 07:00 Intake Total 999 ml 989 ml 1260 ml Output Total 0 ml 3000 ml 7500 ml Balance 999 ml -2011 ml -6240 ml Results/Medications Result Diagram: 09/08/16 0330 09/08/16 0330 Results 24 hrs Laboratory Tests Test 09/07/16 18:52 09/07/16 23:40 09/08/16 03:30 09/08/16 05:16 Bedside Glucose 105 117 122 Anion Gap 14 Basophils # 0.0 Basophils % 0.5 Blood Morphology Comment Blood Urea Nitrogen 26 #H Calcium Level 9.0 Carbon Dioxide Level 27 Chloride Level 103 Creatinine 3.91 #H Eosinophils # 0.2 Eosinophils % 1.4 Glucose Level 127 Hematocrit 31.3 L Hemoglobin 10.1 L Lymphocytes # 1.1 Lymphocytes % 10.8 L Magnesium Level 2.1 Mean Corpuscular Hemoglobin 30.6 Mean Corpuscular Hemoglobin Concent 32.2 Mean Corpuscular Volume 94.9 Mean Platelet Volume 7.8 Monocytes # 0.9 Monocytes % 8.1 Neutrophils # 8.4 H Neutrophils % 79.2 H Nucleated Red Blood Cells # 0.0 Nucleated Red Blood Cells % 0.0 Phosphorus Level 2.6 # Platelet Count 255 Potassium Level 3.6 Red Blood Count 3.30 L Red Cell Distribution Width 17.4 H Sodium Level 140 Valproic Acid (Depakene) Level 45 L White Blood Count 10.6 Medications Current Medications Pantoprazole (Protonix Iv) 40 mg DAILY@06 IV Last administered on 09/08/16 06: 32; Admin Dose 40 MG; Start 08/31/16 at 06:00 Eye Lubricant 1 drop 1 drop TID BOTH EYES Last administered on 09/08/16 08:32; Admin Dose 1 DROP; Start 08/30/16 at 21:00 Propofol 100 ml @ 2.1 mls/hr Q12H IV Last administered on 09/03/16 10:10; Admin Dose 9.24 MLS/HR; Start 08/30/16 at 17:30 Vecuronium [place]/Dextrose (Norcuron/D5W) 100 ml @ 0 mls/hr TITRATE IV Last administered on 08/31/16 08:25; Admin Dose 2.1 MLS/HR; Start 08/30/16 at 17:30 Miscellaneous Information 1 ea NOTE XX ; Start 08/30/16 at 19:00 Glucose (Glutose) 15 gm Q15M PRN PO DECREASED GLUCOSE; Start 08/30/16 at 19:00 Glucose (Glutose) 22.5 gm Q15M PRN PO DECREASED GLUCOSE; Start 08/30/16 at 19: 00 Dextrose (D50w Syringe) 25 ml Q15M PRN IV DECREASED GLUCOSE Last administered on 09/04/16 14:38; Admin Dose 25 ML; Start 08/30/16 at 19:00 Dextrose (D50w Syringe) 50 ml Q15M PRN IV DECREASED GLUCOSE; Start 08/30/16 at 19:00 Glucagon (Glucagen) 1 mg Q15M PRN IM DECREASED GLUCOSE; Start 08/30/16 at 19:00 Glucose (Glutose) 15 gm Q15M PRN BUCCAL DECREASED GLUCOSE; Start 08/30/16 at 19 :00 Insulin Aspart (Novolog Insulin Pen) (Adult SC Insulin - Mild Algorithm)... Q6 SC ; Start 08/30/16 at 18:00 Lorazepam (Ativan) 2 mg Q2H PRN IV SEIZURES Last administered on 09/08/16 04:22 ; Admin Dose 2 MG; Start 09/01/16 at 02:00 Metoclopramide HCl 5 mg 5 mg Q6 IV Last administered on 09/08/16 06:33; Admin Dose 5 MG; Start 09/03/16 at 12:00 Nicardipine HCl/ Sodium Chloride (Cardene Iv/NS) 500 ml @ 70 mls/hr TITRATE IV Last administered on 09/08/16 07:31; Admin Dose 80 MLS/HR; Start 09/03/16 at 11:30 Heparin Sodium (Porcine) (Heparin (5000 Units/0.5 ml)) 5,000 unit Q12 SC Last administered on 09/08/16 08:41; Admin Dose 5,000 UNIT; Start 09/04/16 at 09:00 Valproate Sodium (Depakene Liquid Cup) 750 mg TID NGT Last administered on 08:31; Admin Dose 750 MG; Start 09/05/16 at 13:00 Amlodipine Besylate (Norvasc) 10 mg DAILY NGT Last administered on 09/08/16 08: 34; Admin Dose 10 MG; Start 09/06/16 at 09:00 Benazepril HCl (Lotensin) 40 mg DAILY GTB Last administered on 09/08/16 08:35; Admin Dose 40 MG; Start 09/06/16 at 09:00 Nystatin (Nystatin Powder) 1 applic BID TOP Last administered on 09/08/16 08:36 ; Admin Dose 1 APPLIC; Start 09/06/16 at 12:30 IV Flush 10 ml 10 ml PRN PRN IV IV PROTOCOL; Start 09/06/16 at 14:30 Fosphenytoin Sodium/Sodium Chloride (Cerebyx/NS) 54 ml @ 210.667 mls/hr TID IVPB Last administered on 09/08/16 08:36; Admin Dose 210.667 MLS/HR; Start 09/07 at 13:00 Levetiracetam (Keppra Liquid) 1,500 mg BID GTB Last administered on 09/08/16 08 :31; Admin Dose 1,500 MG; Start 09/07/16 at 21:00 Carvedilol (Coreg) 25 mg BID NGT Last administered on 09/08/16 08:34; Admin Dose 25 MG; Start 09/08/16 at 09:00 Assessment/Plan Chief Complaint/Hosp Course Not sedated, opens eyes to stimulartion, not consistently, looks bilaterally, does not track visually, goes back to sleep, no definite response to visual threat, pupils 3 mm to 2 mm, EOMI, some end gaze horizontal nystagmus noticed, present corneals and gag. No movements in flaccid extremities to pain A/P Anoxic encephalopathy, s/p arrest 10 days ago. S/p seizures, none on current medications. Poor prognosis for functional recovery. Family wants to see pt's condition over the weekend prior to deciding on future care Problems: RONY MILLS MD Sep 08, 2016 13:25
[2016-09-08] MEDS: EPOETIN 10000 UNITS/1 ML INJ (ESRD) SC SCH (18:02)
--- NOTE | 2016-09-08 20:05 | CONS ---
Date/Time of Note Date/Time of Note DATE: 09/08/16 TIME: 20:03 Assessment/Plan Assessment/Plan Chief Complaint/Hosp Course Assessment: Status post cardiac arrest - unclear etiology, initial rhythm reported to be PEA , status post hypothermia protocol Accelerated hypertension Acute on chronic diastolic heart failure NSTEMI - likely type 2 Systemic inflammatory response syndrome Acute respiratory failure - intubated, on mechanical ventilation End-stage renal disease - on hemodialysis Anoxic brain injury Recommendations: -echocardiogram showed LVEF 60-65%, moderate LVH -continue amlodipine, benazepril, carvedilol -wean off nicardipine drip as tolerated -volume management via hemodialysis per nephrology -follow up neurology recommendations Problems: Consultation Date/Type/Reason Admit Date/Time Aug 30, 2016 at 15:45 Initial Consult Date 09/01/16 Type of Consultation: Cardiology 24 HR Interval Summary Free Text/Dictation Opens eyes, but does not track. Detailed Summary Additional Comments Unable to obtain review of systems due to patient's mental status. Exam/Review of Systems Vital Signs Vitals Vital Signs Date Time Temp Pulse Resp B/P Pulse Ox O2 Delivery O2 Flow Rate FiO2 09/08/16 17:53 100 19 162/73 98 Mechanical Ventilator 09/08/16 17:20 30 09/08/16 16:00 99.7 Intake and Output 09/07/16 09/07/16 09/08/16 15:00 23:00 07:00 Intake Total 999 ml 989 ml 1260 ml Output Total 0 ml 3000 ml 7500 ml Balance 999 ml -2011 ml -6240 ml Exam Constitutional: other (intubated), No alert, No oriented Psych: other (intubated), No nl mood/affect Head: atraumatic, normocephalic Eyes: nl conjunctiva, nl lids ENMT: intubated Neck: supple Respiratory: crackles/rales, diminished breath sounds Cardiovascular: regular rate and rhythm Gastrointestinal: non-tender, soft Musculoskeletal: nl extremities to inspection Extremities: No clubbing, No cyanosis, No edema Neurological: No nl mental status, No nl speech Results Result Diagram: 09/08/16 0330 09/08/16 0330 Results 24 hrs Laboratory Tests Test 09/07/16 23:40 09/08/16 03:30 09/08/16 05:16 09/08/16 13:40 Bedside Glucose 117 122 101 Anion Gap 14 Basophils # 0.0 Basophils % 0.5 Blood Morphology Comment Blood Urea Nitrogen 26 #H Calcium Level 9.0 Carbon Dioxide Level 27 Chloride Level 103 Creatinine 3.91 #H Eosinophils # 0.2 Eosinophils % 1.4 Glucose Level 127 Hematocrit 31.3 L Hemoglobin 10.1 L Lymphocytes # 1.1 Lymphocytes % 10.8 L Magnesium Level 2.1 Mean Corpuscular Hemoglobin 30.6 Mean Corpuscular Hemoglobin Concent 32.2 Mean Corpuscular Volume 94.9 Mean Platelet Volume 7.8 Monocytes # 0.9 Monocytes % 8.1 Neutrophils # 8.4 H Neutrophils % 79.2 H Nucleated Red Blood Cells # 0.0 Nucleated Red Blood Cells % 0.0 Phosphorus Level 2.6 # Platelet Count 255 Potassium Level 3.6 Red Blood Count 3.30 L Red Cell Distribution Width 17.4 H Sodium Level 140 Valproic Acid (Depakene) Level 45 L White Blood Count 10.6 Test 09/08/16 17:28 Bedside Glucose 103 Medications Medications Current Medications Pantoprazole (Protonix Iv) 40 mg DAILY@06 IV Last administered on 09/08/16 06: 32; Admin Dose 40 MG; Start 08/31/16 at 06:00 Eye Lubricant 1 drop 1 drop TID BOTH EYES Last administered on 09/08/16 13:26; Admin Dose 1 DROP; Start 08/30/16 at 21:00 Propofol 100 ml @ 2.1 mls/hr Q12H IV Last administered on 09/03/16 10:10; Admin Dose 9.24 MLS/HR; Start 08/30/16 at 17:30 Vecuronium [place]/Dextrose (Norcuron/D5W) 100 ml @ 0 mls/hr TITRATE IV Last administered on 08/31/16 08:25; Admin Dose 2.1 MLS/HR; Start 08/30/16 at 17:30 Miscellaneous Information 1 ea NOTE XX ; Start 08/30/16 at 19:00 Glucose (Glutose) 15 gm Q15M PRN PO DECREASED GLUCOSE; Start 08/30/16 at 19:00 Glucose (Glutose) 22.5 gm Q15M PRN PO DECREASED GLUCOSE; Start 08/30/16 at 19: 00 Dextrose (D50w Syringe) 25 ml Q15M PRN IV DECREASED GLUCOSE Last administered on 09/04/16 14:38; Admin Dose 25 ML; Start 08/30/16 at 19:00 Dextrose (D50w Syringe) 50 ml Q15M PRN IV DECREASED GLUCOSE; Start 08/30/16 at 19:00 Glucagon (Glucagen) 1 mg Q15M PRN IM DECREASED GLUCOSE; Start 08/30/16 at 19:00 Glucose (Glutose) 15 gm Q15M PRN BUCCAL DECREASED GLUCOSE; Start 08/30/16 at 19 :00 Insulin Aspart (Novolog Insulin Pen) (Adult SC Insulin - Mild Algorithm)... Q6 SC ; Start 08/30/16 at 18:00 Lorazepam (Ativan) 2 mg Q2H PRN IV SEIZURES Last administered on 09/08/16 04:22 ; Admin Dose 2 MG; Start 09/01/16 at 02:00 Metoclopramide HCl 5 mg 5 mg Q6 IV Last administered on 09/08/16 17:15; Admin Dose 5 MG; Start 09/03/16 at 12:00 Nicardipine HCl/ Sodium Chloride (Cardene Iv/NS) 500 ml @ 70 mls/hr TITRATE IV Last administered on 09/08/16 07:31; Admin Dose 80 MLS/HR; Start 09/03/16 at 11:30 Heparin Sodium (Porcine) (Heparin (5000 Units/0.5 ml)) 5,000 unit Q12 SC Last administered on 09/08/16 08:41; Admin Dose 5,000 UNIT; Start 09/04/16 at 09:00 Valproate Sodium (Depakene Liquid Cup) 750 mg TID NGT Last administered on 13:25; Admin Dose 750 MG; Start 09/05/16 at 13:00 Amlodipine Besylate (Norvasc) 10 mg DAILY NGT Last administered on 09/08/16 08: 34; Admin Dose 10 MG; Start 09/06/16 at 09:00 Benazepril HCl (Lotensin) 40 mg DAILY GTB Last administered on 09/08/16 08:35; Admin Dose 40 MG; Start 09/06/16 at 09:00 Nystatin (Nystatin Powder) 1 applic BID TOP Last administered on 09/08/16 08:36 ; Admin Dose 1 APPLIC; Start 09/06/16 at 12:30 IV Flush 10 ml 10 ml PRN PRN IV IV PROTOCOL; Start 09/06/16 at 14:30 Fosphenytoin Sodium/Sodium Chloride (Cerebyx/NS) 54 ml @ 210.667 mls/hr TID IVPB Last administered on 09/08/16 13:27; Admin Dose 210.667 MLS/HR; Start 09/07 at 13:00 Levetiracetam (Keppra Liquid) 1,500 mg BID GTB Last administered on 09/08/16 08 :31; Admin Dose 1,500 MG; Start 09/07/16 at 21:00 Carvedilol (Coreg) 25 mg BID NGT Last administered on 09/08/16 08:34; Admin Dose 25 MG; Start 09/08/16 at 09:00 IFEOMA NARVAEZ MD Sep 08, 2016 20:05
[2016-09-09] VITALS (100 sets, daily range): BP systolic 116–204; BP diastolic 65–97; PULSE 86–105; RESP 0–25
[2016-09-09] MEDS: ALBUTEROL HFA 8 GM INHALER INH SCH ×5 (01:27→19:33)
[2016-09-09] MEDS: IPRATROPIUM (HFA) 12.9 GM INHALER INH SCH ×5 (01:27→19:33)
[2016-09-09] MEDS: PANTOPRAZOLE 40 MG INJ IV SCH (05:19)
[2016-09-09] MEDS: METOCLOPRAMIDE 10 MG INJ IV SCH ×3 (05:19→17:33)
[2016-09-09] MEDS: PROPOFOL 100 ML IV SCH ×2 (05:30→17:30)
[2016-09-09] MEDS: Insulin NOVOLOG SS MILD Algorithm (NPO/TPN/ENTERAL FEEDS) SC SCH ×3 (05:38→17:40)
[2016-09-09 06:22] LABS: POTASSIUM 3.6 mmol/L (3.5-5.1)
[2016-09-09 06:25] LABS: CREATININE 4.87 mg/dl (0.44-1.00)
[2016-09-09 06:26] LABS: CALCIUM 8.5 mg/dl (8.4-10.2); MAGNESIUM 2.1 mg/dl (1.7-2.5); PHOSPHORUS 2.7 mg/dl (2.5-4.9)
--- NOTE | 2016-09-09 08:10 | CONS ---
Date/Time of Note Date/Time of Note DATE: 09/09/16 TIME: 08:08 Consult Date/Type/Reason Admit Date/Time Aug 30, 2016 at 15:45 Initial Consult Date 09/01/16 Type of Consultation: Cardiology Subjective On HD. pt. seen and examined in icu. d/w rn at bedside. Objective Vital Signs Date Time Temp Pulse Resp B/P Pulse Ox O2 Delivery O2 Flow Rate FiO2 09/09/16 07:00 102 09/09/16 07:00 17 176/86 99 Mechanical Ventilator 09/09/16 05:38 30 09/09/16 00:00 100.1 Intake and Output 09/08/16 09/08/16 09/09/16 15:00 23:00 07:00 Intake Total 668 ml 389 ml 545 ml Output Total 3200 ml Balance 668 ml 389 ml -2655 ml Constitutional: other (intubated), No alert, No oriented Psych: other (intubated), No nl mood/affect Head: atraumatic, normocephalic Eyes: nl conjunctiva, nl lids ENMT: intubated Neck: supple Respiratory: crackles/rales, diminished breath sounds Cardiovascular: regular rate and rhythm Gastrointestinal: non-tender, soft Musculoskeletal: nl extremities to inspection Extremities: No clubbing, No cyanosis, No edema Neurological: No nl mental status, No nl speech Results/Medications Result Diagram: 09/08/16 0330 09/09/16 0430 Results 24 hrs Laboratory Tests Test 09/08/16 13:40 09/08/16 17:28 09/08/16 23:52 09/09/16 04:30 Bedside Glucose 101 103 122 Anion Gap 15 Blood Urea Nitrogen 36 H Calcium Level 8.5 Carbon Dioxide Level 27 Chloride Level 102 Creatinine 4.87 H Glucose Level 122 Magnesium Level 2.1 Phosphorus Level 2.7 Potassium Level 3.6 Sodium Level 140 Test 09/09/16 05:17 Bedside Glucose 116 Medications Current Medications Pantoprazole (Protonix Iv) 40 mg DAILY@06 IV Last administered on 09/09/16 05: 19; Admin Dose 40 MG; Start 08/31/16 at 06:00 Eye Lubricant 1 drop 1 drop TID BOTH EYES Last administered on 09/08/16 20:37; Admin Dose 1 DROP; Start 08/30/16 at 21:00 Propofol 100 ml @ 2.1 mls/hr Q12H IV Last administered on 09/03/16 10:10; Admin Dose 9.24 MLS/HR; Start 08/30/16 at 17:30 Vecuronium [place]/Dextrose (Norcuron/D5W) 100 ml @ 0 mls/hr TITRATE IV Last administered on 08/31/16 08:25; Admin Dose 2.1 MLS/HR; Start 08/30/16 at 17:30 Miscellaneous Information 1 ea NOTE XX ; Start 08/30/16 at 19:00 Glucose (Glutose) 15 gm Q15M PRN PO DECREASED GLUCOSE; Start 08/30/16 at 19:00 Glucose (Glutose) 22.5 gm Q15M PRN PO DECREASED GLUCOSE; Start 08/30/16 at 19: 00 Dextrose (D50w Syringe) 25 ml Q15M PRN IV DECREASED GLUCOSE Last administered on 09/04/16 14:38; Admin Dose 25 ML; Start 08/30/16 at 19:00 Dextrose (D50w Syringe) 50 ml Q15M PRN IV DECREASED GLUCOSE; Start 08/30/16 at 19:00 Glucagon (Glucagen) 1 mg Q15M PRN IM DECREASED GLUCOSE; Start 08/30/16 at 19:00 Glucose (Glutose) 15 gm Q15M PRN BUCCAL DECREASED GLUCOSE; Start 08/30/16 at 19 :00 Insulin Aspart (Novolog Insulin Pen) (Adult SC Insulin - Mild Algorithm)... Q6 SC ; Start 08/30/16 at 18:00 Lorazepam (Ativan) 2 mg Q2H PRN IV SEIZURES Last administered on 09/08/16 04:22 ; Admin Dose 2 MG; Start 09/01/16 at 02:00 Metoclopramide HCl 5 mg 5 mg Q6 IV Last administered on 09/09/16 05:19; Admin Dose 5 MG; Start 09/03/16 at 12:00 Nicardipine HCl/ Sodium Chloride (Cardene Iv/NS) 500 ml @ 70 mls/hr TITRATE IV Last administered on 09/08/16 07:31; Admin Dose 80 MLS/HR; Start 09/03/16 at 11:30 Heparin Sodium (Porcine) (Heparin (5000 Units/0.5 ml)) 5,000 unit Q12 SC Last administered on 09/08/16 20:40; Admin Dose 5,000 UNIT; Start 09/04/16 at 09:00 Valproate Sodium (Depakene Liquid Cup) 750 mg TID NGT Last administered on 21:21; Admin Dose 750 MG; Start 09/05/16 at 13:00 Amlodipine Besylate (Norvasc) 10 mg DAILY NGT Last administered on 09/08/16 08: 34; Admin Dose 10 MG; Start 09/06/16 at 09:00 Benazepril HCl (Lotensin) 40 mg DAILY GTB Last administered on 09/08/16 08:35; Admin Dose 40 MG; Start 09/06/16 at 09:00 Nystatin (Nystatin Powder) 1 applic BID TOP Last administered on 09/08/16 20:37 ; Admin Dose 1 APPLIC; Start 09/06/16 at 12:30 IV Flush 10 ml 10 ml PRN PRN IV IV PROTOCOL; Start 09/06/16 at 14:30 Fosphenytoin Sodium/Sodium Chloride (Cerebyx/NS) 54 ml @ 210.667 mls/hr TID IVPB Last administered on 09/08/16 20:39; Admin Dose 210.667 MLS/HR; Start 09/07 at 13:00 Levetiracetam (Keppra Liquid) 1,500 mg BID GTB Last administered on 09/08/16 20 :38; Admin Dose 1,500 MG; Start 09/07/16 at 21:00 Carvedilol (Coreg) 25 mg BID NGT Last administered on 09/08/16 20:38; Admin Dose 25 MG; Start 09/08/16 at 09:00 Assessment/Plan Chief Complaint/Hosp Course 1. End-stage renal disease. On dialysis again this am for volume removal. Will continue to monitor. 2. Hypertensive urgency. Etiology is multifactorial, in part due to increased intravascular volume. Will continue dialysis if the patient is euvolemic. Anticipate dialysis tomorrow. Will up-titrate Coreg to 25 b.i.d. Continue Norvasc and Benazepril. Continue to wean off nicardipine drip. 3. Volume overload. Continue ultrafiltration with dialysis. 4. Anemia. Continue to monitor hemoglobin and hematocrit levels. Will continue Epogen. 5. Mineral bone disorder. Will monitor calcium and phosphorus levels. Continue phosphate binders. 6. Ventilatory-dependent respiratory failure. Vent settings have been reviewed. ABG has been reviewed. Follow up with pulmonary. 7. Anoxic brain injury secondary code arrest. Continue to monitor. Follow up with neurology. 8. Myoclonic jerks/seizures. Continue Keppra. 9. Diabetes. Continue Accu-Cheks and insulin sliding scale. 10. Status post code arrest. 11. Leukocytosis/SIRS. Improving. The patient's antibiotics were discontinued. Problems: JESSE DURHAM MD Sep 09, 2016 08:09
[2016-09-09] MEDS: SEVELAMER CARBONATE 2.4 GM PKT PO SCH ×3 (08:17→17:34)
[2016-09-09] MEDS: ARTIFICIAL TEARS 15 ML OPH BOTH EYES SCH ×3 (08:18→20:44)
[2016-09-09] MEDS: LEVETIRACETAM (100 MG/ML) 5ML CUP GTB SCH ×2 (08:18→20:44)
[2016-09-09] MEDS: BENAZEPRIL 40 MG TAB GTB SCH (08:20)
[2016-09-09] MEDS: FOSPHENYTOIN (PE) 200 MG in SOD CHLORIDE 0.9% 50 ML IVPB SCH ×3 (08:21→20:44)
[2016-09-09] MEDS: VALPROIC ACID LIQUID CUP 250 MG/5 ML CUP NGT SCH ×3 (08:22→20:45)
[2016-09-09] MEDS: AMLODIPINE 10 MG TAB NGT SCH (08:22)
[2016-09-09] MEDS: NYSTATIN 30 GM POWDER BTL TOP SCH ×2 (08:23→20:45)
[2016-09-09] MEDS: HEPARIN 5,000 UNIT/0.5 ML SYG SC SCH ×2 (08:24→20:59)
--- NOTE | 2016-09-09 09:19 | RADRPT ---
PROCEDURE: XR Chest. CLINICAL INDICATION: Shortness of breath TECHNIQUE: A single portable view of the chest was obtained. COMPARISON: 09/08/2016 FINDINGS: The endotracheal tube, left PICC line, and right hemodialysis catheter unchanged. The nasogastric t ube tip is not visualized that may be within the mid esophagus. The cardiomediastinal silhouette is within normal limits. The lung volumes are low with bibasilar atelectasis. The lungs and pleural sp aces are clear. The soft tissues and osseous structures are unremarkable. IMPRESSION: 1. Nasogastric tube the tip of which may be in the mid esophagus. Recommend a KUB for confirmation . 2. Low lung volumes with bibasilar compressive atelectasis. RPTAT: HPNM Results were discussed with the patient's nurse Prashanth Fleming at 09/09/2016 9:18:41 AM Physician [place] Date Time Electronically viewed and signed by Judson Capps Physician on 09/09/2016 09:19 /
[2016-09-09 09:58] LABS: RED BLOOD COUNT 3.08 10^6/ul (4.20-5.40); UNCORRECTED WBC 13.4 10^3/ul (4.8-10.8); WHITE BLOOD COUNT 13.4 10^3/ul (4.8-10.8)
[2016-09-09 09:59] LABS: BASOPHIL # 0.1 10^3/ul (0.0-0.1); BASOPHILS % 0.6 % (0.0-2.0); EOSINOPHILS % 1.3 % (0.0-7.0); HEMOGLOBIN 9.3 g/dl (12.0-16.0); LYMPHOCYTES # 1.2 10^3/ul (0.8-2.9); LYMPHOCYTES % 9.2 % (15.0-51.0); MEAN CORPUSCULAR HEMOGLOBIN 30.2 pg (29.0-33.0); MEAN CORPUSCULAR VOLUME 100.6 fl (82.0-101.0); MEAN PLATELET VOLUME 10.6 fl (7.4-10.4); MONOCYTE # 1.2 10^3/ul (0.3-0.9); MONOCYTES % 8.9 % (0.0-11.0); NEUTROPHIL # 9.9 10^3/ul (1.6-7.5); NEUTROPHILS % 73.8 % (39.0-77.0); NUCLEATED RED BLOOD CELLS% 0.2 /100WBC (0.0-0.0); PLATELET COUNT 228 10^3/UL (140-440); RED CELL DISTRIBUTION WIDTH 15.4 % (11.5-14.5)
[2016-09-09] MEDS: niCARdipine 50 MG in SOD CHLORIDE 0.9% 480 ML IV SCH (11:52)
--- NOTE | 2016-09-09 11:53 | CONS ---
Date/Time of Note Date/Time of Note DATE: 09/09/16 TIME: 11:51 Consult Date/Type/Reason Admit Date/Time Aug 30, 2016 at 15:45 Initial Consult Date 09/01/16 Type of Consultation: pulmonary Subjective Patient more alert today according to family and nursing staff Eyes open makes eye contact Moving left arm Remains hemodynamically stable Minimal oral secretions Objective Vital Signs Date Time Temp Pulse Resp B/P Pulse Ox O2 Delivery O2 Flow Rate FiO2 09/09/16 09:00 97 15 136/77 100 Mechanical Ventilator 09/09/16 08:00 30 09/09/16 08:00 98.8 Intake and Output 09/08/16 09/08/16 09/09/16 15:00 23:00 07:00 Intake Total 668 ml 389 ml 545 ml Output Total 3200 ml Balance 668 ml 389 ml -2655 ml PHYSICAL EXAMINATION GENERAL: Well-nourished well-developed young French lady comfortable at rest VITAL SIGNS: see below. HEENT: Pupils equal, round, and reactive to light. CARDIAC: S1, S2, tachycardia. CHEST: Diminished air entry bilaterally. ABDOMEN: Mildly distended. No bowel sounds. EXTREMITIES: No cyanosis, clubbing or edema. NEUROLOGIC: Generalized weakness possible right hemiplegia Results/Medications Result Diagram: 09/09/16 0430 09/09/16 0430 Results 24 hrs Laboratory Tests Test 09/08/16 13:40 09/08/16 17:28 09/08/16 23:52 09/09/16 04:30 Bedside Glucose 101 103 122 Anion Gap 15 Basophils # 0.1 Basophils % 0.6 Blood Urea Nitrogen 36 H Calcium Level 8.5 Carbon Dioxide Level 27 Chloride Level 102 Creatinine 4.87 H Eosinophils # 0.0 Eosinophils % 1.3 Glucose Level 122 Hematocrit 31.0 L Hemoglobin 9.3 L Lymphocytes # 1.2 Lymphocytes % 9.2 L Magnesium Level 2.1 Mean Corpuscular Hemoglobin 30.2 Mean Corpuscular Hemoglobin Concent 30.0 L Mean Corpuscular Volume 100.6 Mean Platelet Volume 10.6 #H Monocytes # 1.2 H Monocytes % 8.9 Neutrophils # 9.9 H Neutrophils % 73.8 Nucleated Red Blood Cells # 0.0 Nucleated Red Blood Cells % 0.2 H Phosphorus Level 2.7 Platelet Count 228 Potassium Level 3.6 Red Blood Count 3.08 L Red Cell Distribution Width 15.4 H Sodium Level 140 White Blood Count 13.4 #H Test 09/09/16 05:17 Bedside Glucose 116 Medications Current Medications Pantoprazole (Protonix Iv) 40 mg DAILY@06 IV Last administered on 09/09/16 05: 19; Admin Dose 40 MG; Start 08/31/16 at 06:00 Eye Lubricant 1 drop 1 drop TID BOTH EYES Last administered on 09/09/16 08:18; Admin Dose 1 DROP; Start 08/30/16 at 21:00 Propofol 100 ml @ 2.1 mls/hr Q12H IV Last administered on 09/03/16 10:10; Admin Dose 9.24 MLS/HR; Start 08/30/16 at 17:30 Vecuronium [place]/Dextrose (Norcuron/D5W) 100 ml @ 0 mls/hr TITRATE IV Last administered on 08/31/16 08:25; Admin Dose 2.1 MLS/HR; Start 08/30/16 at 17:30 Miscellaneous Information 1 ea NOTE XX ; Start 08/30/16 at 19:00 Glucose (Glutose) 15 gm Q15M PRN PO DECREASED GLUCOSE; Start 08/30/16 at 19:00 Glucose (Glutose) 22.5 gm Q15M PRN PO DECREASED GLUCOSE; Start 08/30/16 at 19: 00 Dextrose (D50w Syringe) 25 ml Q15M PRN IV DECREASED GLUCOSE Last administered on 09/04/16 14:38; Admin Dose 25 ML; Start 08/30/16 at 19:00 Dextrose (D50w Syringe) 50 ml Q15M PRN IV DECREASED GLUCOSE; Start 08/30/16 at 19:00 Glucagon (Glucagen) 1 mg Q15M PRN IM DECREASED GLUCOSE; Start 08/30/16 at 19:00 Glucose (Glutose) 15 gm Q15M PRN BUCCAL DECREASED GLUCOSE; Start 08/30/16 at 19 :00 Insulin Aspart (Novolog Insulin Pen) (Adult SC Insulin - Mild Algorithm)... Q6 SC ; Start 08/30/16 at 18:00 Lorazepam (Ativan) 2 mg Q2H PRN IV SEIZURES Last administered on 09/08/16 04:22 ; Admin Dose 2 MG; Start 09/01/16 at 02:00 Metoclopramide HCl 5 mg 5 mg Q6 IV Last administered on 09/09/16 05:19; Admin Dose 5 MG; Start 09/03/16 at 12:00 Nicardipine HCl/ Sodium Chloride (Cardene Iv/NS) 500 ml @ 70 mls/hr TITRATE IV Last administered on 09/08/16 07:31; Admin Dose 80 MLS/HR; Start 09/03/16 at 11:30 Heparin Sodium (Porcine) (Heparin (5000 Units/0.5 ml)) 5,000 unit Q12 SC Last administered on 09/09/16 08:24; Admin Dose 5,000 UNIT; Start 09/04/16 at 09:00 Valproate Sodium (Depakene Liquid Cup) 750 mg TID NGT Last administered on 08:22; Admin Dose 750 MG; Start 09/05/16 at 13:00 Amlodipine Besylate (Norvasc) 10 mg DAILY NGT Last administered on 09/09/16 08: 22; Admin Dose 10 MG; Start 09/06/16 at 09:00 Benazepril HCl (Lotensin) 40 mg DAILY GTB Last administered on 09/09/16 08:20; Admin Dose 40 MG; Start 09/06/16 at 09:00 Nystatin (Nystatin Powder) 1 applic BID TOP Last administered on 09/09/16 08:23 ; Admin Dose 1 APPLIC; Start 09/06/16 at 12:30 IV Flush 10 ml 10 ml PRN PRN IV IV PROTOCOL; Start 09/06/16 at 14:30 Fosphenytoin Sodium/Sodium Chloride (Cerebyx/NS) 54 ml @ 210.667 mls/hr TID IVPB Last administered on 09/09/16 08:21; Admin Dose 210.667 MLS/HR; Start 09/07 at 13:00 Levetiracetam (Keppra Liquid) 1,500 mg BID GTB Last administered on 09/09/16 08 :18; Admin Dose 1,500 MG; Start 09/07/16 at 21:00 Carvedilol (Coreg) 25 mg BID NGT Last administered on 09/09/16 08:21; Admin Dose 25 MG; Start 09/08/16 at 09:00 Assessment/Plan Chief Complaint/Hosp Course Assessment 1. Cardiopulmonary arrest 2. Anoxic encephalopathy appears to be slowly resolving 3. Dysphagia 4. Possible aspiration pneumonia 5. Renal failure Plan 1. Continue mechanical ventilation. I discussed with family at length since patient is clinically improving I will attempt CPAP trial. Patient may require tracheostomy 2. Patient will likely require G-tube if family wish to continue current level of care 3. Continue antibiotics 4. Continue renal recommendations 5. DVT and GI prophylaxis Problems: BHUPENDRA PLASCENCIA MD, [facility] Sep 09, 2016 11:53
--- NOTE | 2016-09-09 13:17 | PN ---
Date/Time of Note Date/Time of Note DATE: 09/09/16 TIME: 13:12 Assessment/Plan VTE Prophylaxis VTE Prophylaxis Intervention: SCD's Lines/Catheters IV Catheter Type (from Nrs): PICC Line Central line still needed: Yes Urinary Cath still in place: No Assessment/Plan Chief Complaint/Hosp Course Assessment and plan 1. Status post cardiac arrest. Patient is status post hypothermia protocol. Neurology following. Of note patient did have abnormal EEG with noted seizure activity and encephalopathy. Likely secondary to anoxic brain injury. Continue to monitor neuro status. Brain MRI did have evidence suggesting hypoxic ischemic injury. Plan for follow up EEG 2. Seizures lightly secondary to anoxic brain injury. Continue anticonvulsants. Continue with blocklayer recommendations 3. Elevated troponin secondary to #1. Of note patient did have preserved LVEF. Continue optimization with cardiovascular medications 4. Respiratory failure. Secondary to #1. Continue with pulmonary hygiene. At this time unable to tolerate vent liberation . Continue with crimper assembler recommendations 5. Hypertensive urgency. Remains on Cardene drip. Titrate down as tolerated 6. Mild pulmonary hypertension. Continue on O2 supplementation 7. End-stage renal disease. Monitor renal panel. People Greeter following. Continue on HD DVT prophylaxis: SCDs GERD prophylaxis: PPI Disposition and plan: Follow up repeat EEG. cont vent liberation trials. cont icu monitoring Discussed plan of care with Dr. Holloway Critical care time: 30 minutes Problems: Subjective 24 Hr Interval Summary Free Text/Dictation intubated, off sedation at this time Exam/Review of Systems Vital Signs Vitals Vital Signs Date Time Temp Pulse Resp B/P Pulse Ox O2 Delivery O2 Flow Rate FiO2 09/09/16 09:00 97 15 136/77 100 Mechanical Ventilator 09/09/16 08:00 30 09/09/16 08:00 98.8 Intake and Output 09/08/16 09/08/16 09/09/16 15:00 23:00 07:00 Intake Total 668 ml 389 ml 545 ml Output Total 3200 ml Balance 668 ml 389 ml -2655 ml Exam General: Intubated no apparent distress Eyes: pupils equal round, Anicteric sclera Neck: Supple nontender, no JVD Cardiac: S1-S2 auscultated, slight murmur auscultated Pulmonary: Intubated. Minimally coarse bilaterally on lung wen GI: Abdomen soft nontender nondistended, bowel sounds active Extremities: Edema noted bilateral upper and lower extremities Skin: Clean dry and intact Neurologic: Intubated. Does respond to verbal cues. No purposeful response Results Result Diagram: 09/09/16 0430 09/09/16 0430 Results 24 hrs Laboratory Tests Test 09/08/16 13:40 09/08/16 17:28 09/08/16 23:52 09/09/16 04:30 Bedside Glucose 101 103 122 Anion Gap 15 Basophils # 0.1 Basophils % 0.6 Blood Urea Nitrogen 36 H Calcium Level 8.5 Carbon Dioxide Level 27 Chloride Level 102 Creatinine 4.87 H Eosinophils # 0.0 Eosinophils % 1.3 Glucose Level 122 Hematocrit 31.0 L Hemoglobin 9.3 L Lymphocytes # 1.2 Lymphocytes % 9.2 L Magnesium Level 2.1 Mean Corpuscular Hemoglobin 30.2 Mean Corpuscular Hemoglobin Concent 30.0 L Mean Corpuscular Volume 100.6 Mean Platelet Volume 10.6 #H Monocytes # 1.2 H Monocytes % 8.9 Neutrophils # 9.9 H Neutrophils % 73.8 Nucleated Red Blood Cells # 0.0 Nucleated Red Blood Cells % 0.2 H Phosphorus Level 2.7 Platelet Count 228 Potassium Level 3.6 Red Blood Count 3.08 L Red Cell Distribution Width 15.4 H Sodium Level 140 White Blood Count 13.4 #H Test 09/09/16 05:17 09/09/16 12:50 Bedside Glucose 116 110 Medications Medications Current Medications Pantoprazole (Protonix Iv) 40 mg DAILY@06 IV Last administered on 09/09/16 05: 19; Admin Dose 40 MG; Start 08/31/16 at 06:00 Eye Lubricant 1 drop 1 drop TID BOTH EYES Last administered on 09/09/16 12:55; Admin Dose 1 DROP; Start 08/30/16 at 21:00 Propofol 100 ml @ 2.1 mls/hr Q12H IV Last administered on 09/03/16 10:10; Admin Dose 9.24 MLS/HR; Start 08/30/16 at 17:30 Vecuronium [place]/Dextrose (Norcuron/D5W) 100 ml @ 0 mls/hr TITRATE IV Last administered on 08/31/16 08:25; Admin Dose 2.1 MLS/HR; Start 08/30/16 at 17:30 Miscellaneous Information 1 ea NOTE XX ; Start 08/30/16 at 19:00 Glucose (Glutose) 15 gm Q15M PRN PO DECREASED GLUCOSE; Start 08/30/16 at 19:00 Glucose (Glutose) 22.5 gm Q15M PRN PO DECREASED GLUCOSE; Start 08/30/16 at 19: 00 Dextrose (D50w Syringe) 25 ml Q15M PRN IV DECREASED GLUCOSE Last administered on 09/04/16 14:38; Admin Dose 25 ML; Start 08/30/16 at 19:00 Dextrose (D50w Syringe) 50 ml Q15M PRN IV DECREASED GLUCOSE; Start 08/30/16 at 19:00 Glucagon (Glucagen) 1 mg Q15M PRN IM DECREASED GLUCOSE; Start 08/30/16 at 19:00 Glucose (Glutose) 15 gm Q15M PRN BUCCAL DECREASED GLUCOSE; Start 08/30/16 at 19 :00 Insulin Aspart (Novolog Insulin Pen) (Adult SC Insulin - Mild Algorithm)... Q6 SC ; Start 08/30/16 at 18:00 Lorazepam (Ativan) 2 mg Q2H PRN IV SEIZURES Last administered on 09/08/16 04:22 ; Admin Dose 2 MG; Start 09/01/16 at 02:00 Metoclopramide HCl 5 mg 5 mg Q6 IV Last administered on 09/09/16 12:55; Admin Dose 5 MG; Start 09/03/16 at 12:00 Nicardipine HCl/ Sodium Chloride (Cardene Iv/NS) 500 ml @ 70 mls/hr TITRATE IV Last administered on 09/09/16 11:52; Admin Dose 30 MLS/HR; Start 09/03/16 at 11:30 Heparin Sodium (Porcine) (Heparin (5000 Units/0.5 ml)) 5,000 unit Q12 SC Last administered on 09/09/16 08:24; Admin Dose 5,000 UNIT; Start 09/04/16 at 09:00 Valproate Sodium (Depakene Liquid Cup) 750 mg TID NGT Last administered on 12:56; Admin Dose 750 MG; Start 09/05/16 at 13:00 Amlodipine Besylate (Norvasc) 10 mg DAILY NGT Last administered on 09/09/16 08: 22; Admin Dose 10 MG; Start 09/06/16 at 09:00 Benazepril HCl (Lotensin) 40 mg DAILY GTB Last administered on 09/09/16 08:20; Admin Dose 40 MG; Start 09/06/16 at 09:00 Nystatin (Nystatin Powder) 1 applic BID TOP Last administered on 09/09/16 08:23 ; Admin Dose 1 APPLIC; Start 09/06/16 at 12:30 IV Flush 10 ml 10 ml PRN PRN IV IV PROTOCOL; Start 09/06/16 at 14:30 Fosphenytoin Sodium/Sodium Chloride (Cerebyx/NS) 54 ml @ 210.667 mls/hr TID IVPB Last administered on 09/09/16 12:56; Admin Dose 210.667 MLS/HR; Start 09/07 at 13:00 Levetiracetam (Keppra Liquid) 1,500 mg BID GTB Last administered on 09/09/16 08 :18; Admin Dose 1,500 MG; Start 09/07/16 at 21:00 Carvedilol (Coreg) 25 mg BID NGT Last administered on 09/09/16 08:21; Admin Dose 25 MG; Start 09/08/16 at 09:00 CORAL KAUR Sep 09, 2016 13:17
[2016-09-09 13:43] LABS: AADO2 Arterial 60.7 mmHg (7.0-24.0); Allen Test ACCEPTAB; Arterial Base Excess 2.1 mmol/L (-3.0-3); Arterial COHb 0.3 % (0.0-3.0); Arterial Fraction of Oxyhgb 97.1 % (93.0-99.0); Arterial HCO3 25.6 mmol/L (22.0-26.0); Arterial MetHb 0.4 % (0.0-1.5); Arterial Total Hemglobin 10.3 g/dl (12.0-18.0); Blood Gas PS 10; MODE VENT - CPAP
--- NOTE | 2016-09-09 15:02 | RADRPT ---
PROCEDURE: XR Abdomen. CLINICAL INDICATION: orogastric tube placement TECHNIQUE: Single AP view of the abdomen is available for review. COMPARISON: None. FINDINGS: Orogastric tube terminates in the antrum of the stomach. The bowel gas pattern is normal. There is no evidence of obstruction. There are no abnormal calcifications overlying the urinary tracts. No free air identified. The osseous structures do not demonstrate acute abnormality. IMPRESSION: 1. Satisfactory position of orogastric tube. 2. No evidence of bowel obstruction, perforation or radiopaque calculi overlying the urinary tracts . RPTAT: II .Ricardo Galan MD, MD Date Time Electronically viewed and signed by .Ricardo Galan MD, on 09/09/2016 15:01 .M/
[2016-09-10] VITALS (73 sets, daily range): BP systolic 124–192; BP diastolic 68–107; PULSE 74–97; RESP 9–25
[2016-09-10] MEDS: METOCLOPRAMIDE 10 MG INJ IV SCH ×5 (00:48→23:52)
[2016-09-10] MEDS: ALBUTEROL HFA 8 GM INHALER INH SCH ×4 (01:07→19:25)
[2016-09-10] MEDS: IPRATROPIUM (HFA) 12.9 GM INHALER INH SCH ×4 (01:08→19:24)
[2016-09-10] MEDS: PROPOFOL 100 ML IV SCH ×2 (05:30→17:30)
[2016-09-10] MEDS: niCARdipine 50 MG in SOD CHLORIDE 0.9% 480 ML IV SCH (05:56)
[2016-09-10] MEDS: Insulin NOVOLOG SS MILD Algorithm (NPO/TPN/ENTERAL FEEDS) SC SCH ×5 (06:00→23:54)
[2016-09-10 06:12] LABS: BASOPHILS % 0.1 % (0.0-2.0); EOSINOPHILS # 0.1 10^3/ul (0.0-0.5); EOSINOPHILS % 0.8 % (0.0-7.0); HEMOGLOBIN 8.8 g/dl (12.0-16.0); LYMPHOCYTES # 1.2 10^3/ul (0.8-2.9); MEAN CORPUSCULAR HEMOGLOBIN 30.8 pg (29.0-33.0); MEAN CORPUSCULAR HGB CONC 32.7 g/dl (32.0-37.0); MEAN CORPUSCULAR VOLUME 94.3 fl (82.0-101.0); MEAN PLATELET VOLUME 7.5 fl (7.4-10.4); MONOCYTE # 1.1 10^3/ul (0.3-0.9); MONOCYTES % 8.2 % (0.0-11.0); NEUTROPHIL # 10.9 10^3/ul (1.6-7.5); NEUTROPHILS % 81.9 % (39.0-77.0); PLATELET COUNT 239 10^3/UL (140-440); RED BLOOD COUNT 2.86 10^6/ul (4.20-5.40); RED CELL DISTRIBUTION WIDTH 16.5 % (11.5-14.5); UNCORRECTED WBC 13.3 10^3/ul (4.8-10.8); WHITE BLOOD COUNT 13.3 10^3/ul (4.8-10.8)
[2016-09-10 06:17] LABS: POTASSIUM 3.3 mmol/L (3.5-5.1)
[2016-09-10 06:19] LABS: CREATININE 4.97 mg/dl (0.44-1.00)
[2016-09-10 06:20] LABS: CALCIUM 8.5 mg/dl (8.4-10.2); PHOSPHORUS 2.3 mg/dl (2.5-4.9)
[2016-09-10] MEDS: PANTOPRAZOLE 40 MG INJ IV SCH (06:20)
[2016-09-10 06:21] LABS: MAGNESIUM 2.3 mg/dl (1.7-2.5)
[2016-09-10 06:31] LABS: CONDITION 1; LH ANALYZER COMMENTS 1
--- NOTE | 2016-09-10 08:06 | RADRPT ---
PROCEDURE: XR Chest. CLINICAL INDICATION: Pneumonia; CHF. TECHNIQUE: Single frontal view of the chest was obtained COMPARISON: Chest x-ray 09/09/2016 08:46 a.m. FINDINGS: The endotracheal tube, NG tube and double bore central venous catheter remain in stable position. T he heart is upper limits of normal for size. The left costophrenic angle is slightly obscured. The re is a suboptimal inspiration with compressive atelectasis and vascular crowding in the hilar areas . No pneumothorax is identified. The bony elements are normal. Monitoring electrodes a direct acr oss the chest. IMPRESSION: 1. Suboptimally between effort with compressive atelectasis and vascular crowding resulting in incr eased density in the lungs. Currently, no evidence of active cardiopulmonary disease. 2. Satisfactory positioning of the NG tube and central venous catheter. RPTAT:AAJJ Physician Elena Date Time Electronically viewed and signed by Physician Elena on 09/10/2016 08:06 NORMA/
[2016-09-10] MEDS: SEVELAMER CARBONATE 2.4 GM PKT PO SCH ×3 (08:25→17:55)
[2016-09-10] MEDS: LEVETIRACETAM (100 MG/ML) 5ML CUP GTB SCH ×2 (08:26→21:01)
[2016-09-10] MEDS: VALPROIC ACID LIQUID CUP 250 MG/5 ML CUP NGT SCH ×3 (08:26→21:01)
[2016-09-10] MEDS: HEPARIN 5,000 UNIT/0.5 ML SYG SC SCH ×2 (08:27→21:11)
[2016-09-10] MEDS: AMLODIPINE 10 MG TAB NGT SCH (08:28)
[2016-09-10] MEDS: BENAZEPRIL 40 MG TAB GTB SCH (08:29)
[2016-09-10] MEDS: NYSTATIN 30 GM POWDER BTL TOP SCH ×2 (08:30→21:06)
[2016-09-10] MEDS: ARTIFICIAL TEARS 15 ML OPH BOTH EYES SCH ×3 (08:31→21:07)
[2016-09-10] MEDS: FOSPHENYTOIN (PE) 200 MG in SOD CHLORIDE 0.9% 50 ML IVPB SCH ×3 (08:39→21:15)
--- NOTE | 2016-09-10 09:42 | CONS ---
Date/Time of Note Date/Time of Note DATE: 09/10/16 TIME: 09:41 Consult Date/Type/Reason Admit Date/Time Aug 30, 2016 at 15:45 Initial Consult Date 09/01/16 Type of Consultation: nephrology Subjective pt. seen and examined s/p HD yesterday Objective Vital Signs Date Time Temp Pulse Resp B/P Pulse Ox O2 Delivery O2 Flow Rate FiO2 09/10/16 08:00 30 09/10/16 07:30 98.6 90 16 185/95 100 Mechanical Ventilator Intake and Output 09/09/16 09/09/16 09/10/16 15:00 23:00 07:00 Intake Total 240 ml 992 ml 275 ml Output Total 0 ml 0 ml Balance 240 ml 992 ml 275 ml Results/Medications Result Diagram: 09/10/16 0500 09/10/16 0500 Results 24 hrs Laboratory Tests Test 09/09/16 12:50 09/09/16 13:35 09/09/16 17:32 09/10/16 00:46 Bedside Glucose 110 111 106 Arterial Blood HCO3 25.6 Arterial Blood Base Excess 2.1 Arterial Blood Oxygen Saturation 97.8 Cristian Test ACCEPTAB Arterial Blood Gas Puncture Site Right Radial Arterial Blood Carboxyhemoglobin 0.3 Arterial Blood Date Drawn 09/09/2016 1:29:53 PM Arterial Blood Methemoglobin 0.4 Arterial Blood pCO2 (Temp correct) 35.8 Arterial Blood pH (Temp corrected) 7.472 H Arterial Blood pO2 (Temp corrected) 111.1 H Blood Gas A-a O2 Differential 60.7 H Blood Gas Actual Respiration Rate 23 Blood Gas Low PEEP Setting 5.0 Blood Gas Modality VENT - CPAP Blood Gas Notified Time 09/09/2016 1:43:17 PM Blood Gas Notified Whom JOHN,SLUDGE CONTROL OPERATOR Blood Gas Pressure Support 10 Blood Gas Specimen Source Blood arterial Blood Gas Temperature 37.0 FiO2 30.0 Oxyhemoglobin Percent 97.1 Total Hemoglobin 10.3 L Test 09/10/16 05:00 09/10/16 06:19 Anion Gap 15 Basophils # 0.0 Basophils % 0.1 Blood Morphology Comment Blood Urea Nitrogen 41 H Calcium Level 8.5 Carbon Dioxide Level 28 Chloride Level 100 Creatinine 4.97 H Eosinophils # 0.1 Eosinophils % 0.8 Glucose Level 85 Hematocrit 27.0 L Hemoglobin 8.8 L Lymphocytes # 1.2 Lymphocytes % 9.0 L Magnesium Level 2.3 Mean Corpuscular Hemoglobin 30.8 Mean Corpuscular Hemoglobin Concent 32.7 Mean Corpuscular Volume 94.3 Mean Platelet Volume 7.5 # Monocytes # 1.1 H Monocytes % 8.2 Neutrophils # 10.9 H Neutrophils % 81.9 H Nucleated Red Blood Cells # 0.0 Nucleated Red Blood Cells % 0.0 Phosphorus Level 2.3 L Platelet Count 239 Potassium Level 3.3 L Red Blood Count 2.86 L Red Cell Distribution Width 16.5 H Sodium Level 140 White Blood Count 13.3 H Bedside Glucose 87 Medications Current Medications Pantoprazole (Protonix Iv) 40 mg DAILY@06 IV Last administered on 09/10/16 06: 20; Admin Dose 40 MG; Start 08/31/16 at 06:00 Eye Lubricant 1 drop 1 drop TID BOTH EYES Last administered on 09/10/16 08:31; Admin Dose 1 DROP; Start 08/30/16 at 21:00 Propofol 100 ml @ 2.1 mls/hr Q12H IV Last administered on 09/03/16 10:10; Admin Dose 9.24 MLS/HR; Start 08/30/16 at 17:30 Vecuronium [place]/Dextrose (Norcuron/D5W) 100 ml @ 0 mls/hr TITRATE IV Last administered on 08/31/16 08:25; Admin Dose 2.1 MLS/HR; Start 08/30/16 at 17:30 Miscellaneous Information 1 ea NOTE XX ; Start 08/30/16 at 19:00 Glucose (Glutose) 15 gm Q15M PRN PO DECREASED GLUCOSE; Start 08/30/16 at 19:00 Glucose (Glutose) 22.5 gm Q15M PRN PO DECREASED GLUCOSE; Start 08/30/16 at 19: 00 Dextrose (D50w Syringe) 25 ml Q15M PRN IV DECREASED GLUCOSE Last administered on 09/04/16 14:38; Admin Dose 25 ML; Start 08/30/16 at 19:00 Dextrose (D50w Syringe) 50 ml Q15M PRN IV DECREASED GLUCOSE; Start 08/30/16 at 19:00 Glucagon (Glucagen) 1 mg Q15M PRN IM DECREASED GLUCOSE; Start 08/30/16 at 19:00 Glucose (Glutose) 15 gm Q15M PRN BUCCAL DECREASED GLUCOSE; Start 08/30/16 at 19 :00 Insulin Aspart (Novolog Insulin Pen) (Adult SC Insulin - Mild Algorithm)... Q6 SC ; Start 08/30/16 at 18:00 Lorazepam (Ativan) 2 mg Q2H PRN IV SEIZURES Last administered on 09/08/16 04:22 ; Admin Dose 2 MG; Start 09/01/16 at 02:00 Metoclopramide HCl 5 mg 5 mg Q6 IV Last administered on 09/10/16 06:20; Admin Dose 5 MG; Start 09/03/16 at 12:00 Nicardipine HCl/ Sodium Chloride (Cardene Iv/NS) 500 ml @ 70 mls/hr TITRATE IV Last administered on 09/10/16 05:56; Admin Dose 30 MLS/HR; Start 09/03/16 at 11:30 Heparin Sodium (Porcine) (Heparin (5000 Units/0.5 ml)) 5,000 unit Q12 SC Last administered on 09/10/16 08:27; Admin Dose 5,000 UNIT; Start 09/04/16 at 09:00 Valproate Sodium (Depakene Liquid Cup) 750 mg TID NGT Last administered on 08:26; Admin Dose 750 MG; Start 09/05/16 at 13:00 Amlodipine Besylate (Norvasc) 10 mg DAILY NGT Last administered on 09/10/16 08: 28; Admin Dose 10 MG; Start 09/06/16 at 09:00 Benazepril HCl (Lotensin) 40 mg DAILY GTB Last administered on 09/10/16 08:29; Admin Dose 40 MG; Start 09/06/16 at 09:00 Nystatin (Nystatin Powder) 1 applic BID TOP Last administered on 09/10/16 08:30 ; Admin Dose 1 APPLIC; Start 09/06/16 at 12:30 IV Flush 10 ml 10 ml PRN PRN IV IV PROTOCOL; Start 09/06/16 at 14:30 Fosphenytoin Sodium/Sodium Chloride (Cerebyx/NS) 54 ml @ 210.667 mls/hr TID IVPB Last administered on 09/10/16 08:39; Admin Dose 210.667 MLS/HR; Start 09/07 at 13:00 Levetiracetam (Keppra Liquid) 1,500 mg BID GTB Last administered on 09/10/16 08 :26; Admin Dose 1,500 MG; Start 09/07/16 at 21:00 Carvedilol (Coreg) 25 mg BID NGT Last administered on 09/10/16 08:29; Admin Dose 25 MG; Start 09/08/16 at 09:00 Assessment/Plan Chief Complaint/Hosp Course 1. End-stage renal disease. Plan next HD tomorrow, continue to monitor volume status and lytes closely. 2. Hypertensive urgency. Etiology is multifactorial, in part due to increased intravascular volume. Will continue dialysis if the patient is euvolemic. Anticipate dialysis tomorrow. Will up-titrate Coreg to 25 b.i.d. Continue Norvasc and Benazepril. Continue to wean off nicardipine drip. 3. Volume overload. Continue ultrafiltration with dialysis. 4. Anemia. Continue to monitor hemoglobin and hematocrit levels. Will continue Epogen. 5. Mineral bone disorder. Will monitor calcium and phosphorus levels. Continue phosphate binders. 6. Ventilatory-dependent respiratory failure. Vent settings have been reviewed. ABG has been reviewed. Follow up with pulmonary. 7. Anoxic brain injury secondary code arrest. Continue to monitor. Follow up with neurology. 8. Myoclonic jerks/seizures. Continue Keppra. 9. Diabetes. Continue Accu-Cheks and insulin sliding scale. 10. Status post code arrest. 11. Leukocytosis/SIRS. Improving. The patient's antibiotics were discontinued. Problems: JESSE DURHAM MD Sep 10, 2016 09:42
[2016-09-10] MEDS ORDERED: POTASSIUM CHLORIDE 50 ML IVPB ONE (10:00)
--- NOTE | 2016-09-10 10:59 | CONS ---
Date/Time of Note Date/Time of Note DATE: 09/10/16 TIME: 10:56 Consult Date/Type/Reason Admit Date/Time Aug 30, 2016 at 15:45 Initial Consult Date 09/01/16 Type of Consultation: nephrology Subjective No acute events, no seizures Objective Vital Signs Date Time Temp Pulse Resp B/P Pulse Ox O2 Delivery O2 Flow Rate FiO2 09/10/16 08:00 86 09/10/16 08:00 30 09/10/16 07:30 98.6 16 185/95 100 Mechanical Ventilator Intake and Output 09/09/16 09/09/16 09/10/16 15:00 23:00 07:00 Intake Total 240 ml 992 ml 275 ml Output Total 0 ml 0 ml Balance 240 ml 992 ml 275 ml Results/Medications Result Diagram: 09/10/16 0500 09/10/16 0500 Results 24 hrs Laboratory Tests Test 09/09/16 12:50 09/09/16 13:35 09/09/16 17:32 09/10/16 00:46 Bedside Glucose 110 111 106 Arterial Blood HCO3 25.6 Arterial Blood Base Excess 2.1 Arterial Blood Oxygen Saturation 97.8 Cristian Test ACCEPTAB Arterial Blood Gas Puncture Site Right Radial Arterial Blood Carboxyhemoglobin 0.3 Arterial Blood Date Drawn 09/09/2016 1:29:53 PM Arterial Blood Methemoglobin 0.4 Arterial Blood pCO2 (Temp correct) 35.8 Arterial Blood pH (Temp corrected) 7.472 H Arterial Blood pO2 (Temp corrected) 111.1 H Blood Gas A-a O2 Differential 60.7 H Blood Gas Actual Respiration Rate 23 Blood Gas Low PEEP Setting 5.0 Blood Gas Modality VENT - CPAP Blood Gas Notified Time 09/09/2016 1:43:17 PM Blood Gas Notified Whom JOHN,[employer] ARCHITECT Blood Gas Pressure Support 10 Blood Gas Specimen Source Blood arterial Blood Gas Temperature 37.0 FiO2 30.0 Oxyhemoglobin Percent 97.1 Total Hemoglobin 10.3 L Test 09/10/16 05:00 09/10/16 06:19 Anion Gap 15 Basophils # 0.0 Basophils % 0.1 Blood Morphology Comment Blood Urea Nitrogen 41 H Calcium Level 8.5 Carbon Dioxide Level 28 Chloride Level 100 Creatinine 4.97 H Eosinophils # 0.1 Eosinophils % 0.8 Glucose Level 85 Hematocrit 27.0 L Hemoglobin 8.8 L Lymphocytes # 1.2 Lymphocytes % 9.0 L Magnesium Level 2.3 Mean Corpuscular Hemoglobin 30.8 Mean Corpuscular Hemoglobin Concent 32.7 Mean Corpuscular Volume 94.3 Mean Platelet Volume 7.5 # Monocytes # 1.1 H Monocytes % 8.2 Neutrophils # 10.9 H Neutrophils % 81.9 H Nucleated Red Blood Cells # 0.0 Nucleated Red Blood Cells % 0.0 Phosphorus Level 2.3 L Platelet Count 239 Potassium Level 3.3 L Red Blood Count 2.86 L Red Cell Distribution Width 16.5 H Sodium Level 140 White Blood Count 13.3 H Bedside Glucose 87 Medications Current Medications Pantoprazole (Protonix Iv) 40 mg DAILY@06 IV Last administered on 09/10/16 06: 20; Admin Dose 40 MG; Start 08/31/16 at 06:00 Eye Lubricant 1 drop 1 drop TID BOTH EYES Last administered on 09/10/16 08:31; Admin Dose 1 DROP; Start 08/30/16 at 21:00 Propofol 100 ml @ 2.1 mls/hr Q12H IV Last administered on 09/03/16 10:10; Admin Dose 9.24 MLS/HR; Start 08/30/16 at 17:30 Vecuronium [place]/Dextrose (Norcuron/D5W) 100 ml @ 0 mls/hr TITRATE IV Last administered on 08/31/16 08:25; Admin Dose 2.1 MLS/HR; Start 08/30/16 at 17:30 Miscellaneous Information 1 ea NOTE XX ; Start 08/30/16 at 19:00 Glucose (Glutose) 15 gm Q15M PRN PO DECREASED GLUCOSE; Start 08/30/16 at 19:00 Glucose (Glutose) 22.5 gm Q15M PRN PO DECREASED GLUCOSE; Start 08/30/16 at 19: 00 Dextrose (D50w Syringe) 25 ml Q15M PRN IV DECREASED GLUCOSE Last administered on 09/04/16 14:38; Admin Dose 25 ML; Start 08/30/16 at 19:00 Dextrose (D50w Syringe) 50 ml Q15M PRN IV DECREASED GLUCOSE; Start 08/30/16 at 19:00 Glucagon (Glucagen) 1 mg Q15M PRN IM DECREASED GLUCOSE; Start 08/30/16 at 19:00 Glucose (Glutose) 15 gm Q15M PRN BUCCAL DECREASED GLUCOSE; Start 08/30/16 at 19 :00 Insulin Aspart (Novolog Insulin Pen) (Adult SC Insulin - Mild Algorithm)... Q6 SC ; Start 08/30/16 at 18:00 Lorazepam (Ativan) 2 mg Q2H PRN IV SEIZURES Last administered on 09/08/16 04:22 ; Admin Dose 2 MG; Start 09/01/16 at 02:00 Metoclopramide HCl 5 mg 5 mg Q6 IV Last administered on 09/10/16 06:20; Admin Dose 5 MG; Start 09/03/16 at 12:00 Nicardipine HCl/ Sodium Chloride (Cardene Iv/NS) 500 ml @ 70 mls/hr TITRATE IV Last administered on 09/10/16 05:56; Admin Dose 30 MLS/HR; Start 09/03/16 at 11:30 Heparin Sodium (Porcine) (Heparin (5000 Units/0.5 ml)) 5,000 unit Q12 SC Last administered on 09/10/16 08:27; Admin Dose 5,000 UNIT; Start 09/04/16 at 09:00 Valproate Sodium (Depakene Liquid Cup) 750 mg TID NGT Last administered on 08:26; Admin Dose 750 MG; Start 09/05/16 at 13:00 Amlodipine Besylate (Norvasc) 10 mg DAILY NGT Last administered on 09/10/16 08: 28; Admin Dose 10 MG; Start 09/06/16 at 09:00 Benazepril HCl (Lotensin) 40 mg DAILY GTB Last administered on 09/10/16 08:29; Admin Dose 40 MG; Start 09/06/16 at 09:00 Nystatin (Nystatin Powder) 1 applic BID TOP Last administered on 09/10/16 08:30 ; Admin Dose 1 APPLIC; Start 09/06/16 at 12:30 IV Flush 10 ml 10 ml PRN PRN IV IV PROTOCOL; Start 09/06/16 at 14:30 Fosphenytoin Sodium/Sodium Chloride (Cerebyx/NS) 54 ml @ 210.667 mls/hr TID IVPB Last administered on 09/10/16 08:39; Admin Dose 210.667 MLS/HR; Start 09/07 at 13:00 Levetiracetam (Keppra Liquid) 1,500 mg BID GTB Last administered on 09/10/16 08 :26; Admin Dose 1,500 MG; Start 09/07/16 at 21:00 Carvedilol 25 mg 25 mg BID NGT Last administered on 09/10/16 08:29; Admin Dose 25 MG; Start 09/08/16 at 09:00 Potassium Chloride (KCl 10 MEQ/50 ML SW) 50 ml @ 50 mls/hr ONCE ONCE IVPB ; Start 09/10/16 at 10:00; Stop 09/10/16 at 10:59 Assessment/Plan Chief Complaint/Hosp Course Not sedated, opens eyes to voice, looks bilaterally to voice, seems to follow simple commands such as "close eyes", blinks to visual threat, pupils 3 mm to 2 mm, EOMI, some end gaze horizontal nystagmus noticed, present corneals and gag. No movements in flaccid UE extremities to pain, trace withdrawal in feet. Per nurse pt moves left arm spontaneously A/P Anoxic encephalopathy, s/p arrest 11 days ago. S/p seizures, none on current medications. Improving neurological status Problems: RONY MILLS MD Sep 10, 2016 10:58
--- NOTE | 2016-09-10 12:43 | CONS ---
Date/Time of Note Date/Time of Note DATE: 09/10/16 TIME: 12:41 Consult Date/Type/Reason Admit Date/Time Aug 30, 2016 at 15:45 Initial Consult Date 09/01/16 Type of Consultation: pulmonary Subjective Should patient remains intubated on mechanical ventilation Opens eyes and attempts to follow commands Remains hemodynamically stable Objective Vital Signs Date Time Temp Pulse Resp B/P Pulse Ox O2 Delivery O2 Flow Rate FiO2 09/10/16 11:00 81 16 141/72 100 Mechanical Ventilator 09/10/16 08:00 30 09/10/16 07:30 98.6 Intake and Output 09/09/16 09/09/16 09/10/16 15:00 23:00 07:00 Intake Total 240 ml 992 ml 300 ml Output Total 0 ml 0 ml Balance 240 ml 992 ml 300 ml PHYSICAL EXAMINATION GENERAL: Well-nourished well-developed young Belgian lady comfortable at rest VITAL SIGNS: see below. HEENT: Pupils equal, round, and reactive to light. CARDIAC: S1, S2, tachycardia. CHEST: Diminished air entry bilaterally. ABDOMEN: Mildly distended. No bowel sounds. EXTREMITIES: No cyanosis, clubbing or edema. NEUROLOGIC: Generalized weakness possible right hemiplegia Results/Medications Result Diagram: 09/10/16 0500 09/10/16 0500 Results 24 hrs Laboratory Tests Test 09/09/16 12:50 09/09/16 13:35 09/09/16 17:32 09/10/16 00:46 Bedside Glucose 110 111 106 Arterial Blood HCO3 25.6 Arterial Blood Base Excess 2.1 Arterial Blood Oxygen Saturation 97.8 Cristian Test ACCEPTAB Arterial Blood Gas Puncture Site Right Radial Arterial Blood Carboxyhemoglobin 0.3 Arterial Blood Date Drawn 09/09/2016 1:29:53 PM Arterial Blood Methemoglobin 0.4 Arterial Blood pCO2 (Temp correct) 35.8 Arterial Blood pH (Temp corrected) 7.472 H Arterial Blood pO2 (Temp corrected) 111.1 H Blood Gas A-a O2 Differential 60.7 H Blood Gas Actual Respiration Rate 23 Blood Gas Low PEEP Setting 5.0 Blood Gas Modality VENT - CPAP Blood Gas Notified Time 09/09/2016 1:43:17 PM Blood Gas Notified Whom JOHNWELT SOLE LAYER Blood Gas Pressure Support 10 Blood Gas Specimen Source Blood arterial Blood Gas Temperature 37.0 FiO2 30.0 Oxyhemoglobin Percent 97.1 Total Hemoglobin 10.3 L Test 09/10/16 05:00 09/10/16 06:19 Anion Gap 15 Basophils # 0.0 Basophils % 0.1 Blood Morphology Comment Blood Urea Nitrogen 41 H Calcium Level 8.5 Carbon Dioxide Level 28 Chloride Level 100 Creatinine 4.97 H Eosinophils # 0.1 Eosinophils % 0.8 Glucose Level 85 Hematocrit 27.0 L Hemoglobin 8.8 L Lymphocytes # 1.2 Lymphocytes % 9.0 L Magnesium Level 2.3 Mean Corpuscular Hemoglobin 30.8 Mean Corpuscular Hemoglobin Concent 32.7 Mean Corpuscular Volume 94.3 Mean Platelet Volume 7.5 # Monocytes # 1.1 H Monocytes % 8.2 Neutrophils # 10.9 H Neutrophils % 81.9 H Nucleated Red Blood Cells # 0.0 Nucleated Red Blood Cells % 0.0 Phosphorus Level 2.3 L Platelet Count 239 Potassium Level 3.3 L Red Blood Count 2.86 L Red Cell Distribution Width 16.5 H Sodium Level 140 White Blood Count 13.3 H Bedside Glucose 87 Medications Current Medications Pantoprazole (Protonix Iv) 40 mg DAILY@06 IV Last administered on 09/10/16 06: 20; Admin Dose 40 MG; Start 08/31/16 at 06:00 Eye Lubricant 1 drop 1 drop TID BOTH EYES Last administered on 09/10/16 12:27; Admin Dose 1 DROP; Start 08/30/16 at 21:00 Propofol 100 ml @ 2.1 mls/hr Q12H IV Last administered on 09/03/16 10:10; Admin Dose 9.24 MLS/HR; Start 08/30/16 at 17:30 Vecuronium [place]/Dextrose (Norcuron/D5W) 100 ml @ 0 mls/hr TITRATE IV Last administered on 08/31/16 08:25; Admin Dose 2.1 MLS/HR; Start 08/30/16 at 17:30 Miscellaneous Information 1 ea NOTE XX ; Start 08/30/16 at 19:00 Glucose (Glutose) 15 gm Q15M PRN PO DECREASED GLUCOSE; Start 08/30/16 at 19:00 Glucose (Glutose) 22.5 gm Q15M PRN PO DECREASED GLUCOSE; Start 08/30/16 at 19: 00 Dextrose (D50w Syringe) 25 ml Q15M PRN IV DECREASED GLUCOSE Last administered on 09/04/16 14:38; Admin Dose 25 ML; Start 08/30/16 at 19:00 Dextrose (D50w Syringe) 50 ml Q15M PRN IV DECREASED GLUCOSE; Start 08/30/16 at 19:00 Glucagon (Glucagen) 1 mg Q15M PRN IM DECREASED GLUCOSE; Start 08/30/16 at 19:00 Glucose (Glutose) 15 gm Q15M PRN BUCCAL DECREASED GLUCOSE; Start 08/30/16 at 19 :00 Insulin Aspart (Novolog Insulin Pen) (Adult SC Insulin - Mild Algorithm)... Q6 SC ; Start 08/30/16 at 18:00 Lorazepam (Ativan) 2 mg Q2H PRN IV SEIZURES Last administered on 09/08/16 04:22 ; Admin Dose 2 MG; Start 09/01/16 at 02:00 Metoclopramide HCl 5 mg 5 mg Q6 IV Last administered on 09/10/16 12:23; Admin Dose 5 MG; Start 09/03/16 at 12:00 Nicardipine HCl/ Sodium Chloride (Cardene Iv/NS) 500 ml @ 70 mls/hr TITRATE IV Last administered on 09/10/16 05:56; Admin Dose 30 MLS/HR; Start 09/03/16 at 11:30 Heparin Sodium (Porcine) (Heparin (5000 Units/0.5 ml)) 5,000 unit Q12 SC Last administered on 09/10/16 08:27; Admin Dose 5,000 UNIT; Start 09/04/16 at 09:00 Valproate Sodium (Depakene Liquid Cup) 750 mg TID NGT Last administered on 12:25; Admin Dose 750 MG; Start 09/05/16 at 13:00 Amlodipine Besylate (Norvasc) 10 mg DAILY NGT Last administered on 09/10/16 08: 28; Admin Dose 10 MG; Start 09/06/16 at 09:00 Benazepril HCl (Lotensin) 40 mg DAILY GTB Last administered on 09/10/16 08:29; Admin Dose 40 MG; Start 09/06/16 at 09:00 Nystatin (Nystatin Powder) 1 applic BID TOP Last administered on 09/10/16 08:30 ; Admin Dose 1 APPLIC; Start 09/06/16 at 12:30 IV Flush 10 ml 10 ml PRN PRN IV IV PROTOCOL; Start 09/06/16 at 14:30 Fosphenytoin Sodium/Sodium Chloride (Cerebyx/NS) 54 ml @ 210.667 mls/hr TID IVPB Last administered on 09/10/16 12:26; Admin Dose 210.667 MLS/HR; Start 09/07 at 13:00 Levetiracetam (Keppra Liquid) 1,500 mg BID GTB Last administered on 09/10/16 08 :26; Admin Dose 1,500 MG; Start 09/07/16 at 21:00 Carvedilol (Coreg) 25 mg BID NGT Last administered on 09/10/16 08:29; Admin Dose 25 MG; Start 09/08/16 at 09:00 Assessment/Plan Chief Complaint/Hosp Course Assessment 1. Cardiopulmonary arrest 2. Anoxic encephalopathy appears to be slowly resolving 3. Dysphagia 4. Possible aspiration pneumonia 5. Renal failure Plan 1. Continue mechanical ventilation.. Patient tolerated CPAP trial yesterday. 2. Patient will likely require G-tube if family wish to continue current level of care 3. Continue antibiotics 4. Continue renal recommendations 5. DVT and GI prophylaxis I recommend G-tube placement Then CPAP trial and extubation if stable Problems: BHUPENDRA PLASCENCIA MD, [facility] Sep 10, 2016 12:43
--- NOTE | 2016-09-10 12:51 | PN ---
Date/Time of Note Date/Time of Note DATE: 09/10/16 TIME: 12:48 Assessment/Plan VTE Prophylaxis VTE Prophylaxis Intervention: heparin Lines/Catheters IV Catheter Type (from Nrs): PICC Line Central line still needed: Yes Urinary Cath still in place: No (on HD via R chest cath) Assessment/Plan Chief Complaint/Hosp Course Assessment and plan 1. Status post cardiac arrest. Patient is status post hypothermia protocol. Neurology following. Of note patient did have abnormal EEG with noted seizure activity and encephalopathy. Likely secondary to anoxic brain injury. Continue to monitor neuro status. Brain MRI did have evidence suggesting hypoxic ischemic injury. 2. Seizures lightly secondary to anoxic brain injury. Continue anticonvulsants. Continue with neurologist recommendations 3. Elevated troponin secondary to #1. Of note patient did have preserved LVEF. Continue optimization with cardiovascular medications 4. Respiratory failure. Secondary to #1. Continue with pulmonary hygiene. At this time unable to tolerate vent liberation . Continue with tree worker recommendations 5. Hypertensive urgency. Remains on Cardene drip. Titrate down as tolerated 6. Mild pulmonary hypertension. Continue on O2 supplementation 7. End-stage renal disease. Monitor renal panel. Mining Engineer following. Continue on HD DVT prophylaxis: SCDs GERD prophylaxis: PPI Disposition and plan: CPAP trial per tree worker. Check AM labs. Assessment ability for vent liberation. Follow-up with consultants recommendations. Family to decide for possible trach/PEG Discussed plan of care with Dr. Holloway Critical care time: 30 minutes Problems: Subjective 24 Hr Interval Summary Free Text/Dictation Appears more alert at this time . Family at bedside Exam/Review of Systems Vital Signs Vitals Vital Signs Date Time Temp Pulse Resp B/P Pulse Ox O2 Delivery O2 Flow Rate FiO2 09/10/16 11:00 81 16 141/72 100 Mechanical Ventilator 09/10/16 08:00 30 09/10/16 07:30 98.6 Intake and Output 09/09/16 09/09/16 09/10/16 15:00 23:00 07:00 Intake Total 240 ml 992 ml 300 ml Output Total 0 ml 0 ml Balance 240 ml 992 ml 300 ml Exam General: Intubated no apparent distress Eyes: pupils equal round, Anicteric sclera Neck: Supple nontender, no JVD Cardiac: S1-S2 auscultated, slight murmur auscultated Pulmonary: Intubated. Minimally coarse bilaterally on lung wen GI: Abdomen soft nontender nondistended, bowel sounds active Extremities: Edema noted bilateral upper and lower extremities Skin: Clean dry and intact Neurologic: Intubated. Does respond to verbal cues. No purposeful response Results Result Diagram: 09/10/16 0500 09/10/16 0500 Results 24 hrs Laboratory Tests Test 09/09/16 12:50 09/09/16 13:35 09/09/16 17:32 09/10/16 00:46 Bedside Glucose 110 111 106 Arterial Blood HCO3 25.6 Arterial Blood Base Excess 2.1 Arterial Blood Oxygen Saturation 97.8 Cristian Test ACCEPTAB Arterial Blood Gas Puncture Site Right Radial Arterial Blood Carboxyhemoglobin 0.3 Arterial Blood Date Drawn 09/09/2016 1:29:53 PM Arterial Blood Methemoglobin 0.4 Arterial Blood pCO2 (Temp correct) 35.8 Arterial Blood pH (Temp corrected) 7.472 H Arterial Blood pO2 (Temp corrected) 111.1 H Blood Gas A-a O2 Differential 60.7 H Blood Gas Actual Respiration Rate 23 Blood Gas Low PEEP Setting 5.0 Blood Gas Modality VENT - CPAP Blood Gas Notified Time 09/09/2016 1:43:17 PM Blood Gas Notified Whom JOHN,WIND TUNNEL TECHNICIAN Blood Gas Pressure Support 10 Blood Gas Specimen Source Blood arterial Blood Gas Temperature 37.0 FiO2 30.0 Oxyhemoglobin Percent 97.1 Total Hemoglobin 10.3 L Test 09/10/16 05:00 09/10/16 06:19 Anion Gap 15 Basophils # 0.0 Basophils % 0.1 Blood Morphology Comment Blood Urea Nitrogen 41 H Calcium Level 8.5 Carbon Dioxide Level 28 Chloride Level 100 Creatinine 4.97 H Eosinophils # 0.1 Eosinophils % 0.8 Glucose Level 85 Hematocrit 27.0 L Hemoglobin 8.8 L Lymphocytes # 1.2 Lymphocytes % 9.0 L Magnesium Level 2.3 Mean Corpuscular Hemoglobin 30.8 Mean Corpuscular Hemoglobin Concent 32.7 Mean Corpuscular Volume 94.3 Mean Platelet Volume 7.5 # Monocytes # 1.1 H Monocytes % 8.2 Neutrophils # 10.9 H Neutrophils % 81.9 H Nucleated Red Blood Cells # 0.0 Nucleated Red Blood Cells % 0.0 Phosphorus Level 2.3 L Platelet Count 239 Potassium Level 3.3 L Red Blood Count 2.86 L Red Cell Distribution Width 16.5 H Sodium Level 140 White Blood Count 13.3 H Bedside Glucose 87 Medications Medications Current Medications Pantoprazole (Protonix Iv) 40 mg DAILY@06 IV Last administered on 09/10/16 06: 20; Admin Dose 40 MG; Start 08/31/16 at 06:00 Eye Lubricant 1 drop 1 drop TID BOTH EYES Last administered on 09/10/16 12:27; Admin Dose 1 DROP; Start 08/30/16 at 21:00 Propofol 100 ml @ 2.1 mls/hr Q12H IV Last administered on 09/03/16 10:10; Admin Dose 9.24 MLS/HR; Start 08/30/16 at 17:30 Vecuronium [place]/Dextrose (Norcuron/D5W) 100 ml @ 0 mls/hr TITRATE IV Last administered on 08/31/16 08:25; Admin Dose 2.1 MLS/HR; Start 08/30/16 at 17:30 Miscellaneous Information 1 ea NOTE XX ; Start 08/30/16 at 19:00 Glucose (Glutose) 15 gm Q15M PRN PO DECREASED GLUCOSE; Start 08/30/16 at 19:00 Glucose (Glutose) 22.5 gm Q15M PRN PO DECREASED GLUCOSE; Start 08/30/16 at 19: 00 Dextrose (D50w Syringe) 25 ml Q15M PRN IV DECREASED GLUCOSE Last administered on 09/04/16 14:38; Admin Dose 25 ML; Start 08/30/16 at 19:00 Dextrose (D50w Syringe) 50 ml Q15M PRN IV DECREASED GLUCOSE; Start 08/30/16 at 19:00 Glucagon (Glucagen) 1 mg Q15M PRN IM DECREASED GLUCOSE; Start 08/30/16 at 19:00 Glucose (Glutose) 15 gm Q15M PRN BUCCAL DECREASED GLUCOSE; Start 08/30/16 at 19 :00 Insulin Aspart (Novolog Insulin Pen) (Adult SC Insulin - Mild Algorithm)... Q6 SC ; Start 08/30/16 at 18:00 Lorazepam (Ativan) 2 mg Q2H PRN IV SEIZURES Last administered on 09/08/16 04:22 ; Admin Dose 2 MG; Start 09/01/16 at 02:00 Metoclopramide HCl 5 mg 5 mg Q6 IV Last administered on 09/10/16 12:23; Admin Dose 5 MG; Start 09/03/16 at 12:00 Nicardipine HCl/ Sodium Chloride (Cardene Iv/NS) 500 ml @ 70 mls/hr TITRATE IV Last administered on 09/10/16 05:56; Admin Dose 30 MLS/HR; Start 09/03/16 at 11:30 Heparin Sodium (Porcine) (Heparin (5000 Units/0.5 ml)) 5,000 unit Q12 SC Last administered on 09/10/16 08:27; Admin Dose 5,000 UNIT; Start 09/04/16 at 09:00 Valproate Sodium (Depakene Liquid Cup) 750 mg TID NGT Last administered on 12:25; Admin Dose 750 MG; Start 09/05/16 at 13:00 Amlodipine Besylate (Norvasc) 10 mg DAILY NGT Last administered on 09/10/16 08: 28; Admin Dose 10 MG; Start 09/06/16 at 09:00 Benazepril HCl (Lotensin) 40 mg DAILY GTB Last administered on 09/10/16 08:29; Admin Dose 40 MG; Start 09/06/16 at 09:00 Nystatin (Nystatin Powder) 1 applic BID TOP Last administered on 09/10/16 08:30 ; Admin Dose 1 APPLIC; Start 09/06/16 at 12:30 IV Flush 10 ml 10 ml PRN PRN IV IV PROTOCOL; Start 09/06/16 at 14:30 Fosphenytoin Sodium/Sodium Chloride (Cerebyx/NS) 54 ml @ 210.667 mls/hr TID IVPB Last administered on 09/10/16 12:26; Admin Dose 210.667 MLS/HR; Start 09/07 at 13:00 Levetiracetam (Keppra Liquid) 1,500 mg BID GTB Last administered on 09/10/16 08 :26; Admin Dose 1,500 MG; Start 09/07/16 at 21:00 Carvedilol (Coreg) 25 mg BID NGT Last administered on 09/10/16 08:29; Admin Dose 25 MG; Start 09/08/16 at 09:00 CORAL KAUR Sep 10, 2016 12:51
--- NOTE | 2016-09-10 16:41 | CONS ---
Date/Time of Note Date/Time of Note DATE: 09/10/16 TIME: 16:38 Assessment/Plan Assessment/Plan Additional Assessment/Plan Dysphagia * OG tube in place * Monitor tube feed every 6 hours, hold for residual greater than 150 mL * Recommend EGD plus PEG placement Status post cardiac arrest. Seizures Respiratory failure * Tracheostomy recommended Hypertensive urgency Mild pulmonary hypertension. Continue on O2 supplementation End-stage renal disease on HD Further recommendations depend on clinical course Patient seen in collaboration with Dr. Larios Consultation Date/Type/Reason Admit Date/Time Aug 30, 2016 at 15:45 Type of Consultation: Gastroenterology Hx of Present Illness 56-year-old female presented to the ED by paramedics after she was found to be unresponsive at home. During hospitalization, pt was intubated and started on hypothermia protocol. Pt noted with abnormal EEG with noted seizure activity and encephalopathy. Likely secondary to anoxic brain injury. Pt is status post cardiac arrest with Brain MRI with evidence suggesting hypoxic ischemic injury. Pt has also been experiencing seizures and has been unable to be weened off respiratiory. Family to decide whether they want tracheostomy and PEG tube placment. Spoke with daughter Breanne at [phone] and explained R/B of procedure and she said she and her family will decide. Pt has PMH of End-stage renal disease on hemodialysis and hypertension. Constitutional: other (unchanged) Respiratory: other (Intubated, ventilated and sedated) Cardiovascular: no complaints Neurologic: seizure Psychological: other (intubated, sedated), No nl mood/affect Past Medical History Medical History: hypertension (Renal failure on HD) Past Surgical History Past Surgical Hx: no surgical history Social History Alcohol Use: none Smoking Status: Unknown if ever smoked Exam/Review of Systems Vital Signs Vitals Vital Signs Date Time Temp Pulse Resp B/P Pulse Ox O2 Delivery O2 Flow Rate FiO2 09/10/16 14:30 74 16 141/92 99 Mechanical Ventilator 09/10/16 12:00 98.1 09/10/16 11:35 30 Intake and Output 09/09/16 09/09/16 09/10/16 15:00 23:00 07:00 Intake Total 240 ml 992 ml 300 ml Output Total 0 ml 0 ml Balance 240 ml 992 ml 300 ml Exam Constitutional: non-verbal Head: atraumatic ENMT: nl external ears & nose, nl lips & teeth, nl nasal mucosa & septum Respiratory: other Cardiovascular: regular rate and rhythm Gastrointestinal: soft Neurological: other (Intubated grossly nonfocal) Results Result Diagram: 09/10/16 0500 09/10/16 0500 Results 24 hrs Laboratory Tests Test 09/09/16 17:32 09/10/16 00:46 09/10/16 05:00 09/10/16 06:19 Bedside Glucose 111 106 87 Anion Gap 15 Basophils # 0.0 Basophils % 0.1 Blood Morphology Comment Blood Urea Nitrogen 41 H Calcium Level 8.5 Carbon Dioxide Level 28 Chloride Level 100 Creatinine 4.97 H Eosinophils # 0.1 Eosinophils % 0.8 Glucose Level 85 Hematocrit 27.0 L Hemoglobin 8.8 L Lymphocytes # 1.2 Lymphocytes % 9.0 L Magnesium Level 2.3 Mean Corpuscular Hemoglobin 30.8 Mean Corpuscular Hemoglobin Concent 32.7 Mean Corpuscular Volume 94.3 Mean Platelet Volume 7.5 # Monocytes # 1.1 H Monocytes % 8.2 Neutrophils # 10.9 H Neutrophils % 81.9 H Nucleated Red Blood Cells # 0.0 Nucleated Red Blood Cells % 0.0 Phosphorus Level 2.3 L Platelet Count 239 Potassium Level 3.3 L Red Blood Count 2.86 L Red Cell Distribution Width 16.5 H Sodium Level 140 White Blood Count 13.3 H Test 09/10/16 12:32 Bedside Glucose 94 Medications Medications Current Medications Pantoprazole (Protonix Iv) 40 mg DAILY@06 IV Last administered on 09/10/16 06: 20; Admin Dose 40 MG; Start 08/31/16 at 06:00 Eye Lubricant 1 drop 1 drop TID BOTH EYES Last administered on 09/10/16 12:27; Admin Dose 1 DROP; Start 08/30/16 at 21:00 Propofol 100 ml @ 2.1 mls/hr Q12H IV Last administered on 09/03/16 10:10; Admin Dose 9.24 MLS/HR; Start 08/30/16 at 17:30 Vecuronium [place]/Dextrose (Norcuron/D5W) 100 ml @ 0 mls/hr TITRATE IV Last administered on 08/31/16 08:25; Admin Dose 2.1 MLS/HR; Start 08/30/16 at 17:30 Miscellaneous Information 1 ea NOTE XX ; Start 08/30/16 at 19:00 Glucose (Glutose) 15 gm Q15M PRN PO DECREASED GLUCOSE; Start 08/30/16 at 19:00 Glucose (Glutose) 22.5 gm Q15M PRN PO DECREASED GLUCOSE; Start 08/30/16 at 19: 00 Dextrose (D50w Syringe) 25 ml Q15M PRN IV DECREASED GLUCOSE Last administered on 09/04/16 14:38; Admin Dose 25 ML; Start 08/30/16 at 19:00 Dextrose (D50w Syringe) 50 ml Q15M PRN IV DECREASED GLUCOSE; Start 08/30/16 at 19:00 Glucagon (Glucagen) 1 mg Q15M PRN IM DECREASED GLUCOSE; Start 08/30/16 at 19:00 Glucose (Glutose) 15 gm Q15M PRN BUCCAL DECREASED GLUCOSE; Start 08/30/16 at 19 :00 Insulin Aspart (Novolog Insulin Pen) (Adult SC Insulin - Mild Algorithm)... Q6 SC ; Start 08/30/16 at 18:00 Lorazepam (Ativan) 2 mg Q2H PRN IV SEIZURES Last administered on 09/08/16 04:22 ; Admin Dose 2 MG; Start 09/01/16 at 02:00 Metoclopramide HCl 5 mg 5 mg Q6 IV Last administered on 09/10/16 12:23; Admin Dose 5 MG; Start 09/03/16 at 12:00 Nicardipine HCl/ Sodium Chloride (Cardene Iv/NS) 500 ml @ 70 mls/hr TITRATE IV Last administered on 09/10/16 05:56; Admin Dose 30 MLS/HR; Start 09/03/16 at 11:30 Heparin Sodium (Porcine) (Heparin (5000 Units/0.5 ml)) 5,000 unit Q12 SC Last administered on 09/10/16 08:27; Admin Dose 5,000 UNIT; Start 09/04/16 at 09:00 Valproate Sodium (Depakene Liquid Cup) 750 mg TID NGT Last administered on 12:25; Admin Dose 750 MG; Start 09/05/16 at 13:00 Amlodipine Besylate (Norvasc) 10 mg DAILY NGT Last administered on 09/10/16 08: 28; Admin Dose 10 MG; Start 09/06/16 at 09:00 Benazepril HCl (Lotensin) 40 mg DAILY GTB Last administered on 09/10/16 08:29; Admin Dose 40 MG; Start 09/06/16 at 09:00 Nystatin (Nystatin Powder) 1 applic BID TOP Last administered on 09/10/16 08:30 ; Admin Dose 1 APPLIC; Start 09/06/16 at 12:30 IV Flush 10 ml 10 ml PRN PRN IV IV PROTOCOL; Start 09/06/16 at 14:30 Fosphenytoin Sodium/Sodium Chloride (Cerebyx/NS) 54 ml @ 210.667 mls/hr TID IVPB Last administered on 09/10/16 12:26; Admin Dose 210.667 MLS/HR; Start 09/07 at 13:00 Levetiracetam (Keppra Liquid) 1,500 mg BID GTB Last administered on 09/10/16 08 :26; Admin Dose 1,500 MG; Start 09/07/16 at 21:00 Carvedilol (Coreg) 25 mg BID NGT Last administered on 09/10/16 08:29; Admin Dose 25 MG; Start 09/08/16 at 09:00 ONELIA OCONNOR Sep 10, 2016 16:41
[2016-09-11] VITALS (98 sets, daily range): BP systolic 110–207; BP diastolic 63–102; PULSE 76–102; RESP 15–28
[2016-09-11] MEDS: ALBUTEROL HFA 8 GM INHALER INH SCH ×4 (01:12→20:05)
[2016-09-11] MEDS: IPRATROPIUM (HFA) 12.9 GM INHALER INH SCH ×4 (01:12→20:05)
[2016-09-11] MEDS: PROPOFOL 100 ML IV SCH ×2 (03:08→17:30)
[2016-09-11] MEDS: niCARdipine 50 MG in SOD CHLORIDE 0.9% 480 ML IV SCH ×3 (05:09→18:07)
[2016-09-11] MEDS: PANTOPRAZOLE 40 MG INJ IV SCH (05:12)
[2016-09-11] MEDS: METOCLOPRAMIDE 10 MG INJ IV SCH ×4 (05:13→23:51)
[2016-09-11] MEDS: Insulin NOVOLOG SS MILD Algorithm (NPO/TPN/ENTERAL FEEDS) SC SCH ×3 (05:20→18:00)
[2016-09-11 05:36] LABS: BASOPHILS % 0.2 % (0.0-2.0); EOSINOPHILS # 0.1 10^3/ul (0.0-0.5); EOSINOPHILS % 0.8 % (0.0-7.0); HEMATOCRIT 30.1 % (37.0-47.0); HEMOGLOBIN 9.6 g/dl (12.0-16.0); LYMPHOCYTES # 1.2 10^3/ul (0.8-2.9); LYMPHOCYTES % 7.4 % (15.0-51.0); MEAN CORPUSCULAR HEMOGLOBIN 30.5 pg (29.0-33.0); MEAN CORPUSCULAR VOLUME 95.2 fl (82.0-101.0); MEAN PLATELET VOLUME 7.6 fl (7.4-10.4); MONOCYTES % 6.1 % (0.0-11.0); NEUTROPHIL # 14.2 10^3/ul (1.6-7.5); NEUTROPHILS % 85.5 % (39.0-77.0); PLATELET COUNT 289 10^3/UL (140-440); RED BLOOD COUNT 3.16 10^6/ul (4.20-5.40); RED CELL DISTRIBUTION WIDTH 16.2 % (11.5-14.5); UNCORRECTED WBC 16.7 10^3/ul (4.8-10.8); WHITE BLOOD COUNT 16.7 10^3/ul (4.8-10.8)
[2016-09-11 05:46] LABS: CONDITION 1; LH ANALYZER COMMENTS 1; POTASSIUM 3.8 mmol/L (3.5-5.1)
[2016-09-11 05:48] LABS: CREATININE 6.06 mg/dl (0.44-1.00)
[2016-09-11 05:49] LABS: CALCIUM 8.8 mg/dl (8.4-10.2); PHOSPHORUS 2.5 mg/dl (2.5-4.9)
[2016-09-11 05:50] LABS: MAGNESIUM 2.5 mg/dl (1.7-2.5)
--- NOTE | 2016-09-11 07:34 | CONS ---
Date/Time of Note Date/Time of Note DATE: 09/11/16 TIME: 07:29 Assessment/Plan Assessment/Plan Chief Complaint/Hosp Course Patient is a 60-year-old Citizen Of [place] lady who was brought into the emergency room after the patient called 911 with complaints of shortness of breath by the time the EMS arrived the patient was found unresponsive had pulseless electrical activity along CPR was done lasting approximately 20 minutes with revival of vital signs. She currently is on hypothermic protocol and is sedated paralyzed on mechanical ventilation or intubated. She also was obtained from medical records as well as patient's daughter who is currently present in the room. The patient's daughter the patient was admitted last month with pneumonia and were discharged home however the patient was complaining of mild shortness of breath for the last couple of days prior to the event which occurred yesterday afternoon. Problems: Additional Assessment/Plan Assessment and recommendations; 1. Patient admitted with cardiac arrest underwent prolonged CPR. Anoxic enthesopathy with significant improvement in mental status. Next 2. Hypoxemia likely some element of pulmonary edema. Next 3. Hypertension. 4. Currently no evidence of any infective process. The current treatment. Patient currently is on assist control of 16, tidal volume 500, 30% FiO2, PEEP of 5. Ventilator settings have been switched to SIMV mode with a rate of 16 pressure support 10, FiO2 increased to 40%. Patient will be dialyzed today. She will need to have feeding tube placed. A dialysis patient would warrant a weaning trial from mechanical ventilation. Consultation Date/Type/Reason Admit Date/Time Aug 30, 2016 at 15:45 Initial Consult Date 08/31/16 Type of Consultation: Gastroenterology 24 HR Interval Summary Free Text/Dictation Patient condition remains critical. However there has been significant improvement in mental status. The patient is awake now, no gross seizure activity noted, no myoclonic jerking. She is able to follow occasional commands like eye closing on command .has significant right-sided weakness, able to move left upper extremity spontaneously. Has remained mildly hypertensive still requiring nicardipine drip. General examination; middle aged woman, or intubated. Awake currently in no distress. Exam/Review of Systems Vital Signs Vitals Vital Signs Date Time Temp Pulse Resp B/P Pulse Ox O2 Delivery O2 Flow Rate FiO2 09/11/16 07:00 101 28 166/80 92 Mechanical Ventilator 09/11/16 05:46 30 09/11/16 04:00 98.5 Intake and Output 09/10/16 09/10/16 09/11/16 15:00 23:00 07:00 Intake Total 838 ml 444 ml 450 ml Output Total 20 ml 0 ml Balance 818 ml 444 ml 450 ml Exam HEENT examination; supple neck, no JVD. No lymphadenopathy. Or intubated. Pupils are small bilaterally and reactive to light. No thyromegaly. No neck bruits. Next Chest examination; or intubated, clear to auscultation bilaterally. S1-S2 audible, no murmurs, regular rhythm. Abdomen examination; soft, no organomegaly. Bowel sounds audible. Next Extremity examination; no peripheral edema. [employer] examination she is awake, follows simple commands like eye closing on command. Able to move left upper extremity. Results Result Diagram: 09/11/16 0510 09/11/16 0510 Results 24 hrs Laboratory Tests Test 09/10/16 12:32 09/10/16 17:57 09/10/16 23:51 09/11/16 05:10 Bedside Glucose 94 84 112 Anion Gap 17 H Basophils # 0.0 Basophils % 0.2 Blood Morphology Comment Blood Urea Nitrogen 57 H Calcium Level 8.8 Carbon Dioxide Level 28 Chloride Level 98 Creatinine 6.06 H Eosinophils # 0.1 Eosinophils % 0.8 Glucose Level 133 # Hematocrit 30.1 L Hemoglobin 9.6 L Lymphocytes # 1.2 Lymphocytes % 7.4 L Magnesium Level 2.5 Mean Corpuscular Hemoglobin 30.5 Mean Corpuscular Hemoglobin Concent 32.0 Mean Corpuscular Volume 95.2 Mean Platelet Volume 7.6 Monocytes # 1.0 H Monocytes % 6.1 Neutrophils # 14.2 H Neutrophils % 85.5 H Nucleated Red Blood Cells # 0.0 Nucleated Red Blood Cells % 0.0 Phosphorus Level 2.5 Platelet Count 289 # Potassium Level 3.8 Red Blood Count 3.16 L Red Cell Distribution Width 16.2 H Sodium Level 139 White Blood Count 16.7 #H Test 09/11/16 05:20 Bedside Glucose 124 Medications Medications Current Medications Pantoprazole (Protonix Iv) 40 mg DAILY@06 IV Last administered on 09/11/16t 05: 12; Admin Dose 40 MG; Start 08/31/16 at 06:00 Eye Lubricant 1 drop 1 drop TID BOTH EYES Last administered on 09/10/16 21:07; Admin Dose 1 DROP; Start 08/30/16 at 21:00 Propofol 100 ml @ 2.1 mls/hr Q12H IV Last administered on 09/03/16 10:10; Admin Dose 9.24 MLS/HR; Start 08/30/16 at 17:30 Vecuronium [place]/Dextrose (Norcuron/D5W) 100 ml @ 0 mls/hr TITRATE IV Last administered on 08/31/16 08:25; Admin Dose 2.1 MLS/HR; Start 08/30/16 at 17:30 Miscellaneous Information 1 ea NOTE XX ; Start 08/30/16 at 19:00 Glucose (Glutose) 15 gm Q15M PRN PO DECREASED GLUCOSE; Start 08/30/16 at 19:00 Glucose (Glutose) 22.5 gm Q15M PRN PO DECREASED GLUCOSE; Start 08/30/16 at 19: 00 Dextrose (D50w Syringe) 25 ml Q15M PRN IV DECREASED GLUCOSE Last administered on 09/04/16 14:38; Admin Dose 25 ML; Start 08/30/16 at 19:00 Dextrose (D50w Syringe) 50 ml Q15M PRN IV DECREASED GLUCOSE; Start 08/30/16 at 19:00 Glucagon (Glucagen) 1 mg Q15M PRN IM DECREASED GLUCOSE; Start 08/30/16 at 19:00 Glucose (Glutose) 15 gm Q15M PRN BUCCAL DECREASED GLUCOSE; Start 08/30/16 at 19 :00 Insulin Aspart (Novolog Insulin Pen) (Adult SC Insulin - Mild Algorithm)... Q6 SC ; Start 08/30/16 at 18:00 Lorazepam (Ativan) 2 mg Q2H PRN IV SEIZURES Last administered on 09/08/16 04:22 ; Admin Dose 2 MG; Start 09/01/16 at 02:00 Metoclopramide HCl 5 mg 5 mg Q6 IV Last administered on 09/11/16 05:13; Admin Dose 5 MG; Start 09/03/16 at 12:00 Nicardipine HCl/ Sodium Chloride (Cardene Iv/NS) 500 ml @ 70 mls/hr TITRATE IV Last administered on 09/11/16 05:09; Admin Dose 50 MLS/HR; Start 09/03/16 at 11:30 Heparin Sodium (Porcine) (Heparin (5000 Units/0.5 ml)) 5,000 unit Q12 SC Last administered on 09/10/16 21:11; Admin Dose 5,000 UNIT; Start 09/04/16 at 09:00 Valproate Sodium (Depakene Liquid Cup) 750 mg TID NGT Last administered on 21:01; Admin Dose 750 MG; Start 09/05/16 at 13:00 Amlodipine Besylate (Norvasc) 10 mg DAILY NGT Last administered on 09/10/16 08: 28; Admin Dose 10 MG; Start 09/06/16 at 09:00 Benazepril HCl (Lotensin) 40 mg DAILY GTB Last administered on 09/10/16 08:29; Admin Dose 40 MG; Start 09/06/16 at 09:00 Nystatin (Nystatin Powder) 1 applic BID TOP Last administered on 09/10/16 21:06 ; Admin Dose 1 APPLIC; Start 09/06/16 at 12:30 IV Flush 10 ml 10 ml PRN PRN IV IV PROTOCOL; Start 09/06/16 at 14:30 Fosphenytoin Sodium/Sodium Chloride (Cerebyx/NS) 54 ml @ 210.667 mls/hr TID IVPB Last administered on 09/10/16 21:15; Admin Dose 210.667 MLS/HR; Start 09/07 at 13:00 Levetiracetam (Keppra Liquid) 1,500 mg BID GTB Last administered on 09/10/16 21 :01; Admin Dose 1,500 MG; Start 09/07/16 at 21:00 Carvedilol (Coreg) 25 mg BID NGT Last administered on 09/10/16 21:03; Admin Dose 25 MG; Start 09/08/16 at 09:00 YELENA KEMP Sep 11, 2016 07:33
[2016-09-11] MEDS: VALPROIC ACID LIQUID CUP 250 MG/5 ML CUP NGT SCH ×3 (08:10→20:56)
[2016-09-11] MEDS: AMLODIPINE 10 MG TAB NGT SCH (08:10)
[2016-09-11] MEDS: LEVETIRACETAM (100 MG/ML) 5ML CUP GTB SCH ×2 (08:11→20:56)
[2016-09-11] MEDS: SEVELAMER CARBONATE 2.4 GM PKT PO SCH ×3 (08:11→17:57)
[2016-09-11] MEDS: BENAZEPRIL 40 MG TAB GTB SCH (08:11)
[2016-09-11] MEDS: NYSTATIN 30 GM POWDER BTL TOP SCH ×2 (08:12→21:05)
[2016-09-11] MEDS: HEPARIN 5,000 UNIT/0.5 ML SYG SC SCH ×2 (08:14→21:00)
[2016-09-11] MEDS: FOSPHENYTOIN (PE) 200 MG in SOD CHLORIDE 0.9% 50 ML IVPB SCH ×3 (08:16→20:55)
--- NOTE | 2016-09-11 08:50 | PN ---
Date/Time of Note Date/Time of Note DATE: 09/11/16 TIME: 08:44 Assessment/Plan VTE Prophylaxis VTE Prophylaxis Intervention: heparin, SCD's Lines/Catheters IV C[facility]ter Type (from [facility]): PICC Line Central line still needed: Yes Urinary Cath still in place: No (on HD via R chest cath) Assessment/Plan Chief Complaint/Hosp Course 1. Status post cardiac arrest. S/P hypothermia protocol. Neurology following. The patient's neurologic status is improving gradually. 2. Seizures. Most probably secondary to anoxic brain injury. The patient was started on anticonvulsants. Neurology following. 3. Elevated troponins, most probably secondary to the cardiac arrest. 2D echo showing preserved LVEF. 4. Acute respiratory failure. Hypoxic. Secondary to cardiac arrest. Ventilator management as per pulmonary. Continue inhaled bronchodilators. 5. Hypertensive urgency. S/P Cardene drip. Blood pressure fairly well controlled. 6. S/P systemic inflammatory response syndrome with leukocytosis, lactic acidosis and tachycardia. Lactic acidosis has resolved. S/P empiric antibiotics for any underlying infectious etiology. Pancultures negative so far. 7. Mild pulmonary hypertension. 8. End-stage renal disease on hemodialysis. HD as per Nephrology. The patient' s electrolyte levels are stable. 9. Fluid, electrolytes and nutrition. Continue n.p.o. Continue tube feedings. Plan for PEG tube. 10. Deep venous thrombosis prophylaxis with bilateral sequential compression devices and SQ heparin. 11. Gastrointestinal prophylaxis. Proton pump inhibitors. PLAN: Continue ICU care. Ventilator weaning as per Pulmonary. Discussed the plan of care with the patient's family. Family wants to proceed with PEG tube insertion. Will call gastroenterology consult for PEG tube insertion. Case discussed with Dr. Ahn Critical care time: 35 minutes. Problems: Subjective 24 Hr Interval Summary Free Text/Dictation Patient awake and alert. Following commands. Exam/Review of Systems Vital Signs Vitals Vital Signs Date Time Temp Pulse Resp B/P Pulse Ox O2 Delivery O2 Flow Rate FiO2 09/11/16 08:00 97 09/11/16 07:48 27 98 40 09/11/16 07:00 166/80 Mechanical Ventilator 09/11/16 04:00 98.5 Intake and Output 09/10/16 09/10/16 09/11/16 14:59 22:59 06:59 Intake Total 833 ml 444 ml 480 ml Output Total 20 ml 0 ml Balance 813 ml 444 ml 480 ml Exam GENERAL: This is a 56-year-old female patient lying in bed, orally intubated. HEENT: Head normocephalic and atraumatic. Eyes: Anicteric sclerae. Conjunctivae clear. ENT: Nasal septum is midline. Oral mucosa is dry. The patient has an orogastric tube and ET tube in place. NECK: Supple. No JVD noticed. RESPIRATORY: Bilaterally diminished breath sounds. Bilateral coarse rales heard. ET tube to mechanical ventilator. On SIMV mode ventilation. CARDIAC: Regular rate and rhythm. Sinus tachycardia on the monitor. ABDOMEN: Soft, nontender and nondistended. Bowel sounds hypoactive. GENITOURINARY: The patient has a Patel catheter in place. EXTREMITIES: No cyanosis, no clubbing. Bilateral lower extremity 1+ pitting edema. Peripheral pulses are palpable.RUE 1+ pitting edema. LUE PICC line. NEUROLOGIC: The patient is awake and alert. Follows commands. Pupils are equal and reactive. Results Result Diagram: 09/11/16 0510 09/11/16 0510 Results 24 hrs Laboratory Tests Test 09/10/16 12:32 09/10/16 17:57 09/10/16 23:51 09/11/16 05:10 Bedside Glucose 94 84 112 Anion Gap 17 H Basophils # 0.0 Basophils % 0.2 Blood Morphology Comment Blood Urea Nitrogen 57 H Calcium Level 8.8 Carbon Dioxide Level 28 Chloride Level 98 Creatinine 6.06 H Eosinophils # 0.1 Eosinophils % 0.8 Glucose Level 133 # Hematocrit 30.1 L Hemoglobin 9.6 L Lymphocytes # 1.2 Lymphocytes % 7.4 L Magnesium Level 2.5 Mean Corpuscular Hemoglobin 30.5 Mean Corpuscular Hemoglobin Concent 32.0 Mean Corpuscular Volume 95.2 Mean Platelet Volume 7.6 Monocytes # 1.0 H Monocytes % 6.1 Neutrophils # 14.2 H Neutrophils % 85.5 H Nucleated Red Blood Cells # 0.0 Nucleated Red Blood Cells % 0.0 Phosphorus Level 2.5 Platelet Count 289 # Potassium Level 3.8 Red Blood Count 3.16 L Red Cell Distribution Width 16.2 H Sodium Level 139 White Blood Count 16.7 #H Test 09/11/16 05:20 Bedside Glucose 124 Medications Medications Current Medications Pantoprazole (Protonix Iv) 40 mg DAILY@06 IV Last administered on 09/11/16 05: 12; Admin Dose 40 MG; Start 08/31/16 at 06:00 Eye Lubricant 1 drop 1 drop TID BOTH EYES Last administered on 09/10/16 21:07; Admin Dose 1 DROP; Start 08/30/16 at 21:00 Propofol 100 ml @ 2.1 mls/hr Q12H IV Last administered on 09/03/16 10:10; Admin Dose 9.24 MLS/HR; Start 08/30/16 at 17:30 Vecuronium [place]/Dextrose (Norcuron/D5W) 100 ml @ 0 mls/hr TITRATE IV Last administered on 08/31/16 08:25; Admin Dose 2.1 MLS/HR; Start 08/30/16 at 17:30 Miscellaneous Information 1 ea NOTE XX ; Start 08/30/16 at 19:00 Glucose (Glutose) 15 gm Q15M PRN PO DECREASED GLUCOSE; Start 08/30/16 at 19:00 Glucose (Glutose) 22.5 gm Q15M PRN PO DECREASED GLUCOSE; Start 08/30/16 at 19: 00 Dextrose (D50w Syringe) 25 ml Q15M PRN IV DECREASED GLUCOSE Last administered on 09/04/16 14:38; Admin Dose 25 ML; Start 08/30/16 at 19:00 Dextrose (D50w Syringe) 50 ml Q15M PRN IV DECREASED GLUCOSE; Start 08/30/16 at 19:00 Glucagon (Glucagen) 1 mg Q15M PRN IM DECREASED GLUCOSE; Start 08/30/16 at 19:00 Glucose (Glutose) 15 gm Q15M PRN BUCCAL DECREASED GLUCOSE; Start 08/30/16 at 19 :00 Insulin Aspart (Novolog Insulin Pen) (Adult SC Insulin - Mild Algorithm)... Q6 SC ; Start 08/30/16 at 18:00 Lorazepam (Ativan) 2 mg Q2H PRN IV SEIZURES Last administered on 09/08/16 04:22 ; Admin Dose 2 MG; Start 09/01/16 at 02:00 Metoclopramide HCl 5 mg 5 mg Q6 IV Last administered on 09/11/16 05:13; Admin Dose 5 MG; Start 09/03/16 at 12:00 Nicardipine HCl/ Sodium Chloride (Cardene Iv/NS) 500 ml @ 70 mls/hr TITRATE IV Last administered on 09/11/16 05:09; Admin Dose 50 MLS/HR; Start 09/03/16 at 11:30 Heparin Sodium (Porcine) (Heparin (5000 Units/0.5 ml)) 5,000 unit Q12 SC Last administered on 09/11/16 08:14; Admin Dose 5,000 UNIT; Start 09/04/16 at 09:00 Valproate Sodium (Depakene Liquid Cup) 750 mg TID NGT Last administered on 08:10; Admin Dose 750 MG; Start 09/05/16 at 13:00 Amlodipine Besylate (Norvasc) 10 mg DAILY NGT Last administered on 09/11/16 08: 10; Admin Dose 10 MG; Start 09/06/16 at 09:00 Benazepril HCl (Lotensin) 40 mg DAILY GTB Last administered on 09/11/16 08:11; Admin Dose 40 MG; Start 09/06/16 at 09:00 Nystatin (Nystatin Powder) 1 applic BID TOP Last administered on 09/11/16 08:12 ; Admin Dose 1 APPLIC; Start 09/06/16 at 12:30 IV Flush 10 ml 10 ml PRN PRN IV IV PROTOCOL; Start 09/06/16 at 14:30 Fosphenytoin Sodium/Sodium Chloride (Cerebyx/NS) 54 ml @ 210.667 mls/hr TID IVPB Last administered on 09/11/16 08:16; Admin Dose 210.667 MLS/HR; Start 09/07 at 13:00 Levetiracetam (Keppra Liquid) 1,500 mg BID GTB Last administered on 09/11/16 08 :11; Admin Dose 1,500 MG; Start 09/07/16 at 21:00 Carvedilol (Coreg) 25 mg BID NGT Last administered on 09/11/16 08:11; Admin Dose 25 MG; Start 09/08/16 at 09:00 Hydralazine HCl (Apresoline) 25 mg TID NGT Last administered on 09/11/16 08:10 ; Admin Dose 25 MG; Start 09/11/16 at 09:00 CLEM HUNG NP Sep 11, 2016 08:50
[2016-09-11] MEDS: ARTIFICIAL TEARS 15 ML OPH BOTH EYES SCH ×3 (09:00→21:05)
--- NOTE | 2016-09-11 09:48 | PN ---
DATE: 09/11/2016 SUBJECTIVE: The patient remains intubated on nicardipine drip. The patient is more alert. No othe r events noted. OBJECTIVE: VITAL SIGNS: Blood pressure 166/80, respiratory rate 28, pulse 101, temperature 98.6. HEENT: Head is normocephalic. NECK: Supple. HEART: Regular rate. LUNGS: Show diminished breath sounds at the base. ABDOMEN: Soft, nontender to palpation. No rebound or guarding. EXTREMITIES: Negative for clubbing, cyanosis. Positive edema. DERMATOLOGIC: No rashes. MUSCULOSKELETAL: No joint effusions. NEUROLOGIC: No change in exam. MEDICATIONS: The patient's medications have been reviewed. LABORATORY DATA: Shows sodium 139, potassium 2.9, chloride 98, BUN 57, creatinine 6.06. White coun t 16.7, hemoglobin 9.6, hematocrit 30.1, platelet count 289. Patient's ABG, chest x-rays have been reviewed. ASSESSMENT AND PLAN: 1. End-stage renal disease. The patient is scheduled for dialysis today for 3 hours, 2K bath, calc ium 2.5 Will ultrafiltrate as tolerated. 2. Hypertensive urgency. Etiology is multifactorial in part due to increased intravascular volume. Will continue ultrafiltration with hemodialysis. Continue current blood pressure regimen. Adjust medications as needed. Will wean off nicardipine drip. 3. Volume overload. Continue ultrafiltration dialysis, as stated above. 4. Anemia. Continue to monitor hemoglobin and hematocrit levels. Continue Epogen. 5. Mineral bone disorder. Continue to monitor calcium and phosphorus levels. Continue phosphate b inders. 6. Ventilator dependent respiratory failure. Vent settings reviewed. ABG is reviewed. Continue f ollow up with pulmonary. 7. Anoxic brain injury secondary to code arrest. Continue to monitor. Follow up with neurology. 8. Myoclonic jerks/seizures. Continue Keppra. 9. Diabetes, continue Accu-Cheks and sliding scale. 10. Leukocytosis, sepsis inflammatory response syndrome. Continue to monitor. The patient's antibi otics were discontinued. 11. Status post code arrest. Dictated By: TIP LIZARRAGA DO NR/NTS Conf#: [id number] DID#: [id number]
[2016-09-11] MEDS: DEXTROSE 50% 50 ML SYRINGE IV PRN (12:33)
--- NOTE | 2016-09-11 15:02 | CONS ---
DATE OF ADMISSION: 08/30/2016 DATE OF CONSULTATION: GASTROENTEROLOGY CONSULTATION REASON FOR CONSULTATION: For a percutaneous endoscopic gastrostomy tube placement. Dear Dr. Genao, Thank you for asking me to see Ms. Herbert in GI consultation. HISTORY OF PRESENT ILLNESS: As you know, the patient is a 56-year-old [place] female who was admit rich to the hospital several days ago with history of shortness of breath, and she became unresponsiv e, and the paramedics were called. She was resuscitated, and she was admitted to the hospital. Abisai arently she sustained a cardiac arrest. She is currently in the intensive care unit. She is known to have chronic kidney failure, on hemodialysis. She has history of hypertension, end- stage renal disease. PAST SURGICAL HISTORY: Includes a PermCath, , and hysterectomy. MEDICATIONS PRIOR TO THE ADMISSION: Include: 1. Clonidine. 2. Labetalol. 3. Nifedipine. 4. Aldactone. 5. Renvela. 6. Folic acid. 7. Shana-Negar. PHYSICAL EXAMINATION: GENERAL: The patient is a 56-year-old [place] female who at this time is intubated. She is unresp onsive. VITAL SIGNS: Blood pressure is 140/70, pulse is 79. CARDIOVASCULAR: Normal heart sounds. RESPIRATORY: Normal breath sounds. ABDOMEN: Showed unremarkable findings. LABORATORY WORKUP: Potassium 3.8, creatinine 6.06. BUN is 57.0. Prothrombin time 14.0. CLINICAL IMPRESSION: The patient presenting with history of status post cardiac arrest. She is int ubated. She is unresponsive. She needs a percutaneous endoscopic gastrostomy tube placement for lo ng-term nutritional support, and will be performed in a day or two. Once again, Dr. Genao, thank you for this consultation. Dictated By: EARNEST BELTRAN/NTS Conf#: [id number] DID#: [id number] CC: ANA M GENAO MD;*EndCC*
--- NOTE | 2016-09-11 15:22 | CONS ---
Date/Time of Note Date/Time of Note DATE: 09/11/16 TIME: 15:15 Assessment/Plan Assessment/Plan Chief Complaint/Hosp Course Status post cardiac arrest - unclear etiology (?hypoxic/respiratory), initial rhythm reported to be PEA, status post hypothermia protocol Accelerated hypertension: now off nicardipine drip Acute on chronic diastolic heart failure: EF preserved. Congested on CXR NSTEMI - likely type 2. Depending on neurologic recovery will consider further management options Acute respiratory failure - intubated, on mechanical ventilation End-stage renal disease - on hemodialysis Anoxic brain injury: appears to be having myoclonic movements and does not have purposeful movements which are concerning for significant injury -amlodipine 10mg -benazpril 40mg -coreg 25mg BID -hydralazine 25mg TID -consider ASA, statin if no contraindication -HD per nephrology -neurology follow up Problems: Consultation Date/Type/Reason Admit Date/Time Aug 30, 2016 at 15:45 Initial Consult Date 09/01/16 Type of Consultation: Cardiology 24 HR Interval Summary Free Text/Dictation Off nicardipine drip this am. On my exam there is no purposeful movement and she has her eyes open but does not respond to her daughter's voice. She also seems to be having myoclonus. Exam/Review of Systems Vital Signs Vitals Vital Signs Date Time Temp Pulse Resp B/P Pulse Ox O2 Delivery O2 Flow Rate FiO2 09/11/16 14:44 79 09/11/16 14:30 16 130/79 99 09/11/16 14:00 Mechanical Ventilator 09/11/16 12:59 30 09/11/16 12:00 98.4 Intake and Output 09/10/16 09/10/16 09/11/16 15:00 23:00 07:00 Intake Total 838 ml 444 ml 500 ml Output Total 20 ml 0 ml Balance 818 ml 444 ml 500 ml Exam Constitutional: No alert Head: atraumatic, normocephalic ENMT: intubated Neck: No jvd (difficult to assess ) Respiratory: diminished breath sounds, No clear to auscultation Cardiovascular: edema (1+), regular rate and rhythm, No systolic murmur Gastrointestinal: non-tender, soft Neurological: other (myoclonic movements), No nl mental status, No nl strength Results Result Diagram: 09/11/16 0510 09/11/1610 Results 24 hrs Laboratory Tests Test 09/10/16 17:57 09/10/16 23:51 09/11/16 05:10 09/11/16 05:20 Bedside Glucose 84 112 124 Anion Gap 17 H Basophils # 0.0 Basophils % 0.2 Blood Morphology Comment Blood Urea Nitrogen 57 H Calcium Level 8.8 Carbon Dioxide Level 28 Chloride Level 98 Creatinine 6.06 H Eosinophils # 0.1 Eosinophils % 0.8 Glucose Level 133 # Hematocrit 30.1 L Hemoglobin 9.6 L Lymphocytes # 1.2 Lymphocytes % 7.4 L Magnesium Level 2.5 Mean Corpuscular Hemoglobin 30.5 Mean Corpuscular Hemoglobin Concent 32.0 Mean Corpuscular Volume 95.2 Mean Platelet Volume 7.6 Monocytes # 1.0 H Monocytes % 6.1 Neutrophils # 14.2 H Neutrophils % 85.5 H Nucleated Red Blood Cells # 0.0 Nucleated Red Blood Cells % 0.0 Phosphorus Level 2.5 Platelet Count 289 # Potassium Level 3.8 Red Blood Count 3.16 L Red Cell Distribution Width 16.2 H Sodium Level 139 White Blood Count 16.7 #H Test 09/11/16 12:30 09/11/16 12:43 Bedside Glucose 64 L 147 Medications Medications Current Medications Pantoprazole (Protonix Iv) 40 mg DAILY@06 IV Last administered on 09/11/16 05: 12; Admin Dose 40 MG; Start 08/31/16 at 06:00 Eye Lubricant 1 drop 1 drop TID BOTH EYES Last administered on 09/11/16 13:00; Admin Dose 1 DROP; Start 08/30/16 at 21:00 Propofol 100 ml @ 2.1 mls/hr Q12H IV Last administered on 09/03/16 10:10; Admin Dose 9.24 MLS/HR; Start 08/30/16 at 17:30 Vecuronium [place]/Dextrose (Norcuron/D5W) 100 ml @ 0 mls/hr TITRATE IV Last administered on 08/31/16 08:25; Admin Dose 2.1 MLS/HR; Start 08/30/16 at 17:30 Miscellaneous Information 1 ea NOTE XX ; Start 08/30/16 at 19:00 Glucose (Glutose) 15 gm Q15M PRN PO DECREASED GLUCOSE; Start 08/30/16 at 19:00 Glucose (Glutose) 22.5 gm Q15M PRN PO DECREASED GLUCOSE; Start 08/30/16 at 19: 00 Dextrose (D50w Syringe) 25 ml Q15M PRN IV DECREASED GLUCOSE Last administered on 09/11/16 12:33; Admin Dose 25 ML; Start 08/30/16 at 19:00 Dextrose (D50w Syringe) 50 ml Q15M PRN IV DECREASED GLUCOSE; Start 08/30/16 at 19:00 Glucagon (Glucagen) 1 mg Q15M PRN IM DECREASED GLUCOSE; Start 08/30/16 at 19:00 Glucose (Glutose) 15 gm Q15M PRN BUCCAL DECREASED GLUCOSE; Start 08/30/16 at 19 :00 Insulin Aspart (Novolog Insulin Pen) (Adult SC Insulin - Mild Algorithm)... Q6 SC ; Start 08/30/16 at 18:00 Lorazepam (Ativan) 2 mg Q2H PRN IV SEIZURES Last administered on 09/08/16 04:22 ; Admin Dose 2 MG; Start 09/01/16 at 02:00 Metoclopramide HCl (Reglan) 5 mg Q6 IV Last administered on 09/11/16 12:22; Admin Dose 5 MG; Start 09/03/16 at 12:00 Heparin Sodium (Porcine) (Heparin (5000 Units/0.5 ml)) 5,000 unit Q12 SC Last administered on 09/11/16 08:14; Admin Dose 5,000 UNIT; Start 09/04/16 at 09:00 Valproate Sodium (Depakene Liquid Cup) 750 mg TID NGT Last administered on 12:24; Admin Dose 750 MG; Start 09/05/16 at 13:00 Amlodipine Besylate (Norvasc) 10 mg DAILY NGT Last administered on 09/11/16 08: 10; Admin Dose 10 MG; Start 09/06/16 at 09:00 Benazepril HCl (Lotensin) 40 mg DAILY GTB Last administered on 09/11/16 08:11; Admin Dose 40 MG; Start 09/06/16 at 09:00 Nystatin (Nystatin Powder) 1 applic BID TOP Last administered on 09/11/16 08:12 ; Admin Dose 1 APPLIC; Start 09/06/16 at 12:30 IV Flush 10 ml 10 ml PRN PRN IV IV PROTOCOL; Start 09/06/16 at 14:30 Fosphenytoin Sodium/Sodium Chloride (Cerebyx/NS) 54 ml @ 210.667 mls/hr TID IVPB Last administered on 09/11/16 12:24; Admin Dose 210.667 MLS/HR; Start 09/07 at 13:00 Levetiracetam (Keppra Liquid) 1,500 mg BID GTB Last administered on 09/11/16 08 :11; Admin Dose 1,500 MG; Start 09/07/16 at 21:00 Carvedilol (Coreg) 25 mg BID NGT Last administered on 09/11/16 08:11; Admin Dose 25 MG; Start 09/08/16 at 09:00 Hydralazine HCl 25 mg 25 mg TID NGT Last administered on 09/11/16 12:24; Admin Dose 25 MG; Start 09/11/16 at 09:00 Nicardipine HCl/ Sodium Chloride (Cardene Iv/NS) 500 ml @ 70 mls/hr TITRATE IV ; Start 09/11/16 at 10:00 KARLEE DAY Sep 11, 2016 15:22
[2016-09-11] MEDS ORDERED: ACETAMINOPHEN 650MG/20.3ML CUP NGT PRN (16:30)
[2016-09-11] MEDS: EPOETIN 10000 UNITS/1 ML INJ (ESRD) SC SCH (18:16)
--- NOTE | 2016-09-11 19:42 | PN ---
Date/Time of Note Date/Time of Note DATE: 09/11/16 TIME: 19:38 Assessment/Plan VTE Prophylaxis VTE Prophylaxis Intervention: SCD's Lines/Catheters [facility] PICC Line Central line still needed: Yes Urinary Cath still in place: No Assessment/Plan Assessment/Plan Assessment * Status post cardiac arrest. * Anoxic encephalopathy * Seizures * Respiratory failure * Tracheostomy recommended * Hypertension * Mild pulmonary hypertension. Continue on O2 supplementation * End-stage renal disease on HD Plan: * EGD plus PEG. Procedure was explained to the patient's daughter in detail including risks, benefits and alternatives. Agreeable to proceed Subjective 24 Hr Interval Summary Free Text/Dictation Course reviewed with nursing staff Daughter present reviewed indications for PEG also risks, benefits and alternatives Undergoing dialysis We will plan EGD back tomorrow Exam/Review of Systems Vital Signs Vitals Vital Signs Date Time Temp Pulse Resp B/P Pulse Ox O2 Delivery O2 Flow Rate FiO2 09/11/16 19:15 89 21 157/84 98 09/11/16 19:00 Mechanical Ventilator 09/11/16 17:18 30 09/11/16 12:00 98.4 Intake and Output 09/10/16 09/10/16 09/11/16 15:00 23:00 07:00 Intake Total 838 ml 444 ml 530 ml Output Total 20 ml 0 ml Balance 818 ml 444 ml 530 ml Exam Constitutional: other (Unresponsive) Head: atraumatic, normocephalic Neck: non-tender, supple Respiratory: clear to auscultation, normal air movement Cardiovascular: nl pulses, regular rate and rhythm Gastrointestinal: nl liver, spleen, non-tender, soft Results Result Diagram: 09/11/16 0510 09/11/16 0510 Results 24 hrs Laboratory Tests Test 09/10/16 23:51 09/11/16 05:10 09/11/16 05:20 09/11/16 12:30 Bedside Glucose 112 124 64 L Anion Gap 17 H Basophils # 0.0 Basophils % 0.2 Blood Morphology Comment Blood Urea Nitrogen 57 H Calcium Level 8.8 Carbon Dioxide Level 28 Chloride Level 98 Creatinine 6.06 H Eosinophils # 0.1 Eosinophils % 0.8 Glucose Level 133 # Hematocrit 30.1 L Hemoglobin 9.6 L Lymphocytes # 1.2 Lymphocytes % 7.4 L Magnesium Level 2.5 Mean Corpuscular Hemoglobin 30.5 Mean Corpuscular Hemoglobin Concent 32.0 Mean Corpuscular Volume 95.2 Mean Platelet Volume 7.6 Monocytes # 1.0 H Monocytes % 6.1 Neutrophils # 14.2 H Neutrophils % 85.5 H Nucleated Red Blood Cells # 0.0 Nucleated Red Blood Cells % 0.0 Phosphorus Level 2.5 Platelet Count 289 # Potassium Level 3.8 Red Blood Count 3.16 L Red Cell Distribution Width 16.2 H Sodium Level 139 White Blood Count 16.7 #H Test 09/11/16 12:43 09/11/16 18:36 Bedside Glucose 147 156 Medications Medications Current Medications Pantoprazole (Protonix Iv) 40 mg DAILY@06 IV Last administered on 09/11/16 05: 12; Admin Dose 40 MG; Start 08/31/16 at 06:00 Eye Lubricant 1 drop 1 drop TID BOTH EYES Last administered on 09/11/16 13:00; Admin Dose 1 DROP; Start 08/30/16 at 21:00 Propofol 100 ml @ 2.1 mls/hr Q12H IV Last administered on 09/03/16 10:10; Admin Dose 9.24 MLS/HR; Start 08/30/16 at 17:30 Vecuronium [place]/Dextrose (Norcuron/D5W) 100 ml @ 0 mls/hr TITRATE IV Last administered on 08/31/16 08:25; Admin Dose 2.1 MLS/HR; Start 08/30/16 at 17:30 Miscellaneous Information 1 ea NOTE XX ; Start 08/30/16 at 19:00 Glucose (Glutose) 15 gm Q15M PRN PO DECREASED GLUCOSE; Start 08/30/16 at 19:00 Glucose (Glutose) 22.5 gm Q15M PRN PO DECREASED GLUCOSE; Start 08/30/16 at 19: 00 Dextrose (D50w Syringe) 25 ml Q15M PRN IV DECREASED GLUCOSE Last administered on 09/11/16 12:33; Admin Dose 25 ML; Start 08/30/16 at 19:00 Dextrose (D50w Syringe) 50 ml Q15M PRN IV DECREASED GLUCOSE; Start 08/30/16 at 19:00 Glucagon (Glucagen) 1 mg Q15M PRN IM DECREASED GLUCOSE; Start 08/30/16 at 19:00 Glucose (Glutose) 15 gm Q15M PRN BUCCAL DECREASED GLUCOSE; Start 08/30/16 at 19 :00 Insulin Aspart (Novolog Insulin Pen) (Adult SC Insulin - Mild Algorithm)... Q6 SC ; Start 08/30/16 at 18:00 Lorazepam (Ativan) 2 mg Q2H PRN IV SEIZURES Last administered on 09/08/16 04:22 ; Admin Dose 2 MG; Start 09/01/16 at 02:00 Metoclopramide HCl (Reglan) 5 mg Q6 IV Last administered on 09/11/16 18:02; Admin Dose 5 MG; Start 09/03/16 at 12:00 Heparin Sodium (Porcine) (Heparin (5000 Units/0.5 ml)) 5,000 unit Q12 SC Last administered on 09/11/16 08:14; Admin Dose 5,000 UNIT; Start 09/04/16 at 09:00 Valproate Sodium (Depakene Liquid Cup) 750 mg TID NGT Last administered on 12:24; Admin Dose 750 MG; Start 09/05/16 at 13:00 Amlodipine Besylate (Norvasc) 10 mg DAILY NGT Last administered on 09/11/16 08: 10; Admin Dose 10 MG; Start 09/06/16 at 09:00 Benazepril HCl (Lotensin) 40 mg DAILY GTB Last administered on 09/11/16 08:11; Admin Dose 40 MG; Start 09/06/16 at 09:00 Nystatin (Nystatin Powder) 1 applic BID TOP Last administered on 09/11/16 08:12 ; Admin Dose 1 APPLIC; Start 09/06/16 at 12:30 IV Flush 10 ml 10 ml PRN PRN IV IV PROTOCOL; Start 09/06/16 at 14:30 Fosphenytoin Sodium/Sodium Chloride (Cerebyx/NS) 54 ml @ 210.667 mls/hr TID IVPB Last administered on 09/11/16 12:24; Admin Dose 210.667 MLS/HR; Start 09/07 at 13:00 Levetiracetam (Keppra Liquid) 1,500 mg BID GTB Last administered on 09/11/16 08 :11; Admin Dose 1,500 MG; Start 09/07/16 at 21:00 Carvedilol (Coreg) 25 mg BID NGT Last administered on 09/11/16 08:11; Admin Dose 25 MG; Start 09/08/16 at 09:00 Hydralazine HCl 25 mg 25 mg TID NGT Last administered on 09/11/16 12:24; Admin Dose 25 MG; Start 09/11/16 at 09:00 Nicardipine HCl/ Sodium Chloride (Cardene Iv/NS) 500 ml @ 70 mls/hr TITRATE IV Last administered on 09/11/16 17:00; Admin Dose 20 MLS/HR; Start 09/11/16 at 10 :00 Acetaminophen (Tylenol Liquid) 650 mg Q6H PRN NGT PAIN AND OR ELEVATED TEMP Last administered on 09/11/16 16:48; Admin Dose 650 MG; Start 09/11/16 at 16:30 TC STEELE MD Sep 11, 2016 19:42
[2016-09-11] MEDS ORDERED: CEFAZOLIN 1 GM/50 ML (PMX) 50 ML IVPB ONE (20:00)
[2016-09-12] VITALS (90 sets, daily range): BP systolic 119–196; BP diastolic 67–107; PULSE 72–93; RESP 15–27
[2016-09-12] MEDS: ALBUTEROL HFA 8 GM INHALER INH SCH ×4 (02:03→19:44)
[2016-09-12] MEDS: IPRATROPIUM (HFA) 12.9 GM INHALER INH SCH ×4 (02:03→19:44)
[2016-09-12] MEDS: PROPOFOL 100 ML IV SCH ×2 (02:25→17:30)
[2016-09-12] MEDS: niCARdipine 50 MG in SOD CHLORIDE 0.9% 480 ML IV SCH (02:25)
[2016-09-12 04:58] LABS: BASOPHILS % 0.1 % (0.0-2.0); CREATININE 6.78 mg/dl (0.44-1.00); EOSINOPHILS # 0.1 10^3/ul (0.0-0.5); EOSINOPHILS % 1.2 % (0.0-7.0); HEMATOCRIT 26.9 % (37.0-47.0); HEMOGLOBIN 8.6 g/dl (12.0-16.0); LYMPHOCYTES % 7.9 % (15.0-51.0); MEAN CORPUSCULAR HEMOGLOBIN 30.5 pg (29.0-33.0); MEAN CORPUSCULAR HGB CONC 32.1 g/dl (32.0-37.0); MEAN CORPUSCULAR VOLUME 94.9 fl (82.0-101.0); MEAN PLATELET VOLUME 7.9 fl (7.4-10.4); MONOCYTES % 8.1 % (0.0-11.0); NEUTROPHIL # 10.2 10^3/ul (1.6-7.5); NEUTROPHILS % 82.7 % (39.0-77.0); PLATELET COUNT 256 10^3/UL (140-440); RED BLOOD COUNT 2.83 10^6/ul (4.20-5.40); UNCORRECTED WBC 12.3 10^3/ul (4.8-10.8); WHITE BLOOD COUNT 12.3 10^3/ul (4.8-10.8)
[2016-09-12 04:59] LABS: CALCIUM 8.6 mg/dl (8.4-10.2)
[2016-09-12] MEDS: PANTOPRAZOLE 40 MG INJ IV SCH (05:01)
[2016-09-12] MEDS: METOCLOPRAMIDE 10 MG INJ IV SCH ×3 (05:01→18:00)
[2016-09-12] MEDS: Insulin NOVOLOG SS MILD Algorithm (NPO/TPN/ENTERAL FEEDS) SC SCH ×4 (05:06→18:00)
[2016-09-12 05:12] LABS: POTASSIUM 4.1 mmol/L (3.5-5.1)
[2016-09-12 05:20] LABS: MAGNESIUM 2.8 mg/dl (1.7-2.5); PHOSPHORUS 2.7 mg/dl (2.5-4.9)
[2016-09-12 05:32] LABS: CONDITION 1; LH ANALYZER COMMENTS 1
--- NOTE | 2016-09-12 07:26 | CONS ---
Date/Time of Note Date/Time of Note DATE: 09/12/16 TIME: 07:22 Assessment/Plan Assessment/Plan Chief Complaint/Hosp Course Patient is a 60-year-old [place] lady who was brought into the emergency room after the patient called 911 with complaints of shortness of breath by the time the EMS arrived the patient was found unresponsive had pulseless electrical activity along CPR was done lasting approximately 20 minutes with revival of vital signs. She currently is on hypothermic protocol and is sedated paralyzed on mechanical ventilation or intubated. She also was obtained from medical records as well as patient's daughter who is currently present in the room. The patient's daughter the patient was admitted last month with pneumonia and were discharged home however the patient was complaining of mild shortness of breath for the last couple of days prior to the event which occurred yesterday afternoon. Problems: Additional Assessment/Plan Current ventilator settings are SIMV of 16, pressure support 10, tidal volume 450, PEEP of 5, 30% FiO2. Assessment and recommendations; 1. Patient admitted with cardiac arrest and exhibited profound anoxic encephalopathy, however there has been marked overall improvement in mental status. 2. End-stage renal disease, on hemodialysis. 3. Severe hypertension. Nicardipine drip resumed. 4. Seizures and myoclonic jerking currently well controlled on antiepileptic regimen. Next Please nicardipine drip. Patient had been switched over to CPAP mode currently has excellent weaning parameters. An ABG will be performed in 30 minutes. If the ABG is adequate, patient would warrant an extubation trial. She likely will need to have a G-tube placement. Continue current medications. Consultation Date/Type/Reason Admit Date/Time Aug 30, 2016 at 15:45 Initial Consult Date 08/31/16 Type of Consultation: Pulmonary/critical care. 24 HR Interval Summary Free Text/Dictation Patient's condition remains critical. However there has been continued improvement in the patient's mental status. Patient today is much more awake and follows simple commands like eye blinking. Patient however has remained hypertensive. Requiring initiation of hydralazine for better blood pressure control. Nicardipine drip was again resumed early this morning. General examination; middle-aged woman, or intubated, awake currently in no distress. Exam/Review of Systems Vital Signs Vitals Vital Signs Date Time Temp Pulse Resp B/P Pulse Ox O2 Delivery O2 Flow Rate FiO2 2/7/17 06:45 91 22 196/102 94 09/12/16 06:02 30 09/12/16 06:00 Mechanical Ventilator 09/12/16 04:00 97.9 Intake and Output 09/11/16 09/11/16 09/12/16 15:00 23:00 07:00 Intake Total 468 ml 944 ml 60 ml Output Total 3000 ml Balance 468 ml -2056 ml 60 ml Exam HEENT examination; supple neck, no JVD. No lymphadenopathy. Pupils are midsize reactive to light. Orally intubated. Next Chest examination; clear to auscultation. S1-S2 audible, no murmurs. Regular rate and rhythm. Abdomen examination; soft, nontender, no organomegaly. Bowel sounds audible. Extremity examination; no peripheral edema. Pulses 2+ bilaterally. CANDY DIPPER HAND examination; patient is awake follows simple commands. Unable to move right side. Results Result Diagram: 09/12/16 0340 09/12/16 0340 Results 24 hrs Laboratory Tests Test 09/11/16 12:30 09/11/16 12:43 09/11/16 18:36 09/11/16 23:50 Bedside Glucose 64 L 147 156 122 Test 09/12/16 03:40 09/12/16 05:00 Anion Gap 19 H Basophils # 0.0 Basophils % 0.1 Blood Morphology Comment Blood Urea Nitrogen 72 H Calcium Level 8.6 Carbon Dioxide Level 24 Chloride Level 101 Creatinine 6.78 H Eosinophils # 0.1 Eosinophils % 1.2 Glucose Level 86 # Hematocrit 26.9 L Hemoglobin 8.6 L Lymphocytes # 1.0 Lymphocytes % 7.9 L Magnesium Level 2.8 H Mean Corpuscular Hemoglobin 30.5 Mean Corpuscular Hemoglobin Concent 32.1 Mean Corpuscular Volume 94.9 Mean Platelet Volume 7.9 Monocytes # 1.0 H Monocytes % 8.1 Neutrophils # 10.2 H Neutrophils % 82.7 H Nucleated Red Blood Cells # 0.0 Nucleated Red Blood Cells % 0.0 Phosphorus Level 2.7 Platelet Count 256 Potassium Level 4.1 Red Blood Count 2.83 L Red Cell Distribution Width 17.0 H Sodium Level 140 White Blood Count 12.3 #H Bedside Glucose 87 Medications Medications Current Medications Pantoprazole (Protonix Iv) 40 mg DAILY@06 IV Last administered on 09/12/16t 05: 01; Admin Dose 40 MG; Start 08/31/16 at 06:00 Eye Lubricant 1 drop 1 drop TID BOTH EYES Last administered on 09/11/16 21:05; Admin Dose 1 DROP; Start 08/30/16 at 21:00 Propofol 100 ml @ 2.1 mls/hr Q12H IV Last administered on 09/03/16 10:10; Admin Dose 9.24 MLS/HR; Start 08/30/16 at 17:30 Vecuronium [place]/Dextrose (Norcuron/D5W) 100 ml @ 0 mls/hr TITRATE IV Last administered on 08/31/16 08:25; Admin Dose 2.1 MLS/HR; Start 08/30/16 at 17:30 Miscellaneous Information 1 ea NOTE XX ; Start 08/30/16 at 19:00 Glucose (Glutose) 15 gm Q15M PRN PO DECREASED GLUCOSE; Start 08/30/16 at 19:00 Glucose (Glutose) 22.5 gm Q15M PRN PO DECREASED GLUCOSE; Start 08/30/16 at 19: 00 Dextrose (D50w Syringe) 25 ml Q15M PRN IV DECREASED GLUCOSE Last administered on 09/11/16 12:33; Admin Dose 25 ML; Start 08/30/16 at 19:00 Dextrose (D50w Syringe) 50 ml Q15M PRN IV DECREASED GLUCOSE; Start 08/30/16 at 19:00 Glucagon (Glucagen) 1 mg Q15M PRN IM DECREASED GLUCOSE; Start 08/30/16 at 19:00 Glucose (Glutose) 15 gm Q15M PRN BUCCAL DECREASED GLUCOSE; Start 08/30/16 at 19 :00 Insulin Aspart (Novolog Insulin Pen) (Adult SC Insulin - Mild Algorithm)... Q6 SC ; Start 08/30/16 at 18:00 Lorazepam (Ativan) 2 mg Q2H PRN IV SEIZURES Last administered on 09/08/16 04:22 ; Admin Dose 2 MG; Start 09/01/16 at 02:00 Metoclopramide HCl (Reglan) 5 mg Q6 IV Last administered on 09/12/16 05:01; Admin Dose 5 MG; Start 09/03/16 at 12:00 Heparin Sodium (Porcine) (Heparin (5000 Units/0.5 ml)) 5,000 unit Q12 SC Last administered on 09/11/16 21:00; Admin Dose 5,000 UNIT; Start 09/04/16 at 09:00 Valproate Sodium (Depakene Liquid Cup) 750 mg TID NGT Last administered on 20:56; Admin Dose 750 MG; Start 09/05/16 at 13:00 Amlodipine Besylate (Norvasc) 10 mg DAILY NGT Last administered on 09/11/16 08: 10; Admin Dose 10 MG; Start 09/06/16 at 09:00 Benazepril HCl (Lotensin) 40 mg DAILY GTB Last administered on 09/11/16 08:11; Admin Dose 40 MG; Start 09/06/16 at 09:00 Nystatin (Nystatin Powder) 1 applic BID TOP Last administered on 09/11/16 21:05 ; Admin Dose 1 APPLIC; Start 09/06/16 at 12:30 IV Flush 10 ml 10 ml PRN PRN IV IV PROTOCOL; Start 09/06/16 at 14:30 Fosphenytoin Sodium/Sodium Chloride (Cerebyx/NS) 54 ml @ 210.667 mls/hr TID IVPB Last administered on 09/11/16 20:55; Admin Dose 210.667 MLS/HR; Start 09/07 at 13:00 Levetiracetam (Keppra Liquid) 1,500 mg BID GTB Last administered on 09/11/16 20 :56; Admin Dose 1,500 MG; Start 09/07/16 at 21:00 Carvedilol (Coreg) 25 mg BID NGT Last administered on 09/11/16 20:57; Admin Dose 25 MG; Start 09/08/16 at 09:00 Hydralazine HCl 25 mg 25 mg TID NGT Last administered on 09/11/16 20:56; Admin Dose 25 MG; Start 09/11/16 at 09:00 Nicardipine HCl/ Sodium Chloride (Cardene Iv/NS) 500 ml @ 70 mls/hr TITRATE IV Last administered on 09/12/16 02:25; Admin Dose 10 MLS/HR; Start 09/11/16 at 10 :00 Acetaminophen (Tylenol Liquid) 650 mg Q6H PRN NGT PAIN AND OR ELEVATED TEMP Last administered on 2/6/17at 16:48; Admin Dose 650 MG; Start 09/11/16 at 16:30 YELENA KEMP Sep 12, 2016 07:26
--- NOTE | 2016-09-12 07:27 | PN ---
Date/Time of Note Date/Time of Note DATE: 09/12/16 TIME: 07:27 Assessment/Plan VTE Prophylaxis VTE Prophylaxis Intervention: heparin Lines/Catheters IV C[facility]ter Type (from [facility] PICC Line Central line still needed: Yes Urinary Cath still in place: No Assessment/Plan Chief Complaint/Hosp Course 1. Status post cardiac arrest. S/P hypothermia protocol. Neurology following. The patient's neurologic status is improving gradually. 2. Seizures. Most probably secondary to anoxic brain injury. The patient was started on anticonvulsants. Neurology following. 3. Elevated troponins, most probably secondary to the cardiac arrest. 2D echo showing preserved LVEF. 4. Acute respiratory failure. Hypoxic. Secondary to cardiac arrest. Ventilator management as per pulmonary. Continue inhaled bronchodilators. 5. Hypertensive urgency. On Cardene drip. Blood pressure fairly well controlled. 6. S/P systemic inflammatory response syndrome with leukocytosis, lactic acidosis and tachycardia. Lactic acidosis has resolved. S/P empiric antibiotics for any underlying infectious etiology. Pancultures negative so far. 7. Mild pulmonary hypertension. 8. End-stage renal disease on hemodialysis. HD as per Nephrology. The patient' s electrolyte levels are stable. 9. Fluid, electrolytes and nutrition. Continue n.p.o. Continue tube feedings. Plan for PEG tube. 10. Deep venous thrombosis prophylaxis with bilateral sequential compression devices and SQ heparin. 11. Gastrointestinal prophylaxis. Proton pump inhibitors. PLAN: Continue ICU care. Ventilator weaning as per Pulmonary. Plan for G-tube placement today. Case discussed with Dr. Ahn Critical care time: 35 minutes. Problems: Subjective 24 Hr Interval Summary Free Text/Dictation On CPAP trial. Exam/Review of Systems Vital Signs Vitals Vital Signs Date Time Temp Pulse Resp B/P Pulse Ox O2 Delivery O2 Flow Rate FiO2 09/12/16 06:45 91 22 196/102 94 09/12/16 06:02 30 09/12/16 06:00 Mechanical Ventilator 09/12/16 04:00 97.9 Intake and Output 09/11/16 09/11/16 09/12/16 15:00 23:00 07:00 Intake Total 468 ml 944 ml 60 ml Output Total 3000 ml Balance 468 ml -2056 ml 60 ml Exam GENERAL: This is a 56-year-old female patient lying in bed, orally intubated. HEENT: Head normocephalic and atraumatic. Eyes: Anicteric sclerae. Conjunctivae clear. ENT: Nasal septum is midline. Oral mucosa is dry. The patient has an orogastric tube and ET tube in place. NECK: Supple. No JVD noticed. RESPIRATORY: Bilaterally diminished breath sounds. Bilateral coarse rales heard. ET tube to mechanical ventilator. On SIMV mode ventilation. CARDIAC: Regular rate and rhythm. Sinus tachycardia on the monitor. ABDOMEN: Soft, nontender and nondistended. Bowel sounds hypoactive. GENITOURINARY: The patient has a Patel catheter in place. EXTREMITIES: No cyanosis, no clubbing. Bilateral lower extremity 1+ pitting edema. Peripheral pulses are palpable.RUE 1+ pitting edema. LUE PICC line. NEUROLOGIC: The patient is awake and alert. Follows commands. Pupils are equal and reactive. Results Result Diagram: 09/12/16 0340 09/12/16 0340 Results 24 hrs Laboratory Tests Test 09/11/16 12:30 09/11/16 12:43 09/11/16 18:36 09/11/16 23:50 Bedside Glucose 64 L 147 156 122 Test 09/12/16 03:40 09/12/16 05:00 Anion Gap 19 H Basophils # 0.0 Basophils % 0.1 Blood Morphology Comment Blood Urea Nitrogen 72 H Calcium Level 8.6 Carbon Dioxide Level 24 Chloride Level 101 Creatinine 6.78 H Eosinophils # 0.1 Eosinophils % 1.2 Glucose Level 86 # Hematocrit 26.9 L Hemoglobin 8.6 L Lymphocytes # 1.0 Lymphocytes % 7.9 L Magnesium Level 2.8 H Mean Corpuscular Hemoglobin 30.5 Mean Corpuscular Hemoglobin Concent 32.1 Mean Corpuscular Volume 94.9 Mean Platelet Volume 7.9 Monocytes # 1.0 H Monocytes % 8.1 Neutrophils # 10.2 H Neutrophils % 82.7 H Nucleated Red Blood Cells # 0.0 Nucleated Red Blood Cells % 0.0 Phosphorus Level 2.7 Platelet Count 256 Potassium Level 4.1 Red Blood Count 2.83 L Red Cell Distribution Width 17.0 H Sodium Level 140 White Blood Count 12.3 #H Bedside Glucose 87 Medications Medications Current Medications Pantoprazole (Protonix Iv) 40 mg DAILY@06 IV Last administered on 09/12/16t 05: 01; Admin Dose 40 MG; Start 08/31/16 at 06:00 Eye Lubricant 1 drop 1 drop TID BOTH EYES Last administered on 09/11/16 21:05; Admin Dose 1 DROP; Start 08/30/16 at 21:00 Propofol 100 ml @ 2.1 mls/hr Q12H IV Last administered on 09/03/16 10:10; Admin Dose 9.24 MLS/HR; Start 08/30/16 at 17:30 Vecuronium [place]/Dextrose (Norcuron/D5W) 100 ml @ 0 mls/hr TITRATE IV Last administered on 08/31/16 08:25; Admin Dose 2.1 MLS/HR; Start 08/30/16 at 17:30 Miscellaneous Information 1 ea NOTE XX ; Start 08/30/16 at 19:00 Glucose (Glutose) 15 gm Q15M PRN PO DECREASED GLUCOSE; Start 08/30/16 at 19:00 Glucose (Glutose) 22.5 gm Q15M PRN PO DECREASED GLUCOSE; Start 08/30/16 at 19: 00 Dextrose (D50w Syringe) 25 ml Q15M PRN IV DECREASED GLUCOSE Last administered on 09/11/16 12:33; Admin Dose 25 ML; Start 08/30/16 at 19:00 Dextrose (D50w Syringe) 50 ml Q15M PRN IV DECREASED GLUCOSE; Start 08/30/16 at 19:00 Glucagon (Glucagen) 1 mg Q15M PRN IM DECREASED GLUCOSE; Start 08/30/16 at 19:00 Glucose (Glutose) 15 gm Q15M PRN BUCCAL DECREASED GLUCOSE; Start 08/30/16 at 19 :00 Insulin Aspart (Novolog Insulin Pen) (Adult SC Insulin - Mild Algorithm)... Q6 SC ; Start 08/30/16 at 18:00 Lorazepam (Ativan) 2 mg Q2H PRN IV SEIZURES Last administered on 09/08/16 04:22 ; Admin Dose 2 MG; Start 09/01/16 at 02:00 Metoclopramide HCl (Reglan) 5 mg Q6 IV Last administered on 09/12/16 05:01; Admin Dose 5 MG; Start 09/03/16 at 12:00 Heparin Sodium (Porcine) (Heparin (5000 Units/0.5 ml)) 5,000 unit Q12 SC Last administered on 09/11/16 21:00; Admin Dose 5,000 UNIT; Start 09/04/16 at 09:00 Valproate Sodium (Depakene Liquid Cup) 750 mg TID NGT Last administered on 20:56; Admin Dose 750 MG; Start 09/05/16 at 13:00 Amlodipine Besylate (Norvasc) 10 mg DAILY NGT Last administered on 09/11/16 08: 10; Admin Dose 10 MG; Start 09/06/16 at 09:00 Benazepril HCl (Lotensin) 40 mg DAILY GTB Last administered on 09/11/16 08:11; Admin Dose 40 MG; Start 09/06/16 at 09:00 Nystatin (Nystatin Powder) 1 applic BID TOP Last administered on 09/11/16 21:05 ; Admin Dose 1 APPLIC; Start 09/06/16 at 12:30 IV Flush 10 ml 10 ml PRN PRN IV IV PROTOCOL; Start 09/06/16 at 14:30 Fosphenytoin Sodium/Sodium Chloride (Cerebyx/NS) 54 ml @ 210.667 mls/hr TID IVPB Last administered on 09/11/16 20:55; Admin Dose 210.667 MLS/HR; Start 09/07 at 13:00 Levetiracetam (Keppra Liquid) 1,500 mg BID GTB Last administered on 09/11/16 20 :56; Admin Dose 1,500 MG; Start 09/07/16 at 21:00 Carvedilol (Coreg) 25 mg BID NGT Last administered on 09/11/16 20:57; Admin Dose 25 MG; Start 09/08/16 at 09:00 Hydralazine HCl 25 mg 25 mg TID NGT Last administered on 09/11/16 20:56; Admin Dose 25 MG; Start 09/11/16 at 09:00 Nicardipine HCl/ Sodium Chloride (Cardene Iv/NS) 500 ml @ 70 mls/hr TITRATE IV Last administered on 09/12/16 02:25; Admin Dose 10 MLS/HR; Start 09/11/16 at 10 :00 Acetaminophen (Tylenol Liquid) 650 mg Q6H PRN NGT PAIN AND OR ELEVATED TEMP Last administered on 09/11/16 16:48; Admin Dose 650 MG; Start 09/11/16 at 16:30 CLEM HUNG NP Sep 12, 2016 07:27
[2016-09-12] MEDS: SEVELAMER CARBONATE 2.4 GM PKT PO SCH ×3 (07:35→17:35)
[2016-09-12 08:24] LABS: AADO2 Arterial 107.3 mmHg (7.0-24.0); Allen Test ACCEPTAB; Arterial Base Excess -1.6 mmol/L (-3.0-3); Arterial COHb 0.5 % (0.0-3.0); Arterial Fraction of Oxyhgb 89.1 % (93.0-99.0); Arterial HCO3 23.1 mmol/L (22.0-26.0); Arterial MetHb 0.3 % (0.0-1.5); Blood Gas PS 10; MODE VENT - CPAP
[2016-09-12] MEDS: BENAZEPRIL 40 MG TAB GTB SCH (08:39)
[2016-09-12] MEDS: LEVETIRACETAM (100 MG/ML) 5ML CUP GTB SCH ×2 (08:39→21:04)
[2016-09-12] MEDS: AMLODIPINE 10 MG TAB NGT SCH (08:40)
[2016-09-12] MEDS: VALPROIC ACID LIQUID CUP 250 MG/5 ML CUP NGT SCH ×3 (08:40→21:04)
[2016-09-12] MEDS: NYSTATIN 30 GM POWDER BTL TOP SCH ×2 (08:41→21:10)
[2016-09-12] MEDS: FOSPHENYTOIN (PE) 200 MG in SOD CHLORIDE 0.9% 50 ML IVPB SCH ×3 (08:41→21:09)
[2016-09-12] MEDS: HEPARIN 5,000 UNIT/0.5 ML SYG SC SCH ×2 (08:45→21:09)
[2016-09-12] MEDS: ARTIFICIAL TEARS 15 ML OPH BOTH EYES SCH ×3 (09:00→21:03)
--- NOTE | 2016-09-12 09:11 | CONS ---
Date/Time of Note Date/Time of Note DATE: 09/12/16 TIME: 09:09 Assessment/Plan Assessment/Plan Chief Complaint/Hosp Course Status post cardiac arrest - unclear etiology (?hypoxic/respiratory), initial rhythm reported to be PEA, status post hypothermia protocol Accelerated hypertension: now off nicardipine drip Acute on chronic diastolic heart failure: EF preserved. Congested on CXR NSTEMI - likely type 2. Depending on neurologic recovery will consider further management options Acute respiratory failure - intubated, on mechanical ventilation End-stage renal disease - on hemodialysis Anoxic brain injury: appears to be having myoclonic movements and does not have purposeful movements which are concerning for significant injury -amlodipine 10mg -benazpril 40mg -coreg 25mg BID -increase to hydralazine 75mg TID -wean nicardipine as tolerated -consider ASA, statin if no contraindication -HD per nephrology -neurology follow up Problems: Consultation Date/Type/Reason Admit Date/Time Aug 30, 2016 at 15:45 Initial Consult Date 09/01/16 Type of Consultation: Cardiology 24 HR Interval Summary Free Text/Dictation This am able to track me across the room. No purposeful movements otherwise Exam/Review of Systems Vital Signs Vitals Vital Signs Date Time Temp Pulse Resp B/P Pulse Ox O2 Delivery O2 Flow Rate FiO2 09/12/16 08:27 87 26 97 30 09/12/16 06:45 196/102 09/12/16 06:00 Mechanical Ventilator 09/12/16 04:00 97.9 Intake and Output 09/11/16 09/11/16 09/12/16 14:59 22:59 06:59 Intake Total 518 ml 924 ml 110 ml Output Total 3000 ml Balance 518 ml -2076 ml 110 ml Results Result Diagram: 09/12/16 0340 09/12/16 0340 Results 24 hrs Laboratory Tests Test 09/11/16 12:30 09/11/16 12:43 09/11/16 18:36 09/11/16 23:50 Bedside Glucose 64 L 147 156 122 Test 09/12/16 03:40 09/12/16 05:00 09/12/16 08:10 Anion Gap 19 H Basophils # 0.0 Basophils % 0.1 Blood Morphology Comment Blood Urea Nitrogen 72 H Calcium Level 8.6 Carbon Dioxide Level 24 Chloride Level 101 Creatinine 6.78 H Eosinophils # 0.1 Eosinophils % 1.2 Glucose Level 86 # Hematocrit 26.9 L Hemoglobin 8.6 L Lymphocytes # 1.0 Lymphocytes % 7.9 L Magnesium Level 2.8 H Mean Corpuscular Hemoglobin 30.5 Mean Corpuscular Hemoglobin Concent 32.1 Mean Corpuscular Volume 94.9 Mean Platelet Volume 7.9 Monocytes # 1.0 H Monocytes % 8.1 Neutrophils # 10.2 H Neutrophils % 82.7 H Nucleated Red Blood Cells # 0.0 Nucleated Red Blood Cells % 0.0 Phosphorus Level 2.7 Platelet Count 256 Potassium Level 4.1 Red Blood Count 2.83 L Red Cell Distribution Width 17.0 H Sodium Level 140 White Blood Count 12.3 #H Bedside Glucose 87 Arterial Blood HCO3 23.1 Arterial Blood Base Excess -1.6 Arterial Blood Oxygen Saturation 89.8 L Cristian Test ACCEPTAB Arterial Blood Gas Puncture Site Right Radial Arterial Blood Carboxyhemoglobin 0.5 Arterial Blood Date Drawn 09/12/2016 8:10:25 AM Arterial Blood Methemoglobin 0.3 Arterial Blood pCO2 (Temp correct) 38.9 Arterial Blood pH (Temp corrected) 7.391 Arterial Blood pO2 (Temp corrected) 60.9 L Blood Gas A-a O2 Differential 107.3 H Blood Gas Actual Respiration Rate 27 Blood Gas Low PEEP Setting 5.0 Blood Gas Modality VENT - CPAP Blood Gas Notified Time 09/12/2016 8:24:05 AM Blood Gas Notified Whom JLD Blood Gas Pressure Support 10 Blood Gas Specimen Source Blood arterial Blood Gas Temperature 37.0 FiO2 30.0 Oxyhemoglobin Percent 89.1 L Total Hemoglobin 11.0 L Medications Medications Current Medications Pantoprazole (Protonix Iv) 40 mg DAILY@06 IV Last administered on 09/12/16 05: 01; Admin Dose 40 MG; Start 08/31/16 at 06:00 Eye Lubricant 1 drop 1 drop TID BOTH EYES Last administered on 09/11/16 21:05; Admin Dose 1 DROP; Start 08/30/16 at 21:00 Propofol 100 ml @ 2.1 mls/hr Q12H IV Last administered on 09/03/16 10:10; Admin Dose 9.24 MLS/HR; Start 08/30/16 at 17:30 Vecuronium [place]/Dextrose (Norcuron/D5W) 100 ml @ 0 mls/hr TITRATE IV Last administered on 08/31/16 08:25; Admin Dose 2.1 MLS/HR; Start 08/30/16 at 17:30 Miscellaneous Information 1 ea NOTE XX ; Start 08/30/16 at 19:00 Glucose (Glutose) 15 gm Q15M PRN PO DECREASED GLUCOSE; Start 08/30/16 at 19:00 Glucose (Glutose) 22.5 gm Q15M PRN PO DECREASED GLUCOSE; Start 08/30/16 at 19: 00 Dextrose (D50w Syringe) 25 ml Q15M PRN IV DECREASED GLUCOSE Last administered on 09/11/16 12:33; Admin Dose 25 ML; Start 08/30/16 at 19:00 Dextrose (D50w Syringe) 50 ml Q15M PRN IV DECREASED GLUCOSE; Start 08/30/16 at 19:00 Glucagon (Glucagen) 1 mg Q15M PRN IM DECREASED GLUCOSE; Start 08/30/16 at 19:00 Glucose (Glutose) 15 gm Q15M PRN BUCCAL DECREASED GLUCOSE; Start 08/30/16 at 19 :00 Insulin Aspart (Novolog Insulin Pen) (Adult SC Insulin - Mild Algorithm)... Q6 SC ; Start 08/30/16 at 18:00 Lorazepam (Ativan) 2 mg Q2H PRN IV SEIZURES Last administered on 09/08/16 04:22 ; Admin Dose 2 MG; Start 09/01/16 at 02:00 Metoclopramide HCl (Reglan) 5 mg Q6 IV Last administered on 09/12/16 05:01; Admin Dose 5 MG; Start 09/03/16 at 12:00 Heparin Sodium (Porcine) (Heparin (5000 Units/0.5 ml)) 5,000 unit Q12 SC Last administered on 09/11/16 21:00; Admin Dose 5,000 UNIT; Start 09/04/16 at 09:00 Valproate Sodium (Depakene Liquid Cup) 750 mg TID NGT Last administered on 08:40; Admin Dose 750 MG; Start 09/05/16 at 13:00 Amlodipine Besylate (Norvasc) 10 mg DAILY NGT Last administered on 09/12/16 08: 40; Admin Dose 10 MG; Start 09/06/16 at 09:00 Benazepril HCl (Lotensin) 40 mg DAILY GTB Last administered on 09/12/16 08:39; Admin Dose 40 MG; Start 09/06/16 at 09:00 Nystatin (Nystatin Powder) 1 applic BID TOP Last administered on 09/12/16 08:41 ; Admin Dose 1 APPLIC; Start 09/06/16 at 12:30 IV Flush 10 ml 10 ml PRN PRN IV IV PROTOCOL; Start 09/06/16 at 14:30 Fosphenytoin Sodium/Sodium Chloride (Cerebyx/NS) 54 ml @ 210.667 mls/hr TID IVPB Last administered on 09/12/16 08:41; Admin Dose 210.667 MLS/HR; Start 09/07 at 13:00 Levetiracetam (Keppra Liquid) 1,500 mg BID GTB Last administered on 09/12/16 08 :39; Admin Dose 1,500 MG; Start 09/07/16 at 21:00 Carvedilol 25 mg 25 mg BID NGT Last administered on 09/12/16 08:40; Admin Dose 25 MG; Start 09/08/16 at 09:00 Nicardipine HCl/ Sodium Chloride (Cardene Iv/NS) 500 ml @ 70 mls/hr TITRATE IV Last administered on 09/12/16 02:25; Admin Dose 10 MLS/HR; Start 09/11/16 at 10 :00 Acetaminophen (Tylenol Liquid) 650 mg Q6H PRN NGT PAIN AND OR ELEVATED TEMP Last administered on 09/11/16 16:48; Admin Dose 650 MG; Start 09/11/16 at 16:30 Hydralazine HCl (Apresoline) 75 mg TID NGT ; Start 09/12/16 at 13:00 KARLEE DAY Sep 12, 2016 09:11
--- NOTE | 2016-09-12 09:36 | PN ---
DATE: 09/12/2016 SUBJECTIVE: The patient had hemodialysis yesterday, ended early due to family request. Had no other acute events noted. No hemoptysis, hematemesis, hematochezia. The patient remains was placed back on nicardipine drip this morning. OBJECTIVE: VITAL SIGNS: Currently blood pressure is 196/102, respirations 22, pulse 91, temperature 98.6. I's and O's: Patient had 1500 in with 2.5 liters out. HEENT: Head is normocephalic. NECK: Supple. HEART: Regular rate. LUNGS: Show diminished breath sounds at the base. ABDOMEN: Soft, nontender to palpation without rebound or guarding. EXTREMITIES: Negative for clubbing, cyanosis. Positive edema. DERMATOLOGIC: No rashes. MUSCULOSKELETAL: No joint effusions. NEUROLOGIC: No change in exam. MEDICATIONS: The patient's medications have been reviewed. LABORATORY DATA: Shows a sodium of 140, potassium 4.1, chloride 101, BUN 72, creatinine 6.78, magne sium 2.8. White count 12.3, hemoglobin 8.6, hematocrit 26.9, platelet count is 256. ASSESSMENT AND PLAN: 1. End-stage renal disease. The patient was dialyzed yesterday for approximately 2 hours. Anticip ate hemodialysis again tomorrow for 3 hours on 3 K bath, calcium 2.5. Will ultrafiltrate as tolerate d. 2. Hypertensive urgency. Etiology is multifactorial in part due to increased intravascular volume. The patient's blood pressures have been improving after adjusting blood pressure medications. [place] l continue ultrafiltration dialysis. Will attempt to wean off nicardipine drip. 3. Volume overload. Continue ultrafiltration with dialysis. 4. Anemia. Continue to monitor hemoglobin levels. Continue Epogen. 5. Mineral bone disorder. Continue to monitor calcium and phosphorus levels. Continue phosphate b inders. 6. Ventilator dependent respiratory failure. Vent settings have been reviewed. ABG has been revie sun. Continue to monitor. Follow up with Pulmonary. 7. Anoxic brain injury secondary to code arrest. Continue to monitor. Follow up with neurology. 8. Myoclonic jerks/seizures. Continue Keppra. 9. Diabetes, continue Accu-Cheks and sliding scale. 10. Leukocytosis, SIRS, continue to monitor. 11. Status post code arrest. Dictated By: TIP SOLORIO/EMMA Conf#: [id number] [facility]#: [id number]
--- NOTE | 2016-09-12 14:11 | PN ---
DATE: PALLIATIVE CARE FOLLOWUP NOTE I had a conversation today with patient's daughter. The patient is improving somewhat. She is sche duled to have a PEG tube placed. We discussed ongoing code status with the patient. The daughter m jyothi it very clear that if her mother decompensates once again that she does not want her to have car diopulmonary resuscitation, but states that if it is something easily reversible, she needs to be re intubated to do so. However, she made it clear once again that if that occurs, she will make a deci nenita to discontinue care and would only want that period of time to essentially say goodbye to her m other if she needs reintubation once again and has another catastrophic event. I have made the appr opriate changes in the chart and conveyed that information to patient's primary care. Dictated By: ORVILLE SEAY MD, LP/EMMA Conf#: [id number] DID#: [id number]
[2016-09-12] MEDS ORDERED: CEFAZOLIN 1 GM/50 ML (PMX) 50 ML IVPB ONE (16:30)
[2016-09-12] MEDS ORDERED: PROPOFOL 40 ML ONE (17:45)
[2016-09-12] MEDS ORDERED: PHENYLephrine (100 MCG/ML) 5ML SYG ONE (17:46)
[2016-09-12] MEDS ORDERED: EPHEDrine SULFATE 50 MG/5 ML SYG ONE (17:46)
--- NOTE | 2016-09-12 22:38 | GILP ---
DATE OF PROCEDURE: 09/12/2016 DATE: 09/12/2016 NAME OF PROCEDURE: Esophagogastroduodenoscopy with percutaneous endoscopic gastrostomy tube placeme nt. SURGEON: Desmond Larios MD. HISTORY AND INDICATIONS: The patient post-cardiac arrest requiring enteral feeding support on venti lator, awaiting tracheostomy. PREMEDICATION: Monitored anesthesia care by anesthesiologist. INSTRUMENT USED: Olympus panendoscope. TECHNIQUE: After informed consent, with the patient and/or family members understanding the procedur e, its indications, potential risks and complications, including but not limited to: allergic reacti on, bleeding, perforation, infection or leakage, and after all pertinent questions were answered to the patient and/or family members satisfaction, the patient and/or family member signed witnessed in formed consent. Following this, premedication was administered slowly IV push, under careful cardiovascular and resp iratory monitoring with pulse oximetry, blood pressure and phototypesetting equipment monitor. Once the sedative effect wa s achieved the patient was place in the supine position, the panendoscope was introduced and advance d under visual guidance. Careful examination of the upper gastrointestinal tract, on insertion as well as withdrawal of the i nstrument disclosed the following findings: ESOPHAGUS: The mucosa of the entire esophagus appears within normal limits. There is no evidence o f esophagitis, varices, neoplasm, or stricture. STOMACH: Upon entrance to the stomach, air was insufflated, the gastric crump distended normally. The mucosa of the fundus, body, and antrum of the stomach was carefully examined both head-on and on retroflexion, and shows no abnormalities. There is no evidence of gastritis, ulcers, or neoplasm. PYLORUS: The pylorus appears patent and within normal limits, with no evidence of gastric outlet ob struction. DUODENUM: The duodenal mucosa was carefully examined in the duodenal bulb as well as the second por tion of the duodenum and appears unremarkable with no evidence of duodenitis, ulcer, or neoplasm. The instrument was then brought back to the stomach and the anterior wall mid-body was identified by transillumination and "finger indentation," this area was then marked in the anterior wall of the a bdomen, it was cleansed with Betadine and infiltrated with Xylocaine 1%. Following this a trocar ne edle was introduced into the gastric lumen under visual control with the endoscope, once in the gwen ana lumen a guide wire was advanced and secured with a polypectomy snare, at this point the endoscop e was withdrawn bringing the guide wire out through the patients mouth. Following this a gastrostom y tube was introduced over the guide wire, with the Sacks-Vinne technique without difficulty, a smal l incision was performed in the skin to allow easy passage of the G-tube, once the position of the g astrostomy tube was confirmed, the external stopper and connectors were installed, and a clean dress ing applied. Gastrostomy tube used Croatian 20 gastrostomy tube. The patient tolerated the procedure well and was transferred out of the endoscopy suite awake, and i n good condition to continue recovery under observation, feedings will started in the next 12-24h an d gastrostomy care will be instituted. IMPRESSION: Uneventful percutaneous endoscopic gastrostomy tube placement with placement of Croatian 20 gastrostomy tube. PLAN: Feedings will be started tomorrow morning. Gastrostomy tube may be used for medications. An abdominal binder will be prescribed. Further recommendation will depend on the patient's clinical course. Dictated By: DESMOND LARIOS MS/EMMA Conf#: [id number] DID#: [id number] CC: ANA M GENAO MD; DESMOND LARIOS;*[facility]*
[2016-09-13] VITALS (92 sets, daily range): BP systolic 91–222; BP diastolic 56–146; PULSE 76–104; RESP 14–38
[2016-09-13] MEDS: IPRATROPIUM (HFA) 12.9 GM INHALER INH SCH ×2 (02:44→08:36)
[2016-09-13] MEDS: ALBUTEROL HFA 8 GM INHALER INH SCH ×2 (02:44→08:36)
[2016-09-13 04:44] LABS: BASOPHILS % 0.1 % (0.0-2.0); EOSINOPHILS # 0.2 10^3/ul (0.0-0.5); EOSINOPHILS % 1.4 % (0.0-7.0); HEMATOCRIT 27.3 % (37.0-47.0); HEMOGLOBIN 8.7 g/dl (12.0-16.0); LYMPHOCYTES # 1.1 10^3/ul (0.8-2.9); MEAN CORPUSCULAR HEMOGLOBIN 30.5 pg (29.0-33.0); MEAN CORPUSCULAR HGB CONC 31.9 g/dl (32.0-37.0); MEAN CORPUSCULAR VOLUME 95.4 fl (82.0-101.0); MEAN PLATELET VOLUME 7.6 fl (7.4-10.4); MONOCYTE # 0.9 10^3/ul (0.3-0.9); MONOCYTES % 7.1 % (0.0-11.0); NEUTROPHILS % 83.4 % (39.0-77.0); PLATELET COUNT 286 10^3/UL (140-440); RED BLOOD COUNT 2.86 10^6/ul (4.20-5.40); UNCORRECTED WBC 13.2 10^3/ul (4.8-10.8); WHITE BLOOD COUNT 13.2 10^3/ul (4.8-10.8)
[2016-09-13 04:58] LABS: CONDITION 1; LH ANALYZER COMMENTS 1
[2016-09-13 05:17] LABS: POTASSIUM 4.1 mmol/L (3.5-5.1)
[2016-09-13 05:19] LABS: PHOSPHORUS 2.8 mg/dl (2.5-4.9)
[2016-09-13 05:20] LABS: CREATININE 7.68 mg/dl (0.44-1.00); MAGNESIUM 2.8 mg/dl (1.7-2.5)
[2016-09-13 05:21] LABS: CALCIUM 8.6 mg/dl (8.4-10.2)
[2016-09-13] MEDS: PROPOFOL 100 ML IV SCH ×2 (05:30→17:30)
[2016-09-13] MEDS: PANTOPRAZOLE 40 MG INJ IV SCH (05:44)
[2016-09-13] MEDS: METOCLOPRAMIDE 10 MG INJ IV SCH ×4 (05:45→18:33)
[2016-09-13] MEDS: Insulin NOVOLOG SS MILD Algorithm (NPO/TPN/ENTERAL FEEDS) SC SCH ×4 (05:54→18:00)
[2016-09-13] MEDS: BENAZEPRIL 40 MG TAB GTB SCH ×3 (07:24→20:19)
[2016-09-13] MEDS: AMLODIPINE 10 MG TAB NGT SCH (07:24)
--- NOTE | 2016-09-13 07:24 | PN ---
Date/Time of Note Date/Time of Note DATE: 09/13/16 TIME: 07:24 Assessment/Plan VTE Prophylaxis VTE Prophylaxis Intervention: heparin Lines/Catheters IV Catheter Type (from [facility]): PICC Line Central line still needed: Yes Urinary Cath still in place: No Assessment/Plan Chief Complaint/Hosp Course 1. Status post cardiac arrest. S/P hypothermia protocol. Neurology following. The patient's neurologic status is improving gradually. 2. Seizures. Most probably secondary to anoxic brain injury. The patient was started on anticonvulsants. Neurology following. 3. Elevated troponins, most probably secondary to the cardiac arrest. 2D echo showing preserved LVEF. 4. Acute respiratory failure. Hypoxic. Secondary to cardiac arrest. Ventilator management as per pulmonary. Continue inhaled bronchodilators. 5. Hypertensive urgency. On Cardene drip. Blood pressure fairly well controlled. 6. S/P systemic inflammatory response syndrome with leukocytosis, lactic acidosis and tachycardia. Lactic acidosis has resolved. S/P empiric antibiotics for any underlying infectious etiology. Pancultures negative so far. 7. Mild pulmonary hypertension. 8. End-stage renal disease on hemodialysis. HD as per Nephrology. The patient' s electrolyte levels are stable. 9. Fluid, electrolytes and nutrition. Continue PEG tube feedings. 10. Deep venous thrombosis prophylaxis with bilateral sequential compression devices and SQ heparin. 11. Gastrointestinal prophylaxis. Proton pump inhibitors. PLAN: Continue ICU care. Ventilator weaning as per Pulmonary. Case discussed with Dr. Ahn Critical care time: 35 minutes. Problems: Subjective 24 Hr Interval Summary Free Text/Dictation The patient getting hemodialysis. Exam/Review of Systems Vital Signs Vitals Vital Signs Date Time Temp Pulse Resp B/P Pulse Ox O2 Delivery O2 Flow Rate FiO2 09/13/16 07:15 103 24 181/99 100 Mechanical Ventilator 09/13/16 04:55 40 09/13/16 04:00 98.6 Intake and Output 09/12/16 09/12/16 09/13/16 15:00 23:00 07:00 Intake Total 254 ml 540 ml Output Total 0 ml 0 ml Balance 254 ml 540 ml Exam GENERAL: This is a 56-year-old female patient lying in bed, orally intubated. HEENT: Head normocephalic and atraumatic. Eyes: Anicteric sclerae. Conjunctivae clear. ENT: Nasal septum is midline. Oral mucosa is dry. ET tube in place. NECK: Supple. No JVD noticed. RESPIRATORY: Bilaterally diminished breath sounds. Bilateral coarse rales heard. ET tube to mechanical ventilator. On SIMV mode ventilation. CARDIAC: Regular rate and rhythm. Sinus tachycardia on the monitor. ABDOMEN: Soft, nontender and nondistended. Bowel sounds hypoactive. Left upper quadrant G-tube in place. GENITOURINARY: The patient has a Patel catheter in place. EXTREMITIES: No cyanosis, no clubbing. Bilateral lower extremity 1+ pitting edema. Peripheral pulses are palpable.RUE 1+ pitting edema. LUE PICC line. NEUROLOGIC: The patient is awake and alert. Follows commands. Pupils are equal and reactive. Results Result Diagram: 09/13/16 0400 09/13/16 0400 Results 24 hrs Laboratory Tests Test 09/12/16 08:10 09/12/16 13:12 09/12/16 15:03 09/13/16 00:12 Arterial Blood HCO3 23.1 Arterial Blood Base Excess -1.6 Arterial Blood Oxygen Saturation 89.8 L Cristian Test ACCEPTAB Arterial Blood Gas Puncture Site Right Radial Arterial Blood Carboxyhemoglobin 0.5 Arterial Blood Date Drawn 09/12/2016 8:10:25 AM Arterial Blood Methemoglobin 0.3 Arterial Blood pCO2 (Temp correct) 38.9 Arterial Blood pH (Temp corrected) 7.391 Arterial Blood pO2 (Temp corrected) 60.9 L Blood Gas A-a O2 Differential 107.3 H Blood Gas Actual Respiration Rate 27 Blood Gas Low PEEP Setting 5.0 Blood Gas Modality VENT - CPAP Blood Gas Notified Time 09/12/2016 8:24:05 AM Blood Gas Notified Whom JLD Blood Gas Pressure Support 10 Blood Gas Specimen Source Blood arterial Blood Gas Temperature 37.0 FiO2 30.0 Oxyhemoglobin Percent 89.1 L Total Hemoglobin 11.0 L Bedside Glucose 82 72 123 Test 09/13/16 04:00 09/13/16 05:51 Anion Gap 22 H Basophils # 0.0 Basophils % 0.1 Blood Morphology Comment Blood Urea Nitrogen 85 H Calcium Level 8.6 Carbon Dioxide Level 23 Chloride Level 100 Creatinine 7.68 H Eosinophils # 0.2 Eosinophils % 1.4 Glucose Level 114 Hematocrit 27.3 L Hemoglobin 8.7 L Lymphocytes # 1.1 Lymphocytes % 8.0 L Magnesium Level 2.8 H Mean Corpuscular Hemoglobin 30.5 Mean Corpuscular Hemoglobin Concent 31.9 L Mean Corpuscular Volume 95.4 Mean Platelet Volume 7.6 Monocytes # 0.9 Monocytes % 7.1 Neutrophils # 11.0 H Neutrophils % 83.4 H Nucleated Red Blood Cells # 0.0 Nucleated Red Blood Cells % 0.0 Phosphorus Level 2.8 Platelet Count 286 Potassium Level 4.1 Red Blood Count 2.86 L Red Cell Distribution Width 17.0 H Sodium Level 141 White Blood Count 13.2 H Bedside Glucose 103 Medications Medications Current Medications Pantoprazole (Protonix Iv) 40 mg DAILY@06 IV Last administered on 09/13/16 05: 44; Admin Dose 40 MG; Start 08/31/16 at 06:00 Eye Lubricant 1 drop 1 drop TID BOTH EYES Last administered on 09/12/16 21:03; Admin Dose 1 DROP; Start 08/30/16 at 21:00 Propofol 100 ml @ 2.1 mls/hr Q12H IV Last administered on 09/03/16 10:10; Admin Dose 9.24 MLS/HR; Start 08/30/16 at 17:30 Vecuronium [place]/Dextrose (Norcuron/D5W) 100 ml @ 0 mls/hr TITRATE IV Last administered on 08/31/16 08:25; Admin Dose 2.1 MLS/HR; Start 08/30/16 at 17:30 Miscellaneous Information 1 ea NOTE XX ; Start 08/30/16 at 19:00 Glucose (Glutose) 15 gm Q15M PRN PO DECREASED GLUCOSE; Start 08/30/16 at 19:00 Glucose (Glutose) 22.5 gm Q15M PRN PO DECREASED GLUCOSE; Start 08/30/16 at 19: 00 Dextrose (D50w Syringe) 25 ml Q15M PRN IV DECREASED GLUCOSE Last administered on 09/11/16 12:33; Admin Dose 25 ML; Start 08/30/16 at 19:00 Dextrose (D50w Syringe) 50 ml Q15M PRN IV DECREASED GLUCOSE; Start 08/30/16 at 19:00 Glucagon (Glucagen) 1 mg Q15M PRN IM DECREASED GLUCOSE; Start 08/30/16 at 19:00 Glucose (Glutose) 15 gm Q15M PRN BUCCAL DECREASED GLUCOSE; Start 08/30/16 at 19 :00 Insulin Aspart (Novolog Insulin Pen) (Adult SC Insulin - Mild Algorithm)... Q6 SC ; Start 08/30/16 at 18:00 Lorazepam (Ativan) 2 mg Q2H PRN IV SEIZURES Last administered on 09/08/16 04:22 ; Admin Dose 2 MG; Start 09/01/16 at 02:00 Metoclopramide HCl (Reglan) 5 mg Q6 IV Last administered on 09/13/16 05:45; Admin Dose 5 MG; Start 09/03/16 at 12:00 Heparin Sodium (Porcine) (Heparin (5000 Units/0.5 ml)) 5,000 unit Q12 SC Last administered on 09/12/16 21:09; Admin Dose 5,000 UNIT; Start 09/04/16 at 09:00 Valproate Sodium (Depakene Liquid Cup) 750 mg TID NGT Last administered on 21:04; Admin Dose 750 MG; Start 09/05/16 at 13:00 Amlodipine Besylate (Norvasc) 10 mg DAILY NGT Last administered on 09/12/16 08: 40; Admin Dose 10 MG; Start 09/06/16 at 09:00 Benazepril HCl (Lotensin) 40 mg DAILY GTB Last administered on 09/12/16 08:39; Admin Dose 40 MG; Start 09/06/16 at 09:00 Nystatin (Nystatin Powder) 1 applic BID TOP Last administered on 09/12/16 21:10 ; Admin Dose 1 APPLIC; Start 09/06/16 at 12:30 IV Flush 10 ml 10 ml PRN PRN IV IV PROTOCOL; Start 09/06/16 at 14:30 Fosphenytoin Sodium/Sodium Chloride (Cerebyx/NS) 54 ml @ 210.667 mls/hr TID IVPB Last administered on 09/12/16 21:09; Admin Dose 210.667 MLS/HR; Start 09/07 at 13:00 Levetiracetam (Keppra Liquid) 1,500 mg BID GTB Last administered on 09/12/16 21 :04; Admin Dose 1,500 MG; Start 09/07/16 at 21:00 Carvedilol 25 mg 25 mg BID NGT Last administered on 09/12/16 21:05; Admin Dose 25 MG; Start 09/08/16 at 09:00 Nicardipine HCl/ Sodium Chloride (Cardene Iv/NS) 500 ml @ 70 mls/hr TITRATE IV Last administered on 09/12/16 02:25; Admin Dose 10 MLS/HR; Start 09/11/16 at 10 :00 Acetaminophen (Tylenol Liquid) 650 mg Q6H PRN NGT PAIN AND OR ELEVATED TEMP Last administered on 09/11/16 16:48; Admin Dose 650 MG; Start 09/11/16 at 16:30 Hydralazine HCl (Apresoline) 75 mg TID NGT Last administered on 09/12/16 21:06 ; Admin Dose 75 MG; Start 09/12/16 at 13:00 CLEM HUNG NP Sep 13, 2016 07:24
[2016-09-13] MEDS: LEVETIRACETAM (100 MG/ML) 5ML CUP GTB SCH ×2 (07:25→20:20)
[2016-09-13] MEDS: SEVELAMER CARBONATE 2.4 GM PKT PO SCH ×3 (07:26→17:35)
[2016-09-13] MEDS: VALPROIC ACID LIQUID CUP 250 MG/5 ML CUP NGT SCH ×3 (07:26→20:20)
[2016-09-13] MEDS: ARTIFICIAL TEARS 15 ML OPH BOTH EYES SCH ×3 (07:26→20:31)
[2016-09-13] MEDS: NYSTATIN 30 GM POWDER BTL TOP SCH ×2 (07:27→20:31)
--- NOTE | 2016-09-13 07:46 | CONS ---
Date/Time of Note Date/Time of Note DATE: 09/13/16 TIME: 07:42 Assessment/Plan Assessment/Plan Chief Complaint/Hosp Course Patient is a 60-year-old [place] lady who was brought into the emergency room after the patient called 911 with complaints of shortness of breath by the time the EMS arrived the patient was found unresponsive had pulseless electrical activity along CPR was done lasting approximately 20 minutes with revival of vital signs. She currently is on hypothermic protocol and is sedated paralyzed on mechanical ventilation or intubated. She also was obtained from medical records as well as patient's daughter who is currently present in the room. The patient's daughter the patient was admitted last month with pneumonia and were discharged home however the patient was complaining of mild shortness of breath for the last couple of days prior to the event which occurred yesterday afternoon. Problems: Additional Assessment/Plan Current ventilator settings; patient has been switched over to CPAP mode previously was on SIMV with a rate of 12, tidal volume 500, pressure support 10 , 30% FiO2. Assessment and recommendations; 1. Patient admitted with cardiac arrest underwent prolonged CPR resulting in anoxic enthesopathy, however there has been significant interval improvement. 2. End-stage renal disease on hemodialysis. 3. Severe hypertension. 4. Seizures and myoclonic jerking, currently well controlled. 5. Diabetes. 6. Some element of aspiration pneumonia. Status post discontinuation of antibiotics. Next Continue CPAP mode for now. Will obtain a chest x-ray. Once the chest x-ray is done I will review it and make further recommendations, the patient may warrant an extubation trial. She underwent a G-tube placement yesterday which was uneventful. Continue other supportive measures. Consultation Date/Type/Reason Admit Date/Time Aug 30, 2016 at 15:45 Initial Consult Date 08/31/16 Type of Consultation: Pulmonary/critical care 24 HR Interval Summary Free Text/Dictation Patient condition remains stable. Still exhibiting hypertension requiring nicardipine drip. Mental status is continually improving. However the patient is not completely awake and alert but does open eyes to name calling and follows very simple commands like eye blinking. General examination; middle aged woman, or intubated. Currently in no distress. Exam/Review of Systems Vital Signs Vitals Vital Signs Date Time Temp Pulse Resp B/P Pulse Ox O2 Delivery O2 Flow Rate FiO2 09/13/16 07:15 103 24 181/99 100 Mechanical Ventilator 09/13/16 04:55 40 09/13/16 04:00 98.6 Intake and Output 09/12/16 09/12/16 09/13/16 15:00 23:00 07:00 Intake Total 254 ml 540 ml Output Total 0 ml 0 ml Balance 254 ml 540 ml Exam H EENT examination; supple neck, no JVD. No lymphadenopathy. Orally intubated. No thyromegaly. Pupils are midsize reactive to light. Chest examination; clear to auscultation bilaterally. S1-S2 audible. No murmurs. Regular rate and rhythm. Abdomen examination; soft, nontender, nondistended distended. No organomegaly. Bowel sounds audible. Extremity examination; no peripheral edema. There is an AV shunt in the left arm. MANAGER PHP examination; patient is awake, follows simple commands. Able to move left side. Results Result Diagram: 09/13/16 0400 09/13/16 0400 Results 24 hrs Laboratory Tests Test 09/12/16 08:10 09/12/16 13:12 09/12/16 15:03 09/13/16 00:12 Arterial Blood HCO3 23.1 Arterial Blood Base Excess -1.6 Arterial Blood Oxygen Saturation 89.8 L Cristian Test ACCEPTAB Arterial Blood Gas Puncture Site Right Radial Arterial Blood Carboxyhemoglobin 0.5 Arterial Blood Date Drawn 09/12/2016 8:10:25 AM Arterial Blood Methemoglobin 0.3 Arterial Blood pCO2 (Temp correct) 38.9 Arterial Blood pH (Temp corrected) 7.391 Arterial Blood pO2 (Temp corrected) 60.9 L Blood Gas A-a O2 Differential 107.3 H Blood Gas Actual Respiration Rate 27 Blood Gas Low PEEP Setting 5.0 Blood Gas Modality VENT - CPAP Blood Gas Notified Time 09/12/2016 8:24:05 AM Blood Gas Notified Whom JLD Blood Gas Pressure Support 10 Blood Gas Specimen Source Blood arterial Blood Gas Temperature 37.0 FiO2 30.0 Oxyhemoglobin Percent 89.1 L Total Hemoglobin 11.0 L Bedside Glucose 82 72 123 Test 09/13/16 04:00 09/13/16 05:51 Anion Gap 22 H Basophils # 0.0 Basophils % 0.1 Blood Morphology Comment Blood Urea Nitrogen 85 H Calcium Level 8.6 Carbon Dioxide Level 23 Chloride Level 100 Creatinine 7.68 H Eosinophils # 0.2 Eosinophils % 1.4 Glucose Level 114 Hematocrit 27.3 L Hemoglobin 8.7 L Lymphocytes # 1.1 Lymphocytes % 8.0 L Magnesium Level 2.8 H Mean Corpuscular Hemoglobin 30.5 Mean Corpuscular Hemoglobin Concent 31.9 L Mean Corpuscular Volume 95.4 Mean Platelet Volume 7.6 Monocytes # 0.9 Monocytes % 7.1 Neutrophils # 11.0 H Neutrophils % 83.4 H Nucleated Red Blood Cells # 0.0 Nucleated Red Blood Cells % 0.0 Phosphorus Level 2.8 Platelet Count 286 Potassium Level 4.1 Red Blood Count 2.86 L Red Cell Distribution Width 17.0 H Sodium Level 141 White Blood Count 13.2 H Bedside Glucose 103 Medications Medications Current Medications Pantoprazole (Protonix Iv) 40 mg DAILY@06 IV Last administered on 09/13/16 05: 44; Admin Dose 40 MG; Start 08/31/16 at 06:00 Eye Lubricant 1 drop 1 drop TID BOTH EYES Last administered on 09/13/16 07:26; Admin Dose 1 DROP; Start 08/30/16 at 21:00 Propofol 100 ml @ 2.1 mls/hr Q12H IV Last administered on 09/03/16 10:10; Admin Dose 9.24 MLS/HR; Start 08/30/16 at 17:30 Vecuronium [place]/Dextrose (Norcuron/D5W) 100 ml @ 0 mls/hr TITRATE IV Last administered on 08/31/16 08:25; Admin Dose 2.1 MLS/HR; Start 08/30/16 at 17:30 Miscellaneous Information 1 ea NOTE XX ; Start 08/30/16 at 19:00 Glucose (Glutose) 15 gm Q15M PRN PO DECREASED GLUCOSE; Start 08/30/16 at 19:00 Glucose (Glutose) 22.5 gm Q15M PRN PO DECREASED GLUCOSE; Start 08/30/16 at 19: 00 Dextrose (D50w Syringe) 25 ml Q15M PRN IV DECREASED GLUCOSE Last administered on 09/11/16 12:33; Admin Dose 25 ML; Start 08/30/16 at 19:00 Dextrose (D50w Syringe) 50 ml Q15M PRN IV DECREASED GLUCOSE; Start 08/30/16 at 19:00 Glucagon (Glucagen) 1 mg Q15M PRN IM DECREASED GLUCOSE; Start 08/30/16 at 19:00 Glucose (Glutose) 15 gm Q15M PRN BUCCAL DECREASED GLUCOSE; Start 08/30/16 at 19 :00 Insulin Aspart (Novolog Insulin Pen) (Adult SC Insulin - Mild Algorithm)... Q6 SC ; Start 08/30/16 at 18:00 Lorazepam (Ativan) 2 mg Q2H PRN IV SEIZURES Last administered on 09/08/16 04:22 ; Admin Dose 2 MG; Start 09/01/16 at 02:00 Metoclopramide HCl (Reglan) 5 mg Q6 IV Last administered on 09/13/16 05:45; Admin Dose 5 MG; Start 09/03/16 at 12:00 Heparin Sodium (Porcine) (Heparin (5000 Units/0.5 ml)) 5,000 unit Q12 SC Last administered on 09/12/16 21:09; Admin Dose 5,000 UNIT; Start 09/04/16 at 09:00 Valproate Sodium (Depakene Liquid Cup) 750 mg TID NGT Last administered on 07:26; Admin Dose 750 MG; Start 09/05/16 at 13:00 Amlodipine Besylate (Norvasc) 10 mg DAILY NGT Last administered on 09/13/16 07: 24; Admin Dose 10 MG; Start 09/06/16 at 09:00 Benazepril HCl (Lotensin) 40 mg DAILY GTB Last administered on 09/13/16 07:24; Admin Dose 40 MG; Start 09/06/16 at 09:00 Nystatin (Nystatin Powder) 1 applic BID TOP Last administered on 09/13/16 07:27 ; Admin Dose 1 APPLIC; Start 09/06/16 at 12:30 IV Flush 10 ml 10 ml PRN PRN IV IV PROTOCOL; Start 09/06/16 at 14:30 Fosphenytoin Sodium/Sodium Chloride (Cerebyx/NS) 54 ml @ 210.667 mls/hr TID IVPB Last administered on 09/12/16 21:09; Admin Dose 210.667 MLS/HR; Start 09/07 at 13:00 Levetiracetam (Keppra Liquid) 1,500 mg BID GTB Last administered on 09/13/16 07 :25; Admin Dose 1,500 MG; Start 09/07/16 at 21:00 Carvedilol 25 mg 25 mg BID NGT Last administered on 09/13/16 07:25; Admin Dose 25 MG; Start 09/08/16 at 09:00 Nicardipine HCl/ Sodium Chloride (Cardene Iv/NS) 500 ml @ 70 mls/hr TITRATE IV Last administered on 09/12/16 02:25; Admin Dose 10 MLS/HR; Start 09/11/16 at 10 :00 Acetaminophen (Tylenol Liquid) 650 mg Q6H PRN NGT PAIN AND OR ELEVATED TEMP Last administered on 09/11/16 16:48; Admin Dose 650 MG; Start 09/11/16 at 16:30 Hydralazine HCl (Apresoline) 75 mg TID NGT Last administered on 09/13/16 07:25 ; Admin Dose 75 MG; Start 09/12/16 at 13:00 YELENA KEMP Sep 13, 2016 07:46
[2016-09-13] MEDS: HEPARIN 5,000 UNIT/0.5 ML SYG SC SCH ×2 (09:00→20:22)
[2016-09-13] MEDS: FOSPHENYTOIN (PE) 200 MG in SOD CHLORIDE 0.9% 50 ML IVPB SCH ×3 (09:00→20:33)
--- NOTE | 2016-09-13 09:29 | CONS ---
Date/Time of Note Date/Time of Note DATE: 09/13/16 TIME: 09:22 Assessment/Plan Assessment/Plan Chief Complaint/Hosp Course 56-year-old female presented to the ED by paramedics after she was found to be unresponsive at home. During hospitalization, pt was intubated and started on hypothermia protocol. Pt noted with abnormal EEG with noted seizure activity and encephalopathy. Likely secondary to anoxic brain injury. Pt is status post cardiac arrest with Brain MRI with evidence suggesting hypoxic ischemic injury. Pt has also been experiencing seizures and has been unable to be weened off respiratiory. Family to decide whether they want tracheostomy and PEG tube placment. Spoke with daughter Breanne at [phone] and explained R/B of procedure and she said she and her family will decide. Pt has PMH of End-stage renal disease on hemodialysis and hypertension. Problems: Additional Assessment/Plan Dysphagia * EGD + PEG 09-12-16: Uneventful percutaneous endoscopic gastrostomy tube placement with placement of Lao 20 gastrostomy tube. * Get Nutrition consult for tube feed type and rate * Monitor tube feed every 6 hours, hold for residual greater than 150 mL * Recommend EGD plus PEG placement Status post cardiac arrest. Seizures Respiratory failure * Tracheostomy recommended Hypertensive urgency Mild pulmonary hypertension. Continue on O2 supplementation End-stage renal disease on HD Further recommendations depend on clinical course Patient seen in collaboration with Dr. Larios Consultation Date/Type/Reason Admit Date/Time Aug 30, 2016 at 15:45 Initial Consult Date 09/01/16 Type of Consultation: GI 24 HR Interval Summary Free Text/Dictation Successful EGD + PEG G tube running at 30 with minimal residual Will request nutrition consult for appropriate rate and type Exam/Review of Systems Vital Signs Vitals Vital Signs Date Time Temp Pulse Resp B/P Pulse Ox O2 Delivery O2 Flow Rate FiO2 09/13/16 08:00 95 09/13/16 07:30 22 09/13/16 07:15 181/99 100 Mechanical Ventilator 09/13/16 04:55 40 09/13/16 04:00 98.6 Intake and Output 09/12/16 09/12/16 09/13/16 15:00 23:00 07:00 Intake Total 254 ml 630 ml Output Total 0 ml 0 ml Balance 254 ml 630 ml Exam Constitutional: non-verbal Head: atraumatic ENMT: nl external ears & nose, nl lips & teeth, nl nasal mucosa & septum Respiratory: other Cardiovascular: regular rate and rhythm Gastrointestinal: soft Neurological: other (Intubated grossly nonfocal) Results Result Diagram: 09/13/16 0400 09/13/16 0400 Results 24 hrs Laboratory Tests Test 09/12/16 13:12 09/12/16 15:03 09/13/16 00:12 09/13/16 04:00 Bedside Glucose 82 72 123 Anion Gap 22 H Basophils # 0.0 Basophils % 0.1 Blood Morphology Comment Blood Urea Nitrogen 85 H Calcium Level 8.6 Carbon Dioxide Level 23 Chloride Level 100 Creatinine 7.68 H Eosinophils # 0.2 Eosinophils % 1.4 Glucose Level 114 Hematocrit 27.3 L Hemoglobin 8.7 L Lymphocytes # 1.1 Lymphocytes % 8.0 L Magnesium Level 2.8 H Mean Corpuscular Hemoglobin 30.5 Mean Corpuscular Hemoglobin Concent 31.9 L Mean Corpuscular Volume 95.4 Mean Platelet Volume 7.6 Monocytes # 0.9 Monocytes % 7.1 Neutrophils # 11.0 H Neutrophils % 83.4 H Nucleated Red Blood Cells # 0.0 Nucleated Red Blood Cells % 0.0 Phosphorus Level 2.8 Platelet Count 286 Potassium Level 4.1 Red Blood Count 2.86 L Red Cell Distribution Width 17.0 H Sodium Level 141 White Blood Count 13.2 H Test 09/13/16 05:51 Bedside Glucose 103 Medications Medications Current Medications Pantoprazole (Protonix Iv) 40 mg DAILY@06 IV Last administered on 09/13/16 05: 44; Admin Dose 40 MG; Start 08/31/16 at 06:00 Eye Lubricant 1 drop 1 drop TID BOTH EYES Last administered on 09/13/16 07:26; Admin Dose 1 DROP; Start 08/30/16 at 21:00 Propofol 100 ml @ 2.1 mls/hr Q12H IV Last administered on 09/03/16 10:10; Admin Dose 9.24 MLS/HR; Start 08/30/16 at 17:30 Vecuronium [place]/Dextrose (Norcuron/D5W) 100 ml @ 0 mls/hr TITRATE IV Last administered on 08/31/16 08:25; Admin Dose 2.1 MLS/HR; Start 08/30/16 at 17:30 Miscellaneous Information 1 ea NOTE XX ; Start 08/30/16 at 19:00 Glucose (Glutose) 15 gm Q15M PRN PO DECREASED GLUCOSE; Start 08/30/16 at 19:00 Glucose (Glutose) 22.5 gm Q15M PRN PO DECREASED GLUCOSE; Start 08/30/16 at 19: 00 Dextrose (D50w Syringe) 25 ml Q15M PRN IV DECREASED GLUCOSE Last administered on 09/11/16 12:33; Admin Dose 25 ML; Start 08/30/16 at 19:00 Dextrose (D50w Syringe) 50 ml Q15M PRN IV DECREASED GLUCOSE; Start 08/30/16 at 19:00 Glucagon (Glucagen) 1 mg Q15M PRN IM DECREASED GLUCOSE; Start 08/30/16 at 19:00 Glucose (Glutose) 15 gm Q15M PRN BUCCAL DECREASED GLUCOSE; Start 08/30/16 at 19 :00 Insulin Aspart (Novolog Insulin Pen) (Adult SC Insulin - Mild Algorithm)... Q6 SC ; Start 08/30/16 at 18:00 Lorazepam (Ativan) 2 mg Q2H PRN IV SEIZURES Last administered on 09/08/16 04:22 ; Admin Dose 2 MG; Start 09/01/16 at 02:00 Metoclopramide HCl (Reglan) 5 mg Q6 IV Last administered on 09/13/16 05:45; Admin Dose 5 MG; Start 09/03/16 at 12:00 Heparin Sodium (Porcine) (Heparin (5000 Units/0.5 ml)) 5,000 unit Q12 SC Last administered on 09/12/16 21:09; Admin Dose 5,000 UNIT; Start 09/04/16 at 09:00 Valproate Sodium (Depakene Liquid Cup) 750 mg TID NGT Last administered on 07:26; Admin Dose 750 MG; Start 09/05/16 at 13:00 Amlodipine Besylate (Norvasc) 10 mg DAILY NGT Last administered on 09/13/16 07: 24; Admin Dose 10 MG; Start 09/06/16 at 09:00 Nystatin (Nystatin Powder) 1 applic BID TOP Last administered on 09/13/16 07:27 ; Admin Dose 1 APPLIC; Start 09/06/16 at 12:30 IV Flush 10 ml 10 ml PRN PRN IV IV PROTOCOL; Start 09/06/16 at 14:30 Fosphenytoin Sodium/Sodium Chloride (Cerebyx/NS) 54 ml @ 210.667 mls/hr TID IVPB Last administered on 09/12/16 21:09; Admin Dose 210.667 MLS/HR; Start 09/07 at 13:00 Levetiracetam (Keppra Liquid) 1,500 mg BID GTB Last administered on 09/13/16 07 :25; Admin Dose 1,500 MG; Start 09/07/16 at 21:00 Carvedilol 25 mg 25 mg BID NGT Last administered on 09/13/16 07:25; Admin Dose 25 MG; Start 09/08/16 at 09:00 Nicardipine HCl/ Sodium Chloride (Cardene Iv/NS) 500 ml @ 70 mls/hr TITRATE IV Last administered on 09/12/16 02:25; Admin Dose 10 MLS/HR; Start 09/11/16 at 10 :00 Acetaminophen (Tylenol Liquid) 650 mg Q6H PRN NGT PAIN AND OR ELEVATED TEMP Last administered on 09/11/16 16:48; Admin Dose 650 MG; Start 09/11/16 at 16:30 Hydralazine HCl (Apresoline) 75 mg TID NGT Last administered on 09/13/16 07:25 ; Admin Dose 75 MG; Start 09/12/16 at 13:00 Benazepril HCl (Lotensin) 40 mg BID GTB ; Start 09/13/16 at 09:00 ONELIA OCONNOR Sep 13, 2016 09:29
--- NOTE | 2016-09-13 10:04 | RADRPT ---
PROCEDURE: XR Chest. CLINICAL INDICATION: Respiratory failure. TECHNIQUE: Single frontal view of the chest was obtained COMPARISON: Chest x-ray 09/10/2016 05:43 a.m. FINDINGS: The endotracheal tube is positioned at T3-4. There is a dialysis catheter entering from right inter nal jugular approach with its tip in the right atrium. There is a poor inspiration. No acute infil trate or pleural effusion is identified. The bony elements are unremarkable. A nasogastric tube wa s removed over the interval. IMPRESSION: 1. Status post removal of NG tube since the prior study. 2. Stable positioning of the endotracheal tube and central venous catheter. 3. There is no evidence of active cardiopulmonary disease. RPTAT:AAJJ Physician Elena Date Time Electronically viewed and signed by Joe Whitman Physician on 09/13/2016 10:03 JM/
--- NOTE | 2016-09-13 10:10 | CONS ---
Date/Time of Note Date/Time of Note DATE: 09/13/16 TIME: 10:07 Assessment/Plan Assessment/Plan Chief Complaint/Hosp Course Status post cardiac arrest - unclear etiology (?hypoxic/respiratory), initial rhythm reported to be PEA, status post hypothermia protocol Accelerated hypertension: BP high during HD requiring nicardipine. Now off Acute on chronic diastolic heart failure: EF preserved. NSTEMI - likely type 2. Depending on neurologic recovery will consider further management options Acute respiratory failure - intubated, on mechanical ventilation End-stage renal disease - on hemodialysis Anoxic brain injury: appears to be having myoclonic movements and does not have purposeful movements which are concerning for significant injury -amlodipine 10mg -benazapril 40mg BID -coreg 25mg BID -increase to hydralazine 100mg TID -HD per nephrology -neurology follow up Problems: Consultation Date/Type/Reason Admit Date/Time Aug 30, 2016 at 15:45 Initial Consult Date 09/01/16 Type of Consultation: Cardiology 24 HR Interval Summary Free Text/Dictation S/p PEG yesterday. Possible extubation trial today. Opens eyes but no purposeful movements Exam/Review of Systems Vital Signs Vitals Vital Signs Date Time Temp Pulse Resp B/P Pulse Ox O2 Delivery O2 Flow Rate FiO2 09/13/16 08:00 95 09/13/16 07:30 22 09/13/16 07:15 181/99 100 Mechanical Ventilator 09/13/16 04:55 40 09/13/16 04:00 98.6 Intake and Output 09/12/16 09/12/16 09/13/16 15:00 23:00 07:00 Intake Total 254 ml 630 ml Output Total 0 ml 0 ml Balance 254 ml 630 ml Exam Constitutional: No alert Head: atraumatic, normocephalic Neck: No jvd Respiratory: diminished breath sounds, No clear to auscultation Cardiovascular: regular rate and rhythm, No edema, No systolic murmur Gastrointestinal: non-tender, soft Results Result Diagram: 09/13/16 0400 09/13/16 0400 Results 24 hrs Laboratory Tests Test 09/12/16 13:12 09/12/16 15:03 09/13/16 00:12 09/13/16 04:00 Bedside Glucose 82 72 123 Anion Gap 22 H Basophils # 0.0 Basophils % 0.1 Blood Morphology Comment Blood Urea Nitrogen 85 H Calcium Level 8.6 Carbon Dioxide Level 23 Chloride Level 100 Creatinine 7.68 H Eosinophils # 0.2 Eosinophils % 1.4 Glucose Level 114 Hematocrit 27.3 L Hemoglobin 8.7 L Lymphocytes # 1.1 Lymphocytes % 8.0 L Magnesium Level 2.8 H Mean Corpuscular Hemoglobin 30.5 Mean Corpuscular Hemoglobin Concent 31.9 L Mean Corpuscular Volume 95.4 Mean Platelet Volume 7.6 Monocytes # 0.9 Monocytes % 7.1 Neutrophils # 11.0 H Neutrophils % 83.4 H Nucleated Red Blood Cells # 0.0 Nucleated Red Blood Cells % 0.0 Phosphorus Level 2.8 Platelet Count 286 Potassium Level 4.1 Red Blood Count 2.86 L Red Cell Distribution Width 17.0 H Sodium Level 141 White Blood Count 13.2 H Test 09/13/16 05:51 Bedside Glucose 103 Medications Medications Current Medications Pantoprazole (Protonix Iv) 40 mg DAILY@06 IV Last administered on 09/13/16 05: 44; Admin Dose 40 MG; Start 08/31/16 at 06:00 Eye Lubricant 1 drop 1 drop TID BOTH EYES Last administered on 09/13/16 07:26; Admin Dose 1 DROP; Start 08/30/16 at 21:00 Propofol 100 ml @ 2.1 mls/hr Q12H IV Last administered on 09/03/16 10:10; Admin Dose 9.24 MLS/HR; Start 08/30/16 at 17:30 Vecuronium [place]/Dextrose (Norcuron/D5W) 100 ml @ 0 mls/hr TITRATE IV Last administered on 08/31/16 08:25; Admin Dose 2.1 MLS/HR; Start 08/30/16 at 17:30 Miscellaneous Information 1 ea NOTE XX ; Start 08/30/16 at 19:00 Glucose (Glutose) 15 gm Q15M PRN PO DECREASED GLUCOSE; Start 08/30/16 at 19:00 Glucose (Glutose) 22.5 gm Q15M PRN PO DECREASED GLUCOSE; Start 08/30/16 at 19: 00 Dextrose (D50w Syringe) 25 ml Q15M PRN IV DECREASED GLUCOSE Last administered on 09/11/16 12:33; Admin Dose 25 ML; Start 08/30/16 at 19:00 Dextrose (D50w Syringe) 50 ml Q15M PRN IV DECREASED GLUCOSE; Start 08/30/16 at 19:00 Glucagon (Glucagen) 1 mg Q15M PRN IM DECREASED GLUCOSE; Start 08/30/16 at 19:00 Glucose (Glutose) 15 gm Q15M PRN BUCCAL DECREASED GLUCOSE; Start 08/30/16 at 19 :00 Insulin Aspart (Novolog Insulin Pen) (Adult SC Insulin - Mild Algorithm)... Q6 SC ; Start 08/30/16 at 18:00 Lorazepam (Ativan) 2 mg Q2H PRN IV SEIZURES Last administered on 09/08/16 04:22 ; Admin Dose 2 MG; Start 09/01/16 at 02:00 Metoclopramide HCl (Reglan) 5 mg Q6 IV Last administered on 09/13/16 05:45; Admin Dose 5 MG; Start 09/03/16 at 12:00 Heparin Sodium (Porcine) (Heparin (5000 Units/0.5 ml)) 5,000 unit Q12 SC Last administered on 09/12/16 21:09; Admin Dose 5,000 UNIT; Start 09/04/16 at 09:00 Valproate Sodium (Depakene Liquid Cup) 750 mg TID NGT Last administered on 07:26; Admin Dose 750 MG; Start 09/05/16 at 13:00 Amlodipine Besylate (Norvasc) 10 mg DAILY NGT Last administered on 09/13/16 07: 24; Admin Dose 10 MG; Start 09/06/16 at 09:00 Nystatin (Nystatin Powder) 1 applic BID TOP Last administered on 09/13/16 07:27 ; Admin Dose 1 APPLIC; Start 09/06/16 at 12:30 IV Flush 10 ml 10 ml PRN PRN IV IV PROTOCOL; Start 09/06/16 at 14:30 Fosphenytoin Sodium/Sodium Chloride (Cerebyx/NS) 54 ml @ 210.667 mls/hr TID IVPB Last administered on 09/12/16 21:09; Admin Dose 210.667 MLS/HR; Start 09/07 at 13:00 Levetiracetam (Keppra Liquid) 1,500 mg BID GTB Last administered on 09/13/16 07 :25; Admin Dose 1,500 MG; Start 09/07/16 at 21:00 Carvedilol 25 mg 25 mg BID NGT Last administered on 09/13/16 07:25; Admin Dose 25 MG; Start 09/08/16 at 09:00 Nicardipine HCl/ Sodium Chloride (Cardene Iv/NS) 500 ml @ 70 mls/hr TITRATE IV Last administered on 09/12/16 02:25; Admin Dose 10 MLS/HR; Start 09/11/16 at 10 :00 Acetaminophen (Tylenol Liquid) 650 mg Q6H PRN NGT PAIN AND OR ELEVATED TEMP Last administered on 09/11/16 16:48; Admin Dose 650 MG; Start 09/11/16 at 16:30 Hydralazine HCl (Apresoline) 75 mg TID NGT Last administered on 09/13/16 07:25 ; Admin Dose 75 MG; Start 09/12/16 at 13:00 Benazepril HCl (Lotensin) 40 mg BID GTB ; Start 09/13/16 at 09:00 KARLEE DAY Sep 13, 2016 10:10
--- NOTE | 2016-09-13 10:26 | PN ---
DATE: 09/13/2016 SUBJECTIVE: The patient is currently critically ill, remains on full ventilatory support on nicardi pine drip. The patient is currently receiving hemodialysis, tolerating well. No other acute events noted. OBJECTIVE: VITAL SIGNS: Blood pressure is 181/99, respirations 24, pulse 103, temperature 98.6. I's and O's s how 1500 in, no urinary output. HEENT: Head is normocephalic. NECK: Supple. HEART: Regular rate. LUNGS: Show diminished breath sounds at bases ABDOMEN: Soft, nontender to palpation. No rebound or guarding. EXTREMITIES: Negative for clubbing, cyanosis. Positive edema. DERMATOLOGIC: No rashes. MUSCULOSKELETAL: No joint effusions. NEUROLOGIC: No change in exam. MEDICATIONS: The patient's medications have been reviewed. LABORATORY DATA: Shows sodium 141, potassium 4.1, chloride 100, BUN 85, creatinine 7.68, magnesium 2.8. White count 13.2, hemoglobin 8.7, hematocrit 27.3, and platelet count is 286. ASSESSMENT AND PLAN: 1. End-stage renal disease. The patient will receive daily dialysis for solute clearance and volum e removal. The patient is currently receiving hemodialysis today. Anticipate dialysis again tomorr ow for 3 hours on 3 K bath, calcium 2.5. 2. Hypertensive urgency. Etiology is multifactorial in part due to increased intravascular volume. Continue ultrafiltration dialysis until euvolemic. Continue current blood pressure regimen. We w ill increase benazepril to 40 mg b.i.d. Hydralazine has already been adjusted. Continue Norvasc an d Coreg. 3. Volume overload. Continue ultrafiltration dialysis. 4. Anemia. Continue to monitor H and H levels. Continue Epogen. 5. Mineral bone disorder. Continue to monitor calcium and phosphorus levels. Continue phosphate b inders. 6. Ventilator-dependent respiratory failure. Vent settings have been reviewed. ABG has been revie wed. Continue to monitor. Follow up with pulmonary. 7. Anoxic brain injury secondary to code arrest. Continue current treatment plan. Follow up with neurology. 8. Myoclonic jerks/seizures, improved. Continue Keppra. 9. Diabetes. Continue current insulin regimen. 10. Leukocytosis, sepsis inflammatory response syndrome. Continue to monitor. The patient is comp leting antibiotic course. 11. Status post code arrest. Dictated By: TIP SOLORIO/EMMA Conf#: [id number] DID#: [id number]
[2016-09-13 12:02] LABS: AADO2 Arterial 67.9 mmHg (7.0-24.0); Allen Test ACCEPTAB; Arterial COHb 0.2 % (0.0-3.0); Arterial Fraction of Oxyhgb 96.7 % (93.0-99.0); Arterial HCO3 25.3 mmol/L (22.0-26.0); Arterial MetHb 0.3 % (0.0-1.5); Arterial Total Hemglobin 11.3 g/dl (12.0-18.0); Blood Gas PS 10; MODE VENT - CPAP
[2016-09-13] MEDS ORDERED: ALBUTEROL/IPRATROPIUM (NEB) 3 ML AMP HHN PRN (13:00)
[2016-09-13] MEDS ORDERED: IPRATROPIUM (NEB) 0.5 MG/2.5 ML AMP HHN PRN (13:00)
[2016-09-13] MEDS ORDERED: IPRATROPIUM (NEB) 0.5 MG/2.5 ML AMP HHN SCH (13:00)
[2016-09-13] MEDS: ALBUTEROL/IPRATROPIUM (NEB) 3 ML AMP HHN SCH ×3 (14:56→20:06)
[2016-09-13] MEDS ORDERED: RACEPINEPHRINE 2.25%(NEB) 0.5 ML AMP HHN ONE (15:30)
[2016-09-13] MEDS ORDERED: METHYLPREDNISOLONE 125 MG INJ IV ONE (16:00)
[2016-09-13] MEDS: DEXTROSE 5%-0.45% NACL 1,000 ML IV SCH (17:30)
[2016-09-13] MEDS: niCARdipine 50 MG in SOD CHLORIDE 0.9% 480 ML IV SCH (19:16)
[2016-09-13 21:06] LABS: AADO2 Arterial 61.1 mmHg (7.0-24.0); Allen Test ACCEPTAB; Arterial Base Excess -0.2 mmol/L (-3.0-3); Arterial COHb 0.4 % (0.0-3.0); Arterial Fraction of Oxyhgb 96.2 % (93.0-99.0); Arterial HCO3 25.3 mmol/L (22.0-26.0); Arterial MetHb 0.2 % (0.0-1.5); Arterial Total Hemglobin 10.6 g/dl (12.0-18.0); Blood Gas IEPAP 15/5; Blood Gas PS 10; MODE MASK - BIPAP
[2016-09-14] VITALS (88 sets, daily range): BP systolic 93–166; BP diastolic 59–118; PULSE 73–98; RESP 0–39
[2016-09-14] MEDS: ALBUTEROL/IPRATROPIUM (NEB) 3 ML AMP HHN SCH ×5 (00:08→17:31)
[2016-09-14] MEDS: METOCLOPRAMIDE 10 MG INJ IV SCH ×4 (00:57→17:45)
[2016-09-14 05:12] LABS: BASOPHILS % 0.1 % (0.0-2.0); EOSINOPHILS # 0.1 10^3/ul (0.0-0.5); EOSINOPHILS % 0.5 % (0.0-7.0); HEMOGLOBIN 8.6 g/dl (12.0-16.0); LYMPHOCYTES # 1.1 10^3/ul (0.8-2.9); LYMPHOCYTES % 7.2 % (15.0-51.0); MEAN CORPUSCULAR HEMOGLOBIN 30.8 pg (29.0-33.0); MEAN CORPUSCULAR HGB CONC 31.9 g/dl (32.0-37.0); MEAN CORPUSCULAR VOLUME 96.6 fl (82.0-101.0); MEAN PLATELET VOLUME 7.1 fl (7.4-10.4); MONOCYTE # 1.3 10^3/ul (0.3-0.9); MONOCYTES % 8.6 % (0.0-11.0); NEUTROPHIL # 12.3 10^3/ul (1.6-7.5); NEUTROPHILS % 83.6 % (39.0-77.0); PLATELET COUNT 261 10^3/UL (140-440); RED CELL DISTRIBUTION WIDTH 17.4 % (11.5-14.5); UNCORRECTED WBC 14.8 10^3/ul (4.8-10.8); WHITE BLOOD COUNT 14.8 10^3/ul (4.8-10.8)
[2016-09-14 05:23] LABS: CONDITION 1; LH ANALYZER COMMENTS 1
[2016-09-14] MEDS: PROPOFOL 100 ML IV SCH ×2 (05:24→17:02)
[2016-09-14] MEDS: PANTOPRAZOLE 40 MG INJ IV SCH (05:25)
[2016-09-14] MEDS: niCARdipine 50 MG in SOD CHLORIDE 0.9% 480 ML IV SCH (05:26)
[2016-09-14] MEDS: Insulin NOVOLOG SS MILD Algorithm (NPO/TPN/ENTERAL FEEDS) SC SCH ×4 (05:31→17:45)
[2016-09-14 05:44] LABS: PHOSPHORUS 4.1 mg/dl (2.5-4.9)
[2016-09-14 05:45] LABS: MAGNESIUM 2.7 mg/dl (1.7-2.5)
[2016-09-14 06:14] LABS: POTASSIUM 4.2 mmol/L (3.5-5.1)
[2016-09-14 06:16] LABS: CREATININE 6.16 mg/dl (0.44-1.00)
[2016-09-14 06:17] LABS: CALCIUM 8.6 mg/dl (8.4-10.2)
--- NOTE | 2016-09-14 07:46 | CONS ---
Date/Time of Note Date/Time of Note DATE: 09/14/16 TIME: 07:42 Assessment/Plan Assessment/Plan Chief Complaint/Hosp Course Patient is a 60-year-old Citizen Of [place] lady who was brought into the emergency room after the patient called 911 with complaints of shortness of breath by the time the EMS arrived the patient was found unresponsive had pulseless electrical activity along CPR was done lasting approximately 20 minutes with revival of vital signs. She currently is on hypothermic protocol and is sedated paralyzed on mechanical ventilation or intubated. She also was obtained from medical records as well as patient's daughter who is currently present in the room. The patient's daughter the patient was admitted last month with pneumonia and were discharged home however the patient was complaining of mild shortness of breath for the last couple of days prior to the event which occurred yesterday afternoon. Problems: Additional Assessment/Plan Assessment and recommendations; next 1. Patient admitted with cardiac arrest underwent prolonged CPR resulting anoxic cephalopathy, however there has been substantial improvement but not to the extent where the mental status has normalized. 2. 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 3. End-stage renal disease on hemodialysis. 4. Severe hypertension; currently on nicardipine drip as well. 5. Mild stridor post extubation with interval resolution. Next Continue current treatment. Obtain a blood gas on current BiPAP settings which are 12/5 with 30% FiO2. With a backup rate of 12. Once ABGs obtained I will review it and make further recommendations. Prognosis still remains guarded. Consultation Date/Type/Reason Admit Date/Time Aug 30, 2016 at 15:45 Initial Consult Date 08/31/16 Type of Consultation: Pulmonary/critical care 24 HR Interval Summary Free Text/Dictation Patient condition is stable. Patient was extubated yesterday afternoon. However developed very mild stridor requiring racemic epinephrine, albuterol by nebulizer as well as 1 dose of Solu-Medrol. There has been significant improvement in stridor, however the patient is requiring BiPAP for additional support. She is awake but is not responsive to any significant degree. This has been her underlying mental status for the last 48 hours. General examination; middle aged woman, on BiPAP currently in no distress. Exam/Review of Systems Vital Signs Vitals Vital Signs Date Time Temp Pulse Resp B/P Pulse Ox O2 Delivery O2 Flow Rate FiO2 09/14/16 06:15 82 20 142/74 100 BIPAP 09/14/16 04:41 30 09/14/16 04:00 98.2 Intake and Output 09/13/16 09/13/16 09/14/16 15:00 23:00 07:00 Intake Total 728 ml 324 ml 480 ml Output Total 4500 ml 0 ml Balance -3772 ml 324 ml 480 ml Exam HEENT examination; supple neck, no JVD. Pupils are small bilaterally there is no stridor. No thyromegaly. Chest examination; diminished but clear breath sounds bilaterally. S1-S2 audible, no murmurs. Regular rate and rhythm. Abdomen examination; soft, G-tube in place, nontender, no organomegaly. Bowel sounds audible. Extremity examination; no peripheral edema. Pulses 1+ bilaterally. [employer] examination; patient is awake, does not follow any commands. Able to move the left side. Results Result Diagram: 09/14/16 0425 09/14/16 0425 Results 24 hrs Laboratory Tests Test 09/13/16 11:30 09/13/16 12:24 09/13/16 17:16 09/13/16 21:00 Arterial Blood HCO3 25.3 25.3 Arterial Blood Base Excess 1.0 -0.2 Arterial Blood Oxygen Saturation 97.2 96.8 Cristian Test ACCEPTAB ACCEPTAB Arterial Blood Gas Puncture Site Left Radial Right Radial Arterial Blood Carboxyhemoglobin 0.2 0.4 Arterial Blood Date Drawn 09/13/2016 11:50:06 AM 09/13/2016 8:55:45 PM Arterial Blood Methemoglobin 0.3 0.2 Arterial Blood pCO2 (Temp correct) 39.3 45.2 H Arterial Blood pH (Temp corrected) 7.427 7.366 Arterial Blood pO2 (Temp corrected) 99.8 99.7 Blood Gas A-a O2 Differential 67.9 H 61.1 H Blood Gas Actual Respiration Rate 21 17 Blood Gas Low PEEP Setting 5.0 Blood Gas Modality VENT - CPAP MASK - BIPAP Blood Gas Notified Time 09/13/2016 12:02:06 PM 09/13/2016 9:05:15 PM Blood Gas Notified Whom STEPHON [facility] Blood Gas Pressure Support 10 10 Blood Gas Specimen Source Blood arterial Blood arterial Blood Gas Temperature 37.0 37.0 FiO2 30.0 30.0 Oxyhemoglobin Percent 96.7 96.2 Total Hemoglobin 11.3 L 10.6 L Bedside Glucose 83 112 Blood Gas IPAP/EPAP Ratio 15/5 Blood Gas Respiration Rate 16.0 Test 09/14/16 00:54 09/14/16 04:25 09/14/16 05:30 Bedside Glucose 96 90 Anion Gap 19 H Basophils # 0.0 Basophils % 0.1 Blood Morphology Comment Blood Urea Nitrogen 63 H Calcium Level 8.6 Carbon Dioxide Level 25 Chloride Level 105 Creatinine 6.16 H Eosinophils # 0.1 Eosinophils % 0.5 Glucose Level 99 Hematocrit 27.0 L Hemoglobin 8.6 L Lymphocytes # 1.1 Lymphocytes % 7.2 L Magnesium Level 2.7 H Mean Corpuscular Hemoglobin 30.8 Mean Corpuscular Hemoglobin Concent 31.9 L Mean Corpuscular Volume 96.6 Mean Platelet Volume 7.1 L Monocytes # 1.3 H Monocytes % 8.6 Neutrophils # 12.3 H Neutrophils % 83.6 H Nucleated Red Blood Cells # 0.0 Nucleated Red Blood Cells % 0.0 Phosphorus Level 4.1 Platelet Count 261 Potassium Level 4.2 Red Blood Count 2.80 L Red Cell Distribution Width 17.4 H Sodium Level 145 H White Blood Count 14.8 H Medications Medications Current Medications Pantoprazole (Protonix Iv) 40 mg DAILY@06 IV Last administered on 09/14/16 05: 25; Admin Dose 40 MG; Start 08/31/16 at 06:00 Eye Lubricant 1 drop 1 drop TID BOTH EYES Last administered on 09/13/16 20:31; Admin Dose 1 DROP; Start 08/30/16 at 21:00 Propofol 100 ml @ 2.1 mls/hr Q12H IV Last administered on 09/03/16 10:10; Admin Dose 9.24 MLS/HR; Start 08/30/16 at 17:30 Vecuronium [place]/Dextrose (Norcuron/D5W) 100 ml @ 0 mls/hr TITRATE IV Last administered on 08/31/16 08:25; Admin Dose 2.1 MLS/HR; Start 08/30/16 at 17:30 Miscellaneous Information 1 ea NOTE XX ; Start 08/30/16 at 19:00 Glucose (Glutose) 15 gm Q15M PRN PO DECREASED GLUCOSE; Start 08/30/16 at 19:00 Glucose (Glutose) 22.5 gm Q15M PRN PO DECREASED GLUCOSE; Start 08/30/16 at 19: 00 Dextrose (D50w Syringe) 25 ml Q15M PRN IV DECREASED GLUCOSE Last administered on 09/11/16 12:33; Admin Dose 25 ML; Start 08/30/16 at 19:00 Dextrose (D50w Syringe) 50 ml Q15M PRN IV DECREASED GLUCOSE; Start 08/30/16 at 19:00 Glucagon (Glucagen) 1 mg Q15M PRN IM DECREASED GLUCOSE; Start 08/30/16 at 19:00 Glucose (Glutose) 15 gm Q15M PRN BUCCAL DECREASED GLUCOSE; Start 08/30/16 at 19 :00 Insulin Aspart (Novolog Insulin Pen) (Adult SC Insulin - Mild Algorithm)... Q6 SC ; Start 08/30/16 at 18:00 Lorazepam (Ativan) 2 mg Q2H PRN IV SEIZURES Last administered on 09/08/16 04:22 ; Admin Dose 2 MG; Start 09/01/16 at 02:00 Metoclopramide HCl (Reglan) 5 mg Q6 IV Last administered on 09/14/16 05:25; Admin Dose 5 MG; Start 09/03/16 at 12:00 Heparin Sodium (Porcine) (Heparin (5000 Units/0.5 ml)) 5,000 unit Q12 SC Last administered on 09/13/16 20:22; Admin Dose 5,000 UNIT; Start 09/04/16 at 09:00 Valproate Sodium (Depakene Liquid Cup) 750 mg TID NGT Last administered on 20:20; Admin Dose 750 MG; Start 09/05/16 at 13:00 Amlodipine Besylate (Norvasc) 10 mg DAILY NGT Last administered on 09/13/16 07: 24; Admin Dose 10 MG; Start 09/06/16 at 09:00 Nystatin (Nystatin Powder) 1 applic BID TOP Last administered on 09/13/16 20:31 ; Admin Dose 1 APPLIC; Start 09/06/16 at 12:30 IV Flush 10 ml 10 ml PRN PRN IV IV PROTOCOL; Start 09/06/16 at 14:30 Fosphenytoin Sodium/Sodium Chloride (Cerebyx/NS) 54 ml @ 210.667 mls/hr TID IVPB Last administered on 09/13/16 20:33; Admin Dose 210.667 MLS/HR; Start 09/07 at 13:00 Levetiracetam (Keppra Liquid) 1,500 mg BID GTB Last administered on 09/13/16 20 :20; Admin Dose 1,500 MG; Start 09/07/16 at 21:00 Carvedilol 25 mg 25 mg BID NGT Last administered on 09/13/16 20:19; Admin Dose 25 MG; Start 09/08/16 at 09:00 Nicardipine HCl/ Sodium Chloride (Cardene Iv/NS) 500 ml @ 70 mls/hr TITRATE IV Last administered on 09/14/16 05:26; Admin Dose 40 MLS/HR; Start 09/11/16 at 10 :00 Acetaminophen (Tylenol Liquid) 650 mg Q6H PRN NGT PAIN AND OR ELEVATED TEMP Last administered on 09/11/16 16:48; Admin Dose 650 MG; Start 09/11/16 at 16:30 Benazepril HCl (Lotensin) 40 mg BID GTB Last administered on 09/13/16 20:19; Admin Dose 40 MG; Start 09/13/16 at 09:00 Hydralazine HCl (Apresoline) 100 mg TID NGT Last administered on 09/13/16 20:19 ; Admin Dose 100 MG; Start 09/13/16 at 13:00 Miscellaneous Information MEDICATION REQUI... Q8H XX Last administered on 21:04; Admin Dose 1 EA; Start 09/13/16 at 14:00 Dextrose/Sodium Chloride (D5-1/2ns) 1,000 ml @ 20 mls/hr Q24H IV Last administered on 09/13/16 17:30; Admin Dose 20 MLS/HR; Start 09/13/16 at 17:30 YELENA KEMP Sep 14, 2016 07:46
[2016-09-14] MEDS: SEVELAMER CARBONATE 2.4 GM PKT PO SCH ×3 (08:00→17:45)
--- NOTE | 2016-09-14 08:09 | CONS ---
Date/Time of Note Date/Time of Note DATE: 09/14/16 TIME: 08:06 Assessment/Plan Assessment/Plan Chief Complaint/Hosp Course 56-year-old female presented to the ED by paramedics after she was found to be unresponsive at home. During hospitalization, pt was intubated and started on hypothermia protocol. Pt noted with abnormal EEG with noted seizure activity and encephalopathy. Likely secondary to anoxic brain injury. Pt is status post cardiac arrest with Brain MRI with evidence suggesting hypoxic ischemic injury. Pt has also been experiencing seizures and has been unable to be weened off respiratiory. Family to decide whether they want tracheostomy and PEG tube placment. Spoke with daughter Breanne at [phone] and explained R/B of procedure and she said she and her family will decide. Pt has PMH of End-stage renal disease on hemodialysis and hypertension. Problems: Additional Assessment/Plan Dysphagia * EGD + PEG 09-12-16: Uneventful percutaneous endoscopic gastrostomy tube placement with placement of [place] 20 gastrostomy tube. * Get Nutrition consult for tube feed type and rate * Monitor tube feed every 6 hours, hold for residual greater than 150 mL Status post cardiac arrest. Seizures Respiratory failure * Extubated on BiPAP Hypertensive urgency Mild pulmonary hypertension. Continue on O2 supplementation End-stage renal disease on HD Further recommendations depend on clinical course Patient seen in collaboration with Dr. Larios Consultation Date/Type/Reason Admit Date/Time Aug 30, 2016 at 15:45 Initial Consult Date 09/01/16 Type of Consultation: GI 24 HR Interval Summary Free Text/Dictation Tube feed stopped yesterday for extubation Per bedside nurse, minimal residual noted when on Will restart Pt on BiPAP Exam/Review of Systems Vital Signs Vitals Vital Signs Date Time Temp Pulse Resp B/P Pulse Ox O2 Delivery O2 Flow Rate FiO2 09/14/16 06:15 82 20 142/74 100 BIPAP 09/14/16 04:41 30 09/14/16 04:00 98.2 Intake and Output 09/13/16 09/13/16 09/14/16 15:00 23:00 07:00 Intake Total 728 ml 324 ml 480 ml Output Total 4500 ml 0 ml Balance -3772 ml 324 ml 480 ml Exam Constitutional: non-verbal Head: atraumatic ENMT: nl external ears & nose, nl lips & teeth, nl nasal mucosa & septum Respiratory: other Cardiovascular: regular rate and rhythm Gastrointestinal: soft Neurological: other (Intubated grossly nonfocal) Results Result Diagram: 09/14/16 0425 09/14/16 0425 Results 24 hrs Laboratory Tests Test 09/13/16 11:30 09/13/16 12:24 09/13/16 17:16 09/13/16 21:00 Arterial Blood HCO3 25.3 25.3 Arterial Blood Base Excess 1.0 -0.2 Arterial Blood Oxygen Saturation 97.2 96.8 Cristian Test ACCEPTAB ACCEPTAB Arterial Blood Gas Puncture Site Left Radial Right Radial Arterial Blood Carboxyhemoglobin 0.2 0.4 Arterial Blood Date Drawn 09/13/2016 11:50:06 AM 09/13/2016 8:55:45 PM Arterial Blood Methemoglobin 0.3 0.2 Arterial Blood pCO2 (Temp correct) 39.3 45.2 H Arterial Blood pH (Temp corrected) 7.427 7.366 Arterial Blood pO2 (Temp corrected) 99.8 99.7 Blood Gas A-a O2 Differential 67.9 H 61.1 H Blood Gas Actual Respiration Rate 21 17 Blood Gas Low PEEP Setting 5.0 Blood Gas Modality VENT - CPAP MASK - BIPAP Blood Gas Notified Time 09/13/2016 12:02:06 PM 09/13/2016 9:05:15 PM Blood Gas Notified Whom STEPHON diaz sterile process tech Blood Gas Pressure Support 10 10 Blood Gas Specimen Source Blood arterial Blood arterial Blood Gas Temperature 37.0 37.0 FiO2 30.0 30.0 Oxyhemoglobin Percent 96.7 96.2 Total Hemoglobin 11.3 L 10.6 L Bedside Glucose 83 112 Blood Gas IPAP/EPAP Ratio 15/5 Blood Gas Respiration Rate 16.0 Test 09/14/16 00:54 09/14/16 04:25 09/14/16 05:30 Bedside Glucose 96 90 Anion Gap 19 H Basophils # 0.0 Basophils % 0.1 Blood Morphology Comment Blood Urea Nitrogen 63 H Calcium Level 8.6 Carbon Dioxide Level 25 Chloride Level 105 Creatinine 6.16 H Eosinophils # 0.1 Eosinophils % 0.5 Glucose Level 99 Hematocrit 27.0 L Hemoglobin 8.6 L Lymphocytes # 1.1 Lymphocytes % 7.2 L Magnesium Level 2.7 H Mean Corpuscular Hemoglobin 30.8 Mean Corpuscular Hemoglobin Concent 31.9 L Mean Corpuscular Volume 96.6 Mean Platelet Volume 7.1 L Monocytes # 1.3 H Monocytes % 8.6 Neutrophils # 12.3 H Neutrophils % 83.6 H Nucleated Red Blood Cells # 0.0 Nucleated Red Blood Cells % 0.0 Phosphorus Level 4.1 Platelet Count 261 Potassium Level 4.2 Red Blood Count 2.80 L Red Cell Distribution Width 17.4 H Sodium Level 145 H White Blood Count 14.8 H Medications Medications Current Medications Pantoprazole (Protonix Iv) 40 mg DAILY@06 IV Last administered on 09/14/16 05: 25; Admin Dose 40 MG; Start 08/31/16 at 06:00 Eye Lubricant 1 drop 1 drop TID BOTH EYES Last administered on 09/13/16 20:31; Admin Dose 1 DROP; Start 08/30/16 at 21:00 Propofol 100 ml @ 2.1 mls/hr Q12H IV Last administered on 09/03/16 10:10; Admin Dose 9.24 MLS/HR; Start 08/30/16 at 17:30 Vecuronium [place]/Dextrose (Norcuron/D5W) 100 ml @ 0 mls/hr TITRATE IV Last administered on 08/31/16 08:25; Admin Dose 2.1 MLS/HR; Start 08/30/16 at 17:30 Miscellaneous Information 1 ea NOTE XX ; Start 08/30/16 at 19:00 Glucose (Glutose) 15 gm Q15M PRN PO DECREASED GLUCOSE; Start 08/30/16 at 19:00 Glucose (Glutose) 22.5 gm Q15M PRN PO DECREASED GLUCOSE; Start 08/30/16 at 19: 00 Dextrose (D50w Syringe) 25 ml Q15M PRN IV DECREASED GLUCOSE Last administered on 09/11/16 12:33; Admin Dose 25 ML; Start 08/30/16 at 19:00 Dextrose (D50w Syringe) 50 ml Q15M PRN IV DECREASED GLUCOSE; Start 08/30/16 at 19:00 Glucagon (Glucagen) 1 mg Q15M PRN IM DECREASED GLUCOSE; Start 08/30/16 at 19:00 Glucose (Glutose) 15 gm Q15M PRN BUCCAL DECREASED GLUCOSE; Start 08/30/16 at 19 :00 Insulin Aspart (Novolog Insulin Pen) (Adult SC Insulin - Mild Algorithm)... Q6 SC ; Start 08/30/16 at 18:00 Lorazepam (Ativan) 2 mg Q2H PRN IV SEIZURES Last administered on 09/08/16 04:22 ; Admin Dose 2 MG; Start 09/01/16 at 02:00 Metoclopramide HCl (Reglan) 5 mg Q6 IV Last administered on 09/14/16 05:25; Admin Dose 5 MG; Start 09/03/16 at 12:00 Heparin Sodium (Porcine) (Heparin (5000 Units/0.5 ml)) 5,000 unit Q12 SC Last administered on 09/13/16 20:22; Admin Dose 5,000 UNIT; Start 09/04/16 at 09:00 Valproate Sodium (Depakene Liquid Cup) 750 mg TID NGT Last administered on 20:20; Admin Dose 750 MG; Start 09/05/16 at 13:00 Amlodipine Besylate (Norvasc) 10 mg DAILY NGT Last administered on 09/13/16 07: 24; Admin Dose 10 MG; Start 09/06/16 at 09:00 Nystatin (Nystatin Powder) 1 applic BID TOP Last administered on 09/13/16 20:31 ; Admin Dose 1 APPLIC; Start 09/06/16 at 12:30 IV Flush 10 ml 10 ml PRN PRN IV IV PROTOCOL; Start 09/06/16 at 14:30 Fosphenytoin Sodium/Sodium Chloride (Cerebyx/NS) 54 ml @ 210.667 mls/hr TID IVPB Last administered on 09/13/16 20:33; Admin Dose 210.667 MLS/HR; Start 09/07 at 13:00 Levetiracetam (Keppra Liquid) 1,500 mg BID GTB Last administered on 09/13/16 20 :20; Admin Dose 1,500 MG; Start 09/07/16 at 21:00 Carvedilol 25 mg 25 mg BID NGT Last administered on 09/13/16 20:19; Admin Dose 25 MG; Start 09/08/16 at 09:00 Nicardipine HCl/ Sodium Chloride (Cardene Iv/NS) 500 ml @ 70 mls/hr TITRATE IV Last administered on 09/14/16 05:26; Admin Dose 40 MLS/HR; Start 09/11/16 at 10 :00 Acetaminophen (Tylenol Liquid) 650 mg Q6H PRN NGT PAIN AND OR ELEVATED TEMP Last administered on 09/11/16 16:48; Admin Dose 650 MG; Start 09/11/16 at 16:30 Benazepril HCl (Lotensin) 40 mg BID GTB Last administered on 09/13/16 20:19; Admin Dose 40 MG; Start 09/13/16 at 09:00 Hydralazine HCl (Apresoline) 100 mg TID NGT Last administered on 09/13/16 20:19 ; Admin Dose 100 MG; Start 09/13/16 at 13:00 Miscellaneous Information MEDICATION REQUI... Q8H XX Last administered on 21:04; Admin Dose 1 EA; Start 09/13/16 at 14:00 Dextrose/Sodium Chloride (D5-1/2ns) 1,000 ml @ 20 mls/hr Q24H IV Last administered on 09/13/16 17:30; Admin Dose 20 MLS/HR; Start 09/13/16 at 17:30 ONELIA OCONNOR Sep 14, 2016 08:09
--- NOTE | 2016-09-14 08:32 | PN ---
Date/Time of Note Date/Time of Note DATE: 09/14/16 TIME: 08:30 Assessment/Plan VTE Prophylaxis VTE Prophylaxis Intervention: heparin Lines/Catheters IV [facility]ter Type (from [facility]): PICC Line Central line still needed: Yes Urinary Cath still in place: No Assessment/Plan Chief Complaint/Hosp Course 1. Status post cardiac arrest. S/P hypothermia protocol. Neurology following. The patient's neurologic status is improving gradually. The patient was extubated on 09/13/2016. 2. Seizures. Most probably secondary to anoxic brain injury. The patient was started on anticonvulsants. Neurology following. 3. Elevated troponins, most probably secondary to the cardiac arrest. 2D echo showing preserved LVEF. 4. Acute respiratory failure. Hypoxic. Secondary to cardiac arrest. Status post extubation on 09/13/2016. Continue inhaled bronchodilators. 5. Hypertensive urgency. On Cardene drip. Blood pressure fairly well controlled. 6. S/P systemic inflammatory response syndrome with leukocytosis, lactic acidosis and tachycardia. Lactic acidosis has resolved. S/P empiric antibiotics for any underlying infectious etiology. Pancultures negative so far. 7. Mild pulmonary hypertension. 8. End-stage renal disease on hemodialysis. HD as per Nephrology. The patient' s electrolyte levels are stable. 9. Fluid, electrolytes and nutrition. Continue PEG tube feedings. 10. Deep venous thrombosis prophylaxis with bilateral sequential compression devices and SQ heparin. 11. Gastrointestinal prophylaxis. Proton pump inhibitors. PLAN: Continue ICU care. Case discussed with Dr. Ahn Critical care time: 35 minutes. Problems: Subjective 24 Hr Interval Summary Free Text/Dictation Patient remains on BiPAP. The patient was extubated on 09/13/2016. Exam/Review of Systems Vital Signs Vitals Vital Signs Date Time Temp Pulse Resp B/P Pulse Ox O2 Delivery O2 Flow Rate FiO2 09/14/16 06:15 82 20 142/74 100 BIPAP 09/14/16 04:41 30 09/14/16 04:00 98.2 Intake and Output 09/13/16 09/13/16 09/14/16 15:00 23:00 07:00 Intake Total 728 ml 324 ml 480 ml Output Total 4500 ml 0 ml Balance -3772 ml 324 ml 480 ml Exam GENERAL: This is a 56-year-old female patient lying in bed with BiPAP on and in mild to moderate respiratory distress. HEENT: Head normocephalic and atraumatic. Eyes: Anicteric sclerae. Conjunctivae clear. ENT: Nasal septum is midline. Oral mucosa is dry. NECK: Supple. No JVD noticed. RESPIRATORY: Bilaterally diminished breath sounds. Bilateral coarse rales heard. On BiPAP. Use of accessory muscles of respiration. CARDIAC: Regular rate and rhythm. Sinus tachycardia on the monitor. ABDOMEN: Soft, nontender and nondistended. Bowel sounds hypoactive. Left upper quadrant G-tube in place. GENITOURINARY: The patient has a Patel catheter in place. EXTREMITIES: No cyanosis, no clubbing. Bilateral lower extremity 1+ pitting edema. Peripheral pulses are palpable.RUE 1+ pitting edema. LUE PICC line. NEUROLOGIC: The patient is awake and alert. Follows commands. Pupils are equal and reactive. Results Result Diagram: 09/14/16 0425 09/14/16 0425 Results 24 hrs Laboratory Tests Test 09/13/16 11:30 09/13/16 12:24 09/13/16 17:16 09/13/16 21:00 Arterial Blood HCO3 25.3 25.3 Arterial Blood Base Excess 1.0 -0.2 Arterial Blood Oxygen Saturation 97.2 96.8 Cristian Test ACCEPTAB ACCEPTAB Arterial Blood Gas Puncture Site Left Radial Right Radial Arterial Blood Carboxyhemoglobin 0.2 0.4 Arterial Blood Date Drawn 09/13/2016 11:50:06 AM 09/13/2016 8:55:45 PM Arterial Blood Methemoglobin 0.3 0.2 Arterial Blood pCO2 (Temp correct) 39.3 45.2 H Arterial Blood pH (Temp corrected) 7.427 7.366 Arterial Blood pO2 (Temp corrected) 99.8 99.7 Blood Gas A-a O2 Differential 67.9 H 61.1 H Blood Gas Actual Respiration Rate 21 17 Blood Gas Low PEEP Setting 5.0 Blood Gas Modality VENT - CPAP MASK - BIPAP Blood Gas Notified Time 09/13/2016 12:02:06 PM 09/13/2016 9:05:15 PM Blood Gas Notified Whom STEPHON diaz smasher Blood Gas Pressure Support 10 10 Blood Gas Specimen Source Blood arterial Blood arterial Blood Gas Temperature 37.0 37.0 FiO2 30.0 30.0 Oxyhemoglobin Percent 96.7 96.2 Total Hemoglobin 11.3 L 10.6 L Bedside Glucose 83 112 Blood Gas IPAP/EPAP Ratio 15/5 Blood Gas Respiration Rate 16.0 Test 09/14/16 00:54 09/14/16 04:25 09/14/16 05:30 Bedside Glucose 96 90 Anion Gap 19 H Basophils # 0.0 Basophils % 0.1 Blood Morphology Comment Blood Urea Nitrogen 63 H Calcium Level 8.6 Carbon Dioxide Level 25 Chloride Level 105 Creatinine 6.16 H Eosinophils # 0.1 Eosinophils % 0.5 Glucose Level 99 Hematocrit 27.0 L Hemoglobin 8.6 L Lymphocytes # 1.1 Lymphocytes % 7.2 L Magnesium Level 2.7 H Mean Corpuscular Hemoglobin 30.8 Mean Corpuscular Hemoglobin Concent 31.9 L Mean Corpuscular Volume 96.6 Mean Platelet Volume 7.1 L Monocytes # 1.3 H Monocytes % 8.6 Neutrophils # 12.3 H Neutrophils % 83.6 H Nucleated Red Blood Cells # 0.0 Nucleated Red Blood Cells % 0.0 Phosphorus Level 4.1 Platelet Count 261 Potassium Level 4.2 Red Blood Count 2.80 L Red Cell Distribution Width 17.4 H Sodium Level 145 H White Blood Count 14.8 H Medications Medications Current Medications Pantoprazole (Protonix Iv) 40 mg DAILY@06 IV Last administered on 09/14/16 05: 25; Admin Dose 40 MG; Start 08/31/16 at 06:00 Eye Lubricant 1 drop 1 drop TID BOTH EYES Last administered on 09/13/16 20:31; Admin Dose 1 DROP; Start 08/30/16 at 21:00 Propofol 100 ml @ 2.1 mls/hr Q12H IV Last administered on 09/03/16 10:10; Admin Dose 9.24 MLS/HR; Start 08/30/16 at 17:30 Vecuronium [place]/Dextrose (Norcuron/D5W) 100 ml @ 0 mls/hr TITRATE IV Last administered on 08/31/16 08:25; Admin Dose 2.1 MLS/HR; Start 08/30/16 at 17:30 Miscellaneous Information 1 ea NOTE XX ; Start 08/30/16 at 19:00 Glucose (Glutose) 15 gm Q15M PRN PO DECREASED GLUCOSE; Start 08/30/16 at 19:00 Glucose (Glutose) 22.5 gm Q15M PRN PO DECREASED GLUCOSE; Start 08/30/16 at 19: 00 Dextrose (D50w Syringe) 25 ml Q15M PRN IV DECREASED GLUCOSE Last administered on 09/11/16 12:33; Admin Dose 25 ML; Start 08/30/16 at 19:00 Dextrose (D50w Syringe) 50 ml Q15M PRN IV DECREASED GLUCOSE; Start 08/30/16 at 19:00 Glucagon (Glucagen) 1 mg Q15M PRN IM DECREASED GLUCOSE; Start 08/30/16 at 19:00 Glucose (Glutose) 15 gm Q15M PRN BUCCAL DECREASED GLUCOSE; Start 08/30/16 at 19 :00 Insulin Aspart (Novolog Insulin Pen) (Adult SC Insulin - Mild Algorithm)... Q6 SC ; Start 08/30/16 at 18:00 Lorazepam (Ativan) 2 mg Q2H PRN IV SEIZURES Last administered on 09/08/16 04:22 ; Admin Dose 2 MG; Start 09/01/16 at 02:00 Metoclopramide HCl (Reglan) 5 mg Q6 IV Last administered on 09/14/16 05:25; Admin Dose 5 MG; Start 09/03/16 at 12:00 Heparin Sodium (Porcine) (Heparin (5000 Units/0.5 ml)) 5,000 unit Q12 SC Last administered on 09/13/16 20:22; Admin Dose 5,000 UNIT; Start 09/04/16 at 09:00 Valproate Sodium (Depakene Liquid Cup) 750 mg TID NGT Last administered on 20:20; Admin Dose 750 MG; Start 09/05/16 at 13:00 Amlodipine Besylate (Norvasc) 10 mg DAILY NGT Last administered on 09/13/16 07: 24; Admin Dose 10 MG; Start 09/06/16 at 09:00 Nystatin (Nystatin Powder) 1 applic BID TOP Last administered on 09/13/16 20:31 ; Admin Dose 1 APPLIC; Start 09/06/16 at 12:30 IV Flush 10 ml 10 ml PRN PRN IV IV PROTOCOL; Start 09/06/16 at 14:30 Fosphenytoin Sodium/Sodium Chloride (Cerebyx/NS) 54 ml @ 210.667 mls/hr TID IVPB Last administered on 09/13/16 20:33; Admin Dose 210.667 MLS/HR; Start 09/07 at 13:00 Levetiracetam (Keppra Liquid) 1,500 mg BID GTB Last administered on 09/13/16 20 :20; Admin Dose 1,500 MG; Start 09/07/16 at 21:00 Carvedilol 25 mg 25 mg BID NGT Last administered on 09/13/16 20:19; Admin Dose 25 MG; Start 09/08/16 at 09:00 Nicardipine HCl/ Sodium Chloride (Cardene Iv/NS) 500 ml @ 70 mls/hr TITRATE IV Last administered on 09/14/16 05:26; Admin Dose 40 MLS/HR; Start 09/11/16 at 10 :00 Acetaminophen (Tylenol Liquid) 650 mg Q6H PRN NGT PAIN AND OR ELEVATED TEMP Last administered on 09/11/16 16:48; Admin Dose 650 MG; Start 09/11/16 at 16:30 Benazepril HCl (Lotensin) 40 mg BID GTB Last administered on 09/13/16 20:19; Admin Dose 40 MG; Start 09/13/16 at 09:00 Hydralazine HCl (Apresoline) 100 mg TID NGT Last administered on 09/13/16 20:19 ; Admin Dose 100 MG; Start 09/13/16 at 13:00 Miscellaneous Information MEDICATION REQUI... Q8H XX Last administered on 21:04; Admin Dose 1 EA; Start 09/13/16 at 14:00 Dextrose/Sodium Chloride (D5-1/2ns) 1,000 ml @ 20 mls/hr Q24H IV Last administered on 09/13/16 17:30; Admin Dose 20 MLS/HR; Start 09/13/16 at 17:30 CLEM HUNG NP Sep 14, 2016 08:32
[2016-09-14] MEDS: LEVETIRACETAM (100 MG/ML) 5ML CUP GTB SCH ×2 (08:56→21:06)
[2016-09-14] MEDS: ARTIFICIAL TEARS 15 ML OPH BOTH EYES SCH ×3 (08:56→21:07)
[2016-09-14] MEDS: BENAZEPRIL 40 MG TAB GTB SCH (08:57)
[2016-09-14] MEDS: AMLODIPINE 10 MG TAB NGT SCH (08:58)
[2016-09-14] MEDS: VALPROIC ACID LIQUID CUP 250 MG/5 ML CUP NGT SCH ×3 (08:58→21:06)
[2016-09-14 08:59] LABS: AADO2 Arterial 12.4 mmHg (7.0-24.0); Allen Test ACCEPTAB; Arterial Base Excess -2.9 mmol/L (-3.0-3); Arterial COHb 0.4 % (0.0-3.0); Arterial MetHb 0.2 % (0.0-1.5); Arterial Total Hemglobin 10.4 g/dl (12.0-18.0); Blood Gas IEPAP 15/5; MODE MASK - BIPAP
[2016-09-14] MEDS: NYSTATIN 30 GM POWDER BTL TOP SCH (08:59)
[2016-09-14] MEDS: HEPARIN 5,000 UNIT/0.5 ML SYG SC SCH (08:59)
[2016-09-14] MEDS: FOSPHENYTOIN (PE) 200 MG in SOD CHLORIDE 0.9% 50 ML IVPB SCH ×3 (09:02→21:06)
--- NOTE | 2016-09-14 09:11 | PN ---
DATE: 09/14/2016 SUBJECTIVE: The patient was extubated. Currently on BiPAP. Remains on nicardipine drip. The patient had hemodialysis yesterday, tolerated well. OBJECTIVE: VITAL SIGNS: Blood pressure is 142/74, respirations 20, pulse 82, temperature 98.6. I's AND O'S: The patient had 1500 in with 4 liters out. HEENT: Head is normocephalic. NECK: Supple. HEART: Regular rate. LUNGS: Show diminished breath sounds at the base. ABDOMEN: Soft, nontender to palpation without rebound or guarding. EXTREMITIES: Negative for clubbing, cyanosis. Positive edema. DERMATOLOGIC: No rashes. MUSCULOSKELETAL: No joint effusions. NEUROLOGIC: No change in exam. MEDICATIONS: The patient's medications have been reviewed. LABORATORY DATA: Shows a sodium 145, potassium 4.2, BUN 63, creatinine 6.16. White count 14.8, hem oglobin 9.6, hematocrit 27.0, platelet count is 261. IMAGING: Patient's chest x-ray on September 13 shows no active cardiopulmonary disease. ASSESSMENT AND PLAN: 1. End-stage renal disease. The patient has been receiving daily dialysis, solute clearance and vo lume removal. Plan for dialysis today. Will dialyze 3 hours, 3 K bath, calcium 2.5, ultrafiltrate as tolerated. 2. Hypertensive urgency. The patient's blood pressure remains elevated. Continue current blood pr essure regimen. Continue ultrafiltration dialysis. Continue to wean off nicardipine drip. 3. Volume overload. Continue ultrafiltration with hemodialysis. 4. Anemia. Continue to monitor hemoglobin and hematocrit levels. Continue Epogen. DIAGNOSES: 1. Mineral bone disorder. Continue to monitor calcium and phosphorous levels. Continue phosph bind ers. 2. Hypoxemic respiratory failure. The patient is status post extubation, currently stable on BiPAP . Continue to monitor. Follow up ABG, follow up with pulmonary. 3. Anoxic brain injury secondary to code arrest. Continue to monitor. 4. Myoclonic jerks/seizures. Continue anti-seizure medications. Continue Keppra. 5. Diabetes, continue Accu-Cheks and sliding scale. 6. Leukocytosis sepsis inflammatory response syndrome. The patient is completing antibiotic course . 7. Status post code arrest. Dictated By: TIP SOLORIO/EMMA Conf#: [id number] [facility]#: [id number]
--- NOTE | 2016-09-14 10:01 | CONS ---
Date/Time of Note Date/Time of Note DATE: 09/14/16 TIME: 09:51 Assessment/Plan Assessment/Plan Chief Complaint/Hosp Course Status post cardiac arrest - unclear etiology (?hypoxic/respiratory), initial rhythm reported to be PEA, status post hypothermia protocol Accelerated hypertension: BP high during HD requiring nicardipine intermittently Acute on chronic diastolic heart failure: EF preserved. NSTEMI - likely type 2. Depending on neurologic recovery will consider further management options Acute respiratory failure - intubated for 2 weeks, extubated 09/13 End-stage renal disease - on hemodialysis Anoxic brain injury: appears to be having myoclonic movements and does not have purposeful movements which are concerning for significant injury. -amlodipine 10mg -benazapril 40mg BID -coreg 25mg BID -hydralazine 100mg TID -will consider clonidine as 4th agent if BP does not improve -HD per nephrology -neurology follow up Problems: Consultation Date/Type/Reason Admit Date/Time Aug 30, 2016 at 15:45 Initial Consult Date 09/01/16 Type of Consultation: Cardiology 24 HR Interval Summary Free Text/Dictation Extubated yesterday. Now on BiPAP. Mental status remains the same Exam/Review of Systems Vital Signs Vitals Vital Signs Date Time Temp Pulse Resp B/P Pulse Ox O2 Delivery O2 Flow Rate FiO2 09/14/16 08:32 88 20 98 30 09/14/16 06:15 142/74 BIPAP 09/14/16 04:00 98.2 Intake and Output 09/13/16 09/13/16 09/14/16 15:00 23:00 07:00 Intake Total 728 ml 324 ml 480 ml Output Total 4500 ml 0 ml Balance -3772 ml 324 ml 480 ml Exam Constitutional: No alert Head: atraumatic, normocephalic Neck: No jvd Respiratory: diminished breath sounds, No clear to auscultation Gastrointestinal: non-tender, soft Neurological: No nl mental status, No nl speech Results Result Diagram: 09/14/16 0425 09/14/16 0425 Results 24 hrs Laboratory Tests Test 09/13/16 11:30 09/13/16 12:24 09/13/16 17:16 09/13/16 21:00 Arterial Blood HCO3 25.3 25.3 Arterial Blood Base Excess 1.0 -0.2 Arterial Blood Oxygen Saturation 97.2 96.8 Cristian Test ACCEPTAB ACCEPTAB Arterial Blood Gas Puncture Site Left Radial Right Radial Arterial Blood Carboxyhemoglobin 0.2 0.4 Arterial Blood Date Drawn 09/13/2016 11:50:06 AM 09/13/2016 8:55:45 PM Arterial Blood Methemoglobin 0.3 0.2 Arterial Blood pCO2 (Temp correct) 39.3 45.2 H Arterial Blood pH (Temp corrected) 7.427 7.366 Arterial Blood pO2 (Temp corrected) 99.8 99.7 Blood Gas A-a O2 Differential 67.9 H 61.1 H Blood Gas Actual Respiration Rate 21 17 Blood Gas Low PEEP Setting 5.0 Blood Gas Modality VENT - CPAP MASK - BIPAP Blood Gas Notified Time 09/13/2016 12:02:06 PM 09/13/2016 9:05:15 PM Blood Gas Notified Whom STEPHON diaz dianeticist Blood Gas Pressure Support 10 10 Blood Gas Specimen Source Blood arterial Blood arterial Blood Gas Temperature 37.0 37.0 FiO2 30.0 30.0 Oxyhemoglobin Percent 96.7 96.2 Total Hemoglobin 11.3 L 10.6 L Bedside Glucose 83 112 Blood Gas IPAP/EPAP Ratio 15/5 Blood Gas Respiration Rate 16.0 Test 09/14/16 00:54 09/14/16 04:25 09/14/16 05:30 09/14/16 07:41 Bedside Glucose 96 90 Anion Gap 19 H Basophils # 0.0 Basophils % 0.1 Blood Morphology Comment Blood Urea Nitrogen 63 H Calcium Level 8.6 Carbon Dioxide Level 25 Chloride Level 105 Creatinine 6.16 H Eosinophils # 0.1 Eosinophils % 0.5 Glucose Level 99 Hematocrit 27.0 L Hemoglobin 8.6 L Lymphocytes # 1.1 Lymphocytes % 7.2 L Magnesium Level 2.7 H Mean Corpuscular Hemoglobin 30.8 Mean Corpuscular Hemoglobin Concent 31.9 L Mean Corpuscular Volume 96.6 Mean Platelet Volume 7.1 L Monocytes # 1.3 H Monocytes % 8.6 Neutrophils # 12.3 H Neutrophils % 83.6 H Nucleated Red Blood Cells # 0.0 Nucleated Red Blood Cells % 0.0 Phosphorus Level 4.1 Platelet Count 261 Potassium Level 4.2 Red Blood Count 2.80 L Red Cell Distribution Width 17.4 H Sodium Level 145 H White Blood Count 14.8 H Arterial Blood HCO3 23.0 Arterial Blood Base Excess -2.9 Arterial Blood Oxygen Saturation 98.6 H Cristian Test ACCEPTAB Arterial Blood Gas Puncture Site Right Radial Arterial Blood Carboxyhemoglobin 0.4 Arterial Blood Date Drawn 09/14/2016 8:40:48 AM Arterial Blood Methemoglobin 0.2 Arterial Blood pCO2 (Temp correct) 45.1 H Arterial Blood pH (Temp corrected) 7.326 L Arterial Blood pO2 (Temp corrected) 148.5 H Blood Gas A-a O2 Differential 12.4 Blood Gas Actual Respiration Rate 18 Blood Gas IPAP/EPAP Ratio 15/5 Blood Gas Modality MASK - BIPAP Blood Gas Notified Time 09/14/2016 8:59:02 AM Blood Gas Notified Whom JLD Blood Gas Respiration Rate 16.0 Blood Gas Specimen Source Blood arterial Blood Gas Temperature 37.0 FiO2 30.0 Oxyhemoglobin Percent 98.0 Total Hemoglobin 10.4 L Medications Medications Current Medications Pantoprazole (Protonix Iv) 40 mg DAILY@06 IV Last administered on 09/14/16 05: 25; Admin Dose 40 MG; Start 08/31/16 at 06:00 Eye Lubricant 1 drop 1 drop TID BOTH EYES Last administered on 09/14/16 08:56; Admin Dose 1 DROP; Start 08/30/16 at 21:00 Propofol 100 ml @ 2.1 mls/hr Q12H IV Last administered on 09/03/16 10:10; Admin Dose 9.24 MLS/HR; Start 08/30/16 at 17:30 Vecuronium [place]/Dextrose (Norcuron/D5W) 100 ml @ 0 mls/hr TITRATE IV Last administered on 08/31/16 08:25; Admin Dose 2.1 MLS/HR; Start 08/30/16 at 17:30 Miscellaneous Information 1 ea NOTE XX ; Start 08/30/16 at 19:00 Glucose (Glutose) 15 gm Q15M PRN PO DECREASED GLUCOSE; Start 08/30/16 at 19:00 Glucose (Glutose) 22.5 gm Q15M PRN PO DECREASED GLUCOSE; Start 08/30/16 at 19: 00 Dextrose (D50w Syringe) 25 ml Q15M PRN IV DECREASED GLUCOSE Last administered on 09/11/16 12:33; Admin Dose 25 ML; Start 08/30/16 at 19:00 Dextrose (D50w Syringe) 50 ml Q15M PRN IV DECREASED GLUCOSE; Start 08/30/16 at 19:00 Glucagon (Glucagen) 1 mg Q15M PRN IM DECREASED GLUCOSE; Start 08/30/16 at 19:00 Glucose (Glutose) 15 gm Q15M PRN BUCCAL DECREASED GLUCOSE; Start 08/30/16 at 19 :00 Insulin Aspart (Novolog Insulin Pen) (Adult SC Insulin - Mild Algorithm)... Q6 SC ; Start 08/30/16 at 18:00 Lorazepam (Ativan) 2 mg Q2H PRN IV SEIZURES Last administered on 09/08/16 04:22 ; Admin Dose 2 MG; Start 09/01/16 at 02:00 Metoclopramide HCl (Reglan) 5 mg Q6 IV Last administered on 09/14/16 05:25; Admin Dose 5 MG; Start 09/03/16 at 12:00 Heparin Sodium (Porcine) (Heparin (5000 Units/0.5 ml)) 5,000 unit Q12 SC Last administered on 09/14/16 08:59; Admin Dose 5,000 UNIT; Start 09/04/16 at 09:00 Valproate Sodium (Depakene Liquid Cup) 750 mg TID NGT Last administered on 08:58; Admin Dose 750 MG; Start 09/05/16 at 13:00 Amlodipine Besylate (Norvasc) 10 mg DAILY NGT Last administered on 09/14/16 08: 58; Admin Dose 10 MG; Start 09/06/16 at 09:00 Nystatin (Nystatin Powder) 1 applic BID TOP Last administered on 09/14/16 08:59 ; Admin Dose 1 APPLIC; Start 09/06/16 at 12:30 IV Flush 10 ml 10 ml PRN PRN IV IV PROTOCOL; Start 09/06/16 at 14:30 Fosphenytoin Sodium/Sodium Chloride (Cerebyx/NS) 54 ml @ 210.667 mls/hr TID IVPB Last administered on 09/14/16 09:02; Admin Dose 210.667 MLS/HR; Start 09/07 at 13:00 Levetiracetam (Keppra Liquid) 1,500 mg BID GTB Last administered on 09/14/16 08 :56; Admin Dose 1,500 MG; Start 09/07/16 at 21:00 Carvedilol 25 mg 25 mg BID NGT Last administered on 09/14/16 08:58; Admin Dose 25 MG; Start 09/08/16 at 09:00 Nicardipine HCl/ Sodium Chloride (Cardene Iv/NS) 500 ml @ 70 mls/hr TITRATE IV Last administered on 09/14/16 05:26; Admin Dose 40 MLS/HR; Start 09/11/16 at 10 :00 Acetaminophen (Tylenol Liquid) 650 mg Q6H PRN NGT PAIN AND OR ELEVATED TEMP Last administered on 09/11/16 16:48; Admin Dose 650 MG; Start 09/11/16 at 16:30 Benazepril HCl (Lotensin) 40 mg BID GTB Last administered on 09/14/16 08:57; Admin Dose 40 MG; Start 09/13/16 at 09:00 Hydralazine HCl (Apresoline) 100 mg TID NGT Last administered on 09/14/16 08:57 ; Admin Dose 100 MG; Start 09/13/16 at 13:00 Miscellaneous Information MEDICATION REQUI... Q8H XX Last administered on 21:04; Admin Dose 1 EA; Start 09/13/16 at 14:00 Dextrose/Sodium Chloride (D5-1/2ns) 1,000 ml @ 20 mls/hr Q24H IV Last administered on 09/13/16 17:30; Admin Dose 20 MLS/HR; Start 09/13/16 at 17:30 KARLEE DAY Sep 14, 2016 09:53
--- NOTE | 2016-09-14 15:46 | PN ---
DATE: 09/14/2016 Palliative care progress note I have had an extensive conversation with patient's daughter and , reviewed all her current m edical condition, her prehospital medical condition, her hospitalization in her intensive care cour se. The patient was extubated recently, however, she is on BiPAP at this time at 100% and appears to still be in significant respiratory difficulty. Additionally, she is being dialyzed and the questio n of how much cognitive function she will have and neurological injury from being down is still uncl ear. Family members have made it very clear at this time that they do not want her to struggle any longer and they do not want to allow her to live on any neurological condition less than when she wa s prior to hospitalization, specifically that they do not want her to have any ongoing persistent co gnitive depression and the fact that she has made a decision in the past and has spoken to family me mbers that she would not want to live in any type debilitated condition either physically or neurolo gically. They have decided to discontinue care tonight at 2200 hours. They have given specific ins tructions for the numbers of people to visit her at that time to explain to her the protocol by gwendolyn albert we will discontinue her current care. Dictated By: ORVILLE SEAY MD, LP/EMMA Conf#: [id number] DID#: [id number]
[2016-09-14] MEDS: LORAZEPAM 2 MG INJ IV PRN (16:36)
[2016-09-14] MEDS: DEXTROSE 5%-0.45% NACL 1,000 ML IV SCH (17:02)
[2016-09-14] MEDS ORDERED: morphine (DRIP) 100 MG/D5W 100 ML IV SCH (19:30)
[2016-09-14] MEDS: morphine (DRIP) 100 MG/D5W 100 ML IV SCH (22:22)
[2016-09-14] MEDS: LORAZEPAM (MDV) 60 MG in DEXTROSE 5% 30 ML IV SCH (22:22)
[2016-09-15] VITALS (8 sets, daily range): BP systolic 70–128; BP diastolic 35–70; PULSE 79–85; RESP 6–20
[2016-09-15] MEDS: VALPROIC ACID LIQUID CUP 250 MG/5 ML CUP NGT SCH ×4 (09:00→20:39)
--- NOTE | 2016-09-15 10:41 | PN ---
DATE: 09/15/2016 SUBJECTIVE: The patient was placed on comfort measures overnight, currently on a morphine drip. Ap pears to be comfortable. No other events noted. OBJECTIVE: VITAL SIGNS: Blood pressure 91/53, respiratory rate 20, pulse 70, temperature 98.0. HEENT: Head is normocephalic. NECK: Supple. HEART: Regular rate. LUNGS: Show diminished breath sounds at the base. ABDOMEN: Soft, nontender to palpation. No rebound or guarding. EXTREMITIES: Negative for clubbing, cyanosis. No edema. DERMATOLOGIC: No rashes. MUSCULOSKELETAL: No joint effusions. NEUROLOGIC: No change in exam. MEDICATIONS: Patient's medication has been reviewed. LABORATORY DATA: Has been reviewed. No new labs. ASSESSMENT AND PLAN: 1. End-stage renal disease. 2. Hypertension. 3. Volume overload. 4. Anemia. 5. Mineral bone disorder. 6. Hypoxemic respiratory failure. 7. Anoxic brain injury. 8. Seizures. 9. Diabetes. 10. Status post code arrest. PLAN: The patient is currently on comfort measures and morphine drip. We will sign off. Reconsult as needed. Dictated By: TIP SOLORIO/EMMA Conf#: [id number] DID#: [id number]
[2016-09-15] MEDS: ARTIFICIAL TEARS 15 ML OPH BOTH EYES SCH ×3 (10:50→20:39)
[2016-09-15] MEDS: morphine (DRIP) 100 MG/D5W 100 ML IV SCH (10:50)
[2016-09-15] MEDS: FOSPHENYTOIN (PE) 200 MG in SOD CHLORIDE 0.9% 50 ML IVPB SCH ×3 (11:27→21:21)
[2016-09-15] MEDS: LEVETIRACETAM (100 MG/ML) 5ML CUP GTB SCH ×2 (11:27→20:39)
--- NOTE | 2016-09-15 12:43 | CONS ---
Date/Time of Note Date/Time of Note DATE: 09/15/16 TIME: 12:40 Assessment/Plan Assessment/Plan Chief Complaint/Hosp Course 56-year-old female presented to the ED by paramedics after she was found to be unresponsive at home. During hospitalization, pt was intubated and started on hypothermia protocol. Pt noted with abnormal EEG with noted seizure activity and encephalopathy. Likely secondary to anoxic brain injury. Pt is status post cardiac arrest with Brain MRI with evidence suggesting hypoxic ischemic injury. Pt has also been experiencing seizures and has been unable to be weened off respiratiory. Family to decide whether they want tracheostomy and PEG tube placment. Spoke with daughter Breanne at [phone] and explained R/B of procedure and she said she and her family will decide. Pt has PMH of End-stage renal disease on hemodialysis and hypertension. Problems: Additional Assessment/Plan Dysphagia * EGD + PEG 09-12-16: Uneventful percutaneous endoscopic gastrostomy tube placement with placement of [place] 20 gastrostomy tube. * Currently on comfort care measures * Feeding tube stop Status post cardiac arrest. Seizures Respiratory failure * Extubated on nasal cannula Hypertensive urgency Mild pulmonary hypertension. Continue on O2 supplementation End-stage renal disease on HD Further recommendations depend on clinical course Patient seen in collaboration with Dr. Larios Consultation Date/Type/Reason Admit Date/Time Aug 30, 2016 at 15:45 Initial Consult Date 09/01/16 Type of Consultation: Gastroenterology 24 HR Interval Summary Free Text/Dictation Patient currently on comfort care measures GI sign off Exam/Review of Systems Vital Signs Vitals Vital Signs Date Time Temp Pulse Resp B/P Pulse Ox O2 Delivery O2 Flow Rate FiO2 09/15/16 07:50 98.0 78 20 91/53 100 09/15/16 05:21 2.0 09/15/16 04:00 Nasal Cannula 09/14/16 22:36 30 Intake and Output 09/14/16 09/14/16 09/15/16 15:00 23:00 07:00 Intake Total 108 ml 1064 ml 95.0 ml Output Total 2500 ml 0 ml Balance 108 ml -1436 ml 95.0 ml Exam Constitutional: non-verbal Head: atraumatic ENMT: nl external ears & nose, nl lips & teeth, nl nasal mucosa & septum Respiratory: other Cardiovascular: regular rate and rhythm Gastrointestinal: soft Neurological: grossly nonfocal Results Result Diagram: 09/14/16 0425 09/14/16 0425 Results 24 hrs Laboratory Tests Test 09/14/16 17:44 Bedside Glucose 104 Medications Medications Current Medications Eye Lubricant (Artificial Tears Oph) 1 drop TID BOTH EYES Last administered on 09/15/16 10:50; Admin Dose 1 DROP; Start 08/30/16 at 21:00 Miscellaneous Information 1 ea NOTE XX ; Start 08/30/16 at 19:00 Valproate Sodium 750 mg 750 mg TID NGT Last administered on 09/14/16 21:06; Admin Dose 750 MG; Start 09/05/16 at 13:00 Fosphenytoin Sodium/Sodium Chloride (Cerebyx/NS) 54 ml @ 210.667 mls/hr TID IVPB Last administered on 09/15/16 11:27; Admin Dose 210.667 MLS/HR; Start 09/07/16 at 13:00 Levetiracetam 1500 mg 1,500 mg BID GTB Last administered on 09/15/16 11:27; Admin Dose 1,500 MG; Start 09/07/16 at 21:00 Dextrose/Sodium Chloride 1,000 ml @ 20 mls/hr Q24H IV Last administered on 09/13 17:30; Admin Dose 20 MLS/HR; Start 09/13/16 at 17:30 Lorazepam 60 mg/ Dextrose 60 ml @ 1 mls/hr TITRATE IV Last administered on 22:22; Admin Dose 1 MLS/HR; Start 09/14/16 at 22:00 Morphine Sulfate/ Dextrose (morphine) 100 ml @ 1 mls/hr TITRATE IV Last administered on 09/15/16 10:50; Admin Dose 8 MLS/HR; Start 09/14/16 at 22:00 ONELIA OCONNOR Sep 15, 2016 12:42
--- NOTE | 2016-09-15 15:58 | PN ---
Date/Time of Note Date/Time of Note DATE: 09/15/16 TIME: 15:55 Assessment/Plan VTE Prophylaxis VTE Prophylaxis Intervention: SCD's Lines/Catheters IV C[facility]ter Type [facility] PICC Line Central line still needed: Yes Urinary Cath still in place: No Assessment/Plan Chief Complaint/Hosp Course 1. Status post cardiac arrest. S/P hypothermia protocol. Currently on comfort care. 2. Seizures. Most probably secondary to anoxic brain injury. Continue anticonvulsants. 3. Elevated troponins, most probably secondary to the cardiac arrest. 2D echo showing preserved LVEF. 4. Acute respiratory failure. Hypoxic. Secondary to cardiac arrest. Status post extubation on 09/13/2016. Continue inhaled bronchodilators. 5. Hypertensive urgency. Currently on comfort care. 6. S/P systemic inflammatory response syndrome with leukocytosis, lactic acidosis and tachycardia. Lactic acidosis has resolved. S/P empiric antibiotics for any underlying infectious etiology. Pancultures negative so far. 7. Mild pulmonary hypertension. 8. End-stage renal disease on hemodialysis. Currently on comfort care. 9. Fluid, electrolytes and nutrition. Currently on comfort care. PLAN: Continue comfort care measures as per family's request. Case discussed with Dr. Ahn Problems: Subjective 24 Hr Interval Summary Free Text/Dictation The patient was made a comfort measureS only. The patient currently on morphine drip. Exam/Review of Systems Vital Signs Vitals Vital Signs Date Time Temp Pulse Resp B/P Pulse Ox O2 Delivery O2 Flow Rate FiO2 09/15/16 08:00 2.0 09/15/16 07:50 98.0 78 20 91/53 100 09/15/16 04:00 Nasal Cannula 09/14/16 22:36 30 Intake and Output 09/14/16 09/14/16 09/15/16 15:00 23:00 07:00 Intake Total 108 ml 1064 ml 95.0 ml Output Total 2500 ml 0 ml Balance 108 ml -1436 ml 95.0 ml Exam GENERAL: This is a 56-year-old female patient lying in bed In mild to moderate respiratory distress. HEENT: Head normocephalic and atraumatic. Eyes: Anicteric sclerae. Conjunctivae clear. ENT: Nasal septum is midline. Oral mucosa is dry. NECK: Supple. No JVD noticed. RESPIRATORY: Bilaterally diminished breath sounds. Bilateral coarse rales heard. Use of accessory muscles of respiration. CARDIAC: Regular rate and rhythm. ABDOMEN: Soft, nontender and nondistended. Bowel sounds hypoactive. Left upper quadrant G-tube in place. GENITOURINARY: The patient has a Patel catheter in place. EXTREMITIES: No cyanosis, no clubbing. Bilateral lower extremity 1+ pitting edema. Peripheral pulses are palpable.RUE 1+ pitting edema. LUE PICC line. NEUROLOGIC: The patient is lethargic. Pupils are equal and reactive. Results Result Diagram: 09/14/165 09/14/16 0425 Results 24 hrs Laboratory Tests Test 09/14/16 17:44 Bedside Glucose 104 Medications Medications Current Medications Eye Lubricant (Artificial Tears Oph) 1 drop TID BOTH EYES Last administered on 09/15/16 14:20; Admin Dose 1 DROP; Start 08/30/16 at 21:00 Miscellaneous Information 1 ea NOTE XX ; Start 08/30/16 at 19:00 Valproate Sodium 750 mg 750 mg TID NGT Last administered on 09/15/16 14:18; Admin Dose 750 MG; Start 09/05/16 at 13:00 Fosphenytoin Sodium/Sodium Chloride (Cerebyx/NS) 54 ml @ 210.667 mls/hr TID IVPB Last administered on 09/15/16 14:19; Admin Dose 210.667 MLS/HR; Start 09/07/16 at 13:00 Levetiracetam 1500 mg 1,500 mg BID GTB Last administered on 09/15/16 11:27; Admin Dose 1,500 MG; Start 09/07/16 at 21:00 Dextrose/Sodium Chloride 1,000 ml @ 20 mls/hr Q24H IV Last administered on 09/13 17:30; Admin Dose 20 MLS/HR; Start 09/13/16 at 17:30 Lorazepam 60 mg/ Dextrose 60 ml @ 1 mls/hr TITRATE IV Last administered on 22:22; Admin Dose 1 MLS/HR; Start 09/14/16 at 22:00 Morphine Sulfate/ Dextrose (morphine) 100 ml @ 1 mls/hr TITRATE IV Last administered on 09/15/16 10:50; Admin Dose 8 MLS/HR; Start 09/14/16 at 22:00 CLEM HUNG NP Sep 15, 2016 15:58
[2016-09-15] MEDS: LORAZEPAM (MDV) 60 MG in DEXTROSE 5% 30 ML IV SCH (17:09)
[2016-09-15] MEDS: DEXTROSE 5%-0.45% NACL 1,000 ML IV SCH (17:20)
--- NOTE | 2016-09-16 13:08 | DES ---
DATE OF ADMISSION: 08/30/2016 DATE OF EXPIRATION: 09/16/2016 TIME OF EXPIRATION: 1:15 a.m. PRIMARY CAUSE OF : Cardiopulmonary arrest. SECONDARY CAUSES OF : 1. Cardiac arrest, 08/30/2016. 2. Acute respiratory failure, 08/30/2016. 3. Non-ST elevation myocardial infarction, 08/30/2016. 4. Anoxic encephalopathy, 08/30/2016 FINAL DIAGNOSES: 1. Status post cardiac arrest on 08/30/2016. 2. Seizure disorder. 3. Anoxic encephalopathy. 4. Non-ST elevation myocardial infarction. 5. Hypertensive urgency. 6. Mild pulmonary hypertension. 7. End-stage renal disease on hemodialysis. 8. Normocytic, normochromic anemia. CONSULTATIONS: 1. Dr. Terry Kuhn, pulmonology, critical care medicine. 2. Dr. Dm Foote, nephrology. 3. Dr. Haroon Cook, cardiology. 4. Dr. Ari Cooley, palliative care. 5. Dr. Kacy Wei, neurology. 6. Dr. Jole Arellano, pulmonary. 7. Dr. Diamond Little, neurology. 8. Dr. Jaden Gatyan, neurology. 9. Dr. Desmond Larios, gastroenterology. 10. Dr. Tano Acuña, cardiology. HOSPITAL COURSE: This is a 56-year-old female with past medical history of end- stage renal disease on hemodialysis, and essential hypertension who was brought to the emergency room by paramedics after she was found to be unresponsive at home. As per the patient's family, the patient was by herself at home. The patient managed to call paramedics before she became unconscious. As per the report, the patient was in PEA. With CPR, ROSC was achieved and the patient was intubated in the field and was brought to the emergency room. In the emergency room at [facility], the patient had endotracheal tube exchanged by the ER physician. The patient was noticed to have uncontrolled blood pressures in the emergency room. The patient was noticed to have lactic acidosis with leukocytosis. The patient underwent a brain CT scan that was negative for any acute intracranial pathology. The patient was started on IV nicardipine for blood pressure control. The patient was also started on propofol and vecuronium. The patient was started on hypothermia protocol in the emergency room. The patient had a right femoral central line inserted by the ER physician in the emergency room. As per the ER physician, he spoke to the on-call cross tie maker regarding the possibility of taking the patient to label maker. However, after discussion with the on-call cross tie maker, it was deemed that the patient does not need to be taken to the label maker based on the patient's presentation, The patient was admitted to inpatient intensive care unit. Pulmonary, cardiology, and nephrology consults were called on this patient. The patient was weaned off hypothermia protocol. The patient's family wanted to continue the patient on a FULL CODE and allow the patient to recover if there was any possibilities. The patient started having seizures status post hypothermia protocol. Therefore, neurology was involved in the patient's care. The patient 's seizures were most probably secondary to underlying anoxia. The patient was maintained on anticonvulsants. The patient was also noticed to have elevated troponins. The patient's 2D echocardiogram showed preserved left ventricular ejection fraction. The patient 's elevated troponins could have been most probably secondary to underlying cardiac arrest. The patient was maintained on ventilator because of hypoxia secondary to cardiac arrest. The patient was maintained on inhaled bronchodilators. The patient was gradually weaned and the patient was extubated on 09/13/2016. Status post extubation, the patient's respiratory status was compromised. Hence, the patient was maintained on BiPAP therapy. The patient has end-stage renal disease. The patient was getting hemodialysis as per nephrology. The patient's 2D echocardiogram also showed mild pulmonary hypertension. The patient's hypertensive urgency was treated with nicardipine drip and the patient's nicardipine drip was gradually weaned off. The patient also had systemic inflammatory response syndrome upon arrival with lactic acidosis and tachycardia. Hence, the patient was started on empiric antibiotics including antibiotics for any underlying aspiration. The patient's lorenzo cultures remained negative. Hence, the patient's antibiotics were discontinued during the latter part of the patient's hospital stay. The patient needed 100% oxygen and non-invasive positive pressure ventilation, status post extubation. The patient meanwhile also had a G-tube placed as per the family's request for tube feeding. Finally, after talking to the family regarding the poor prognosis, she was made a DNR. However, the patient's family wanted reintubation in case if she needs to be mechanically ventilated. However, after further conversation with the family, the patient's family decided on making the patient a DNR and DNI. Later on 09/14/2016, the patient was made comfort care. The patient was moved to medical/surgical floor on 09/14. On 09/16/2016, the patient was noticed to have no signs of life. The patient was evaluated by the on-call nursing shelter supervisor. The patient was declared on 09/16/2016 at 1:15 a.m. The patient's family was informed. The patient's family was given a time for grieving. PERTINENT LABORATORY AND DIAGNOSTIC DATA AND PROCEDURES: 1. 2D echocardiogram with ejection fraction of 60% to 65%. Moderate concentric left ventricular hypertrophy. Estimated peak PA systolic pressure 42 mmHg. 2. Electroencephalography on a 09/07/2016, abnormal EEG because of presence of generalized bihemispheric background slowing with bilateral frontotemporal sharp which could be epileptogenic. 3. Brain CT scan on admission. No evidence of acute intracranial pathology. Mild generalized volume loss. 4. Brain MRI on 09/06/2016. Symmetric abnormal signal involving bilateral putamen and caudate nucleus, suggesting hypoxic ischemic injury. Evaluation of the cerebral cortices was very limited due to motion artifacts. No significant cerebral edema. No intracranial hemorrhage, mass effect or midline shift. 5. On 09/06/2016, left arm PICC line placement. 6. Blood culture x2 negative. 7. Stool for C. difficile negative. 8. Urine culture negative. 9. Feces culture positive for coliform. 10. Latest CBC: WBC 14.8, hemoglobin 8.6, hematocrit 27.0, and platelet count 261. 11. Latest BMP: Sodium 145, potassium 4.2, chloride 105, anion gap 19, BUN 16 , creatinine 6.16, glucose 99, calcium 8.6, phosphorus 4.1, magnesium 2.7. 13. Hemoglobin A1c 4.1. 14. Fasting lipid panel: Triglycerides 94, total cholesterol 141, LDL of 75, GFR 47. 15. On 09/12/2016, placement of PEG tube. I would like to thank all the consultants for seeing the patient, doing the necessary procedures, and providing clinical recommendations. The case and management of this patient was fully discussed with Dr. Floyd. CLEM FLOYD MD, AM/EMMA Conf#: [id number] DID#: [id number] MTDD
--- NOTE | 2016-09-17 08:46 | PN ---
DATE: PALLIATIVE CARE PROGRESS NOTE: Post-dated note. I had a conversation with family members at approximately 1800 hours. I explained to them the way w katelynn would back off on Mrs. Herbert's current level of care. I explained that we would start comfort medications and carefully titrate her off the ventilator and then after we will support her for what ever period of time she remains alive. The family members were in agreement with this and she will be moved out of the intensive care unit to a private comfortable room where family members can stay with her 24 hours/7 days. Dictated By: ORVILLE SEAY MD LP/NTS Conf#: [id number] DID#: [id number]
== END 2016-09-16 00:50 | disposition expired | DRG 207 ==
LOC: E/R 12:40 → ICU 15:45 → UNDODISIN 09-15 03:32 → PP2 09-15 03:35
PROVIDERS: ADMIT Family Medicine; ATTEND Family Medicine
PROC: 5A1955Z Respiratory Ventilation, Greater than 96 Consecutive Hours (ICD-10-PCS; principal; 2016-08-30)
PROC: 06HM33Z Insertion of Infusion Device into Right Femoral Vein, Percutaneous Approach (ICD-10-PCS; 2016-08-30)
PROC: 0BH17EZ Insertion of Endotracheal Airway into Trachea, Via Natural or Artificial Opening (ICD-10-PCS; 2016-08-30)
PROC: 5A1D60Z (ICD-10-PCS; 2016-08-31)
PROC: 02HV33Z Insertion of Infusion Device into Superior Vena Cava, Percutaneous Approach (ICD-10-PCS; 2016-09-06)
PROC: 0DH63UZ Insertion of Feeding Device into Stomach, Percutaneous Approach (ICD-10-PCS; 2016-09-12)
DX: J96.01 Acute respiratory failure with hypoxia (principal); I46.9 Cardiac arrest, cause unspecified; I21.4 Non-ST elevation (NSTEMI) myocardial infarction; G93.1 Anoxic brain damage, not elsewhere classified; I50.33 Acute on chronic diastolic (congestive) heart failure; E87.4 Mixed disorder of acid-base balance; R13.10 Dysphagia, unspecified; N18.6 End stage renal disease; R65.10 Systemic inflammatory response syndrome (SIRS) of non-infectious origin without acute organ dysfunction; I13.2 Hypertensive heart and chronic kidney disease with heart failure and with stage 5 chronic kidney disease, or end stage renal disease; E87.1 Hypo-osmolality and hyponatremia; G40.89 Other seizures; I27.2 Other secondary pulmonary hypertension; E83.9 Disorder of mineral metabolism, unspecified; E87.5 Hyperkalemia; R73.9 Hyperglycemia, unspecified; I16.0 Hypertensive urgency; E87.70 Fluid overload, unspecified; D63.1 Anemia in chronic kidney disease; R06.1 Stridor; Z99.2 Dependence on renal dialysis; Z87.01 Personal history of pneumonia (recurrent)
CPT/HCPCS: 31500; 36415; 36569; 36600; 70450; 70551; 71010; 74000; 76937; 80048; 80053; 80061; 80164; 80185; 80202; 81001; 81003; 82150; 82550; 82553; 82803; 82962; 83036; 83605; 83690; 83735; 84100; 84439; 84443; 84484; 85025; 85335; 85384; 85610; 85730; 87040; 87045; 87075; 87081; 87086; 90935; 93005; 93306; 94002; 94003; 94640; 94660; 94664; 94770; 95819; 96374; 96375; 96376; C9113; J0692; J0886; J1170; J1644; J1815; J1953; J2060; J2270; J2370; J2765; J2930; J2997; J3370; J3480; J7030; J7040; J7042; J7070; Q2009